=== PATIENT | female | born 1945 | race Caucasian/White ===

== ENCOUNTER 2017-12-25 17:29 | Outpatient (RCR) | payer MEDICARE, OTHER, SELFPAY | END 2018-01-01 23:59 | LOC: DC 17:29 | PROVIDERS: Family Provider Family Medicine; PCP Family Medicine; Visit Provider Family Medicine | DX: E11.9 Type 2 diabetes mellitus without complications (principal); Z71.3 Dietary counseling and surveillance | CPT/HCPCS: G0109 ==

== ENCOUNTER → 2021-07-17 11:52 | Outpatient (CLI) | payer MEDICARE, OTHER, SELFPAY ==
--- NOTE | 2021-07-17 11:57 | US_ITS ---
STUDY: RENAL ULTRASOUND - COMPLETE REASON FOR EXAM: Female, 75 years old. Chronic UTI. TECHNIQUE: Ultrasound evaluation of the kidneys was performed with real-time and static rosen-scale imaging. COMPARISON: None. FINDINGS: RIGHT KIDNEY: Normal location of the right kidney, which is normal in size. The right kidney measures 8.7 cm x 4.8 cm x 3.9 cm. There is a normal cortex of the right kidney. The renal cortex measures 1.0 cm. There is no right renal mass or cyst. There are no right renal calculi. There is no right hydronephrosis. DISTAL RIGHT URETER: There is non-visualization of the distal right ureter. There is no demonstrated right ureterovesical junction calculus. There is a visualized right ureteral jet. LEFT KIDNEY: Normal location of the left kidney, which is normal in size. The left kidney measures 9.7 cm x 4.1 cm x 5.1 cm. There is a normal cortex of the left kidney. The renal cortex measures 1.3 cm. There is a 2 cm x 1.9 cm x 1.2 cm cyst. There are no left renal calculi. There is no left hydronephrosis. DISTAL LEFT URETER: There is non-visualization of the distal left ureter. There is no demonstrated left ureterovesical junction calculus. There is a visualized left ureteral jet. BLADDER: The distended urinary bladder has a volume of 60 ml. There is a normal wall thickness of the distended urinary bladder. There is no demonstrated mass within the urinary bladder. There are no demonstrated bladder calculi. US/Kidney and Bladder IMPRESSION: Small left renal cyst. Electronically Signed: Alphonso Gasca MD at 15:43 EDT , Service support ,
== END ==
PROVIDERS: PCP Family Medicine Geriatric Medicine; Referring Provider Urology; Visit Provider Urology
DX: N39.0 Urinary tract infection, site not specified (principal)
CPT/HCPCS: 76770

== ENCOUNTER → 2021-10-10 16:27 | Outpatient (CLI) | payer MEDICARE, OTHER, SELFPAY ==
[2021-10-10 17:11] LABS: Absolute Lymphocyte Count 3.68 X10^3/uL (0.83-4.51); Absolute Neutrophil Count 4.2 X10^3/uL (2.0-7.7); Basophil# 0.06 X10^3/uL; Basophil% 0.7 % (0-1); Eosinophil# 0.26 X10^3/uL; Eosinophils% 2.8 % (0-5); Hematocrit 37.3 % (37-47); Hemoglobin 12.4 g/dL (12.0-15.0); Lymphocyte # 3.68 X10^3/ul (0.83-4.51); Lymphocyte % 40.1 % (19-41); Mean Corp Hgb Conc 33.2 g/dL (32-36); Mean Corpuscular Hgb 29.3 pg (27.0-32.0); Mean Corpuscular Volume 88.2 fL (81-99); Mean Platelet Vol. 8.8 fl (6.2-12.0); Monocyte# 0.92 X10^3/uL; NRBC Flagged by Analyzer 0 % (0-5); Neutrophil # 4.22 X10^3/uL (2.7-7.7); Neutrophil % 46.1 % (47-70); Platelet Count 373 K/mm3 (150-450); RBC Distribution Width CV 14.6 % (11.6-14.6); RBC Distribution Width SD 47.1 fl (35.1-43.9); Red Blood Count 4.23 M/mm3 (4.2-5.4); White Blood Count 9.2 K/mm3 (4.4-11.0)
[2021-10-10 17:58] LABS: ALB/GLOB Ratio 0.8 RATIO (0.9-2.4); AST(SGOT) 15 U/L (15-37); Alanine Aminotransfer ALT/SGPT 26 U/L (13-56); Albumin, Serum 3.4 g/dL (3.2-5.0); Alkaline Phosphatase 105 U/L (45-117); Anion Gap 8 (5-15); BUN 33 mg/dL (7-18); BUN/Creat Ratio 30.3 RATIO (10-20); Calcium,Total 8.9 mg/dL (8.5-10.1); Chloride 103 mmol/L (98-107); Creatinine, Serum 1.09 mg/dL (0.55-1.02); EST Glomerular Filtration Rate 52 mL/min (>60); Est Glom Filt Rate - Afr Amer 63 mL/min (>60); Globulin 4.1 g/dL (2.2-4.2); Glucose 126 mg/dL (74-106); Potassium 3.4 mmol/L (3.5-5.1); Protein, Total 7.5 g/dL (6.4-8.2); Sodium Level 138 mmol/L (136-145); Thyroid Stim Hormone (TSH) 0.01 uIU/mL (0.358-3.74)
== END ==
PROVIDERS: PCP Family Medicine Geriatric Medicine; Visit Provider Family Medicine Geriatric Medicine
DX: E55.9 Vitamin D deficiency, unspecified (principal); R53.83 Other fatigue
CPT/HCPCS: 36415; 80053; 82306; 84443; 85025

== ENCOUNTER 2022-01-15 13:24 | Outpatient (CLI) | payer MEDICARE, OTHER, SELFPAY ==
[2022-01-15 14:17] LABS: Absolute Lymphocyte Count 3.29 X10^3/uL (0.83-4.51); Absolute Neutrophil Count 4.7 X10^3/uL (2.0-7.7); Basophil# 0.05 X10^3/uL; Basophil% 0.6 % (0-1); Eosinophil# 0.24 X10^3/uL; Eosinophils% 2.7 % (0-5); Hematocrit 43.4 % (37-47); Hemoglobin 14.4 g/dL (12.0-15.0); Lymphocyte # 3.29 X10^3/ul (0.83-4.51); Lymphocyte % 36.8 % (19-41); Mean Corp Hgb Conc 33.2 g/dL (32-36); Mean Corpuscular Hgb 30.6 pg (27.0-32.0); Mean Corpuscular Volume 92.3 fL (81-99); Mean Platelet Vol. 9.6 fl (6.2-12.0); Monocyte# 0.66 X10^3/uL; Monocyte% 7.4 % (0-10); NRBC Flagged by Analyzer 0 % (0-5); Neutrophil # 4.68 X10^3/uL (2.7-7.7); Neutrophil % 52.2 % (47-70); Platelet Count 322 K/mm3 (150-450); RBC Distribution Width CV 14.5 % (11.6-14.6)
[2022-01-15 14:31] LABS: Vitamin D,25 Hydroxy 36.1 ng/mL
[2022-01-15 14:35] LABS: ALB/GLOB Ratio 0.8 RATIO (0.9-2.4); AST(SGOT) 32 U/L (15-37); Alanine Aminotransfer ALT/SGPT 39 U/L (13-56); Albumin, Serum 3.7 g/dL (3.2-5.0); Alkaline Phosphatase 119 U/L (45-117); Anion Gap 11 (5-15); BUN 23 mg/dL (7-18); BUN/Creat Ratio 21.9 RATIO (10-20); Calcium,Total 8.9 mg/dL (8.5-10.1); Chloride 104 mmol/L (98-107); Creatinine, Serum 1.05 mg/dL (0.55-1.02); EST Glomerular Filtration Rate 54 mL/min (>60); Est Glom Filt Rate - Afr Amer 65 mL/min (>60); Globulin 4.6 g/dL (2.2-4.2); Glucose 137 mg/dL (74-106); Potassium 4.5 mmol/L (3.5-5.1); Protein, Total 8.3 g/dL (6.4-8.2); Sodium Level 135 mmol/L (136-145); Thyroid Stim Hormone (TSH) 0.09 uIU/mL (0.358-3.74)
== END 2022-01-15 23:59 | disposition home or self-care (01) ==
LOC: POLAB3 13:26
PROVIDERS: PCP Family Medicine Geriatric Medicine; Visit Provider Family Medicine Geriatric Medicine
DX: E11.65 Type 2 diabetes mellitus with hyperglycemia (principal); E55.9 Vitamin D deficiency, unspecified; R53.83 Other fatigue
CPT/HCPCS: 36415; 80053; 82306; 84443; 85025

== ENCOUNTER 2022-03-02 13:17 | Outpatient (CLI) | payer MEDICARE, OTHER, SELFPAY ==
[2022-03-02 14:56] LABS: Thyroid Stim Hormone (TSH) 0.51 uIU/mL (0.358-3.74)
== END 2022-03-02 23:59 | disposition home or self-care (01) ==
LOC: LAB 13:21
PROVIDERS: PCP Family Medicine Geriatric Medicine; Referring Provider Family Medicine Geriatric Medicine; Visit Provider Family Medicine Geriatric Medicine
DX: E03.9 Hypothyroidism, unspecified (principal)
CPT/HCPCS: 36415; 84443

== ENCOUNTER → 2022-04-16 | Outpatient (CLI) | payer MEDICARE, OTHER, SELFPAY ==
[2022-04-16 17:31] LABS: Absolute Lymphocyte Count 3.54 X10^3/uL (0.83-4.51); Absolute Neutrophil Count 4.7 X10^3/uL (2.0-7.7); Basophil# 0.05 X10^3/uL; Basophil% 0.5 % (0-1); Eosinophil# 0.21 X10^3/uL; Eosinophils% 2.2 % (0-5); Hematocrit 40.7 % (37-47); Hemoglobin 13.4 g/dL (12.0-15.0); Lymphocyte # 3.54 X10^3/ul (0.83-4.51); Lymphocyte % 37.7 % (19-41); Mean Corp Hgb Conc 32.9 g/dL (32-36); Mean Corpuscular Hgb 30.4 pg (27.0-32.0); Mean Corpuscular Volume 92.3 fL (81-99); Mean Platelet Vol. 9.6 fl (6.2-12.0); Monocyte# 0.85 X10^3/uL; Monocyte% 9.1 % (0-10); NRBC Flagged by Analyzer 0 % (0-5); Neutrophil # 4.71 X10^3/uL (2.7-7.7); Neutrophil % 50.2 % (47-70); Platelet Count 366 K/mm3 (150-450); RBC Distribution Width CV 14.8 % (11.6-14.6); RBC Distribution Width SD 50.2 fl (35.1-43.9); Red Blood Count 4.41 M/mm3 (4.2-5.4); White Blood Count 9.4 K/mm3 (4.4-11.0)
[2022-04-16 17:42] LABS: AST(SGOT) 18 U/L (15-37); Alanine Aminotransfer ALT/SGPT 27 U/L (13-56); Albumin, Serum 3.8 g/dL (3.2-5.0); Alkaline Phosphatase 95 U/L (45-117); Anion Gap 7 (5-15); BUN 27 mg/dL (7-18); BUN/Creat Ratio 23.7 RATIO (10-20); Chloride 102 mmol/L (98-107); Creatinine, Serum 1.14 mg/dL (0.55-1.02); EST Glomerular Filtration Rate 49 mL/min (>60); Est Glom Filt Rate - Afr Amer 59 mL/min (>60); Globulin 3.9 g/dL (2.2-4.2); Glucose 113 mg/dL (74-106); Potassium 3.9 mmol/L (3.5-5.1); Protein, Total 7.7 g/dL (6.4-8.2); Sodium Level 137 mmol/L (136-145); Thyroid Stim Hormone (TSH) 0.99 uIU/mL (0.358-3.74)
== END | disposition home or self-care (01) ==
LOC: POLAB3 13:20
PROVIDERS: PCP Family Medicine Geriatric Medicine; Visit Provider Family Medicine Geriatric Medicine
DX: E11.65 Type 2 diabetes mellitus with hyperglycemia (principal); I10 Essential (primary) hypertension; E55.9 Vitamin D deficiency, unspecified
CPT/HCPCS: 36415; 80053; 84443; 85025

== ENCOUNTER → 2022-07-18 | Outpatient (CLI) | payer MEDICARE, OTHER, SELFPAY ==
[2022-07-18 12:39] LABS: Absolute Lymphocyte Count 3.05 X10^3/uL (0.83-4.51); Absolute Neutrophil Count 4.9 X10^3/uL (2.0-7.7); Basophil# 0.05 X10^3/uL; Basophil% 0.6 % (0-1); Eosinophil# 0.21 X10^3/uL; Eosinophils% 2.3 % (0-5); Hematocrit 40.7 % (37-47); Lymphocyte # 3.05 X10^3/ul (0.83-4.51); Lymphocyte % 33.6 % (19-41); Mean Corp Hgb Conc 31.9 g/dL (32-36); Mean Corpuscular Hgb 30.2 pg (27.0-32.0); Mean Corpuscular Volume 94.7 fL (81-99); Mean Platelet Vol. 9.9 fl (6.2-12.0); Monocyte# 0.81 X10^3/uL; Monocyte% 8.9 % (0-10); NRBC Flagged by Analyzer 0 % (0-5); Neutrophil # 4.94 X10^3/uL (2.7-7.7); Neutrophil % 54.3 % (47-70); Platelet Count 364 K/mm3 (150-450); RBC Distribution Width CV 14.5 % (11.6-14.6); RBC Distribution Width SD 50.2 fl (35.1-43.9); White Blood Count 9.1 K/mm3 (4.4-11.0)
[2022-07-18 13:11] LABS: Vitamin D,25 Hydroxy 30.8 ng/mL
[2022-07-18 13:48] LABS: AST(SGOT) 15 U/L (15-37); Alanine Aminotransfer ALT/SGPT 23 U/L (13-56); Albumin, Serum 3.6 g/dL (3.2-5.0); Alkaline Phosphatase 90 U/L (45-117); Anion Gap 7 (5-15); BUN 15 mg/dL (7-18); BUN/Creat Ratio 14.7 RATIO (10-20); Calcium,Total 8.2 mg/dL (8.5-10.1); Chloride 104 mmol/L (98-107); Creatinine, Serum 1.02 mg/dL (0.55-1.02); EST Glomerular Filtration Rate 56 mL/min (>60); Est Glom Filt Rate - Afr Amer 67 mL/min (>60); Globulin 3.7 g/dL (2.2-4.2); Glucose 136 mg/dL (74-106); Potassium 3.5 mmol/L (3.5-5.1); Protein, Total 7.3 g/dL (6.4-8.2); Sodium Level 137 mmol/L (136-145); Thyroid Stim Hormone (TSH) 2.35 uIU/mL (0.358-3.74)
== END | disposition home or self-care (01) ==
LOC: POLAB3 10:31
PROVIDERS: PCP Family Medicine Geriatric Medicine; Visit Provider Family Medicine Geriatric Medicine
DX: E11.65 Type 2 diabetes mellitus with hyperglycemia (principal); E55.9 Vitamin D deficiency, unspecified; R53.83 Other fatigue
CPT/HCPCS: 36415; 80053; 82306; 84443; 85025

== ENCOUNTER → 2022-10-11 | Outpatient (CLI) | payer MEDICARE, OTHER, SELFPAY ==
[2022-10-11 12:31] LABS: Absolute Lymphocyte Count 4.23 X10^3/uL (0.83-4.51); Basophil# 0.06 X10^3/uL; Basophil% 0.6 % (0-1); Eosinophil# 0.21 X10^3/uL; Hematocrit 41.6 % (37-47); Hemoglobin 13.9 g/dL (12.0-15.0); Lymphocyte # 4.23 X10^3/ul (0.83-4.51); Lymphocyte % 41.1 % (19-41); Mean Corp Hgb Conc 33.4 g/dL (32-36); Mean Corpuscular Hgb 31.2 pg (27.0-32.0); Mean Corpuscular Volume 93.3 fL (81-99); Mean Platelet Vol. 8.5 fl (6.2-12.0); Monocyte# 0.77 X10^3/uL; Monocyte% 7.5 % (0-10); NRBC Flagged by Analyzer 0 % (0-5); Neutrophil # 5.01 X10^3/uL (2.7-7.7); Neutrophil % 48.6 % (47-70); Platelet Count 370 K/mm3 (150-450); RBC Distribution Width CV 15.1 % (11.6-14.6); RBC Distribution Width SD 51.9 fl (35.1-43.9); Red Blood Count 4.46 M/mm3 (4.2-5.4); White Blood Count 10.3 K/mm3 (4.4-11.0)
[2022-10-11 13:04] LABS: Vitamin D,25 Hydroxy 33.3 ng/mL
[2022-10-11 13:10] LABS: Protein, Urine (Random) 49.5 mg/dL (<11.9); Protein:Creat Ratio 186 mg/g CRE (0-200)
[2022-10-11 13:12] LABS: AST(SGOT) 18 U/L (15-37); Alanine Aminotransfer ALT/SGPT 24 U/L (13-56); Alkaline Phosphatase 103 U/L (45-117); Anion Gap 9 (5-15); BUN 20 mg/dL (7-18); BUN/Creat Ratio 22.5 RATIO (10-20); Calcium,Total 9.3 mg/dL (8.5-10.1); Chloride 101 mmol/L (98-107); Creatinine, Serum 0.89 mg/dL (0.55-1.02); EST Glomerular Filtration Rate 65 mL/min (>60); Est Glom Filt Rate - Afr Amer 79 mL/min (>60); Globulin 4.1 g/dL (2.2-4.2); Glucose 97 mg/dL (74-106); Protein, Total 8.1 g/dL (6.4-8.2); Sodium Level 134 mmol/L (136-145); Thyroid Stim Hormone (TSH) 4.88 uIU/mL (0.358-3.74)
== END | disposition home or self-care (01) ==
PROVIDERS: Internal Medicine Nephrology; PCP Family Medicine Geriatric Medicine; Visit Provider Family Medicine Geriatric Medicine
DX: E11.65 Type 2 diabetes mellitus with hyperglycemia (principal); N18.31 Chronic kidney disease, stage 3a; I12.9 Hypertensive chronic kidney disease with stage 1 through stage 4 chronic kidney disease, or unspecified chronic kidney disease; E55.9 Vitamin D deficiency, unspecified; N39.0 Urinary tract infection, site not specified
CPT/HCPCS: 36415; 80053; 82306; 82570; 84156; 84443; 85025; 87077; 87086; 87088; 87186

== ENCOUNTER 2022-10-14 08:58 | Emergency (ER) | payer MEDICARE, OTHER, SELFPAY ==
[2022-10-14 09:02] VITALS: BP 162/96; PULSE 64; RESP 16; TEMP 36.4; O2SAT 100; BMI 32.9
--- NOTE | 2022-10-14 09:40 | EX.ED.UPPERE ---
HPI History of Present Illness Chief Complaint: Wound Informant: patient Occured/Mechanism Mechanism/Context: Yes other see comment below Comment: Her dog and a neighbors dog were fighting, she put her hand in between them to try to break it up, and sustained a laceration to her right middle finger when the dog's tooth dragged and tore open my finger Onset/Context/Timing Onset: Today Context: Sudden Onset Timing: Continuous Quality of Pain: - (Sore) Location: Right middle finger Current Severity: Mild Maximum Severity: Moderate Worsened by: Palpation Relieved by: Leaving alone Associated Symptoms Associated Symptoms: Negative for Parasthesia, Weakness or Loss of Funtion Narrative Narrative: Patient was trying to break up a fight between her dog and another. Both dogs are pets, neither one of them is ill, they were agitated because they were fighting with each other. [id number]. Tetanus Immunization: >10 years [facility] Medical History (Updated 10/14/22 @ 09:[address] Timothy Kim MD) Anxiety Hypertension Hypothyroid Home Medications atenolol 100 mg tablet 100 mg PO DAILY 09/30/13 [History Last Taken 05/13/15 07:30] hydrochlorothiazide 25 mg tablet 12.5 mg PO DAILY 09/30/13 [History Last Taken Unknown] levothyroxine 112 mcg tablet 112 mcg PO QHS 09/30/13 [History Last Taken Unknown] multivitamin,px-iayc-wzwwoieh 27 mg-0.4 mg tablet (Therems-M) 1 tab PO DAILY 09/30/13 [History Last Taken Unknown] fluoxetine 20 mg capsule 20 mg PO DAILY 05/10/15 [History Last Taken Unknown] vitamin B complex 1 ea PO DAILY 05/10/15 [History Last Taken Unknown] albuterol sulfate 90 mcg/actuation aerosol inhaler (Ventolin HFA) 1 - 2 puff inhalation Q4H PRN PRN Wheezing ##1 11/25/16 [Rx Last Taken Unknown] amoxicillin 875 mg-potassium clavulanate 125 mg tablet 875 mg PO Q12H #20 TABLETS 10/14/22 [Rx Last Taken Unknown] Allergy/AdvReac Type Severity Reaction Status Date / Time lisinopril Allergy Swelling Verified 10/14/22 09:01 atorvastatin calcium AdvReac Other Verified 10/14/22 09:01 [From Lipitor] cholestyramine AdvReac Upset Verified 10/14/22 09:01 [From Questran] Stomach duloxetine HCl AdvReac Other Verified 10/14/22 09:01 [From Cymbalta] losartan potassium AdvReac Mucosal Verified 10/14/22 09:01 [From Cozaar] lesions propoxyphene HCl AdvReac Other Verified 10/14/22 09:01 [From Darvon] simvastatin [From Zocor] AdvReac Other Verified 10/14/22 09:01 sucrose [From Questran] AdvReac Upset Verified 10/14/22 09:01 Stomach sulfasalazine AdvReac Upset Verified 10/14/22 09:01 [From Azulfidine] Stomach zolmitriptan [From Zomig] AdvReac Other Verified 10/14/22 09:01 Social History Smoking Status: Never smoker ROS ROS ED Constitutional Constitutional ED: Denies chills or fever(s) Musculoskeletal Musculoskeletal: Reports extremity pain; Denies neck pain Integumentary Reports wounds; Denies Abrasions or rash Neurologic Neurologic: Denies paresthesias or weakness EXAM Physical Exam Const Vital Signs: 10/14/22 09:02 Temperature 97.6 F L Temperature Source Temporal Pulse Rate 64 Respiratory Rate 16 Blood Pressure 162/96 H Blood Pressure Mean 118 Pulse Ox 100 Oxygen Delivery Method Room Air Positive well nourished and well developed General Appearance ED: well developed and NAD Neck full ROM and supple Back/Spine normal ROM and normal to inspection Extremity full ROM Extremity Narrative: Right middle finger laceration to the proximal phalanx. See below. Full range of motion including FDP, FDS, extensor. No bone exposed. Superficial soft tissue tenderness. Neuro oriented x3, no focal motor deficits and no sensory deficits noted Sensorium / Orientation: alert Psych mental status grossly normal and thought process normal Mood & Affect: anxious Skin Skin Narrative: 4 cm curved laceration creating a flap into subcutaneous tissue about the dorsum and radial aspect of the right middle finger proximal phalanx. No gross contamination or bleeding. Entire extensor tendon complex including the central slip is visible within the wound, and intact throughout the fingers flexion-extension range without evidence of injury. Rashes: no rashes MDM MDM MDM Narrative Medical decision making narrative: This flap wound with tendon exposed was repaired see the procedure note. It was done still fairly loosely but I wanted to also make sure that the tendon was well covered. She was placed on Augmentin, given a bulky dressing with bacitracin and instructions for follow-up for wound reevaluation and suture removal. Procedures Lacerations Right middle finger: Length: 4 cm Depth: Tendon Shape: Flap Prep: Sterile Conditions and Chlorhexadine Laceration repair: Irrigated (High-pressure, sterile saline), Lidocaine (1%, 1.5cc after topical LET), Local, Skin sutures and Wound explored (No foreign material. Tendon exposed, does not appear injured throughout its length) Irrigated (ml): 80 Number of Sutures/Kaplan: 7 Suture Information: Ethilon, Simple and 5-0 Comment: Loosely approximated, however skin edges opposed due to need for complete tendon coverage Discharge Plan Triage Chief Complaint: Wound ED Provider: Timothy Kim Dx/Rx/DC Orders Clinical Impression: Laceration of right middle finger w/o foreign body w/o damage to nail, Open wound of right middle finger due to dog bite, Immunization, tetanus-diphtheria Instructions: ED Dog Bite, ED Laceration, Hand: All Closures Prescriptions: New amoxicillin-pot clavulanate [amoxicillin-pot clavulanate] 875 MG tablet 875 mg PO Q12H Qty: 20 0RF No Action atenolol 100 MG tablet 100 mg PO DAILY hydrochlorothiazide 25 MG tablet 12.5 mg PO DAILY Label Comments: FOR HIGH BP levothyroxine 112 MCG tablet 112 mcg PO QHS multivitamin,pi-wqzu-dlmqquja [Therems-M] 1 TABLET tablet 1 tab PO DAILY fluoxetine 20 MG capsule 20 mg PO DAILY vitamin B complex 1 EACH capsule 1 ea PO DAILY albuterol sulfate [Ventolin HFA] 1 INHALER inhaler 1 - 2 puff inhalation Q4H PRN PRN (Reason: Wheezing) Qty: 1 0RF Primary Care Provider: Hussein Shaw Chi Referrals: Hussein Shaw Chi, MD [Primary Care Provider] - 10-14 Days suture removal Disposition Disposition: Home, Self Care
[2022-10-14] MEDS: Lidocaine/Epi/Tetracaine 50 ML 1 APPLIC TOPICAL (09:48)
[2022-10-14] MEDS: Diphth,Pertuss(Acell),Tet Vac 0.5 ML Vial IM (09:48)
[2022-10-14] MEDS: Amox/Clavulanate 875 MG Tablet PO (10:42)
== END 2022-10-14 10:46 | disposition home or self-care (01) ==
PROVIDERS: Emergency Provider Emergency Medicine; PCP Family Medicine Geriatric Medicine; Visit Provider Emergency Medicine
DX: S61.212A Laceration without foreign body of right middle finger without damage to nail, initial encounter (principal); W54.0XXA Bitten by dog, initial encounter; Z23 Encounter for immunization; I10 Essential (primary) hypertension; E03.9 Hypothyroidism, unspecified; F41.9 Anxiety disorder, unspecified; Z79.890 Hormone replacement therapy; Z79.899 Other long term (current) drug therapy
CPT/HCPCS: 12002; 90471; 90715; 99283

== ENCOUNTER → 2022-11-21 | Outpatient (CLI) | payer MEDICARE, OTHER, SELFPAY ==
[2022-11-21 13:54] LABS: Thyroid Stim Hormone (TSH) 3.57 uIU/mL (0.358-3.74)
== END | disposition home or self-care (01) ==
LOC: POLAB3 09:58
PROVIDERS: PCP Family Medicine Geriatric Medicine; Visit Provider Family Medicine Geriatric Medicine
DX: E03.9 Hypothyroidism, unspecified (principal)
CPT/HCPCS: 36415; 84443

== ENCOUNTER → 2023-04-05 | Outpatient (CLI) | payer MEDICARE, OTHER, SELFPAY ==
[2023-04-05 13:39] LABS: Absolute Lymphocyte Count 2.71 X10^3/uL (0.83-4.51); Absolute Neutrophil Count 5.1 X10^3/uL (2.0-7.7); Basophil# 0.06 X10^3/uL; Basophil% 0.7 % (0-1); Eosinophils% 2.3 % (0-5); Hemoglobin 12.7 g/dL (12.0-15.0); Lymphocyte # 2.71 X10^3/ul (0.83-4.51); Lymphocyte % 31.3 % (19-41); Mean Corp Hgb Conc 32.6 g/dL (32-36); Mean Corpuscular Hgb 30.9 pg (27.0-32.0); Mean Corpuscular Volume 94.9 fL (81-99); Mean Platelet Vol. 9.4 fl (6.2-12.0); Monocyte# 0.55 X10^3/uL; Monocyte% 6.3 % (0-10); NRBC Flagged by Analyzer 0 % (0-5); Neutrophil # 5.11 X10^3/uL (2.7-7.7); Neutrophil % 58.9 % (47-70); Platelet Count 343 K/mm3 (150-450); RBC Distribution Width CV 14.7 % (11.6-14.6); RBC Distribution Width SD 51.4 fl (35.1-43.9); Red Blood Count 4.11 M/mm3 (4.2-5.4); White Blood Count 8.7 K/mm3 (4.4-11.0)
[2023-04-05 13:46] LABS: Vitamin D,25 Hydroxy 42.5 ng/mL
[2023-04-05 13:55] LABS: ALB/GLOB Ratio 1.1 RATIO (0.9-2.4); AST(SGOT) 14 U/L (15-37); Alanine Aminotransfer ALT/SGPT 26 U/L (13-56); Albumin, Serum 3.7 g/dL (3.2-5.0); Alkaline Phosphatase 89 U/L (45-117); Anion Gap 8 (5-15); BUN 23 mg/dL (7-18); Calcium,Total 8.5 mg/dL (8.5-10.1); Chloride 105 mmol/L (98-107); Creatinine, Serum 1.21 mg/dL (0.55-1.02); EST Glomerular Filtration Rate 46 mL/min (>60); Est Glom Filt Rate - Afr Amer 55 mL/min (>60); Globulin 3.4 g/dL (2.2-4.2); Glucose 175 mg/dL (74-106); Potassium 3.7 mmol/L (3.5-5.1); Protein, Total 7.1 g/dL (6.4-8.2); Sodium Level 136 mmol/L (136-145); Thyroid Stim Hormone (TSH) 9.07 uIU/mL (0.358-3.74)
== END | disposition home or self-care (01) ==
LOC: POLAB3 10:49
PROVIDERS: PCP Family Medicine Geriatric Medicine; Visit Provider Family Medicine Geriatric Medicine
DX: I10 Essential (primary) hypertension (principal); E11.65 Type 2 diabetes mellitus with hyperglycemia; E55.9 Vitamin D deficiency, unspecified
CPT/HCPCS: 36415; 80053; 82306; 84443; 85025; 87086; 87088; 87186

== ENCOUNTER → 2023-05-27 | Outpatient (CLI) | payer MEDICARE, OTHER, SELFPAY ==
[2023-05-27 11:34] LABS: Thyroid Stim Hormone (TSH) 2.67 uIU/mL (0.358-3.74)
== END | disposition home or self-care (01) ==
LOC: LAB 10:24
PROVIDERS: PCP Family Medicine Geriatric Medicine; Referring Provider Family Medicine Geriatric Medicine; Visit Provider Family Medicine Geriatric Medicine
DX: E03.9 Hypothyroidism, unspecified (principal)
CPT/HCPCS: 36415; 84443

== ENCOUNTER → 2023-06-21 | Outpatient (CLI) | payer MEDICARE, OTHER, SELFPAY ==
[2023-06-21 12:38] LABS: Albumin, Serum 3.4 g/dL (3.2-5.0); BUN 21 mg/dL (7-18); BUN/Creat Ratio 19.3 RATIO (10-20); Calcium,Total 8.4 mg/dL (8.5-10.1); Chloride 104 mmol/L (98-107); Creatinine, Serum 1.09 mg/dL (0.55-1.02); EST Glomerular Filtration Rate 52 mL/min (>60); Est Glom Filt Rate - Afr Amer 62 mL/min (>60); Glucose 159 mg/dL (74-106); Phosphorus 2.8 mg/dL (2.5-4.9); Potassium 3.4 mmol/L (3.5-5.1); Sodium Level 137 mmol/L (136-145)
[2023-06-22 10:28] LABS: Protein, Urine (Random) 30.6 mg/dL (<11.9); Protein:Creat Ratio 543 mg/g CRE (0-200)
== END | disposition home or self-care (01) ==
LOC: LAB 11:15
PROVIDERS: PCP Family Medicine Geriatric Medicine; Referring Provider Internal Medicine Nephrology; Visit Provider Internal Medicine Nephrology
DX: N18.31 Chronic kidney disease, stage 3a (principal); R80.9 Proteinuria, unspecified
CPT/HCPCS: 36415; 80069; 82570; 84156

== ENCOUNTER → 2023-06-22 | Outpatient (CLI) | payer MEDICARE, OTHER, SELFPAY | END | disposition home or self-care (01) | LOC: LAB 09:48 | PROVIDERS: PCP Family Medicine Geriatric Medicine; Referring Provider Internal Medicine Nephrology; Visit Provider Internal Medicine Nephrology | DX: N18.31 Chronic kidney disease, stage 3a (principal); R80.9 Proteinuria, unspecified ==

== ENCOUNTER → 2023-10-21 | Outpatient (CLI) | payer MEDICARE, OTHER, SELFPAY ==
[2023-10-21 11:17] LABS: Absolute Lymphocyte Count 2.84 X10^3/uL (0.83-4.51); Absolute Neutrophil Count 6.4 X10^3/uL (2.0-7.7); Basophil# 0.07 X10^3/uL; Basophil% 0.7 % (0-1); Eosinophil# 0.29 X10^3/uL; Eosinophils% 2.8 % (0-5); Hematocrit 41.1 % (37-47); Hemoglobin 13.4 g/dL (12.0-15.0); Lymphocyte # 2.84 X10^3/ul (0.83-4.51); Lymphocyte % 27.3 % (19-41); Mean Corp Hgb Conc 32.6 g/dL (32-36); Mean Corpuscular Hgb 30.9 pg (27.0-32.0); Mean Corpuscular Volume 94.7 fL (81-99); Mean Platelet Vol. 9.1 fl (6.2-12.0); Monocyte# 0.74 X10^3/uL; Monocyte% 7.1 % (0-10); NRBC Flagged by Analyzer 0 % (0-5); Neutrophil # 6.44 X10^3/uL (2.7-7.7); Neutrophil % 61.7 % (47-70); Platelet Count 394 K/mm3 (150-450); RBC Distribution Width CV 14.4 % (11.6-14.6); RBC Distribution Width SD 50.2 fl (35.1-43.9); Red Blood Count 4.34 M/mm3 (4.2-5.4); White Blood Count 10.4 K/mm3 (4.4-11.0)
[2023-10-21 11:31] LABS: Vitamin D,25 Hydroxy 37.2 ng/mL
[2023-10-21 11:42] LABS: ALB/GLOB Ratio 0.9 RATIO (0.9-2.4); AST(SGOT) 17 U/L (15-37); Alanine Aminotransfer ALT/SGPT 25 U/L (13-56); Albumin, Serum 3.5 g/dL (3.2-5.0); Alkaline Phosphatase 102 U/L (45-117); Anion Gap 6 (5-15); BUN 23 mg/dL (7-18); BUN/Creat Ratio 19.3 RATIO (10-20); Calcium,Total 8.5 mg/dL (8.5-10.1); Chloride 104 mmol/L (98-107); Creatinine, Serum 1.19 mg/dL (0.55-1.02); EST Glomerular Filtration Rate 47 mL/min (>60); Est Glom Filt Rate - Afr Amer 56 mL/min (>60); Glucose 176 mg/dL (74-106); Potassium 3.9 mmol/L (3.5-5.1); Protein, Total 7.5 g/dL (6.4-8.2); Sodium Level 136 mmol/L (136-145); Thyroid Stim Hormone (TSH) 1.51 uIU/mL (0.358-3.74)
== END | disposition home or self-care (01) ==
LOC: POLAB3 10:28
PROVIDERS: PCP Family Medicine Geriatric Medicine; Visit Provider Family Medicine Geriatric Medicine
DX: I10 Essential (primary) hypertension (principal); E11.65 Type 2 diabetes mellitus with hyperglycemia; E55.9 Vitamin D deficiency, unspecified
CPT/HCPCS: 36415; 80053; 82306; 84443; 85025

== ENCOUNTER → 2024-04-22 | Outpatient (CLI) | payer MEDICARE, OTHER, SELFPAY ==
[2024-04-22 15:04] LABS: Absolute Lymphocyte Count 2.88 X10^3/uL (0.83-4.51); Absolute Neutrophil Count 5.1 X10^3/uL (2.0-7.7); Basophil# 0.06 X10^3/uL; Basophil% 0.7 % (0-1); Eosinophil# 0.33 X10^3/uL; Eosinophils% 3.6 % (0-5); Hematocrit 40.4 % (37-47); Hemoglobin 12.9 g/dL (12.0-15.0); Lymphocyte # 2.88 X10^3/ul (0.83-4.51); Lymphocyte % 31.7 % (19-41); Mean Corp Hgb Conc 31.9 g/dL (32-36); Mean Corpuscular Hgb 29.5 pg (27.0-32.0); Mean Corpuscular Volume 92.2 fL (81-99); Mean Platelet Vol. 8.9 fl (6.2-12.0); Monocyte# 0.68 X10^3/uL; Monocyte% 7.5 % (0-10); NRBC Flagged by Analyzer 0 % (0-5); Neutrophil # 5.07 X10^3/uL (2.7-7.7); Neutrophil % 55.8 % (47-70); Platelet Count 366 K/mm3 (150-450); RBC Distribution Width CV 14.8 % (11.6-14.6); RBC Distribution Width SD 50.4 fl (35.1-43.9); Red Blood Count 4.38 M/mm3 (4.2-5.4); White Blood Count 9.1 K/mm3 (4.4-11.0)
[2024-04-22 15:38] LABS: Vitamin D,25 Hydroxy 36.1 ng/mL
[2024-04-22 15:44] LABS: ALB/GLOB Ratio 0.9 RATIO (0.9-2.4); AST(SGOT) 17 U/L (15-37); Alanine Aminotransfer ALT/SGPT 22 U/L (13-56); Albumin, Serum 3.5 g/dL (3.2-5.0); Alkaline Phosphatase 97 U/L (45-117); Anion Gap 8 (5-15); BUN 18 mg/dL (7-18); BUN/Creat Ratio 16.2 RATIO (10-20); Calcium,Total 8.9 mg/dL (8.5-10.1); Chloride 105 mmol/L (98-107); Creatinine, Serum 1.11 mg/dL (0.55-1.02); EST Glomerular Filtration Rate 50 mL/min (>60); Est Glom Filt Rate - Afr Amer 61 mL/min (>60); Globulin 3.9 g/dL (2.2-4.2); Glucose 135 mg/dL (74-106); Potassium 4.1 mmol/L (3.5-5.1); Protein, Total 7.4 g/dL (6.4-8.2); Sodium Level 135 mmol/L (136-145)
== END | disposition home or self-care (01) ==
LOC: LAB 14:20
PROVIDERS: PCP Family Medicine Geriatric Medicine; Referring Provider Family Medicine Geriatric Medicine; Visit Provider Family Medicine Geriatric Medicine
DX: E11.65 Type 2 diabetes mellitus with hyperglycemia (principal); I10 Essential (primary) hypertension; E55.9 Vitamin D deficiency, unspecified
CPT/HCPCS: 36415; 80053; 82306; 84443; 85025

== ENCOUNTER → 2024-05-01 | Outpatient (CLI) | payer MEDICARE, OTHER, SELFPAY | END | disposition home or self-care (01) | LOC: PSN 10:34 | PROVIDERS: PCP Family Medicine Geriatric Medicine; Referring Provider Family Medicine Geriatric Medicine; Visit Provider Family Medicine Geriatric Medicine | DX: R06.02 Shortness of breath (principal) | CPT/HCPCS: 94060 ==

== ENCOUNTER → 2024-05-25 | Outpatient (CLI) | payer MEDICARE, OTHER, SELFPAY ==
--- NOTE | 2024-05-25 12:47 | ECHOD_ITS ---
Reason For Study: SOB Procedure This was a 2D Doppler, Color Flow transthoracic echocardiogram. Exam performed in department. Left Ventricle Normal LV size. Mild concentric left ventricular hypertrophy. The left ventricular ejection fraction is 65 %. Normal diastology for age. Right Ventricle Normal right ventricle. Atria The left atrium is moderately enlarged. Normal right atrium. Mitral Valve Moderate (2+) mitral valve insufficiency. Tricuspid Valve Trivial tricuspid valve insufficiency. Unable to estimate RV systolic pressure due to insufficient tricuspid regurgitant envelope. Aortic Valve Mild aortic valve stenosis with mild regurgitation. Pulmonic Valve The pulmonic valve is not well visualized. Trivial pulmonic valve insufficiency. Great Vessels Normal sized aortic root. Pericardium/Pleural No pericardial effusion. MMode/2D Measurements & Calculations LVIDd: 4.7 cm IVSd: 1.3 cm LVOT diam: 1.9 cm LVIDs: 3.2 cm LVPWd: 1.1 cm LVOT area: 2.7 cm2 RVDd: 3.1 cm FS: 32.6 % Ao root diam: 2.9 cm LAV(MOD-bp): 58.7 ml LVAd ap4: 23.2 cm2 LAV(MOD-bp) Indexed: 30.5 ml/m2 LVLd ap4: 7.3 cm LAV(MOD-sp2): 65.0 ml EDV(MOD-sp4): 63.6 ml LAV(MOD-sp4): 51.5 ml EDV(sp4-el): 62.3 ml LVAs ap4: 12.8 cm2 LVLs ap4: 6.0 cm ESV(MOD-sp4): 25.3 ml ESV(sp4-el): 23.2 ml EF(MOD-sp4): 60.3 % EF(sp4-el): 62.8 % SV(MOD-sp4): 38.3 ml SV(sp4-el): 39.1 ml LA A4 area: 18.2 cm2 LA dimension(2D): 4.5 cm RA A4 area: 13.3 cm2 TAPSE: 2.1 cm Time Measurements MV dec time: 0.23 sec Doppler Measurements & Calculations MV E max dustin: 79.3 cm/sec Lat Peak E' Dustin: 7.3 cm/sec Med Peak E' Dustin: 5.7 cm/sec MV A max dustin: 95.3 cm/sec E/E' lat: 10.8 E/E' med: 13.9 MV E/A: 0.83 MV V2 max: 101.0 cm/sec Ao V2 max: 237.2 cm/sec MV max P.1 mmHg MV dec slope: 342.3 cm/sec2 Ao max P.5 mmHg MV V2 mean: 63.6 cm/sec Ao V2 mean: 160.3 cm/sec MV mean P.9 mmHg Ao mean P.2 mmHg MV V2 VTI: 36.8 cm Ao V2 VTI: 71.8 cm AV (velocity ratio): 0.67 MVA(VTI): 3.5 cm2 FLORENCE(I,D): 1.8 cm2 FLORENCE(V,D): 2.0 cm2 AI max dustin: 416.4 cm/sec LV V1 max: 172.4 cm/sec SV(LVOT): 130.6 ml AI max P.3 mmHg LV V1 max P.9 mmHg LV V1 mean P.4 mmHg AI dec slope: 262.9 cm/sec2 LV V1 mean: 129.1 cm/sec AI P1/2t: 463.9 msec LV V1 VTI: 48.1 cm PA V2 max: 95.6 cm/sec PA V2 mean: 66.2 cm/sec ECHO/Echo Complete Interpretation Summary Mild concentric left ventricular hypertrophy. The left ventricular ejection fraction is 65 %. The left atrium is moderately enlarged. Moderate (2+) mitral valve insufficiency. Mild aortic valve stenosis with mild regurgitation. Ordering Physician: Hussein Shaw Chi Referring Physician: Hussein Shaw Chi Performed By: Sharri Whittington RCS
== END | disposition home or self-care (01) ==
PROVIDERS: PCP Family Medicine Geriatric Medicine; Referring Provider Family Medicine Geriatric Medicine; Visit Provider Family Medicine Geriatric Medicine
DX: R06.02 Shortness of breath (principal)
CPT/HCPCS: 93306

== ENCOUNTER → 2024-07-15 | Outpatient (CLI) | payer MEDICARE, OTHER, SELFPAY ==
[2024-07-15 11:12] LABS: Albumin, Serum 3.3 g/dL (3.2-5.0); BUN 16 mg/dL (7-18); BUN/Creat Ratio 16.3 RATIO (10-20); Calcium,Total 8.8 mg/dL (8.5-10.1); Chloride 102 mmol/L (98-107); Creatinine, Serum 0.98 mg/dL (0.55-1.02); EST Glomerular Filtration Rate 58 mL/min (>60); Est Glom Filt Rate - Afr Amer 70 mL/min (>60); Glucose 164 mg/dL (74-106); Potassium 3.8 mmol/L (3.5-5.1); Sodium Level 135 mmol/L (136-145)
[2024-07-15 11:38] LABS: Protein, Urine (Random) 75.6 mg/dL (<11.9); Protein:Creat Ratio 595 mg/g CRE (0-200)
== END | disposition home or self-care (01) ==
PROVIDERS: PCP Family Medicine Geriatric Medicine; Referring Provider Internal Medicine Nephrology; Visit Provider Internal Medicine Nephrology
DX: N18.31 Chronic kidney disease, stage 3a (principal); R80.9 Proteinuria, unspecified
CPT/HCPCS: 36415; 80069; 82570; 84156

== ENCOUNTER → 2024-07-29 | Outpatient (CLI) | payer MEDICARE, OTHER, SELFPAY ==
--- NOTE | 2024-07-29 12:46 | STRESSREP ---
Stress Test Report Date: 07/29/2024 Procedure: Pharmacologic stress nuclear imaging study Indications: Dyspnea Consent: Per the patient Procedure: The patient underwent pharmacologic (Regadenoson 0.4mg ) evaluation with a peak heart rate of 73 beats per minute (53%predicted maximal heart rate) and a peak blood pressure of 142/84 mmHg. The baseline ECG demonstrated sinus rhythm with left bundle branch block. The peak pharmacologic ECG demonstrated no diagnostic changes. There were no cardiac dysrhythmias pretest, during pharmacologic infusion, or recovery. There was no complaint of chest discomfort during pharmacologic infusion or recovery. The patient was injected with 11.7 millicuries of technetium 99m Cardiolite and subsequently rest SPECT Cardiolite nuclear imaging was obtained in the horizontal long, vertical long, and short axis views. The patient underwent pharmacologic (Regadenoson) evaluation. The patient was injected with 33.9 millicuries of technetium 99m Cardiolite and subsequently stress SPECT Cardiolite nuclear imaging was obtained in the horizontal long, vertical long, and short axis views. A gated Cardiolite study at peak stress was obtained. The examination was stopped secondary to completion of protocol. Rest and stress SPECT Cardiolite nuclear imaging status post realignment, normalization, and attenuation correction demonstrate no fixed or reversible perfusion defects. There is end systolic thickening and brightening. The gated Cardiolite study demonstrates myocardial thickening and inward wall motion. The reported LVEF is 65%. Impression: 1. Pharmacologic (Regadenoson) evaluation 2. Peak pharmacologic ECG with no diagnostic changes. 3. There were no cardiac dysrhythmias pretest, during pharmacologic infusion, or recovery. 5. Rest and stress SPECT Cardiolite nuclear imaging demonstrate relative uniform tracer uptake and myocardial perfusion appearing within normal limits. 6. The gated Cardiolite study reports an LVEF of 65%. This note was generated with [employer]-sensing[employer] software. It may contain incorrect words, spelling, and punctuation that were not noted in checking the note before signing.
== END | disposition home or self-care (01) ==
PROVIDERS: PCP Family Medicine Geriatric Medicine; Referring Provider Internal Medicine Cardiovascular Disease; Visit Provider Internal Medicine Cardiovascular Disease
DX: I51.7 Cardiomegaly (principal); I10 Essential (primary) hypertension; E78.5 Hyperlipidemia, unspecified; R06.02 Shortness of breath
CPT/HCPCS: 78452; 93017; A9500; A4216; J2785

== ENCOUNTER → 2024-07-31 | Outpatient (CLI) | payer MEDICARE, OTHER, SELFPAY ==
[2024-07-31 10:05] LABS: Anion Gap 10 (5-15); BUN 25 mg/dL (7-18); BUN/Creat Ratio 20.7 RATIO (10-20); Chloride 98 mmol/L (98-107); Creatinine, Serum 1.21 mg/dL (0.55-1.02); EST Glomerular Filtration Rate 46 mL/min (>60); Est Glom Filt Rate - Afr Amer 55 mL/min (>60); Glucose 157 mg/dL (74-106); Potassium 3.3 mmol/L (3.5-5.1); Sodium Level 132 mmol/L (136-145)
== END | disposition home or self-care (01) ==
LOC: LAB 09:04
PROVIDERS: PCP Family Medicine Geriatric Medicine; Referring Provider Internal Medicine Cardiovascular Disease; Visit Provider Internal Medicine Cardiovascular Disease
DX: R06.02 Shortness of breath (principal); N18.31 Chronic kidney disease, stage 3a; I12.9 Hypertensive chronic kidney disease with stage 1 through stage 4 chronic kidney disease, or unspecified chronic kidney disease
CPT/HCPCS: 36415; 80048

== ENCOUNTER → 2024-08-05 | Outpatient (CLI) | payer MEDICARE, OTHER, SELFPAY ==
[2024-08-05 14:55] LABS: Absolute Lymphocyte Count 3.05 X10^3/uL (0.83-4.51); Basophil# 0.06 X10^3/uL; Basophil% 0.6 % (0-1); Eosinophil# 0.19 X10^3/uL; Eosinophils% 1.9 % (0-5); Hematocrit 38.7 % (37-47); Hemoglobin 12.7 g/dL (12.0-15.0); Lymphocyte # 3.05 X10^3/ul (0.83-4.51); Lymphocyte % 29.9 % (19-41); Mean Corp Hgb Conc 32.8 g/dL (32-36); Mean Corpuscular Hgb 30.2 pg (27.0-32.0); Mean Corpuscular Volume 91.9 fL (81-99); Mean Platelet Vol. 8.2 fl (6.2-12.0); Monocyte# 0.91 X10^3/uL; Monocyte% 8.9 % (0-10); NRBC Flagged by Analyzer 0 % (0-5); Neutrophil # 5.95 X10^3/uL (2.7-7.7); Neutrophil % 58.4 % (47-70); Platelet Count 366 K/mm3 (150-450); RBC Distribution Width CV 15.3 % (11.6-14.6); RBC Distribution Width SD 51.7 fl (35.1-43.9); Red Blood Count 4.21 M/mm3 (4.2-5.4); White Blood Count 10.2 K/mm3 (4.4-11.0)
[2024-08-05 16:02] LABS: ALB/GLOB Ratio 0.9 RATIO (0.9-2.4); AST(SGOT) 24 U/L (15-37); Alanine Aminotransfer ALT/SGPT 38 U/L (13-56); Albumin, Serum 3.4 g/dL (3.2-5.0); Alkaline Phosphatase 86 U/L (45-117); Anion Gap 9 (5-15); BUN 26 mg/dL (7-18); BUN/Creat Ratio 22.8 RATIO (10-20); Calcium,Total 9.1 mg/dL (8.5-10.1); Chloride 100 mmol/L (98-107); Creatinine, Serum 1.14 mg/dL (0.55-1.02); EST Glomerular Filtration Rate 49 mL/min (>60); Est Glom Filt Rate - Afr Amer 59 mL/min (>60); Globulin 3.9 g/dL (2.2-4.2); Glucose 137 mg/dL (74-106); Potassium 3.7 mmol/L (3.5-5.1); Protein, Total 7.3 g/dL (6.4-8.2); Sodium Level 134 mmol/L (136-145)
== END | disposition home or self-care (01) ==
LOC: POLAB3 14:37
PROVIDERS: PCP Family Medicine Geriatric Medicine; Visit Provider Family Medicine Geriatric Medicine
DX: N39.0 Urinary tract infection, site not specified (principal); I10 Essential (primary) hypertension
CPT/HCPCS: 36415; 80053; 85025; 87077; 87086; 87088; 87186; 87631

== ENCOUNTER 2024-08-06 10:12 | Outpatient (CLI) | payer MEDICARE, OTHER, SELFPAY ==
[2024-08-06 10:31] VITALS: BP 146/58; PULSE 72; RESP 18; TEMP 36; O2SAT 97; BMI 31.0
[2024-08-06] MEDS: 0.9% NaCl Peripheral Flush Adult/Peds IV (10:45)
[2024-08-06] MEDS: 0.9% Normal Saline (1000mL) 1,000 ML 999 ML IV ×2 (10:53→11:55)
== END 2024-08-06 23:59 | disposition home or self-care (01) ==
LOC: MEDOUTP 10:14
PROVIDERS: PCP Family Medicine Geriatric Medicine; Referring Provider Family Medicine Geriatric Medicine; Visit Provider Family Medicine Geriatric Medicine
DX: E86.0 Dehydration (principal)
CPT/HCPCS: 96360; 96361; J7030; A4216

== ENCOUNTER → 2024-08-10 | Outpatient (CLI) | payer MEDICARE, OTHER, SELFPAY ==
[2024-08-10 12:27] LABS: Absolute Lymphocyte Count 2.66 X10^3/uL (0.83-4.51); Absolute Neutrophil Count 6.1 X10^3/uL (2.0-7.7); Basophil# 0.06 X10^3/uL; Basophil% 0.6 % (0-1); Eosinophil# 0.15 X10^3/uL; Eosinophils% 1.5 % (0-5); Hematocrit 43.1 % (37-47); Hemoglobin 13.7 g/dL (12.0-15.0); Lymphocyte # 2.66 X10^3/ul (0.83-4.51); Lymphocyte % 27.1 % (19-41); Mean Corp Hgb Conc 31.8 g/dL (32-36); Mean Corpuscular Hgb 30.2 pg (27.0-32.0); Mean Corpuscular Volume 94.9 fL (81-99); Mean Platelet Vol. 8.5 fl (6.2-12.0); Monocyte# 0.77 X10^3/uL; Monocyte% 7.8 % (0-10); NRBC Flagged by Analyzer 0 % (0-5); Neutrophil # 6.13 X10^3/uL (2.7-7.7); Neutrophil % 62.6 % (47-70); Platelet Count 320 K/mm3 (150-450); RBC Distribution Width CV 15.9 % (11.6-14.6); RBC Distribution Width SD 55.4 fl (35.1-43.9); Red Blood Count 4.54 M/mm3 (4.2-5.4); White Blood Count 9.8 K/mm3 (4.4-11.0)
[2024-08-10 12:39] LABS: D-Dimer Quantitative (DVT/PE) 0.38 FEU/ug/m (0.27-0.49)
--- NOTE | 2024-08-10 12:45 | RAD_ITS ---
EXAM: XR CHEST, 2 VIEWS CLINICAL INDICATION: SOB TECHNIQUE: Frontal and lateral views of the chest. COMPARISON: June 12, 2017, November 25, 2016. FINDINGS: LUNGS AND PLEURAL SPACES: Unremarkable. No consolidation or edema. No pneumothorax. No effusion. HEART: Unremarkable. Cardiac silhouette not enlarged. MEDIASTINUM: Central airways and mediastinal contour are unremarkable. BONES/JOINTS: Unremarkable. No acute fracture. SOFT TISSUES: Unremarkable. UPPER ABDOMEN: Again noted are surgical clips over the cervicothoracic midline and cholecystectomy clips. RAD/Chest PA and Lateral IMPRESSION: No acute findings in the chest. Electronically Signed: Kandice Bustamante MD at 18:13 EDT ,
[2024-08-10 13:08] LABS: BNP,B-Type NATRIURETIC PEPTIDE 67.7 pg/mL (0-100)
[2024-08-10 13:09] LABS: ALB/GLOB Ratio 0.9 RATIO (0.9-2.4); AST(SGOT) 22 U/L (15-37); Alanine Aminotransfer ALT/SGPT 38 U/L (13-56); Albumin, Serum 3.5 g/dL (3.2-5.0); Alkaline Phosphatase 84 U/L (45-117); Anion Gap 8 (5-15); BUN 19 mg/dL (7-18); BUN/Creat Ratio 15.4 RATIO (10-20); Calcium,Total 9.5 mg/dL (8.5-10.1); Chloride 102 mmol/L (98-107); Creatinine, Serum 1.23 mg/dL (0.55-1.02); EST Glomerular Filtration Rate 45 mL/min (>60); Est Glom Filt Rate - Afr Amer 54 mL/min (>60); Globulin 4.1 g/dL (2.2-4.2); Glucose 161 mg/dL (74-106); Protein, Total 7.6 g/dL (6.4-8.2); Sodium Level 135 mmol/L (136-145)
== END | disposition home or self-care (01) ==
PROVIDERS: PCP Family Medicine Geriatric Medicine; Referring Provider Family Medicine Geriatric Medicine; Visit Provider Family Medicine Geriatric Medicine
DX: R06.02 Shortness of breath (principal); I10 Essential (primary) hypertension
CPT/HCPCS: 36415; 71046; 80053; 83880; 85025; 85379

== ENCOUNTER → 2024-09-11 | Outpatient (CLI) | payer MEDICARE, OTHER, SELFPAY | END | disposition home or self-care (01) | PROVIDERS: PCP Family Medicine Geriatric Medicine; Referring Provider Physician Assistant Surgical; Visit Provider Physician Assistant Surgical | DX: R30.0 Dysuria (principal) | CPT/HCPCS: 87077; 87086; 87088; 87186 ==

== ENCOUNTER → 2024-09-21 | Outpatient (CLI) | payer MEDICARE, OTHER, SELFPAY ==
[2024-09-21 17:03] LABS: Absolute Lymphocyte Count 2.68 X10^3/uL (0.83-4.51); Absolute Neutrophil Count 5.2 X10^3/uL (2.0-7.7); Basophil# 0.05 X10^3/uL; Basophil% 0.6 % (0-1); Eosinophil# 0.21 X10^3/uL; Eosinophils% 2.3 % (0-5); Hematocrit 35.9 % (37-47); Hemoglobin 11.8 g/dL (12.0-15.0); Lymphocyte # 2.68 X10^3/ul (0.83-4.51); Lymphocyte % 29.8 % (19-41); Mean Corp Hgb Conc 32.9 g/dL (32-36); Mean Corpuscular Hgb 30.6 pg (27.0-32.0); Mean Platelet Vol. 8.3 fl (6.2-12.0); Monocyte# 0.83 X10^3/uL; Monocyte% 9.2 % (0-10); NRBC Flagged by Analyzer 0 % (0-5); Neutrophil # 5.19 X10^3/uL (2.7-7.7); Neutrophil % 57.8 % (47-70); Platelet Count 322 K/mm3 (150-450); RBC Distribution Width CV 15.1 % (11.6-14.6); Red Blood Count 3.86 M/mm3 (4.2-5.4)
[2024-09-21 18:09] LABS: ALB/GLOB Ratio 0.9 RATIO (0.9-2.4); AST(SGOT) 17 U/L (15-37); Alanine Aminotransfer ALT/SGPT 23 U/L (13-56); Albumin, Serum 3.2 g/dL (3.2-5.0); Alkaline Phosphatase 75 U/L (45-117); Anion Gap 5 (5-15); BUN 18 mg/dL (7-18); BUN/Creat Ratio 20.7 RATIO (10-20); Calcium,Total 8.7 mg/dL (8.5-10.1); Chloride 106 mmol/L (98-107); Creatinine, Serum 0.87 mg/dL (0.55-1.02); EST Glomerular Filtration Rate 67 mL/min (>60); Est Glom Filt Rate - Afr Amer 81 mL/min (>60); Globulin 3.4 g/dL (2.2-4.2); Glucose 136 mg/dL (74-106); Magnesium 2.3 mg/dL (1.6-2.6); Potassium 4.1 mmol/L (3.5-5.1); Protein, Total 6.6 g/dL (6.4-8.2); Sodium Level 135 mmol/L (136-145); T4 Free Direct 1.03 ng/dL (0.76-1.46); Thyroid Stim Hormone (TSH) 0.339 uIU/mL (0.358-3.740)
== END | disposition home or self-care (01) ==
LOC: LAB 16:50
PROVIDERS: PCP Family Medicine Geriatric Medicine; Referring Provider Nurse Practitioner Family; Visit Provider Nurse Practitioner Family
DX: R94.31 Abnormal electrocardiogram [ECG] [EKG] (principal); I49.3 Ventricular premature depolarization; E03.9 Hypothyroidism, unspecified; R06.00 Dyspnea, unspecified
CPT/HCPCS: 36415; 80053; 83735; 83880; 84439; 84443; 85025

== ENCOUNTER → 2024-10-13 | Outpatient (CLI) | payer MEDICARE, OTHER, SELFPAY | END | disposition home or self-care (01) | PROVIDERS: PCP Family Medicine Geriatric Medicine; Referring Provider Nurse Practitioner Family; Visit Provider Nurse Practitioner Family | DX: R68.83 Chills (without fever) (principal); R94.31 Abnormal electrocardiogram [ECG] [EKG]; I49.3 Ventricular premature depolarization | CPT/HCPCS: 87631; 93225; 93226 ==

== ENCOUNTER 2024-10-21 04:56 | Emergency (ER) | payer MEDICARE, OTHER, SELFPAY ==
[2024-10-21 04:57] VITALS: BP 192/61; PULSE 66; RESP 18; TEMP 36.7; O2SAT 99; BMI 70.4
[2024-10-21 05:07] VITALS: BP 192/61; PULSE 66; RESP 20; TEMP 36.7; O2SAT 98; O2SAT 99
--- NOTE | 2024-10-21 05:50 | RAD_ITS ---
EXAM: XR CHEST, 2 VIEWS CLINICAL INDICATION: DYSPNEA TECHNIQUE: Frontal and lateral views of the chest. COMPARISON: Previous chest radiographs of 08/10/2024 and 06/12/2017. FINDINGS: LUNGS AND PLEURAL SPACES: Unremarkable. No consolidation or edema. No pneumothorax. No effusion. HEART: Unremarkable. Cardiac silhouette not enlarged. Normal pulmonary vasculature. MEDIASTINUM: Calcific aortic knob. No mediastinal widening. Trachea is midline. Numerous surgical clips are again noted in the region of the thyroid gland. BONES/JOINTS: Mild thoracic degenerative spurring. No acute osseous abnormality. SOFT TISSUES: Unremarkable. UPPER ABDOMEN: Cholecystectomy clips are again noted. A 10 x 5 mm ovoid calcification is projected within the left mid abdomen, lateral to the mid lumbar spine, consistent with a renal stone which has developed since the prior radiographs. Visualized abdominal aorta is calcific and is normal in caliber.. RAD/Chest PA and Lateral IMPRESSION: No acute findings in the chest. 10 x 5 mm left renal calculus. Electronically Signed: Adonis Rincon MD at 7:27 EST ,
[2024-10-21 06:00] VITALS: BP 163/61; PULSE 61; RESP 12; TEMP 36.8; O2SAT 99
[2024-10-21] MEDS: diazePAM 5 MG Tablet 2.5 MG PO (06:06)
[2024-10-21] MEDS: Benzonatate 100 MG Capsule PO (06:06)
--- NOTE | 2024-10-21 06:28 | EDS_ITS ---
HPI History of Present Illness Chief Complaint: Shortness of Breath Informant: patient and EMS Narrative Narrative: Patient is an 79-year-old female from home with past medical history of hypertension hyperlipidemia type 2 diabetes and fibromyalgia. She states for almost a month she has had congestion and cough. She states she has had multiple COVID test which have been negative and she has seen her doctor who recently placed her on doxycycline which she just finished yesterday. She states she continues to have drainage and cough and she feels increased shortness of breath especially while trying to sleep and therefore comes in for evaluation [facility] Medical History Anxiety CKD stage 3a, GFR 45-59 ml/min Depression Dog bite Drug-induced myopathy Fibromyalgia GERD (gastroesophageal reflux disease) Hyperlipidemia Hypertension Hypothyroid Laceration of finger Laceration of right middle finger w/o foreign body w/o damage to nail Low back pain LVH (left ventricular hypertrophy) Morbid obesity Muscle spasm Overactive bladder Right sided sciatica Rosacea SOB (shortness of breath) Tremor Type 2 diabetes mellitus Vitamin D deficiency Home Medications ?Medication ?Instructions ?Recorded ?Last Taken ?Type amlodipine 10 mg tablet 10 mg PO DAILY 06/18/24 Unknown History levothyroxine 125 mcg tablet 125 mcg PO DAILY 06/18/24 Unknown History fluoxetine 20 mg tablet 20 mg PO DAILY 07/21/24 Unknown History potassium chloride 10 mEq 10 meq PO DAILY #90 tabs 07/31/24 Unknown Rx tablet,extended release hydralazine 25 mg tablet 25 mg PO TID 09/21/24 Unknown History primidone 50 mg tablet 100 mg PO QHS 09/21/24 Unknown History albuterol sulfate 90 mcg/actuation 2 puff inhalation Q4H PRN PRN 10/21/24 Unknown History aerosol inhaler shortness of breath or wheezing azelastine 137 mcg (0.1 %) nasal 2 spray intranasal BID #30 mL 10/21/24 Unknown Rx spray benzonatate 100 mg capsule 100 mg PO TID PRN cough #30 caps 10/21/24 Unknown Rx diazepam 2 mg tablet (Valium) 2 mg PO TID PRN muscle spasm and 10/21/24 Unknown Rx anxiety 5 days #15 tabs hydrochlorothiazide 25 mg tablet 25 mg PO DAILY 10/21/24 Unknown History Allergy/AdvReac Type Severity Reaction Status Date / Time lisinopril Allergy Swelling Verified 10/21/24 04:57 atorvastatin calcium (From AdvReac Other Verified 10/21/24 04:57 Lipitor) cholestyramine (From AdvReac Upset Verified 10/21/24 04:57 Questran) Stomach duloxetine HCl (From AdvReac Other Verified 10/21/24 04:57 Cymbalta) losartan potassium (From AdvReac Mucosal Verified 10/21/24 04:57 Cozaar) lesions propoxyphene HCl (From AdvReac Other Verified 10/21/24 04:57 Darvon) simvastatin (From Zocor) AdvReac Other Verified 10/21/24 04:57 sucrose (From Questran) AdvReac Upset Verified 10/21/24 04:57 Stomach sulfasalazine (From AdvReac Upset Verified 10/21/24 04:57 Azulfidine) Stomach zolmitriptan (From Zomig) AdvReac Other Verified 10/21/24 04:57 Family History Mother Dyslipidemia Dementia Heart disease Brother Diabetes COPD (chronic obstructive pulmonary disease) Father Diabetes Hypertension Cancer Brother Cancer prostate Surgical History History of nasal surgery Hx of cataract surgery Hx of cholecystectomy Hx of hysterectomy Hx of thyroidectomy Social History Smoking Status: Never smoker ROS ROS ED Constitutional Constitutional ED: Denies chills or fever(s) Eyes Eyes: Denies change in vision ENT ENT ED: Reports rhinorrhea and sore throat Cardiovascular Cardiovascular: Denies chest pain or racing heartbeat Respiratory/Chest Respiratory/Chest: Reports cough and dyspnea Gastrointestinal Gastrointestinal: Denies abdominal pain, diarrhea, nausea or vomiting Genitourinary Genitourinary ED: Denies dysuria Musculoskeletal Musculoskeletal: Denies myalgias Integumentary Denies rash Neurologic Neurologic: Denies headache(s) Psychiatric Psychiatric: Reports anxiety Hematologic/Lymphatic Hematologic/Lymphatic: Denies easy bleeding or easy bruising Allergic/Immunologic Allergic/Immunologic ED: Denies mouth swelling or tongue swelling EXAM Physical Exam Const Vital Signs: 10/21/24 04:57 10/21/24 05:07 10/21/24 05:07 Temperature 98.1 F 98.1 F Temperature Source Oral Oral Pulse Rate 66 66 Respiratory Rate 18 20 H Respiratory Effort Normal Non-Labored Respiratory Depth Normal Respiratory Pattern Tachypnea Blood Pressure 192/61 H 192/61 H Blood Pressure Mean 104 104 Pulse Ox 99 98 Oxygen Delivery Method Room Air Room Air Room Air 10/21/24 06:00 10/21/24 06:43 Temperature 98.2 F 97.8 F Temperature Source Oral Pulse Rate 61 58 L Respiratory Rate 12 16 Respiratory Effort Respiratory Depth Respiratory Pattern Blood Pressure 163/61 H 181/58 H Blood Pressure Mean 95 99 Pulse Ox 99 99 Oxygen Delivery Method Room Air Positive well nourished and well developed General Appearance ED: well developed; Negative for pallor HEENT HEENT Narrative: No tongue or lip swelling no oral lesions no airway edema or compromise Nasal mucosa is hyperemic and boggy There is cobblestoning noted in the posterior pharynx consistent with sinus drainage without secondary findings to suggest infection Eyes PERRL and EOMs intact bilaterally General Eye ED: Negative for pale conjunctiva or scleral icterus Neck supple and no JVD Neck Narrative: No nuchal rigidity or meningeal signs No crepitance palpated Chest Wall palpation of chest normal Chest Narrative: No bony deformity or crepitance noted Resp normal respiratory effort Resp Narrative: Breath sounds are diminished throughout but overall clear to auscultation. No nasal flaring retractions tachypnea or accessory muscle use Cardio regular rate and regular rhythm Rate: other Other Details: Heart is regular rate and rhythm with an occasional ectopic beat noted Radial and carotid pulses are equal and symmetric Extremity Extremity Narrative: No asymmetric edema no pitting edema negative Homans' sign bilaterally Neuro oriented x3, CN's II-XII intact bilaterally and no sensory deficits noted Sensorium / Orientation: alert Motor Exam: strength 5/5 throughout Psych Mood & Affect: anxious Skin no rashes or lesions noted General Skin Exam: Negative for jaundice or pallor MDM MDM MDM Narrative Medical decision making narrative: Patient presented to the ER hypertensive but has a past medical history of this and otherwise with stable vitals. She had no signs of respiratory distress and lungs were overall clear. She reported prolonged symptoms of congestion drainage and cough and recently finished antibiotics and has already had multiple COVID test which have been negative. She is very anxious on exam and I do feel this is the main cause of her symptoms. In order to ensure she does not have pneumonia versus pneumothorax versus pleural effusion I did elect to repeat a chest x-ray. As she has recently had a COVID test which was negative she does not want another one performed. We discussed potential blood work for potential acute blood loss anemia electrolyte abnormality or cardiac dysfunction but patient states she has low concern for this as she is recently seen her infrastructure manager and there was low concern that her shortness of breath/symptoms were cardiac in nature. The patient's chest x-ray revealed no acute findings and after she was given Valium to help relax smooth muscle and anxiety she did report feeling better. Therefore at this time I feel that symptoms are related to persistent URI worsened by anxiety but as she is not hypoxic or in respiratory distress and does not have secondary infection there is no need for admission and she is otherwise safe for discharge History & Record Review Discussion w/independent historian: Patient Radiography Diagnostic Testing: Clinical Impression(s) from Imaging Studies Chest X-Ray 10/21/24 05:50 IMPRESSION: No acute findings in the chest. 10 x 5 mm left renal calculus. Electronically Signed: Adonis Rincon MD at 7:27 EST , Chest x-ray as interpreted by the emergency medicine physician reveals no acute infiltrate pneumothorax or pleural effusion Discharge Plan Triage Chief Complaint: Shortness of Breath Other Complaint: Cough ED Provider: Jam Overton Dx/Rx/DC Orders Clinical Impression: Viral upper respiratory tract infection with cough, PVC (premature ventricular contraction), Hypertension, Anxiety Instructions: PVCs, ED URI, Viral, No Abx (Adult) Prescriptions: New azelastine 137 mcg (0.1 %) spray,non-aerosol 2 spray intranasal BID Qty: 30 0RF Rx Instructions: administer into each nostril benzonatate 100 mg capsule 100 mg PO TID PRN (Reason: cough) Qty: 30 0RF diazepam [Valium] 2 mg tablet 2 mg PO TID PRN (Reason: muscle spasm and anxiety) 5 Days Qty: 15 0RF No Action amlodipine 10 mg tablet 10 mg PO DAILY Patient Comments: take 1 tablet by mouth once daily levothyroxine 125 mcg tablet 125 mcg PO DAILY fluoxetine 20 mg tablet 20 mg PO DAILY hydralazine 25 mg tablet 25 mg PO TID primidone 50 mg tablet 100 mg PO QHS hydrochlorothiazide 25 mg tablet 25 mg PO DAILY albuterol sulfate 90 mcg/actuation HFA aerosol inhaler 2 puff INHALATION Q4H PRN PRN (Reason: shortness of breath or wheezing) potassium chloride 10 mEq tablet extended release 10 meq PO DAILY Qty: 90 3RF Primary Care Provider: uHssein Shaw Chi Referrals: Hussein Shaw Chi, MD [Primary Care Provider] - Activity Restrictions/Additional Instructions: Your symptoms are consistent with mucus drainage secondary to a upper respiratory tract virus. Use the cough pill and nasal spray to help reduce the symptoms. As you also have a lot of muscular tension and anxiety associated with this use the Valium to help relax the smooth muscle and control your anxiety as well. Continue all of your other medications as directed by your doctor and return to the ER should you have any further concerns Print Language: Italian Disposition Disposition: Home, Self Care Discharge Date/Time: 10/21/24 06:50
[2024-10-21 06:43] VITALS: BP 181/58; PULSE 58; RESP 16; TEMP 36.6; O2SAT 99
== END 2024-10-21 06:50 | disposition home or self-care (01) ==
PROVIDERS: Emergency Provider Emergency Medicine; PCP Family Medicine Geriatric Medicine; Visit Provider Emergency Medicine
DX: J06.9 Acute upper respiratory infection, unspecified (principal); N18.31 Chronic kidney disease, stage 3a; I12.9 Hypertensive chronic kidney disease with stage 1 through stage 4 chronic kidney disease, or unspecified chronic kidney disease; I49.3 Ventricular premature depolarization; E78.5 Hyperlipidemia, unspecified; F41.9 Anxiety disorder, unspecified; Z79.899 Other long term (current) drug therapy
CPT/HCPCS: 71046; 99284

== ENCOUNTER → 2024-10-26 | Outpatient (CLI) | payer MEDICARE, OTHER, SELFPAY ==
[2024-10-26 15:27] LABS: Absolute Lymphocyte Count 2.53 X10^3/uL (0.83-4.51); Absolute Neutrophil Count 6.7 X10^3/uL (2.0-7.7); Basophil# 0.05 X10^3/uL; Basophil% 0.5 % (0-1); Eosinophil# 0.18 X10^3/uL; Eosinophils% 1.7 % (0-5); Hematocrit 33.5 % (37-47); Lymphocyte # 2.53 X10^3/ul (0.83-4.51); Lymphocyte % 24.2 % (19-41); Mean Corp Hgb Conc 32.8 g/dL (32-36); Mean Corpuscular Hgb 30.7 pg (27.0-32.0); Mean Corpuscular Volume 93.6 fL (81-99); Monocyte# 0.96 X10^3/uL; Monocyte% 9.2 % (0-10); NRBC Flagged by Analyzer 0 % (0-5); Neutrophil # 6.68 X10^3/uL (2.7-7.7); Neutrophil % 63.9 % (47-70); Platelet Count 332 K/mm3 (150-450); RBC Distribution Width CV 14.6 % (11.6-14.6); RBC Distribution Width SD 50.4 fl (35.1-43.9); Red Blood Count 3.58 M/mm3 (4.2-5.4); White Blood Count 10.5 K/mm3 (4.4-11.0)
[2024-10-26 16:07] LABS: AST(SGOT) 15 U/L (15-37); Alanine Aminotransfer ALT/SGPT 21 U/L (13-56); Albumin, Serum 3.2 g/dL (3.2-5.0); Alkaline Phosphatase 86 U/L (45-117); Anion Gap 8 (5-15); BUN 21 mg/dL (7-18); BUN/Creat Ratio 24.3 RATIO (10-20); Calcium,Total 8.6 mg/dL (8.5-10.1); Chloride 104 mmol/L (98-107); Creatinine, Serum 0.86 mg/dL (0.55-1.02); EST Glomerular Filtration Rate 67 mL/min (>60); Est Glom Filt Rate - Afr Amer 81 mL/min (>60); Globulin 3.3 g/dL (2.2-4.2); Glucose 185 mg/dL (74-106); Potassium 3.8 mmol/L (3.5-5.1); Protein, Total 6.5 g/dL (6.4-8.2); Sodium Level 133 mmol/L (136-145)
[2024-10-26 21:07] LABS: Vitamin D,25 Hydroxy 24.2 ng/mL
[2024-10-27 09:59] LABS: Hemoglobin A1c 6.2 % (3.8-5.6)
== END | disposition home or self-care (01) ==
LOC: POLAB3 14:53
PROVIDERS: PCP Family Medicine Geriatric Medicine; Visit Provider Family Medicine Geriatric Medicine
DX: I10 Essential (primary) hypertension (principal); E11.65 Type 2 diabetes mellitus with hyperglycemia; E55.9 Vitamin D deficiency, unspecified
CPT/HCPCS: 36415; 80053; 82306; 83036; 84443; 85025

== ENCOUNTER → 2025-02-10 | Outpatient (CLI) | payer MEDICARE, OTHER, SELFPAY ==
[2025-02-10 10:55] LABS: Absolute Lymphocyte Count 2.59 X10^3/uL (0.83-4.51); Absolute Neutrophil Count 4.3 X10^3/uL (2.0-7.7); Basophil# 0.05 X10^3/uL; Basophil% 0.6 % (0-1); Eosinophil# 0.19 X10^3/uL; Eosinophils% 2.4 % (0-5); Hematocrit 36.2 % (37-47); Lymphocyte # 2.59 X10^3/ul (0.83-4.51); Lymphocyte % 33.2 % (19-41); Mean Corp Hgb Conc 33.1 g/dL (32-36); Mean Corpuscular Hgb 31.1 pg (27.0-32.0); Mean Corpuscular Volume 93.8 fL (81-99); Mean Platelet Vol. 8.3 fl (6.2-12.0); Monocyte% 7.7 % (0-10); NRBC Flagged by Analyzer 0 % (0-5); Neutrophil # 4.34 X10^3/uL (2.7-7.7); Neutrophil % 55.7 % (47-70); Platelet Count 367 K/mm3 (150-450); RBC Distribution Width CV 14.5 % (11.6-14.6); RBC Distribution Width SD 50.1 fl (35.1-43.9); Red Blood Count 3.86 M/mm3 (4.2-5.4); White Blood Count 7.8 K/mm3 (4.4-11.0)
[2025-02-10 13:46] LABS: ALB/GLOB Ratio 1.4 RATIO (0.9-2.4); AST(SGOT) 24 U/L (<=31); Alanine Aminotransfer ALT/SGPT 18 U/L (<=34); Albumin, Serum 4.1 g/dL (3.4-4.8); Alkaline Phosphatase 81 U/L (35-104); Anion Gap 14 (5-15); BUN 21 mg/dL (4-19); BUN/Creat Ratio 22.3 RATIO (10-20); Calcium,Total 9.1 mg/dL (7.6-11.0); Carbon Dioxide 21.5 mmol/L (21.0-32.0); Chloride 97 mmol/L (98-108); Creatinine, Serum 0.92 mg/dL (0.70-1.20); EST Glomerular Filtration Rate 63 (>60); Globulin 2.9 g/dL (2.2-4.2); Glucose 136 mg/dL (70-99); Potassium 3.6 mmol/L (3.3-5.1); Sodium Level 133 mmol/L (133-145); Total Bilirubin 0.25 mg/dL (0.00-1.30)
[2025-02-10 13:49] LABS: Vitamin D,25 Hydroxy 28.3 ng/mL (30-100)
== END | disposition home or self-care (01) ==
LOC: POLAB3 10:30
PROVIDERS: PCP Family Medicine Geriatric Medicine; Visit Provider Family Medicine Geriatric Medicine
DX: I10 Essential (primary) hypertension (principal); E11.65 Type 2 diabetes mellitus with hyperglycemia; E55.9 Vitamin D deficiency, unspecified
CPT/HCPCS: 36415; 80053; 82306; 84443; 85025

== ENCOUNTER → 2025-05-14 | Outpatient (CLI) | payer MEDICARE, OTHER, SELFPAY ==
[2025-05-14 11:47] LABS: Absolute Lymphocyte Count 2.74 X10^3/uL (0.83-4.51); Absolute Neutrophil Count 4.6 X10^3/uL (2.0-7.7); Basophil# 0.07 X10^3/uL; Basophil% 0.8 % (0-1); Eosinophil# 0.29 X10^3/uL; Eosinophils% 3.4 % (0-5); Hematocrit 35.4 % (37-47); Hemoglobin 11.6 g/dL (12.0-15.0); Lymphocyte # 2.74 X10^3/ul (0.83-4.51); Lymphocyte % 32.2 % (19-41); Mean Corp Hgb Conc 32.8 g/dL (32-36); Mean Corpuscular Hgb 30.4 pg (27.0-32.0); Mean Corpuscular Volume 92.7 fL (81-99); Mean Platelet Vol. 8.7 fl (6.2-12.0); Monocyte# 0.77 X10^3/uL; Monocyte% 9.1 % (0-10); NRBC Flagged by Analyzer 0 % (0-5); Neutrophil # 4.59 X10^3/uL (2.7-7.7); Platelet Count 401 K/mm3 (150-450); RBC Distribution Width CV 14.2 % (11.6-14.6); RBC Distribution Width SD 48.3 fl (35.1-43.9); Red Blood Count 3.82 M/mm3 (4.2-5.4); White Blood Count 8.5 K/mm3 (4.4-11.0)
[2025-05-14 14:21] LABS: Vitamin D,25 Hydroxy 27.1 ng/mL (30-100)
[2025-05-14 14:35] LABS: ALB/GLOB Ratio 1.6 RATIO (0.9-2.4); AST(SGOT) 19 U/L (<=31); Alanine Aminotransfer ALT/SGPT 15 U/L (<=34); Albumin, Serum 4.1 g/dL (3.4-4.8); Alkaline Phosphatase 50 U/L (35-104); Anion Gap 11 (5-15); BUN 26 mg/dL (4-19); BUN/Creat Ratio 22.8 RATIO (10-20); Chloride 98 mmol/L (98-108); Creatinine, Serum 1.16 mg/dL (0.70-1.20); EST Glomerular Filtration Rate 48 (>60); Globulin 2.6 g/dL (2.2-4.2); Glucose 138 mg/dL (70-99); Potassium 3.7 mmol/L (3.3-5.1); Protein, Total 6.7 g/dL (5.9-8.4); Sodium Level 131 mmol/L (133-145); Total Bilirubin 0.22 mg/dL (0.00-1.30)
== END | disposition home or self-care (01) ==
LOC: LAB 11:08
PROVIDERS: PCP Family Medicine Geriatric Medicine; Referring Provider Family Medicine Geriatric Medicine; Visit Provider Family Medicine Geriatric Medicine
DX: E11.65 Type 2 diabetes mellitus with hyperglycemia (principal); E55.9 Vitamin D deficiency, unspecified; I10 Essential (primary) hypertension
CPT/HCPCS: 36415; 80053; 82306; 84443; 85025

== ENCOUNTER → 2025-05-25 | Outpatient (CLI) | payer MEDICARE, OTHER, SELFPAY ==
--- NOTE | 2025-05-25 12:32 | ART_ITS ---
Reason For Study Reason For Study: Bilateral Foot Pain Procedure A bilateral lower extremity continuous wave Doppler with analog waveform analysis and ankle brachial indexes. Left Segmental Pressures Left brachial= 154mmHg. Left posterior tibial artery = 103mmHg. Left dorsalis pedis artery = 116mmHg. Left digit = 94 mmHg. The left posterior tibial artery waveforms are biphasic. The left dorsalis pedis waveforms are biphasic. Right Segmental Pressures Right brachial= 160mmHg. Right posterior tibial artery = 114mmHg. Right dorsalis pedis artery = 114mmHg. Right digit = 105 mmHg. The right posterior tibial artery waveforms are biphasic. The right dorsalis pedis waveforms are biphasic. Indices The right ankle brachial index by the posterior tibial artery is 0.71. The right ankle brachial index by the dorsalis pedis is 0.71. The right digital-brachial index is 0.66. The left ankle brachial index by the posterior tibial artery is 0.64. The left ankle brachial index by the dorsalis pedis is 0.73. The left digital-brachial index is 0.59. VL/Ankle Brachial Index Interpretation Summary Right DAYA 0.71, moderate arterial insufficiency. Doppler/PVR waveforms of the r ight ankle moderately diminished at rest. Left DAYA 0.73, moderate arterial insufficiency. Doppler/PVR waveforms of the le ft ankle moderately diminished at rest. Ordering Physician: Hussein Shaw Chi Referring Physician: HUSSEIN SHAW CHI, MD Performed By: Thai Martínez RVT
[2025-05-25 15:58] LABS: Anion Gap 11 (5-15); BUN 29 mg/dL (4-19); BUN/Creat Ratio 26.3 RATIO (10-20); Calcium,Total 9.6 mg/dL (7.6-11.0); Carbon Dioxide 25.7 mmol/L (21.0-32.0); Chloride 98 mmol/L (98-108); Creatinine, Serum 1.09 mg/dL (0.70-1.20); EST Glomerular Filtration Rate 51 (>60); Glucose 84 mg/dL (70-99); Sodium Level 135 mmol/L (133-145)
== END | disposition home or self-care (01) ==
PROVIDERS: PCP Family Medicine Geriatric Medicine; Referring Provider Family Medicine Geriatric Medicine; Visit Provider Family Medicine Geriatric Medicine
DX: I73.9 Peripheral vascular disease, unspecified (principal); E87.6 Hypokalemia
CPT/HCPCS: 36415; 80048; 93922

== ENCOUNTER → 2025-06-09 | Outpatient (CLI) | payer MEDICARE, OTHER, SELFPAY ==
--- NOTE | 2025-06-09 14:25 | NEURO ---
NCS and/or EMG Patient Report Ordering Doctor: Hussein Shaw Chi DATE OF SERVICE: 06/09/25 [place] presents for electrodiagnostic testing of the lower limbs. She reports altered sensation in both feet and intermittent lower back pain. Electrodiagnostic findings: Left peroneal motor nerve measured at the tibialis anterior demonstrates normal distal latency, amplitude and conduction velocity. Diminished right tibial motor amplitude is noted. Normal left tibial motor response. Normal right peroneal motor response measured at the EDB. Sensory responses were not obtainable. Prolonged H?reflex bilaterally. Prolonged left peroneal and left right tibial F?wave. Needle EMG testing was performed the lower limbs. All muscles tested showed no evidence of denervation with normal motor unit action potentials. Electrodiagnostic impression: This is an abnormal study in the lower limbs 1. 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 May be secondary to history of diabetes. 2. No electrodiagnostic evidence is noted for lumbosacral radiculopathy. Multi Select Codes Neurology Neurology Interp Codes: 47558-46 Musc test done w/n test comp (interp) (2) and 12558-90 Nrv cndj test 11-12 studies (interp)
== END | disposition home or self-care (01) ==
LOC: PSN 12:13
PROVIDERS: PCP Family Medicine Geriatric Medicine; Referring Provider Family Medicine Geriatric Medicine; Visit Provider Family Medicine Geriatric Medicine
DX: M79.671 Pain in right foot (principal); M79.672 Pain in left foot
CPT/HCPCS: 95886; 95912

== ENCOUNTER → 2025-06-18 | Outpatient (CLI) | payer MEDICARE, OTHER, SELFPAY ==
[2025-06-18 12:28] LABS: Hematocrit 33.9 % (37-47); Hemoglobin 11.3 g/dL (12.0-15.0); Immature Granulocytes Count 0.030 X10^3/uL (0.0-0.0); Mean Corp Hgb Conc 33.3 g/dL (32-36); Mean Corpuscular Volume 91.6 fL (81-99); Mean Platelet Vol. 8.5 fl (6.2-12.0); NRBC Flagged by Analyzer 0 % (0-5); Platelet Count 407 K/mm3 (150-450); RBC Distribution Width CV 14.3 % (11.6-14.6); RBC Distribution Width SD 48.0 fl (35.1-43.9); Red Blood Count 3.70 M/mm3 (4.2-5.4); White Blood Count 6.4 K/mm3 (4.4-11.0)
[2025-06-18 13:17] LABS: AST(SGOT) 23 U/L (<=31); Alanine Aminotransfer ALT/SGPT 19 U/L (<=34); Albumin, Serum 4.1 g/dL (3.4-4.8); Alkaline Phosphatase 54 U/L (35-104); Anion Gap 12 (5-15); BUN 36 mg/dL (4-19); BUN/Creat Ratio 28.9 RATIO (10-20); Calcium,Total 9.0 mg/dL (7.6-11.0); Carbon Dioxide 23.0 mmol/L (21.0-32.0); Chloride 98 mmol/L (98-108); Globulin 2.6 g/dL (2.2-4.2); Glucose 113 mg/dL (70-99); Potassium 3.9 mmol/L (3.3-5.1); Vitamin B12 363 pg/mL (180-914)
[2025-06-18 17:21] LABS: Protein, Urine (Random) 33.0 mg/dL (0.0-12.0)
[2025-06-18 20:13] LABS: Xtra Tube Kwok EXTRA TUBE
== END | disposition home or self-care (01) ==
PROVIDERS: PCP Family Medicine Geriatric Medicine; Visit Provider Family Medicine Geriatric Medicine
DX: I10 Essential (primary) hypertension (principal); E78.5 Hyperlipidemia, unspecified; G62.9 Polyneuropathy, unspecified
CPT/HCPCS: 36415; 80053; 82607; 84156; 84443; 85025

== ENCOUNTER → 2025-08-20 | Outpatient (CLI) | payer MEDICARE, OTHER, SELFPAY ==
--- NOTE | 2025-08-20 12:52 | CDU_ITS ---
Reason For Study Reason For Study: Rt CCA Bruit Rt. Velocities/BP Lt. Velocities/BP Prox CCA 117.7/12.3 cm/sec. Prox CCA 84.6/10.1 cm/sec. Mid CCA 76.0/12.3 cm/sec. Mid CCA 97.7/11.8 cm/sec. Dist CCA 54.0/12.3 cm/sec. Dist CCA 78.1/9.3 cm/sec. Prox ICA 234.1/53.7 cm/sec. Prox ICA 104.5/18.9 cm/sec. Mid ICA 207.1/35.3 cm/sec. Mid ICA 61.1/13.1 cm/sec. Dist ICA 117.3/26.8 cm/sec. Dist ICA 61.1/12.7 cm/sec. Rt. ICA/CCA = 3.1. Lt. ICA/CCA = 1.1. Prox ECA 477.7/23.8 cm/sec. Prox ECA 208.8/18.1 cm/sec. Rt. Vert. 46.8/7.5 cm/sec. Lt. Vert. 51.1/6.9 cm/sec. Right Extracranial There is intimal thickening but no significant atherosclerotic plaque noted in the right common carotid artery. There is heterogeneous, irregular atherosclerotic plaque noted in the right internal carotid artery. The right internal carotid artery is very tortuous. There is heterogeneous, irregular atherosclerotic plaque noted in the right external carotid artery. The right external carotid artery is tortuous. Antegrade flow is noted in the right vertebral artery. There is heterogeneous, irregular atherosclerotic plaque noted in the right bulb. Left Extracranial There is heterogeneous, irregular atherosclerotic plaque noted in the left common carotid artery. There is heterogeneous, irregular atherosclerotic plaque noted in the left internal carotid artery. There is heterogeneous, irregular atherosclerotic plaque noted in the left external carotid artery. Antegrade flow is noted in the left vertebral artery. There is heterogeneous, irregular atherosclerotic plaque noted in the left bulb. Procedure Carotid Duplex 21071. This is a Carotid Duplex examination using B-mode, color flow and specral Doppler. The exam was diagnostic. Exam performed in department. VL/Carotid Duplex Ultrasound Interpretation Summary Severe (>70%) stenosis right extracranial internal carotid. Mild (<50%) stenosis left extracranial internal carotid. Patent and antegrade vertebrals bilaterally. Ordering Physician: Bibi Nicholas Referring Physician: Hussein Shaw Chi Performed By: Thai Martínez RVT
== END | disposition home or self-care (01) ==
LOC: CVS 12:48
PROVIDERS: PCP Family Medicine Geriatric Medicine; Referring Provider Physician Assistant; Visit Provider Physician Assistant
DX: R09.89 Other specified symptoms and signs involving the circulatory and respiratory systems (principal)
CPT/HCPCS: 93880

== ENCOUNTER → 2025-08-26 | Outpatient (CLI) | payer MEDICARE, OTHER, SELFPAY ==
[2025-08-26 10:13] LABS: Hematocrit 34.9 % (37-47); Hemoglobin 11.6 g/dL (12.0-15.0); Immature Granulocytes Count 0.110 X10^3/uL (0.0-0.0); Mean Corp Hgb Conc 33.2 g/dL (32-36); Mean Corpuscular Volume 91.1 fL (81-99); Mean Platelet Vol. 8.6 fl (6.2-12.0); NRBC Flagged by Analyzer 0 % (0-5); Platelet Count 427 K/mm3 (150-450); RBC Distribution Width CV 14.6 % (11.6-14.6); RBC Distribution Width SD 48.6 fl (35.1-43.9); Red Blood Count 3.83 M/mm3 (4.2-5.4); White Blood Count 10.0 K/mm3 (4.4-11.0)
--- OUTSIDE RECORDS SUMMARY | 2025-08-26 10:52 | XMS RPT_ITS | CCD ---
Author Organization [facility] Care Team Providers Care Record Producer Name Role Phone Pcp, No Primary Care Provider Unavailabl e Unavailable Primary Care Provider Unavailabl e TESTRALESLY, ZOE Referring Unavailable TESTRAKE, ZOE Attending Unavailable SELF Referring Unavailable Colin CHAPARRO, Dr. Hussein Tovar Primary Care Provider [phone] Colin CHAPARRO, Dr. Hussein Tovar Attending Provider Colin CHAPARRO, Dr. Hussein Tovar Primary Care Provider [phone] Colin CHAPARRO, Dr. Hussein Tovar Attending Provider [phone] Colin CHAPARRO, Dr. Hussein Tovar Referring Provider Nelson CHAPARRO, Dr. Ray Attending Provider Eduardo CHAPARRO, Dr. Mendoza Attending Provider 1([facility])[phone] Colin CHAPARRO, Dr. Hussein Tovar Primary Care Provider [phone] Colin CHAPARRO, Dr. Hussein Tovar Attending Provider Colin CHAPARRO, Dr. Hussein Tovar Other Provider 1([facility])[phone] Aj CHAPARRO, Dr. Curran Attending Provider 1([facility])[phone] Bibi Siu Attending Provider Sarah CHAPARRO, Dr. Oden Attending Provider Colin CHAPARRO, Dr. Hussein Tovar Primary Care Physician [phone] Colin CHAPARRO, Dr. Hussein Tovar Attending Physician Colin CHAPARRO, Dr. Hussein Tovar Referring Provider Eduardo CHAPARRO, Dr. Mendoza Attending Physician 1([facility])[phone] Sarah CHAPARRO, Dr. Oden Attending Physician Colin CHAPARRO, Dr. Hussein Chi Nurse Practitioner Aj CHAPARRO, Dr. Curran Attending Physician Yu PA, Bibi Attending Physician Yu PA, Bibi Referring Provider Nicholas, Bibi Attending Unavailable Nicholas, Bibi Referring Unavailable Colin, Hussein Chi Primary Care Unavailable Colin, Hussein Chi Primary Care Unavailable Colin, Hussein Chi Attending Unavailable Nicholas, Bibi Referring Unavailable Nicholas, Bibi Attending Unavailable Colin, Hussein Chi Primary Care Unavailable Colin, Hussein Chi Primary Care Unavailable Magdy Rocha Attending Unavailable Colin, Hussein Chi Consulting Unavailable Colin, Hussein Chi Referring Unavailable Colin, Hussein Chi Attending Unavailable Colin, Hussein Chi Primary Care Unavailable Colin, Hussein Chi Primary Care Unavailable Janusz Chauhan Attending Unavailable Janusz Chauhan Referring Unavailable Roof, Farhad H Referring Unavailable Colin, Hussein Chi Primary Care Unavailable Roof, Farhad H Attending Unavailable Colin, Hussein Chi Primary Care Unavailable Colin, Hussein Chi Referring Unavailable Colin, Hussein Chi Attending Unavailable Colin, Hussein Chi Primary Care Unavailable Roof, Farhad H Referring Unavailable Roof, Farhad H Attending Unavailable Nicholas, Bibi Attending Unavailable Colin, Hussein Chi Primary Care Unavailable Colin, Hussein Chi Referring Unavailable Colin, Hussein Chi Referring Unavailable Colin, Hussein Chi Primary Care Unavailable Janusz Chauhan Attending Unavailable Colin, Hussein Chi Primary Care Unavailable Colin, Hussein Chi Attending Unavailable Jam Overton Attending Unavailable Colin, Hussein Chi Primary Care Unavailable Colin, Hussein Chi Referring Unavailable Colin, Hussein Chi Primary Care Unavailable Roof, Farhad H Attending Unavailable Cecille Smith Attending Unavailable Colin, Hussein Chi Primary Care Unavailable Colin, Hussein Chi Referring Unavailable Colin, Hussein Chi Primary Care Unavailable NelsonTiffd Attending Unavailable Colin, Hussein Chi Referring Unavailable Colin, Hussein Chi Primary Care Unavailable Colin, Hussein Chi Referring Unavailable Reji Clark Attending Unavailable Colin, Hussein Chi Primary Care Unavailable SpringReji Attending Unavailable Colin, Hussein Chi Primary Care Unavailable Roof, Farhad H Referring Unavailable Nelson Flor Attending Unavailable Colin, Hussein Chi Primary Care Unavailable Colin, Hussein Chi Attending Unavailable Colin, Hussein Chi Primary Care Unavailable Colin, Hussein Chi Referring Unavailable Colin, Hussein Chi Attending Unavailable Colin, Hussein Chi Primary Care Unavailable Colin, Uhssein Chi Referring Unavailable Colin, Hussein Chi Attending Unavailable Allergies Allergy Classification Reported Allergen(s) Allergy Type Date of Onset Reaction(s) Facility (20 sources) atorvastatin; Translations: [ATORVASTATIN CALCIUM] Drug Allergy 02-22-20 07 Other [facility] Work Phone: Comment on above: LEG PAIN (17 sources) Cholestyramine Resin Drug Allergy 06-12-20 17 Upset Stomach [facility] (18 sources) DULoxetine; Translations: [duloxetine HCl] Drug Allergy 06-12-20 17 Other [facility] Comment on above: MYALGIA, SLEEPINESS (20 sources) Lisinopril; Translations: [LISINOPRIL] Drug Allergy 02-06-20 11 Rash, Swelling [facility] (20 sources) Losartan; Translations: [LOSARTAN POTASSIUM] Drug Allergy 04-11-20 15 Other: See Comments [facility] (20 sources) Propoxyphene; Translations: [PROPOXYPHENE HCL] Drug Allergy 08-23-20 05 [facility] Work Phone: Comment on above: DIZZINESS (20 sources) Simvastatin; Translations: [SIMVASTATIN] Drug Allergy 08-23-20 05 Other [facility] Work Phone: Comment on above: LEG PAIN (17 sources) Sucrose Drug Allergy 06-12-20 17 Upset Stomach [facility] (20 sources) sulfaSALAzine; Translations: [SULFASALAZINE] Drug Allergy 06-12-20 17 GI Upset [facility] (20 sources) ZOLMitriptan; Translations: [ZOLMITRIPTAN] Drug Allergy 08-23-20 05 Other [facility] Work Phone: Comment on above: LEG PAIN (4 sources) Cholestyramine Resin; Translations: [CHOLESTYRAMINE (WITH SUGAR)] Drug Allergy 02-10-20 10 Intolerance [facility] Work Phone: (4 sources) DULoxetine; Translations: [DULOXETINE] Drug Allergy 03-19-20 06 [facility] Work Phone: (4 sources) metFORMIN; Translations: [METFORMIN] Drug Allergy 04-20-20 16 GI Upset [facility] (4 sources) Nisoldipine; Translations: [NISOLDIPINE] Drug Allergy 04-20-20 16 Other: See Comments [facility] (4 sources) Tetracycline (class of antibiotic); Translations: [TETRACYCLINES] Propensity to adverse reactions 08-23-20 [facility] Work Phone: (3 sources) adzulfadine [Other] Propensity to adverse reactions 08-23-20 [facility] Work Phone: (1 source) OTHER; Translations: [OTHER] Propensity to adverse reactions (disorder) 08-23-20 [facility] Repository (1 source) Cholestyramine Resin Drug Allergy 08-18-20 [facility] Repository (1 source) Lisinopril Drug Allergy 08-18-20 [facility] Repository (1 source) Simvastatin Drug Allergy 08-18-20 [facility] Repository (1 source) Sucrose Drug Allergy 08-18-20 [facility] Repository (1 source) sulfaSALAzine Drug Allergy 08-18-20 [facility] Repository (1 source) ZOLMitriptan Drug Allergy 08-18-20 [facility] Repository Medications Current Medications Medication Drug Class(es) Dates Sig (Normalized) Sig (Original) amitriptyline hydrochloride 25 mg oral tablet (3 sources) Tricyclic Antidepressant Start: 02-24-2021 take 1 tablet by mouth once daily at bedtime amitriptyline (ELAVIL) 25 mg tablet Take 1 tablet by mouth daily at bedtime. 30 tablet 11 02/24/2021 Active Comment on above: Take 1 tablet by fransisco th daily at bedtime. amLODIPine 10 mg oral tablet (11 sources) Dihydropyridine Calcium Channel Rachana Start: 10-19-2020 take 1 tablet by mouth once daily Amlodipine 10 mg tablet Active 10 mg PO daily August 18, 2025 12:00am Complies with drug therapy Comment on above: Take 1 tablet by fransisco th once daily. aspirin 81 mg oral tablet (1 source) Platelet Aggregation Inhibitor, Nonsteroidal Anti-inflammatory Drug Start: 08-18-2025 take 1 tablet by mouth once daily Aspirin 81 mg tablet Active 81 mg PO daily August 18, 2025 12:00am Complies with drug therapy cetirizine hydrochloride 10 mg oral capsule (10 sources) Histamine-1 Receptor Antagonist Start: 06-18-2025 take 1 capsule by mouth once daily Cetirizine (Zyrtec) 10 mg capsule Active 10 mg PO daily June 18, 2025 12:00am Complies with drug therapy Start: 09-21-2024 End: 10-21-2024 take 1 tablet by mouth once daily as needed Cetirizine (Allergy Relief (Cetirizine)) 5 mg tablet Discontinued 5 mg PO daily as needed September 21, 2024 12:00am October 21, 2024 6:04am D-Mannose (3 sources) Start: 06-17-2025 take 1 capsule by mo [facility] once D-Mannose 500 mg capsule Active mg PO June 17, 2025 12:00am Complies with drug therapy Start: 06-17-2025 take 1 capsule by mouth once D -Mannose 500 mg capsule Discontinued mg PO June 17, 2025 12:00am fenofibrate 145 mg oral tablet (6 sources) Peroxisome Proliferator Receptor alpha Agonist Start: 03-01-2025 take 1 tablet by mouth once daily Fenofibrate Nanocrystallized (Tricor) 145 mg tablet Active 145 mg PO daily 31 10March 01, 2025 12:00am Complies with drug therapy 24 hr fesoterodine fumarate 8 mg extended release oral tablet (12 sources) Start: 06-17-2025 take 1 tablet by mouth once daily Fesoterodine 8 mg tablet extended release 24 hr Active 8 mg PO daily June 17, 2025 12:00am Complies with drug therapy Start: 12-25-2024 take 8 mg by mouth once daily Fesoterodine 8 mg Tb24 Take 8 mg by mouth once daily. 12/25/2024 Active Start: 06-18-2024 End: 10-21-2024 take 1 tablet by mouth once daily Fesoterodine 8 mg tablet extended release 24 hr Discontinued 8 mg PO DAILY June 18, 2024 12:00am October 21, 2024 6:02am FLUoxetine 20 mg oral capsule (20 sources) Serotonin Reuptake Inhibitor Start: 08-18-2025 take 1 capsule by mouth once daily Fluoxetine 20 mg capsule Active 20 mg PO daily August 18, 2025 12:00am Complies with drug therapy Start: 07-21-2024 [facility] Fluox[facility] 20 mg tablet Active 20 mg PO DAILY July 21, 2024 11:03am Complies with drug therapy Start: 06-18-2024 End: 07-21-2024 Fluoxetine 20 mg tablet Disc ontinued 30 mg PO DAILY June 18, 2024 12:00am July 21, 2024 11:04am Start: 05-10-2015 End: 06-18-2024 take 1 capsule by mouth once daily Fluoxetine 20 MG capsule Discontinued 20 mg PO DAILY May 10, 2015 12:00am June 18, 2024 10:28am Comment on above: Take 1 capsule by mo uth once daily. gabapentin 100 mg oral capsule (3 sources) Anti-epileptic Agent Start: 2024 take 1 capsule by mouth three times daily Gabapentin 100 mg capsule Active 100 mg PO THREE TIMES A DAY June 18, 2025 12:00am Complies with drug therapy hydrALAZINE hydrochloride 25 mg oral tablet (9 sources) Arteriolar Vasodilator Start: 2023 take 1 tablet by mouth three times daily Hydralazine 25 mg tablet Active 25 mg PO THREE TIMES A DAY September 21, 2024 12:00am Complies with drug therapy hydroCHLOROthiazide 25 mg oral tablet (20 sources) Thiazide Diuretic Start: 2023 End: 2024 take 1 tablet by mouth once daily Hydrochlorothiazide 25 mg tablet Active 25 mg PO DAILY 90 3 June 18, 2025 3:08pm Complies with drug therapy Start: 07-21-2024 End: 08-06-2024 take 1 tablet by mouth once daily Hydrochlorothiazide 25 mg tablet Discontinued 25 mg PO DAILY 90 3 July 21, 2024 12:00am August 06, 2024 10:44am Start: 05-01-2021 take 1 capsule by mo ut once daily hydroCHLOROthiazide 12.5 mg capsule Indications: Essential hypertension, benign Take 1 capsule by mouth once daily. 90 capsule 3 05/01/2021 Active Start: 09-30-2013 End: 06-18-2024 Hydrochlorothiazide 25 MG ta blet Discontinued 12.5 mg PO DAILY September 30, 2013 12:00am June 18, 2024 10:20am Start: 09-30-2013 take 12.5 mg by mout h once daily Hydrochlorothiazide Active 12.5 MG PO DAILY September 29, 2013 11:00pm Comment on above: Take 1 capsule by mo ut once daily. levothyroxine sodium 0.125 mg oral tablet (20 sources) l-Thyroxine Start: 06-17-2025 Levothyroxine 125 mcg tablet Active 112 ug PO DAILY June 17, 2025 1:41pm Complies with drug therapy Start: 10-04-2020 End: 06-17-2025 take 1 tablet by mouth once daily Levothyroxine 125 mcg tablet Discontinued 125 ug PO DAILY June 18, 2024 12:00am June 17, 2025 1:45pm Start: 09-30-2013 levothyroxine (SYNTHROID) 112 mcg tablet Take 100 mcg by mouth once daily. 09/30/2013 Active Start: 09-30-2013 End: 06-18-2024 take 1 tablet by mouth at bedtime Levothyroxine 112 MCG tablet Discontinued 112 ug PO AT BEDTIME September 30, 2013 12:00am June 18, 2024 10:20am Comment on above: Take 1 tablet by fransisco th once daily. Take on empty stomach. For Thyroid methenamine hippurate 1000 mg oral tablet (3 sources) Start: 06-17-2025 Methenamine Hippurate 1 gram tablet Active 1 g PO TWICE A DAY June 17, 2025 12:00am Complies with drug therapy 24 hr metoprolol succinate 25 mg extended release oral tablet (17 sources) beta-Adrenergic Rachana Start: 03-01-2025 take 1 tablet by mouth once daily Metoprolol Succinate 25 mg tablet extended release 24 hr Active 25 mg PO daily August 18, 2025 12:00am Complies with drug therapy Start: 10-04-2020 End: 08-06-2024 take 1 tablet by mouth once daily Metoprolol Succinate 100 mg tablet extended release 24 hr Discontinued 100 mg PO DAILY June 18, 2024 12:00am August 06, 2024 10:43am Comment on above: Take 1 tablet by fransisco th once daily. metroNIDAZOLE 0.01 mg/mg topical gel (3 sources) Nitroimidazole Antimicrobial Start: 02-25-20 metroNIDAZOLE 1 % gel Apply 1 application to affected area once daily. Location: cheeks 60 g 2 02/24/2021 Active Comment on above: Apply 1 application to affected area once daily. Location: cheeks Multivitamin,Tx-Iron- Minerals (Therems-M) 1 TABLET tablet (17 sources) Start: 09-30-20 13 take 1 tablet by mouth once daily Multivitamin,Tx-Iron -Minerals (Therems-M) 1 TABLET tablet Active 1 TABLET PO DAILY September 30, 2013 1:42pm Start: 09-30-2013 End: 06-18-2024 take 1 tablet by mouth once daily Multivitamin,Fc-Cdjj-Nnbrbgqd (Therems-M ) 1 TABLET tablet Discontinued 1 {tbl} PO DAILY September 30, 2013 12:00am June 18, 2024 10:20am Start: 09-30-2013 take 1 tablet by fransisco th once daily Multivitamin,Pb-Siha-Dgzdtyzo (Therems-M ) 1 TABLET tablet Active 1 TABLET PO DAILY September 29, 2013 11:00pm Start: 09-30-2013 take 1 tablet by fransisco th once daily Multivitamin,Xb-Ezdn-Kiudzwan (Therems-M ) 1 TABLET tablet Active 1 TABLET PO DAILY September 30, 2013 12:00am omeprazole 20 mg delayed release oral capsule (11 sources) Proton Pump Inhibitor Start: 06-17-2025 take 1 capsule by mouth once daily Omeprazole 20 mg capsule,delayed release(DR/EC) Active 20 mg PO daily June 17, 2025 12:00am Complies with drug therapy Start: 07-21-2024 End: 08-06-2024 take 1 capsule by mouth once daily Omeprazole 20 mg capsule,delayed release(DR/EC) Discontinued 20 mg PO DAILY July 21, 2024 12:00am August 06, 2024 10:44am take 1 tablet by fransisco th once daily omeprazole 20 mg disintegrating tablet (PriLOSEC) Take 20 mg by mouth once daily. Active potassium chloride 10 meq extended release oral capsule (10 sources) Start: 08-18-2025 take 1 capsule by mouth once daily Potassium Chloride 10 mEq capsule, extended release Active 10 meq PO daily August 18, 2025 12:00am Complies with drug therapy Start: 07-31-2024 End: 07-16-2025 take 1 tablet by mouth once daily Potassium Chloride 10 mEq tablet extended release Active 10 meq PO DAILY 90 3 July 16, 2025 7:53am Complies with drug therapy primidone 50 mg oral tablet (17 sources) Anti-epileptic Agent Start: 08-18-2025 take 1 tablet by mouth once Primidone 50 mg tablet Active 50 mg PO ONCE August 18, 2025 12:00am Complies with drug therapy Start: 12-01-2024 take 2 tablets by mo ut once daily at bedtime primidone (MYSOLINE) 50 mg tablet Take 100 mg by mouth daily at bedtime. 12/01/2024 Active Start: 09-21-2024 take 1 tablet by fransisco th at bedtime Primidone 50 mg tablet Active 100 mg PO AT BEDTIME September 21, 2024 12:00am Complies with drug therapy Start: 06-18-2024 End: 07-21-2024 take 1 tablet by mouth at bedtime Primidone 50 mg tablet Discontinued 50 mg PO AT BEDTIME June 18, 2024 12:00am July 21, 2024 11:04am Vibegron (10 sources) Start: 06-17-2025 take 1 tablet by fransisco th once daily Vibegron (Gemtesa) 75 mg tablet Active 75 mg PO daily June 17, 2025 12:00am Complies with drug therapy Start: 06-17-2025 take 1 tablet by fransisco th once daily Vibegron (Gemtesa) 75 mg tablet Discontinued 75 mg PO daily June 17, 2025 12:00am Start: 06-18-2024 End: 10-21-2024 take 1 tablet by mouth once daily Vibegron (Gemtesa) 75 mg tablet Discontinued 75 mg PO DAILY June 18, 2024 12:00am October 21, 2024 6:04am Vitamin B Complex (10 sources) Start: 05-10-2015 Vitamin B Comp sondra Active 1 EACH PO DAILY May 10, 2015 4:03pm Start: 05-10-2015 Vitamin B Comp sondra Active 1 EACH PO DAILY May 09, 2015 11:00pm Start: 05-10-2015 Vitamin B Comp sondra Active 1 EACH PO DAILY May 10, 2015 12:00am Completed/Discontinued Medications Medication Drug Class(es) Dates Sig (Normalized) Sig (Original) [id number] 200 actuat albuterol 0.09 mg/actuat metered dose inhaler (20 sources) beta2-Adrenergic Agonist Start: 10-21-2024 End: 06-18-2025 Albuterol Sulfate 90 mcg/actuation HFA aerosol inhaler Discontinued 2 NMA INHALATION EVERY 4 HOURS NEEDED as needed for shortness of breath or wheezing October 21, 2024 1:00am June 18, 2025 12:58pm Start: 11-25-2016 End: 06-18-2024 Albuterol Sulfate (Ventolin Hfa) 1 INHALER inhaler Discontinued 1 - 2 NMA INHALATION EVERY 4 HOURS NEEDED as needed for Wheezing 1 November 25, 2016 1:00am June 18, 2024 10:21am Start: 11-25-2016 take 1 puff(s) by in halation every four hours as needed Albuterol Sulfate (Ventolin Hfa) 1 INHALER inhaler Active 1 - 2 PUFF INHALATION EVERY 4 HOURS NEEDED November 25, 2016 12:00am amoxicillin 875 mg / clavulanate 125 mg oral tablet (14 sources) Penicillin-class Antibacterial Start: 10-14-2022 End: 06-18-2024 take 1 tablet by mouth every twelve hours Amoxicillin-Pot Clavulanate 875 MG tablet Discontinued 875 mg PO Q12H October 14, 2022 1:00am June 18, 2024 10:18am atenolol 100 mg oral tablet (17 sources) beta-Adrenergic Rachana Start: 09-30-2013 End: 06-18-2024 take 1 tablet by mouth once daily Atenolol 100 MG tablet Discontinued 100 mg PO DAILY September 30, 2013 12:00am June 18, 2024 10:20am azelastine hydrochloride 0.137 mg/actuat metered dose nasal spray (7 sources) Histamine-1 Receptor Antagonist Start: 10-21-2024 End: 03-01-2025 Azelastine 137 mcg (0.1 %) spray,non-aerosol Discontinued 2 NMA INTRANASAL TWICE A DAY October 21, 2024 1:00am March 01, 2025 1:05pm administer into each nostril benzonatate 100 mg oral capsule (7 sources) Non-narcotic Antitussive Start: 10-21-2024 End: 03-01-2025 take 1 capsule by mouth three times daily as needed for cough Benzonatate 100 mg capsule Discontinued 100 mg PO THREE TIMES A DAY as needed for cough October 21, 2024 7:29am March 01, 2025 1:05pm ciprofloxacin 500 mg oral tablet (7 sources) Quinolone Antimicrobial Start: 09-11-2024 End: 09-18-2024 take 1 tablet by mouth every twelve hours Ciprofloxacin Hcl (Cipro) 500 mg tablet Discontinued 500 mg PO Q12H 14 7 0 September 11, 2024 12:00am September 17, 2024 12:00am September 18, 2024 12:07am diazePAM 2 mg oral tablet (7 sources) Benzodiazepine Start: 10-21-2024 End: 06-18-2025 take 1 tablet by mouth three times daily as needed for muscle spasms and anxiety Diazepam (Valium) 2 mg tablet Discontinued 2 mg PO THREE TIMES A DAY as needed for muscle spasm and anxiety 15 5 0 October 21, 2024 1:00am June 18, 2025 12:59pm Anxiety Anxiety disorder, unspecified furosemide 40 mg oral tablet (7 sources) Loop Diuretic Start: 09-23-2024 End: 10-21-2024 take 1 tablet by mouth once daily as needed Furosemide (Lasix) 40 mg tablet Discontinued 40 mg PO DAILY as needed for SOB 7 0 September 23, 2024 12:00am October 21, 2024 6:04am Vitamin B Complex 1 EACH capsule (7 sources) Start: 05-10-2015 End: 06-18-2024 Vitamin B Complex 1 EACH capsule Discontinued 1 NMA PO DAILY May 10, 2015 12:00am June 18, 2024 10:20am Problems Active Problems Problem Classification Problem Date Documented Da te Episodic/Chronic Acquired foot deformities (1 source) Hammer toe; Translations: [Other hammer toe(s) (acquired), left foot] 01-01-2025 Chronic Adjustment disorders (5 sources) Adjustment disorder with depressed mood; Translations: [Adjustment disorder with depressed mood] Onset: 02-27-2006 Resolved: 04-29-2019 02-27-2006 Chronic Anxiety disorders (7 sources) Anxiety; Translations: [Anxiety disorder, unspecified] 10-29-2024 Chronic Cancer of thyroid (3 sources) Malignant tumor of thyroid gland; Translations: [Malignant neoplasm of thyroid gland] Onset: 08-23-2005 11-27-2021 Chronic Cardiac dysrhythmias (20 sources) Multiple premature ventricular complexes; Translations: [Ventricular premature depolarization] Onset: 03-01-2025 09-21-2024 Chronic Chronic kidney disease (7 sources) Chronic kidney disease stage 3A ; Translations: [Stage 3a chronic kidney disease] 06-18-2024 Chronic Complications of surgical procedures or medical care (3 sources) Postoperative hypothyroidism; Translations: [Postprocedural hypothyroidism] Onset: 04-29-2020 04-29-2020 Chronic Conditions associated with dizziness or vertigo (7 sources) Dizziness; Translations: [Dizziness and giddiness] 08-02-2024 Episodic Diabetes mellitus with complications (4 sources) Type 2 diabetes mellitus; Translations: [Type 2 diabetes mellitus with diabetic chronic kidney disease] Onset: 05-14-2017 05-02-2020 Chronic Disorders of lipid metabolism (20 sources) Hyperlipidemia; Translations: [Hyperlipidemia, unspecified] Onset: 08-23-2005 Resolved: 01-05-2014 09-16-2015 Chronic Essential hypertension (16 sources) Benign essential hypertension; Translations: [Essential (primary) hypertension] Onset: 10-21-2006 10-21-2006 Chronic Fluid and electrolyte disorders (9 sources) Hypokalemia; Translations: [Hypokalemia] Onset: 11-30-2016 Resolved: 05-14-2017 05-14-2017 Episodic Genitourinary symptoms and ill-defined conditions (5 sources) Female stress incontinence; Translations: [Stress incontinence (female) (male)] Onset: 11-18-2012 11-18-2012 Chronic Headache; including migraine (3 sources) Migraine with aura; Translations: [Migraine with aura, not intractable, without status migrainosus] Onset: 02-25-2007 11-11-2017 Chronic Heart valve disorders (20 sources) Non-rheumatic aortic valve stenosis with regurgitation; Translations: [Nonrheumatic aortic (valve) stenosis with insufficiency] Onset: 03-01-2025 07-21-2024 Chronic Hypertension with complications and secondary hypertension (13 sources) Hypertensive heart disease; Translations: [Hypertensive heart disease without heart failure] Onset: 03-01-2025 07-21-2024 Chronic Immunizations and screening for infectious disease (14 sources) Requires tetanus and diphtheria vaccination; Translations: [Encounter for immunization] 10-22-2022 Episodic Malaise and fatigue (1 source) Weakness; Translations: [Weakness] Onset: 08-23-2025 Episodic Menopausal disorders (2 sources) Atrophy of vagina; Translations: [Postmenopausal atrophic vaginitis] 08-18-2025 Chronic Open wounds of extremities (20 sources) Open wound of right middle finger due to dog bite; Translations: [Open bite of right middle finger without damage to nail, initial encounter] 10-22-2022 Episodic Other and ill-defined heart disease (7 sources) Left ventricular hypertrophy; Translations: [Cardiomegaly] 06-18-2024 Chronic Other circulatory disease (2 sources) Carotid bruit; Translations: [Other specified symptoms and signs involving the circulatory and respiratory systems] 06-18-2025 Episodic Other circulatory disease (1 source) Other specified symptoms and signs involving the circulatory and respiratory systems; Translations: [Other specified symptoms and signs involving the circulatory and respiratory systems] Onset: 08-20-2025 Episodic Other connective tissue disease (1 source) Bilateral metatarsalgia; Translations: [Metatarsalgia, right foot] 01-01-2025 Episodic Other connective tissue disease (1 source) Pain in both feet; Translations: [Pain in right foot] 01-01-2025 Episodic Other connective tissue disease (3 sources) Pain in right foot; Translations: [Bilateral foot pain] Onset: 01-01-2025 Episodic Other connective tissue disease (2 sources) Pain in left foot; Translations: [Bilateral foot pain] Onset: 01-01-2025 Episodic Other connective tissue disease (4 sources) Pain in lower limb; Translations: [Pain in leg, unspecified] 06-21-2025 Episodic Other diseases of bladder and urethra (2 sources) Overactive bladder; Translations: [Overactive bladder] 08-18-2025 Chronic Other diseases of kidney and ureters (3 sources) Renal mass; Translations: [Other specified disorders of kidney and ureter] Onset: 11-01-2009 11-01-2009 Chronic Other gastrointestinal disorders (2 sources) Constipation; Translations: [Constipation, unspecified] 08-18-2025 Episodic Other hereditary and degenerative nervous system conditions (3 sources) Essential tremor; Translations: [Essential tremor] Onset: 04-11-2007 11-11-2017 Chronic Other lower respiratory disease (7 sources) Dyspnea; Translations: [Shortness of breath] 06-18-2024 Episodic Other nervous system disorders (4 sources) Paresthesia of lower extremity; Translations: [Paresthesia of skin] 06-21-2025 Episodic Other nervous system disorders (1 source) Unsteadiness on feet; Translations: [Unsteadiness on feet] Onset: 08-23-2025 Episodic Other nutritional; endocrine; and metabolic disorders (7 sources) Morbid obesity; Translations: [Morbid (severe) obesity due to excess calories] 06-18-2024 Chronic Other upper respiratory infections (7 sources) Viral upper respiratory tract infection; Translations: [Acute upper respiratory infection, unspecified] 10-29-2024 Episodic Peripheral and visceral atherosclerosis (5 sources) Peripheral vascular disease, unspecified; Translations: [Peripheral arterial disease] Onset: 05-31-2025 06-21-2025 Chronic Thyroid disorders (2 sources) Hypothyroidism, unspecified; Translations: [Hypothyroidism, unspecified] Onset: 09-21-2024 Chronic Urinary tract infections (10 sources) Cystitis; Translations: [Cystitis, unspecified without hematuria] Onset: 08-18-2025 09-11-2024 Episodic Viral infection (7 sources) Viral disease; Translations: [Viral infection, unspecified] 08-02-2024 Episodic Past or Other Problems Problem Classification Problem Date Documented Date Episodic/Chronic Diabetes mellitus without complication (2 sources) Diabetes mellitus; Translations: [Type 2 diabetes mellitus without complications] Onset: 08-23-2005 Resolved: 09-16-2015 06-11-2024 Chronic Diabetes mellitus without complication (3 sources) Impaired fasting glycemia; Translations: [Impaired fasting glucose] Onset: 04-29-2019 04-29-2019 Episodic Genitourinary symptoms and ill-defined conditions (3 sources) Nocturia; Translations: [Nocturia] Onset: 10-06-2024 08-18-2025 Episodic Other circulatory disease (3 sources) Orthostatic hypotension; Translations: [Orthostatic hypotension] Onset: 08-29-2020 08-29-2020 Episodic Other connective tissue disease (3 sources) Fibromyalgia; Translations: [Fibromyalgia] Onset: 11-11-2018 11-11-2018 Episodic Other diseases of veins and lymphatics (2 sources) Vascular insufficiency; Translations: [Venous insufficiency (chronic) (peripheral)] Onset: 11-18-2012 Resolved: 04-29-2019 04-29-2019 Episodic Other lower respiratory disease (1 source) Shortness of breath; Translations: [Shortness of breath] Onset: 11-18-2024 Episodic Other lower respiratory disease (1 source) Dyspnea, unspecified; Translations: [Dyspnea, unspecified] Onset: 09-21-2024 Episodic Other screening for suspected conditions (not mental disorders or infectious disease) (13 sources) Electrocardiogram abnormal; Translations: [Abnormal electrocardiogram [ECG] [EKG]] Onset: 03-01-2025 07-21-2024 Episodic Other skin disorders (2 sources) Excessive sweating; Translations: [Generalized hyperhidrosis] Onset: 05-14-2017 Resolved: 11-11-2018 11-11-2018 Episodic Residual codes; unclassified (3 sources) Other specified health status; Translations: [Other drug allergy] Onset: 07-23-2014 07-23-2014 Episodic Residual codes; unclassified (1 source) Chills (without fever); Translations: [Chills (without fever)] Onset: 11-08-2024 Episodic Spondylosis; intervertebral disc disorders; other back problems (2 sources) Lumbar disc prolapse with radiculopathy; Translations: [Intervertebral disc disorders with radiculopathy, lumbar region] Onset: 11-18-2012 Resolved: 11-11-2018 11-11-2018 Episodic Results Test Name Value Interpretation Reference Range Facility Carotid Duplex Ultrasoundon 08-20-2025 Carotid Duplex Ultrasound [facility] [address] [place] [address] Carotid Duplex Ultrasound 08/20/25 1312 MR#: [id number] Acct: [id number] Name: BRENDEN JUNIOR Rep #: [id number] : 1945 79 From: Reji Clark MD Attending Dr: SONYA Starr Status: REG CLI Ordering Dr: Bibi Nicholas Date: 08/20/25 Location: [facility] Sex: F C Admitted: Reason For Study Reason For Study: Rt CCA Bruit Rt. Velocities/BP Lt. Velocities/BP Prox CCA 117.7/12.3 cm/sec. Prox CCA 84.6/10.1 cm/sec. Mid CCA 76.0/12.3 cm/sec. Mid CCA 97.7/11.8 cm/sec. Dist CCA 54.0/12.3 cm/sec. Dist CCA 78.1/9.3 cm/sec. Prox ICA 234.1/53.7 cm/sec. Prox ICA 104.5/18.9 cm/sec. Mid ICA 207.1/35.3 cm/sec. Mid ICA 61.1/13.1 cm/sec. Dist ICA 117.3/26.8 cm/sec. Dist ICA 61.1/12.7 cm/sec. Rt. ICA/CCA = 3.1. Lt. ICA/CCA = 1.1. Prox ECA 477.7/23.8 cm/sec. Prox ECA 208.8/18.1 cm/sec. Rt. Vert. 46.8/7.5 cm/sec. Lt. Vert. 51.1/6.9 cm/sec. Right Extracranial There is intimal thickening but no significant atherosclerotic plaque noted in the right common carotid artery. There is heterogeneous, irregular atherosclerotic plaque noted in the right internal carotid artery. The right internal carotid artery is very tortuous. There is heterogeneous, irregular atherosclerotic plaque noted in the right external carotid artery. The right external carotid artery is tortuous. Antegrade flow is noted in the right vertebral artery. There is heterogeneous, irregular atherosclerotic plaque noted in the right bulb. Left Extracranial There is heterogeneous, irregular atherosclerotic plaque noted in the left common carotid artery. There is heterogeneous, irregular atherosclerotic plaque noted in the left internal carotid artery. There is heterogeneous, irregular atherosclerotic plaque noted in the left external carotid artery. Antegrade flow is noted in the left vertebral artery. There is heterogeneous, irregular atherosclerotic plaque noted in the left bulb. Procedure Carotid Duplex 33490. This is a Carotid Duplex examination using B-mode, color flow and specral Doppler. The exam was diagnostic. Exam performed in department. VL/Carotid Duplex Ultrasound Interpretation Summary Severe (>70%) stenosis right extracranial internal carotid. Mild (<50%) stenosis left extracranial internal carotid. Patent and antegrade vertebrals bilaterally. Ordering Physician: Bibi Nicholas Referring Physician: Hussein Alaniz Chi Performed By: Thai Martínez, RVT 08/23/25928 Date Reji Clark MD CC: SONYA Starr; Dr. Hussein Alaniz MD Date Dictated: 08/20/25 1312 Date Transcribed: 08/23/25928 Mechanical Engineering Technologist: Signed Sabas [facility] MR/Mariel 08-18-2025 MR/FAISAL [facility] [address] [place] [address], [address] [place] [address] OFFICE VISIT Date of Service: 08/18/25 MR#: [id number] Acct: [id number] Name: BRENDEN JUNIOR Rep #: [id number] : 1945 Provider: Dr. Cecille Shah i, MD Age/Sex: 79/F Location: [facility] Status: Signed Intake Vital Signs 03/01/25 12:57 08/18/25 11:54 Height 5 ft 4 in 5 ft 4 in Weight: 182 lb BMI 31.2 BP 154/63 H Pulse 67 Intake Visit Reasons: 4m chronic uti f/u Chief Complaint: 4 month chronic uti follow up Radon Inspector Required: No Accompanied by: self Is patient in pain?: Yes (fibromyalgia) Pain scale (1-10): 5 Allergies lisinopril Allergy (Verified 08/18/25 11:50) Swelling atorvastatin calcium (From Lipitor) Adverse Reaction (Verified 08/18/25 11:50) Other cholestyramine (From Questran) Adverse Reaction (Verified 08/18/25 11:50) Upset Stomach duloxetine HCl (From Cymbalta) Adverse Reaction (Verified 08/18/25 11:50) Other losartan potassium (From Cozaar) Adverse Reaction (Verified 08/18/25 11:50) Mucosal lesions propoxyphene HCl (From Darvon) Adverse Reaction (Verified 08/18/25 11:50) Other simvastatin (From Zocor) Adverse Reaction (Verified 08/18/25 11:50) Other sucrose (From Questran) Adverse Reaction (Verified 08/18/25 11:50) Upset Stomach sulfasalazine (From Azulfidine) Adverse Reaction (Verified 08/18/25 11:50) Upset Stomach zolmitriptan (From Zomig) Adverse Reaction (Verified 08/18/25 11:50) Other Medications ???Medication ???Instructions ???Recorded ???Confirmed ???Type amlodipine 10 mg tablet 10 mg PO DAILY 06/18/24 08/18/25 H istory fluoxetine 20 mg tablet 20 mg PO DAILY 07/21/24 08/18/25 H istory hydralazine 25 mg tablet 25 mg PO TID 09/21/24 08/18/25 His tory primidone 50 mg tablet 100 mg PO QHS 09/21/24 08/18/25 Hi story fenofibrate nanocrystallized 145 145 mg PO QDAY #30 tabs 03/01/25 0 08/18/25 Rx mg tablet (Tricor) metoprolol succinate 25 mg 25 mg PO QDAY 03/01/25 08/18/25 Hi story tablet,extended release 24 hr d-mannose 500 mg capsule mg PO 06/17/25 08/18/25 History fesoterodine 8 mg tablet,extended 8 mg PO QDAY 06/17/25 08/18/25 Hi story release 24 hr levothyroxine 125 mcg tablet 112 mcg PO DAILY 06/17/25 08/18/25 History methenamine hippurate 1 gram tablet 1 g PO BID 06/17/25 08/18/25 Hi story omeprazole 20 mg capsule,delayed 20 mg PO QDAY 06/17/25 08/18/25 Hi story release vibegron 75 mg tablet (Gemtesa) 75 mg PO QDAY 06/17/25 08/18/25 Hi story cetirizine 10 mg capsule (Zyrtec) 10 mg PO QDAY 06/18/25 08/18/25 H istory gabapentin 100 mg capsule 100 mg PO TID 06/18/25 08/18/25 Hi story hydrochlorothiazide 25 mg tablet 25 mg PO DAILY #90 TABLETS 5 08/18/25 Rx potassium chloride 10 mEq 10 meq PO DAILY #90 tabs 07/16/25 08/18/25 Rx tablet,extended release amlodipine 10 mg tablet 10 mg PO QDAY 08/18/25 08/18/25 Hi story aspirin 81 mg tablet 81 mg PO QDAY 08/18/25 08/18/25 Hi story fluoxetine 20 mg capsule 20 mg PO QDAY 08/18/25 08/18/25 Hi story metoprolol succinate 25 mg 25 mg PO QDAY 08/18/25 08/18/25 Hi story tablet,extended release 24 hr potassium chloride 10 mEq 10 meq PO QDAY 08/18/25 08/18/25 H istory capsule,extended release primidone 50 mg tablet 50 mg PO ONCE 08/18/25 08/18/25 Hi story Have you fallen in the past year?: Yes (fell a few weeks ago getting toilet paper) [facility] Medical History (Updated 08/18/25 @ 11:[address] Cecille Smith MD) Constipation Vaginal atrophy Nocturia Urinary tract infection Urge incontinence Rosacea Dog bite Laceration of finger Muscle spasm Vitamin D deficiency LVH (left ventricular hypertrophy) Overactive bladder Fibromyalgia Type 2 diabetes mellitus Hyperlipidemia Drug-induced myopathy Depression Morbid obesity SOB (shortness of breath) GERD (gastroesophageal reflux disease) Right sided sciatica Low back pain CKD stage 3a, GFR 45-59 ml/min Tremor Laceration of right middle finger w/o foreign body w/o damage to nail Anxiety Hypothyroid Hypertension Surgical History Hx of hysterectomy History of nasal surgery Hx of cataract surgery Hx of cholecystectomy Hx of thyroidectomy Family History Mother Dyslipidemia Dementia Heart disease Brother Diabetes COPD (chronic obstructive pulmonary disease) Father Diabetes Hypertension Cancer Brother Cancer prostate Social History Smoking Status: Never smoker HPI HPI Urology Chief Complaint: 4 month chronic uti follow up Details: BRENDEN JUNIOR, is a 79 F. She is here for follow up urinary tract infections. S (more content not included)... Normal [facility] Re-Evaluation - PT (1)on Re-Evaluation - PT (1) [facility] Physical Therapy [facility] [address] [place] [address]. [address] [place] [address] / REEVALUATION / MEDICARE RECERTIFICATION PHYSICAL THERAPY MR#: [id number] Acct: [id number] Name: BRENDEN JUNIOR Rep #: [id number] : 1945 79 From: Robby Frank DPT Referring Dr.: SONYA Starr Status:REG RCR Insurance: MEDICARE PART A B [employer] Re-Evaluation Intro: SONYA Starr, It has been my pleasure to treat BRENDEN JUNIOR over the last 6 visits for Generalized weakness. Please see the progress note below for an update on the physical therapy plan of care! Subjective Subjective: Pt. reports overall doing well. Pt. has not fallen since starting PT. Pt. reports being better, but still unsteady. Objective Objective/Function: MMT: R knee: ext 37.8#, flexion 30.3# L knee: ext 29.0#, flex 27.9# Pt. is overall doing well. Pt. still has marked weakness in her legs and functional weakness. Pt. is still unsteady without AD, I would recommend that she use an AD for safety Plan Plan Plan: Cont. to progress BLE strengthening dynamic balance progression. progress gait with appropriate AD. Balance/Gait/Functional tests Balance/Special Test Scores Lower Extremity Functional Score: 44 TUG Test Time Seconds: 16.2 Tug Test: <20 sec.=mostly independent 30 Second Chair Rise Test Seconds: 12 Goals Goals Goal 1:: LTG: pt. to be I with HEP. Goal Time Frame: 4-6 Weeks Goal Progress: Progressing Goal 2:: LTG: Pt. to have 5/5 BLE strength. Goal Time Frame: 4-6 Weeks Goal Progress: Progressing Goal 3:: LTG: Pt. to ambulate with SPC 150' ALEXX. Goal Time Frame: 4-6 Weeks Goal Progress: Progressing Goal 4:: LTG: Pt. to complete 30sec sit to stand rep test with 12 reps. Goal Time Frame: 4-6 Weeks Goal Progress: Goal Met Goal 5:: LTG: Pt. to complete TUG with time less than 20seconds. Goal Time Frame: 4-6 Weeks Goal Progress: Goal Met Goal 6:: 6 MWT with distance of 900' with SPC vs walker Anticipated Interventions Anticipated Interventions Patient/Client Instruction: Educate patient on: Condition, Plan of Care, Risk Factors and Benefits of Fitness Program For the Purpose of:: To foster healthy habits, To improve decision making, To facilitate caregiver knowledge, To improve self management, To prevent re-injury and To improve ability to perform tasks related to life management Therapeutic Exercise to Include: Strength training, Power training, Endurance training, Balance training, Postural training, Flexibilty training and Gait and locomotor training For the Purpose of:: To decrease pain, To decrease swelling/inflammation, To increase ROM, To improve nutrient delivery to tissue, To increase oxygenation perfusion, To improve muscle per formance and motor function and To increase tolerance to activity/condition/posi tion Re-Evaluation Ending Re-evaluation ending: Please do not hesitate to contact me at [phone] by phone or if you have questions or concerns regarding this new plan of care! Sincerely, Robby Frank DPT 08/16/25 1142 CC: SONYA Starr; Dr. Hussein Alaniz MD CLS Signed For Medicare only, by signing this I certify the plan of care. Physicians Signature Date Normal [facility] Inital Evaluation (1) - PTon 07-01-2025 Inital Evaluation (1) - PT [facility] [address] [place] [address] [address] [place] [address] / REHABILITATION SERVICES INITIAL EVALUATION MR#: [id number] Acct: [id number] Name: BRENDEN JUNIOR Rep #: [id number] : 1945 79 From: Robby Frank DPT Referring Dr.: SONYA Starr Status: REG RCR Insurance: MEDICARE PART A B [employer] Patient's Visit Information Visit Information Visit Information: BRENDEN JUNIOR is a 79 year old F referred to Physical Therapy by SONYA Starr with a diagnosis of Generalized weakness. Date of Evaluation: 06/25/25 Physical Therapist: Robby Frank DPT Visit Plan Frequency: 2x /Week Duration: 6 Weeks Plan: Start with BLE strengthening quad/HS/hip strengthening progressive gait iwth FWW progressing to SPC. Subjective Subjective: Pt. is here today for initial evaluation with diagnosis of generalized weakness. Pt. has been having more and more difficulty with her mobility. She reports having high levels of fatigue with walking and getting around the house. Pt. reports not much pain, but mostly weakness. Pt. would like to get back to all walking and activities without limitations. Sleeping well. Pt. reports no N/T in either LE. Pt. does have help from her children. Pt. does have a history of back pain which does limit her mobility. Pt. would like to get back to walking with cane with increased I. Objective Objective: POSTURE: Pt. has slight flexed posture. Pt. is able to stand without AD. PALPATION: no issues. NEURO: normal ROM: Pt. mod loss of luimbar spine in all directions. normal BLE ROM. MMT: Pt. has 4/5 general strength throughout BLEs. 30sec sit to stand rep test: 4 with use of UEs. TU.8sec with FWW GAIT: Pt. ambulated with FWW with flexed posture and heavy use of UEs. Pt. does have increased postural sway and increased pain limiting further mobility. Bed mobility: I Balance/Special Test Scores Lower Extremity Functional Score: 20 Goals Goal 1:: LTG: pt. to be I with HEP. Goal Time Frame: 4-6 Weeks Goal 2:: LTG: Pt. to have 5/5 BLE strength. Goal Time Frame: 4-6 Weeks Goal 3:: LTG: Pt. to ambulate with SPC 150' ALEXX. Goal Time Frame: 4-6 Weeks Goal 4:: LTG: Pt. to complete 30sec sit to stand rep test with 12 reps. Goal Time Frame: 4-6 Weeks Goal 5:: LTG: Pt. to complete TUG with time less than 20seconds. Goal Time Frame: 4-6 Weeks Rehabilitation Potential Rehabilitation Potential: Good Anticipated Interventions Patient/Client Instruction: Educate patient on: Condition, Plan of Care, Risk Factors and Benefits of Fitness Program For the Purpose of:: To foster healthy habits, To improve decision making, To facilitate caregiver knowledge, To improve self management, To prevent re-injury and To improve ability to perform tasks related to life management Therapeutic Exercise to Include: Strength training, Power training, Endurance training, Balance training, Postural training, Flexibilty training and Gait and locomotor training For the Purpose of:: To decrease pain, To decrease swelling/inflammation, To increase ROM, To improve nutrient delivery to tissue, To increase oxygenation perfusion, To improve muscle performance and motor function and To increase tolerance to activity/condition/posi tion Text: Thank you for the opportunity to evaluate your patient. For Medicare and Medicare HMO plans, please review the plan of care and approve it. It will need to be FAXED BACK to us at [phone] for Medicare purposes. For Medicare only, by signing this I certify the plan of care. Please let me know if there are questions or concerns regarding this plan of care. Physician Signature: Date: 07/01/25 1234 CC: SONYA Starr; Dr. Hussein Alaniz MD CLS Signed Normal [facility] Absolute lymphocyte countOrd ered By: Hussein Alaniz on 06-18-2025 Lymphocytes Auto (Unsp spec) [#/Vol] 2.31 10*3/uL 0.83-4.51 [facility] Absolute neutrophil countOrd ered By: Hussein Alaniz on 06-18-2025 Neutrophils (Bld) [#/Vol] 3.1 10*3/uL 2.0-7.7 [facility] Anion gap in Serum or Plasma Ordered By: Hussein Alaniz on 06-18-2025 Anion gap [Moles/Vol] 12 mmol/L 5-15 [facility] Automated lymphocyte count a s percentage of total leukocytesOrdered By: Hussein Alaniz on 06-18-2025 Lymphocytes/100 WBC Auto (Unsp spec) 36.3 % 19-41 [facility] BUN/creatinine ratioOrdered By: Hussein Alaniz on 06-18-2025 Urea nitrogen/Creatinine [Mass ratio] 28.9 mg/mg High 10-20 [facility] Basophil percentageOrdered B y: Hussein Alaniz on 06-18-2025 Basophils/100 WBC (Bld) 0.9 % 0-1 [facility] Bilirubin, totalOrdered By: Hussein Alaniz on 06-18-2025 Bilirubin [Mass/Vol] 0.27 mg/dL 0.00-1.30 [facility] CBC W/Diff, Automatedon 06-01 Absolute Lymph 2.31 X10 3/uL Normal 0.83-4.51 [facility] Comment on above: Performed By: #### L 100.0100, L506.1001, L500.4050, L501.9520 #### [facility] [address] [place], [address] Absolute Neut 3.1 X10 3/uL Normal 2.0-7.7 [facility] Comment on above: Performed By: #### L 100.0100, L506.1001, L500.4050, L501.9520 #### [facility] [address] [place], [address] Basophils/100 WBC (Bld) 0.9 % Normal 0-1 [facility] Comment on above: Performed By: #### L 100.0100, L506.1001, L500.4050, L501.9520 #### [facility] [address] [place], [address] Eosinophils/100 WBC (Bld) 2.8 % Normal 0-5 [facility] Comment on above: Performed By: #### L 100.0100, L506.1001, L500.4050, L501.9520 #### [facility] [address] [place], [address] Erythrocyte distribution width (RBC) [Ratio] 14.3 % Normal 11.6-14.6 [facility] Comment on above: Performed By: #### L 100.0100, L506.1001, L500.4050, L501.9520 #### [facility] [address] [place], [address] Hematocrit (Bld) [Volume fraction] 33.9 % Low 37-47 [facility] Comment on above: Performed By: #### L 100.0100, L506.1001, L500.4050, L501.9520 #### [facility] [address] [place], [address] Hemoglobin (Bld) [Mass/Vol] 11.3 g/dL Low 12.0-15.0 [facility] Comment on above: Performed By: #### L 100.0100, L506.1001, L500.4050, L501.9520 #### [facility] [address] [place], [address] IG% 0.500 Normal 0.0-0.9 [facility] Comment on above: Result Comment: IG% - Immature Granulocytes (promyelocytes, myelocytes and metamyelocytes) > 1% indicates that a LEFT SHIFT is Present. Performed By: #### L 100.0100, L506.1001, L500.4050, L501.9520 #### [facility] [address] [place], [address] Lymphocytes/100 WBC (Bld) 36.3 % Normal 19-41 [facility] Comment on above: Performed By: #### L 100.0100, L506.1001, L500.4050, L501.9520 #### [facility] [address] [place], [address] MCH (RBC) [Entitic mass] 30.5 pg Normal 27.0-32.0 [facility] Comment on above: Performed By: #### L 100.0100, L506.1001, L500.4050, L501.9520 #### [facility] [address] [place], [address] MCHC (RBC) [Mass/Vol] 33.3 g/dL Normal 32-36 [facility] Comment on above: Performed By: #### L 100.0100, L506.1001, L500.4050, L501.9520 #### [facility] [address] [place], [address] MCV (RBC) [Entitic vol] 91.6 fL Normal 81-99 [facility] Comment on above: Performed By: #### L 100.0100, L506.1001, L500.4050, L501.9520 #### [facility] [address] [place], [address] Monocytes/100 WBC (Bld) 10.5 % High 0-10 [facility] Comment on above: Performed By: #### L 100.0100, L506.1001, L500.4050, L501.9520 #### [facility] [address] [place], [address] Neutrophils/100 WBC (Bld) 49.0 % Normal 47-70 [facility] Comment on above: Performed By: #### L 100.0100, L506.1001, L500.4050, L501.9520 #### [facility] [address] [place], [address] Nucleated RBC (Bld) [#/Vol] 0 10*3/uL Normal 0-5 [facility] Comment on above: Performed By: #### L 100.0100, L506.1001, L500.4050, L501.9520 #### [facility] [address] [place], [address] Platelet mean volume (Bld) [Entitic vol] 8.5 fL Normal 6.2-12.0 [facility] [facility] Comment on above: Performed By: #### L 100.0100, L506.1001, L500.4050, L501.9520 #### [facility] [address] [place], [address] Platelets (Bld) [#/Vol] 407 10*3/uL Normal 150-450 [facility] Comment on above: Performed By: #### L 100.0100, L506.1001, L500.4050, L501.9520 #### [facility] [address] [place], [address] RBC (Bld) [#/Vol] 3.70 10*6/uL Low 4.2-5.4 [facility] Comment on above: Performed By: #### L 100.0100, L506.1001, L500.4050, L501.9520 #### [facility] [address] [place], [address] RDW SD 48.0 fl High 35.1-43.9 [facility] Comment on above: Performed By: #### L 100.0100, L506.1001, L500.4050, L501.9520 #### [facility] [address] [place], [address] WBC (Bld) [#/Vol] 6.4 10*3/uL Normal 4.4-11.[address] [facility] Comment on above: Performed By: #### L 100.0100, L506.1001, L500.4050, L501.9520 #### [facility] [address] [place], [address] Carbon dioxide, total [Moles /volume] in Central venous bloodOrdered By: Hussein Alaniz on 06-18-2025 CO2 [Moles/Vol] 23.0 mmol/L 21.0-32.0 [facility] Chloride assayOrdered By: Brian Alaniz on 06-18-2025 Chloride [Moles/Vol] 98 mmol/L 98-108 [facility] Comprehensive Metabolic Prof ilon 06-18-2025 Albumin [Mass/Vol] 4.1 g/dL Normal 3.4-4.[address] [facility] Comment on above: Performed By: #### L 100.0100, L506.1001, L500.4050, L501.9520 #### [facility] [address] [place], [address] Albumin/Globulin [Mass ratio] 1.6 {ratio} Normal 0.9-2.4 [facility] Comment on above: Performed By: #### L 100.0100, L506.1001, L500.4050, L501.9520 #### [facility] [address] [place], [address] ALK PHOS 54 U/L Normal 35-104 [facility] Comment on above: Performed By: #### L 100.0100, L506.1001, L500.4050, L501.9520 #### [facility] [address] [place], [address] ALT [Catalytic activity/Vol] 19 U/L Normal <=34 [facility] Comment on above: Performed By: #### L 100.0100, L506.1001, L500.4050, L501.9520 #### [facility] [address] [place], [address] AST [Catalytic activity/Vol] 23 U/L Normal <=31 [facility] Comment on above: Performed By: #### L 100.0100, L506.1001, L500.4050, L501.9520 #### [facility] [address] [place], [address] Bilirubin [Mass/Vol] 0.27 mg/dL Normal 0.00-1.30 [facility] Comment on above: Performed By: #### L 100.0100, L506.1001, L500.4050, L501.9520 #### [facility] [address] [place], [address] BUN/CRE 28.9 RATIO High 10-20 [facility] Comment on above: Performed By: #### L 100.0100, L506.1001, L500.4050, L501.9520 #### [facility] [address] [place], [address] Calcium [Mass/Vol] 9.0 mg/dL Normal 7.6-11.[address] [facility] Comment on above: Performed By: #### L 100.0100, L506.1001, L500.4050, L501.9520 #### [facility] [address] [place], [address] Chloride [Moles/Vol] 98 mmol/L Normal 98-108 [facility] Comment on above: Performed By: #### L 100.0100, L506.1001, L500.4050, L501.9520 #### [facility] [address] [place], [address] CO2 [Moles/Vol] 23.0 mmol/L Normal 21.0-32.0 [facility] Comment on above: Performed By: #### L 100.0100, L506.1001, L500.4050, L501.9520 #### [facility] [address] [place], [address] Creatinine [Mass/Vol] 1.23 mg/dL High 0.70-1.20 [facility] Comment on above: Performed By: #### L 100.0100, L506.1001, L500.4050, L501.9520 #### [facility] [address] [place], [address] GAP 12 Normal 5-15 [facility] Comment on above: Performed By: #### L 100.0100, L506.1001, L500.4050, L501.9520 #### [facility] [address] [place], [address] GFR/1.73 sq M.predicted among non-blacks MDRD (S/P/Bld) [Vol rate/Area] 44 mL/min/{1.73_m2} Low >60 [facility] Comment on above: Result Comment: mL/m in/1.73m2 CKD-EPI Creatinine Equation (2020) Performed By: #### L 100.0100, L506.1001, L500.4050, L501.9520 #### [facility] [address] [place], [address] Globulin (S) [Mass/Vol] 2.6 g/dL Normal 2.2-4.2 [facility] Comment on above: Performed By: #### L 100.0100, L506.1001, L500.4050, L501.9520 #### [facility] [address] [place], [address] Glucose [Mass/Vol] 113 mg/dL High 70-[address] [facility] Comment on above: Performed By: #### L 100.0100, L506.1001, L500.4050, L501.9520 #### [facility] [address] [place], [address] Potassium [Moles/Vol] 3.9 mmol/L Normal 3.3-5.1 [facility] Comment on above: Performed By: #### L 100.0100, L506.1001, L500.4050, L501.9520 #### [facility] [address] [place], [address] Sodium [Moles/Vol] 133 mmol/L Normal 133-[address] [facility] Comment on above: Performed By: #### L 100.0100, L506.1001, L500.4050, L501.9520 #### [facility] [address] [place], [address] T PROT 6.8 g/dL Normal 5.9-8.4 [facility] Comment on above: Performed By: #### L 100.0100, L506.1001, L500.4050, L501.9520 #### [facility] [address] [place], [address] Urea nitrogen [Mass/Vol] 36 mg/dL High 4-19 [facility] Comment on above: Performed By: #### L 100.0100, L506.1001, L500.4050, L501.9520 #### [facility] [address] [place], [address] Eosinophil percentageOrdered By: Hussein Alaniz on 06-18-2025 Eosinophils/100 WBC (Bld) 2.8 % 0-5 [facility] Erythrocyte distribution wid th ratioOrdered By: Hussein Alaniz on 06-18-2025 Erythrocyte distribution width (RBC) [Ratio] 14.3 % 11.6-14.6 [facility] Erythrocyte distribution wid th standard deviationOrdered By: Hussein Alaniz on 06-18-2025 Erythrocyte distribution width (RBC) [Ratio] 48.0 fl High 35.1-43.9 [facility] Glomerular filtration rate ( GFR) estimation/1.73 sq m using serum, plasma, or whole bOrdered By: Hussein Alaniz on 06-18-2025 GFR/1.73 sq M.predicted among non-blacks MDRD (S/P/Bld) [Vol rate/Area] 44 mL/min/{1.73_m2} Low >60 [facility] Comment on above: mL/min/1.73m2 CKD-EP I Creatinine Equation (2020) Hematocrit Auto (Bld) [Volum e fraction]Ordered By: Hussein Alaniz on 06-18-2025 Hematocrit (Bld) [Volume fraction] 33.9 % Low 37-47 [facility] Hemoglobin measurementOrdere d By: Hussein Alaniz 06-18-2025 Hemoglobin (Bld) [Mass/Vol] 11.3 g/dL Low 12.0-15.0 [facility] Immature granulocytes/100 WB C Auto (Bld)Ordered By: Hussein Alaniz on 06-18-2025 Immature granulocytes/100 WBC (Bld) 0.500 % 0.0-0.9 [facility] Comment on above: IG% - Immature Granu locytes (promyelocytes, myelocytes and metamyelocytes) > 1% indicates that a LEFT SHIFT is Present. Laboratory - Chemistry and C hemistry - challengeOrdered By: Hussein Alaniz on 06-18-2025 AST [Catalytic activity/Vol] 23 U/L <32 [facility] MCV (mean corpuscular volume ) determinationOrdered By: Hussein Alaniz on 06-18-2025 MCV (RBC) [Entitic vol] 91.6 fL 81-99 [facility] Mean corpuscular hemoglobin (MCH) determinationOrdered By: Hussein Alaniz 06-18-2025 MCH (RBC) [Entitic mass] 30.5 pg 27.0-32.0 [facility] Mean corpuscular hemoglobin concentration (MCHC) determinationOrdered By: Hussein Alaniz 06-18-2025 MCHC (RBC) [Mass/Vol] 33.3 g/dL 32-36 [facility] Mean platelet volume determi nationOrdered By: Hussein Alaniz on 06-18-2025 Platelet mean volume (Bld) [Entitic vol] 8.5 fL 6.2-12.0 [facility] Monocyte percentageOrdered B y: Hussein Fraustook on 06-18-2025 Monocytes/100 WBC (Bld) 10.5 % High 0-10 [facility] Neutrophil percentageOrdered By: Hussein Alaniz 06-18-2025 Neutrophils/100 WBC (Bld) 49.0 % 47-70 [facility] Nucleated red blood cell per centageOrdered By: Hussein Alaniz 06-18-2025 Nucleated RBC/100 WBC (Bld) [Ratio] 0 % 0-5 [facility] Platelet countOrdered By: Brian Alaniz on 06-18-2025 Platelets (Bld) [#/Vol] 407 10*3/uL 150-450 [facility] Potassium measurement (mass/ volume)Ordered By: Hussein Alaniz on 06-18-2025 Potassium (Unsp spec) [Mass/Vol] 3.9 mmol/L 3.3-5.1 [facility] Protein, Urine (Random)on Protein (U) [Mass/Vol] 33.0 mg/dL High 0.0-12.0 [facility] Comment on above: Performed By: #### L 501.1930 #### [facility] [address] [place], [address] RBC Auto (Bld) [#/Vol]Ordere d By: Hussein Alaniz on 06-18-2025 RBC (Bld) [#/Vol] 3.70 10*6/uL Low 4.2-5.4 [facility] Serum creatinine measurement (mass/volume)Ordered By: Hussein Alaniz on 06-18-2025 Creatinine [Mass/Vol] 1.23 mg/dL High 0.70-1.20 [facility] Serum globulin measurementOr dered By: Hussein Alaniz on 06-18-2025 Globulin (S) [Mass/Vol] 2.6 g/dL 2.2-4.2 [facility] Serum glucose measurement (m ass/volume)Ordered By: Hussein Alaniz on 06-18-2025 Glucose [Mass/Vol] 113 mg/dL High 70-[address] [facility] Serum or plasma alanine bowens otransferase (ALT) measurementOrdered By: Hussein Alaniz on 06-18-2025 ALT [Catalytic activity/Vol] 19 U/L <35 [facility] Serum or plasma albumin imani urement (mass/volume)Ordered By: Hussein Alaniz on 06-18-2025 Albumin [Mass/Vol] 4.1 g/dL 3.4-4.[address] [facility] Serum or plasma albumin/glob ulin mass ratioOrdered By: Hussein Alaniz 06-18-2025 Albumin/Globulin [Mass ratio] 1.6 {ratio} 0.9-2.4 [facility] Serum or plasma alkaline mary ann sphatase measurementOrdered By: Hussein Alaniz on 06-18-2025 ALP [Catalytic activity/Vol] 54 U/L 35-104 [facility] Serum or plasma calcium imani urement (mass/volume)Ordered By: Hussein Alaniz on 06-18-2025 Calcium [Mass/Vol] 9.0 mg/dL 7.6-11.[address] [facility] Serum or plasma urea nitroge n measurement (mass/volume)Ordered By: Hussein Alaniz on 06-18-2025 Urea nitrogen [Mass/Vol] 36 mg/dL High 4-19 [facility] Sodium levelOrdered By: Hussein Alaniz on 06-18-2025 Sodium [Moles/Vol] 133 mmol/L 133-[address] [facility] TSH DL <= 0.005 mIU/L QnOrde red By: Hussein Alaniz on 06-18-2025 TSH Qn 1.900 uIU/mL 0.300-4.200 [facility] Thyroid Stim Hormone (TSH)on 06-18-2025 TSH 1.900 uIU/mL Normal 0.300-4.200 [facility] Comment on above: Performed By: #### L 100.0100, L506.1001, L500.4050, L501.9520 #### [facility] [address] [place], [place], [address] Total proteinOrdered By: Hussein Alaniz on 06-18-2025 Protein [Mass/Vol] 6.8 g/dL 5.9-8.[address] [facility] Urine protein measurement (m ass/volume)Ordered By: Hussein Alaniz on 06-18-2025 Protein (U) [Mass/Vol] 33.0 mg/dL High 0.0-12.0 [facility] Vitamin B12on 06-18-2025 Cobalamin (Vitamin B12) [Mass/Vol] 363 pg/mL Normal 180-914 [facility] Comment on above: Performed By: #### L 100.0100, L506.1001, L500.4050, L501.9520 #### [facility] [address] [place], [address] Vitamin B12 ser/plasOrdered By: Hussein Alaniz on 06-18-2025 Cobalamin (Vitamin B12) [Mass/Vol] 363 pg/mL 180-914 [facility] White blood cell (WBC) count Ordered By: Hussein Alaniz on 06-18-2025 WBC (Bld) [#/Vol] 6.4 10*3/uL 4.4-11.[address] [facility] MR/BMS.Alexandrea 06-17-2025 MR[facility]BMS.[facility] [address] [place] [address] OFFICE VISIT Date of Service: 06/18/25 MR#: [id number] Acct: [id number] Name: BRENDEN JUNIOR Rep #: [id number] : 1945 Provider: SONYA Starr Age/Sex: 79/F Location: [facility] Status: Signed Intake Vital Signs 03/01/25 12:57 06/18/25 13:17 Height 5 ft 4 in Weight: 179 lb BP 176/76 H Blood Pressure Location Lt brachial Position Sitting Respiration 18 Pulse 61 Pulse Source Monitor Temp 98.2 F Temp Source Temporal Pulse Oximetry (%) 99 Oxygen Delivery Method room air Intake Visit Reasons: BLE Pain Chief Complaint: hydration Is patient in pain?: Yes Allergies lisinopril Allergy (Verified 06/18/25 13:16) Swelling atorvastatin calcium (From Lipitor) Adverse Reaction (Verified 06/18/25 13:16) Other cholestyramine (From Questran) Adverse Reaction (Verified 06/18/25 13:16) Upset Stomach duloxetine HCl (From Cymbalta) Adverse Reaction (Verified 06/18/25 13:16) Other losartan potassium (From Cozaar) Adverse Reaction (Verified 06/18/25 13:16) Mucosal lesions propoxyphene HCl (From Darvon) Adverse Reaction (Verified 06/18/25 13:16) Other simvastatin (From Zocor) Adverse Reaction (Verified 06/18/25 13:16) Other sucrose (From Questran) Adverse Reaction (Verified 06/18/25 13:16) Upset Stomach sulfasalazine (From Azulfidine) Adverse Reaction (Verified 06/18/25 13:16) Upset Stomach zolmitriptan (From Zomig) Adverse Reaction (Verified 06/18/25 13:16) Other Medications ???Medication ???Instructions ???Recorded ???Confirmed ???Type amlodipine 10 mg tablet 10 mg PO DAILY 07/18/24 07/18/25 H istory fluoxetine 20 mg tablet 20 mg PO DAILY 07/21/24 06/18/25 H istory potassium chloride 10 mEq 10 meq PO DAILY #90 tabs 07/31/24 06/18/25 Rx tablet,extended release hydralazine 25 mg tablet 25 mg PO TID 09/21/24 06/18/25 His tory primidone 50 mg tablet 100 mg PO QHS 09/21/24 06/18/25 Hi story fenofibrate nanocrystallized 145 145 mg PO QDAY #30 tabs 03/01/25 0 06/18/25 Rx mg tablet (Tricor) metoprolol succinate 25 mg 25 mg PO QDAY 03/01/25 06/18/25 Hi story tablet,extended release 24 hr d-mannose 500 mg capsule mg PO 06/17/25 06/17/25 History fesoterodine 8 mg tablet,extended 8 mg PO QDAY 06/17/25 06/17/25 Hi story release 24 hr levothyroxine 125 mcg tablet 112 mcg PO DAILY 06/17/25 06/17/25 History methenamine hippurate 1 gram tablet 1 g PO BID 06/17/25 06/17/25 Hi story omeprazole 20 mg capsule,delayed 20 mg PO QDAY 06/17/25 06/17/25 Hi story release vibegron 75 mg tablet (Gemtesa) 75 mg PO QDAY 06/17/25 06/17/25 Hi story cetirizine 10 mg capsule (Zyrtec) 10 mg PO QDAY 06/18/25 06/18/25 H istory gabapentin 100 mg capsule 100 mg PO TID 06/18/25 06/18/25 Hi story hydrochlorothiazide 25 mg tablet 25 mg PO DAILY #90 TABLETS 5 Rx Is last menstrual period known: No Post menopausal: Yes Patient : No Have you fallen in the past year?: Yes [facility] Medical History Rosacea Dog bite Laceration of finger Muscle spasm Vitamin D deficiency LVH (left ventricular hypertrophy) Overactive bladder Fibromyalgia Type 2 diabetes mellitus Hyperlipidemia Drug-induced myopathy Depression Morbid obesity SOB (shortness of breath) GERD (gastroesophageal reflux disease) Right sided sciatica Low back pain CKD stage 3a, GFR 45-59 ml/min Tremor Laceration of right middle finger w/o foreign body w/o damage to nail Anxiety Hypothyroid Hypertension Surgical History Hx of hysterectomy History of nasal surgery Hx of cataract surgery Hx of cholecystectomy Hx of thyroidectomy Family History Mother Dyslipidemia Dementia Heart disease Brother Diabetes COPD (chronic obstructive pulmonary disease) Father Diabetes Hypertension Cancer Brother Cancer prostate Social History Smoking Status: Never smoker HPI HPI HPI: BRENDEN JUNIOR, is a 79 F who presents to the office today for evaluation of PAD as referred by Dr. Alaniz. She describes pain at rest that is generally the same with exercise except her feet hurt worse with exercise. She has difficulty describing the character of the pain, definitely not cramping/burning but kind of aching along her lateral calf and in the feet along with altered sensations just within her feet. She describes limited ability to ambulate/stand for long periods of time in part due to discomfort but also due to generalized weakness/fatigue. She does have chronic swelling around her ankles whic (more content not included)... Normal [facility] NCS and/or EMG Patienton NCS and/or EMG Patient [facility] Pulmonary Services/Neurology [address] [place] [address] MR#: [id number] Acct: [id number] Name: BRENDEN JUNIOR Rep #: [id number] : 1945 79 From: Magdy Rocha MD Referring Dr: Hussein Alaniz MD Status: REG CLI Location: [facility] Date: 06/09/25 Sex: F C NCS and/or EMG Patient Report Ordering Doctor: Hussein Alaniz Chi DATE OF SERVICE: 06/09/25 Brenden presents for electrodiagnostic testing of the lower limbs. She reports altered sensation in both feet and intermittent lower back pain. Electrodiagnostic findings: Left peroneal motor nerve measured at the tibialis anterior demonstrates normal distal latency, amplitude and conduction velocity. Diminished right tibial motor amplitude is noted. Normal left tibial motor response. Normal right peroneal motor response measured at the EDB. Sensory responses were not obtainable. Prolonged H???reflex bilaterally. Prolonged left peroneal and left right tibial F???wave. Needle EMG testing was performed the lower limbs. All muscles tested showed no evidence of denervation with normal motor unit action potentials. Electrodiagnostic impression: This is an abnormal study in the lower limbs 1. 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 May be secondary to history of diabetes. 2. No electrodiagnostic evidence is noted for lumbosacral radiculopathy. Multi Select Codes Neurology Neurology Interp Codes: 76056-94 Musc test done w/n test comp (interp) (2) and 21807-97 Nrv cndj test 11-12 studies (interp) 06/09/25 1428 Date Magdy Rocha MD CC: Dr. Magdy Rocha MD; Dr. Hussein Alaniz MD Date Dictated: 06/09/251424 Date Transcribed: 06/09/251424 Mechanical Engineering Technologist: AA Signed Normal [facility] Anion gap in Serum or Plasma Ordered By: Hussein Alaniz on 05-25-2025 Anion gap [Moles/Vol] 11 mmol/L 5-15 [facility] Ankle Brachial Indexon 05-25 Ankle Brachial Index [facility] [address] [place] [address] Ankle Brachial Index 05/25/25 1258 MR#: [id number] Acct: [id number] Name: BRENDEN JUNIOR Rep #: [id number] : 1945 79 From: Reji Clark MD Attending Dr: Dr. Hussein Alaniz MD Status: REG CLI Ordering Dr: Hussein Alaniz MD Date: 05/25/25 Location: [facility] Sex: F C Admitted: Reason For Study Reason For Study: Bilateral Foot Pain Procedure A bilateral lower extremity continuous wave Doppler with analog waveform analysis and ankle brachial indexes. Left Segmental Pressures Left brachial= 154mmHg. Left posterior tibial artery = 103mmHg. Left dorsalis pedis artery = 116mmHg. Left digit = 94 mmHg. The left posterior tibial artery waveforms are biphasic. The left dorsalis pedis waveforms are biphasic. Right Segmental Pressures Right brachial= 160mmHg. Right posterior tibial artery = 114mmHg. Right dorsalis pedis artery = 114mmHg. Right digit = 105 mmHg. The right posterior tibial artery waveforms are biphasic. The right dorsalis pedis waveforms are biphasic. Indices The right ankle brachial index by the posterior tibial artery is 0.71. The right ankle brachial index by the dorsalis pedis is 0.71. The right digital-brachial index is 0.66. The left ankle brachial index by the posterior tibial artery is 0.64. The left ankle brachial index by the dorsalis pedis is 0.73. The left digital-brachial index is 0.59. VL/Ankle Brachial Index Interpretation Summary Right DAYA 0.71, moderate arterial insufficiency. Doppler/PVR waveforms of the right ankle moderately diminished at rest. Left DAYA 0.73, moderate arterial insufficiency. Doppler/PVR waveforms of the left ankle moderately diminished at rest. Ordering Physician: Hussein Alaniz Chi Referring Physician: HUSSEIN ALANIZ CHI, MD Performed By: Thai Martínez, Kamaljit 05/25/251757 Date Reji Clark MD CC: Dr. Hussein Alaniz MD Date Dictated: 05/25/251257 Date Transcribed: 05/25/251757 Mechanical Engineering Technologist: Signed Normal [facility] Arterial study reportOrdered By: Reji Clark on 05-25-2025 Noninvasive arteriosclerosis study report [facility] Cardiovascular Services [address] [place] [address] Ankle Brachial Index 05/25/25 1258 MR#: [id number] Acct: [id number] Name: BRENDEN JUNIOR Rep #:[id number] : 1945 79 From: Reji Hernández Attending Dr: Dr. Hussein Alaniz MD Status: REG CLI Ordering Dr: Hussein Alaniz MD Date: Location: [facility] Sex: F C Admitted: Reason For Study Reason For Study: Bilateral Foot Pain Procedure A bilateral lower extremity continuous wave Doppler with analog waveform analysis and ankle brachial indexes. Left Segmental Pressures Left brachial= 154mmHg. Left posterior tibial artery = 103mmHg. Left dorsalis pedis artery = 116mmHg. Left digit = 94 mmHg. The left posterior tibial artery waveforms are biphasic. The left dorsalispedis waveforms are biphasic. Right Segmental Pressures Right brachial= 160mmHg. Right posterior tibial artery = 114mmHg. Right dorsalispedis artery = 114mmHg. Right digit = 105 mmHg. The right posterior tibial artery waveforms are biphasic. The right dorsalis pedis waveforms are biphasic. Indices The right ankle brachial index by the posterior tibial artery is 0.71. The rightankle brachial index by the dorsalis pedis is 0.71. The right digital-brachial index is 0.66. The left ankle brachialindex by the posterior tibial artery is 0.64. The left ankle brachial index by the dorsalis pedis is 0.73. The left digital-brachial index is 0.59. VL/Ankle Brachial Index Interpretation Summary Right DAYA 0.71, moderate arterial insufficiency. Doppler/PVR waveforms of the right ankle moderately diminished at rest. Left DAYA 0.73, moderate arterial insufficiency. Doppler/PVR waveforms of the left ankle moderately diminished at rest. Ordering Physician: Hussein Alaniz Chi Referring Physician: HUSSEIN ALANIZ CHI, MD Performed By: Thai Martínez, RVT 05/25/251757 Date _ Reji Clark MD CC: Dr. Hussein Alaniz MD ~ Date Dictated: 05/25/251257 Date Transcribed: 05/25/251757 Mechanical Engineering Technologist: Signed [facility] Work Phone: BUN/creatinine ratioOrdered By: Hussein Alaniz on 05-25-2025 Urea nitrogen/Creatinine [Mass ratio] 26.3 mg/mg High 09-20 [facility] Basic Metabolic Profile (BMP )on 05-25-2025 BUN/CRE 26.3 RATIO High 09-20 [facility] Comment on above: Performed By: #### L 100.0100, L506.1001, L500.4050, L501.9520 #### [facility] [address] [place], [address] Calcium [Mass/Vol] 9.6 mg/dL Normal 7.6-11.[address] [facility] Comment on above: Performed By: #### L 100.0100, L506.1001, L500.4050, L501.9520 #### [facility] [address] [place], [address] Chloride [Moles/Vol] 98 mmol/L Normal 98-108 [facility] Comment on above: Performed By: #### L 100.0100, L506.1001, L500.4050, [id number] #### [facility] [address] [place], [address] CO2 [Moles/Vol] 25.7 mmol/L Normal 21.0-32.0 [facility] Comment on above: Performed By: #### L 100.0100, L506.1001, L500.4050, [id number] #### [facility] [address] [place], [address] Creatinine [Mass/Vol] 1.09 mg/dL Normal 0.70-1.20 [facility] Comment on above: Performed By: #### L 100.0100, L506.1001, L500.4050, [id number] #### [facility] [address] [place], [address] GAP 11 Normal 5-15 [facility] Comment on above: Performed By: #### L 100.0100, L506.1001, L500.4050, [id number] #### [facility] [address] [place], [address] GFR/1.73 sq M.predicted among non-blacks MDRD (S/P/Bld) [Vol rate/Area] 51 mL/min/{1.73_m2} Low >60 [facility] Comment on above: Result Comment: mL/m in/1.73m2 CKD-EPI Creatinine Equation (2020) Performed By: #### L 100.0100, L506.1001, L500.4050, L501.9520 #### [facility] [address] [place], [address] Glucose [Mass/Vol] 84 mg/dL Normal 70-[address] [facility] Comment on above: Performed By: #### L 100.0100, L506.1001, L500.4050, L501.9520 #### [facility] [address] [place], [address] Potassium [Moles/Vol] 4.0 mmol/L Normal 3.3-5.1 [facility] Comment on above: Performed By: #### L 100.0100, L506.1001, L500.4050, [id number] #### [facility] [address] [place], [address] Sodium [Moles/Vol] 135 mmol/L Normal 133-[address] [facility] Comment on above: Performed By: #### L 100.0100, L506.1001, L500.4050, L501.9520 #### [facility] [address] [place], [address] Urea nitrogen [Mass/Vol] 29 mg/dL High 4-19 [facility] Comment on above: Performed By: #### L 100.0100, L506.1001, L500.4050, L501.9520 #### [facility] [address] [place], [address] Carbon dioxide, total [Moles /volume] in Central venous bloodOrdered By: Hussein Alaniz on 05-25-2025 CO2 [Moles/Vol] 25.7 mmol/L 21.0-32.0 [facility] Chloride assayOrdered By: Brian Alaniz on 05-25-2025 Chloride [Moles/Vol] 98 mmol/L 98-108 [facility] Glomerular filtration rate ( GFR) estimation/1.73 sq m using serum, plasma, or whole bOrdered By: Hussein Alaniz on 05-25-2025 GFR/1.73 sq M.predicted among non-blacks MDRD (S/P/Bld) [Vol rate/Area] 51 mL/min/{1.73_m2} Low >60 [facility] Comment on above: mL/min/1.73m2 CKD-EP I Creatinine Equation (2020) Potassium measurement (mass/ volume)Ordered By: Hussein Alaniz on 05-25-2025 Potassium (Unsp spec) [Mass/Vol] 4.0 mmol/L 3.3-5.1 [facility] Serum creatinine measurement (mass/volume)Ordered By: Hussein Alaniz on 05-25-2025 Creatinine [Mass/Vol] 1.09 mg/dL 0.70-1.20 [facility] Serum glucose measurement (m ass/volume)Ordered By: Hussein Alaniz on 05-25-2025 Glucose [Mass/Vol] 84 mg/dL 70-[address] [facility] Serum or plasma calcium imani urement (mass/volume)Ordered By: Hussein Alaniz on 05-25-2025 Calcium [Mass/Vol] 9.6 mg/dL 7.6-11.[address] [facility] Serum or plasma urea nitroge n measurement (mass/volume)Ordered By: Hussein Alaniz on 05-25-2025 Urea nitrogen [Mass/Vol] 29 mg/dL High 4-19 [facility] Sodium levelOrdered By: Hussein Alaniz on 05-25-2025 Sodium [Moles/Vol] 135 mmol/L 133-[address] [facility] Absolute lymphocyte countOrd ered By: Hussein Alaniz on 05-14-2025 Lymphocytes Auto (Unsp spec) [#/Vol] 2.74 10*3/uL 0.83-4.51 [facility] Absolute neutrophil countOrd ered By: Hussein Colin on 05-14-2025 Neutrophils (Bld) [#/Vol] 4.6 10*3/uL 2.0-7.7 [facility] Anion gap in Serum or Plasma Ordered By: Hussein Alaniz on 05-14-2025 Anion gap [Moles/Vol] 11 mmol/L 5-15 [facility] Automated lymphocyte count a s percentage of total leukocytesOrdered By: Hussein Alaniz on 05-14-2025 Lymphocytes/100 WBC Auto (Unsp spec) 32.2 % 19-41 [facility] BUN/creatinine ratioOrdered By: [facility] 05-14-2025 Urea nitrogen/Creatinine [Mass ratio] 22.8 mg/mg High 10-20 [facility] Basophil percentageOrdered B y: Hussein Alaniz on 05-14-2025 Basophils/100 WBC (Bld) 0.8 % 0-1 [facility] Bilirubin, totalOrdered By: Hussein Colin on 05-14-2025 Bilirubin [Mass/Vol] 0.22 mg/dL 0.00-1.30 [facility] CBC W/Diff, Automatedon 05-02 Absolute Lymph 2.74 X10 3/uL Normal 0.83-4.51 [facility] Comment on above: Performed By: #### L 100.0100, L506.1001, L500.4050, L501.9520 #### [facility] [address] [place], [address] Absolute Neut 4.6 X10 3/uL Normal 2.0-7.7 [facility] Comment on above: Performed By: #### L 100.0100, L506.1001, L500.4050, L501.9520 #### [facility] [address] [place], [address] Basophils/100 WBC (Bld) 0.8 % Normal 0-1 [facility] Comment on above: Performed By: #### L 100.0100, L506.1001, L500.4050, L501.9520 #### [facility] [address] [place], [address] Eosinophils/100 WBC (Bld) 3.4 % Normal 0-5 [facility] Comment on above: Performed By: #### L 100.0100, L506.1001, L500.4050, L501.9520 #### [facility] [address] [place], [address] Erythrocyte distribution width (RBC) [Ratio] 14.2 % Normal 11.6-14.6 [facility] Comment on above: Performed By: #### L 100.0100, L506.1001, L500.4050, L501.9520 #### [facility] [address] [place], [address] Hematocrit (Bld) [Volume fraction] 35.4 % Low 37-47 [facility] Comment on above: Performed By: #### L 100.0100, L506.1001, L500.4050, L501.9520 #### [facility] [address] [place], [address] Hemoglobin (Bld) [Mass/Vol] 11.6 g/dL Low 12.0-15.0 [facility] Comment on above: Performed By: #### L 100.0100, L506.1001, L500.4050, L501.9520 #### [facility] [address] [place], [address] IG% 0.500 Normal 0.0-0.9 [facility] Comment on above: Result Comment: IG% - Immature Granulocytes (promyelocytes, myelocytes and metamyelocytes) > 1% indicates that a LEFT SHIFT is Present. Performed By: #### L 100.0100, L506.1001, L500.4050, L501.9520 #### [facility] [address] [place], [address] Lymphocytes/100 WBC (Bld) 32.2 % Normal 19-41 [facility] Comment on above: Performed By: #### L 100.0100, L506.1001, L500.4050, L501.9520 #### [facility] [address] [place], [address] MCH (RBC) [Entitic mass] 30.4 pg Normal 27.0-32.0 [facility] Comment on above: Performed By: #### L 100.0100, L506.1001, L500.4050, L501.9520 #### [facility] [address] [place], [address] MCHC (RBC) [Mass/Vol] 32.8 g/dL Normal 32-36 [facility] Comment on above: Performed By: #### L 100.0100, L506.1001, L500.4050, L501.9520 #### [facility] [address] [place], [address] MCV (RBC) [Entitic vol] 92.7 fL Normal 81-99 [facility] Comment on above: Performed By: #### L 100.0100, L506.1001, L500.4050, L501.9520 #### [facility] [address] [place], [address] Monocytes/100 WBC (Bld) 9.1 % Normal 0-10 [facility] Comment on above: Performed By: #### L 100.0100, L506.1001, L500.4050, L501.9520 #### [facility] [address] [place], [address] Neutrophils/100 WBC (Bld) 54.0 % Normal 47-70 [facility] Comment on above: Performed By: #### L 100.0100, L506.1001, L500.4050, L501.9520 #### [facility] [address] [place], [address] Nucleated RBC (Bld) [#/Vol] 0 10*3/uL Normal 0-5 [facility] Comment on above: Performed By: #### L 100.0100, L506.1001, L500.4050, L501.9520 #### [facility] [address] [place], [address] Platelet mean volume (Bld) [Entitic vol] 8.7 fL Normal 6.2-12.0 [facility] Comment on above: Performed By: #### L 100.0100, L506.1001, L500.4050, L501.9520 #### [facility] [address] [place], [address] Platelets (Bld) [#/Vol] 401 10*3/uL Normal 150-450 [facility] Comment on above: Performed By: #### L 100.0100, L506.1001, L500.4050, L501.9520 #### [facility] [address] [place], [address] RBC (Bld) [#/Vol] 3.82 10*6/uL Low 4.2-5.4 [facility] Comment on above: Performed By: #### L 100.0100, L506.1001, L500.4050, L501.9520 #### [facility] [address] [place], [address] RDW SD 48.3 fl High 35.1-43.9 [facility] Comment on above: Performed By: #### L 100.0100, L506.1001, L500.4050, L501.9520 #### [facility] [address] [place], [address] WBC (Bld) [#/Vol] 8.5 10*3/uL Normal 4.4-11.[address] [facility] Comment on above: Performed By: #### L 100.0100, L506.1001, L500.4050, L501.9520 #### [facility] [address] [place], [address] Carbon dioxide, total [Moles /volume] in Central venous bloodOrdered By: Hussein Alaniz on 05-14-2025 CO2 [Moles/Vol] 22.0 mmol/L 21.0-32.0 [facility] Chloride assayOrdered By: Brian Alaniz on 05-14-2025 Chloride [Moles/Vol] 98 mmol/L 98-108 [facility] Comprehensive Metabolic Prof ilon 05-14-2025 Albumin [Mass/Vol] 4.1 g/dL Normal 3.4-4.[address] [facility] Comment on above: Performed By: #### L 100.0100, L506.1001, L500.4050, L501.9520 #### [facility] [address] [place], [address] Albumin/Globulin [Mass ratio] 1.6 {ratio} Normal 0.9-2.4 [facility] Comment on above: Performed By: #### L 100.0100, L506.1001, L500.4050, L501.9520 #### [facility] [address] [place], [address] ALK PHOS 50 U/L Normal 35-104 [facility] Comment on above: Performed By: #### L 100.0100, L506.1001, L500.4050, L501.9520 #### [facility] [address] [place], [address] ALT [Catalytic activity/Vol] 15 U/L Normal <=34 [facility] Comment on above: Performed By: #### L 100.0100, L506.1001, L500.4050, L501.9520 #### [facility] [address] [place], [address] AST [Catalytic activity/Vol] 19 U/L Normal <=31 [facility] Comment on above: Performed By: #### L 100.0100, L506.1001, L500.4050, L501.9520 #### [facility] [address] [place], [address] Bilirubin [Mass/Vol] 0.22 mg/dL Normal 0.00-1.30 [facility] Comment on above: Performed By: #### L 100.0100, L506.1001, L500.4050, L501.9520 #### [facility] [address] [place], [address] BUN/CRE 22.8 RATIO High 10-20 [facility] Comment on above: Performed By: #### L 100.0100, L506.1001, L500.4050, L501.9520 #### [facility] [address] [place], [address] Calcium [Mass/Vol] 9.0 mg/dL Normal 7.6-11.[address] [facility] Comment on above: Performed By: #### L 100.0100, L506.1001, L500.4050, L501.9520 #### [facility] [address] [place], [address] Chloride [Moles/Vol] 98 mmol/L Normal 98-108 [facility] Comment on above: Performed By: #### L 100.0100, L506.1001, L500.4050, L501.9520 #### [facility] [address] [place], [address] CO2 [Moles/Vol] 22.0 mmol/L Normal 21.0-32.0 [facility] Comment on above: Performed By: #### L 100.0100, L506.1001, L500.4050, L501.9520 #### [facility] [address] [place], [address] Creatinine [Mass/Vol] 1.16 mg/dL Normal 0.70-1.20 [facility] Comment on above: Performed By: #### L 100.0100, L506.1001, L500.4050, L501.9520 #### [facility] [address] [place], [address] GAP 11 Normal 5-15 [facility] Comment on above: Performed By: #### L 100.0100, L506.1001, L500.4050, L501.9520 #### [facility] [address] [place], [address] GFR/1.73 sq M.predicted among non-blacks MDRD (S/P/Bld) [Vol rate/Area] 48 mL/min/{1.73_m2} Low >60 [facility] Comment on above: Result Comment: mL/m in/1.73m2 CKD-EPI Creatinine Equation (2020) Performed By: #### L 100.0100, L506.1001, L500.4050, L501.9520 #### [facility] [address] [place], [address] Globulin (S) [Mass/Vol] 2.6 g/dL Normal 2.2-4.2 [facility] Comment on above: Performed By: #### L 100.0100, L506.1001, L500.4050, L501.9520 #### [facility] [address] [place], [address] Glucose [Mass/Vol] 138 mg/dL High 70-[address] [facility] Comment on above: Performed By: #### L 100.0100, L506.1001, L500.4050, L501.9520 #### [facility] [address] [place], [address] Potassium [Moles/Vol] 3.7 mmol/L Normal 3.3-5.1 [facility] Comment on above: Performed By: #### L 100.0100, L506.1001, L500.4050, L501.9520 #### [facility] [address] [place], [address] Sodium [Moles/Vol] 131 mmol/L Low 133-[address] [facility] Comment on above: Performed By: #### L 100.0100, L506.1001, L500.4050, L501.9520 #### [facility] [address] [place], [address] T PROT 6.7 g/dL Normal 5.9-8.4 [facility] Comment on above: Performed By: #### L 100.0100, L506.1001, L500.4050, L501.9520 #### [facility] [address] [place], [address] Urea nitrogen [Mass/Vol] 26 mg/dL High 4-19 [facility] Comment on above: Performed By: #### L 100.0100, L506.1001, L500.4050, L501.9520 #### [facility] [address] [place], [address] Eosinophil percentageOrdered By: Hussein Alaniz 05-14-2025 Eosinophils/100 WBC (Bld) 3.4 % 0-5 [facility] Erythrocyte distribution wid th ratioOrdered By: [facility] 05-14-2025 Erythrocyte distribution width (RBC) [Ratio] 14.2 % 11.6-14.6 [facility] Erythrocyte distribution wid th standard deviationOrdered By: Hussein Alaniz 05-14-2025 Erythrocyte distribution width (RBC) [Ratio] 48.3 fl High 35.1-43.9 [facility] Glomerular filtration rate ( GFR) estimation/1.73 sq m using serum, plasma, or whole bOrdered By: Hussein Colin 05-14-2025 GFR/1.73 sq M.predicted among non-blacks MDRD (S/P/Bld) [Vol rate/Area] 48 mL/min/{1.73_m2} Low >60 [facility] Comment on above: mL/min/1.73m2 CKD-EP I Creatinine Equation (2020) Hematocrit Auto (Bld) [Volum e fraction]Ordered By: Hussein Colin 05-14-2025 Hematocrit (Bld) [Volume fraction] 35.4 % Low 37-47 [facility] Hemoglobin measurementOrdere d By: Hussein Alaniz 05-14-2025 Hemoglobin (Bld) [Mass/Vol] 11.6 g/dL Low 12.0-15.0 [facility] Immature granulocytes/100 WB C Auto (Bld)Ordered By: Hussein Alaniz 05-14-2025 Immature granulocytes/100 WBC (Bld) 0.500 % 0.0-0.9 [facility] Comment on above: IG% - Immature Granu locytes (promyelocytes, myelocytes and metamyelocytes) > 1% indicates that a LEFT SHIFT is Present. Laboratory - Chemistry and C hemistry - challengeOrdered By: Hussein Alaniz 05-14-2025 AST [Catalytic activity/Vol] 19 U/L <32 [facility] MCV (mean corpuscular volume ) determinationOrdered By: Hussein Colin 05-14-2025 MCV (RBC) [Entitic vol] 92.7 fL 81-99 [facility] Mean corpuscular hemoglobin (MCH) determinationOrdered By: Hussein Alaniz on 05-14-2025 MCH (RBC) [Entitic mass] 30.4 pg 27.0-32.0 [facility] Mean corpuscular hemoglobin concentration (MCHC) determinationOrdered By: Hussein Alaniz on 05-14-2025 MCHC (RBC) [Mass/Vol] 32.8 g/dL 32-36 [facility] Mean platelet volume determi nationOrdered By: Hussein Alaniz on 05-14-2025 Platelet mean volume (Bld) [Entitic vol] 8.7 fL 6.2-12.0 [facility] Monocyte percentageOrdered B y: Hussein Alaniz on 05-14-2025 Monocytes/100 WBC (Bld) 9.1 % 0-10 [facility] Neutrophil percentageOrdered By: Hussein Alaniz on 05-14-2025 Neutrophils/100 WBC (Bld) 54.0 % 47-70 [facility] Nucleated red blood cell per centageOrdered By: Hussein Alaniz on 05-14-2025 Nucleated RBC/100 WBC (Bld) [Ratio] 0 % 0-5 [facility] Platelet countOrdered By: Brian Alaniz on 05-14-2025 Platelets (Bld) [#/Vol] 401 10*3/uL 150-450 [facility] Potassium measurement (mass/ volume)Ordered By: Hussein Alaniz 05-14-2025 Potassium (Unsp spec) [Mass/Vol] 3.7 mmol/L 3.3-5.1 [facility] RBC Auto (Bld) [#/Vol]Ordere d By: Hussein Alaniz 05-14-2025 RBC (Bld) [#/Vol] 3.82 10*6/uL Low 4.2-5.4 [facility] Serum creatinine measurement (mass/volume)Ordered By: Hussein Alaniz 05-14-2025 Creatinine [Mass/Vol] 1.16 mg/dL 0.70-1.20 [facility] Serum globulin measurementOr dered By: Hussein Alaniz 05-14-2025 Globulin (S) [Mass/Vol] 2.6 g/dL 2.2-4.2 [facility] Serum glucose measurement (m ass/volume)Ordered By: Hussein Alaniz 05-14-2025 Glucose [Mass/Vol] 138 mg/dL High 70-[address] [facility] Serum or plasma alanine bowens otransferase (ALT) measurementOrdered By: Hussein Alaniz on 05-14-2025 ALT [Catalytic activity/Vol] 15 U/L <35 [facility] Serum or plasma albumin imani urement (mass/volume)Ordered By: Hussein Alaniz on 05-14-2025 Albumin [Mass/Vol] 4.1 g/dL 3.4-4.[address] [facility] Serum or plasma albumin/glob ulin mass ratioOrdered By: Hussein Alaniz on 05-14-2025 Albumin/Globulin [Mass ratio] 1.6 {ratio} 0.9-2.4 [facility] Serum or plasma alkaline mary ann sphatase measurementOrdered By: Hussien Alaniz on 05-14-2025 ALP [Catalytic activity/Vol] 50 U/L 35-104 [facility] Serum or plasma calcium imani urement (mass/volume)Ordered By: Hussein Alaniz 05-14-2025 Calcium [Mass/Vol] 9.0 mg/dL 7.6-11.[address] [facility] Serum or plasma urea nitroge n measurement (mass/volume)Ordered By: Hussein Alaniz 05-14-2025 Urea nitrogen [Mass/Vol] 26 mg/dL High 4-19 [facility] Sodium levelOrdered By: Hussein Alaniz 05-14-2025 Sodium [Moles/Vol] 131 mmol/L Low 133-[address] [facility] TSH DL <= 0.005 mIU/L QnOrde red By: Hussein Alaniz on 05-14-2025 TSH Qn 1.460 uIU/mL 0.300-4.200 [facility] Thyroid Stim Hormone (TSH)on 05-14-2025 TSH 1.460 uIU/mL Normal 0.300-4.200 [facility] Comment on above: Performed By: #### L 100.0100, L506.1001, L500.4050, L501.9520 #### [facility] [address] [place], [place], [id number] Total proteinOrdered By: Hussein Alaniz on 05-14-2025 Protein [Mass/Vol] 6.7 g/dL 5.9-8.[address] [facility] Vitamin D,25 Hydroxyon 05-14 Vitamin D 25-OH 27.1 ng/mL Low 30-100 [facility] Comment on above: Result Comment: Isabell min D Status Deficiency: <20 ng/mL (50nmol/L) Insufficiency: 20-30 ng/mL (50-75 nmol/L) Sufficiency: 30-100 ng/mL (75-250 nmol/L) Toxicity: >100 ng/mL (>250 nmol/L) Performed By: #### L 100.0100, L506.1001, L500.4050, L501.9520 #### [facility] [address] [place], [address] White blood cell (WBC) count Ordered By: Hussein Alaniz on 05-14-2025 WBC (Bld) [#/Vol] 8.5 10*3/uL 4.4-11.[address] [facility] Cardiology Visit Reporton Cardiology Visit Report [facility] [address] [place], [place] [address] OFFICE VISIT Date of Service: 03/01/25 MR#: [id number] Acct: [id number] Name: BRENDEN JUNIOR Rep #: [id number] : 1945 Provider: Dr. Flor Damon MD Age/Sex: 79/F Location: [facility] [place] Status: Signed HPI HPI History of Present Illness Details: This lady with a history of mitral valve regurgitation, hypertension, dyslipidemia and fibromyalgia is here for follow-up visit. Denies any complaints. No chest pains or shortness of breath. No orthopnea or PND. No ankle edema. Occasional lightheadedness. Intake Vital Signs 10/21/24 04:57 03/01/25 12:57 Height 5 ft 4 in 5 ft 4 in Weight: 180 lb BMI 30.9 BP 147/63 H Blood Pressure Location Lt brachial Position Sitting Respiration 18 Pulse 68 Pulse Source Monitor Pulse Oximetry (%) 97 Oxygen Delivery Method room air Comment per patient report Intake Visit Reasons: 6 M FU Radon Inspector Required: No Accompanied by: Self Is patient in pain?: No Allergies lisinopril Allergy (Verified 03/01/25 12:57) Swelling atorvastatin calcium (From Lipitor) Adverse Reaction (Verified 03/01/25 12:57) Other cholestyramine (From Questran) Adverse Reaction (Verified 03/01/25 12:57) Upset Stomach duloxetine HCl (From Cymbalta) Adverse Reaction (Verified 03/01/25 12:57) Other losartan potassium (From Cozaar) Adverse Reaction (Verified 03/01/25 12:57) Mucosal lesions propoxyphene HCl (From Darvon) Adverse Reaction (Verified 03/01/25 12:57) Other simvastatin (From Zocor) Adverse Reaction (Verified 03/01/25 12:57) Other sucrose (From Questran) Adverse Reaction (Verified 03/01/25 12:57) Upset Stomach sulfasalazine (From Azulfidine) Adverse Reaction (Verified 03/01/25 12:57) Upset Stomach zolmitriptan (From Zomig) Adverse Reaction (Verified 03/01/25 12:57) Other Medications ???Medication ???Instructions ???Recorded ???Confirmed ???Type amlodipine 10 mg tablet 10 mg PO DAILY 06/18/24 02/22/25 H istory levothyroxine 125 mcg tablet 125 mcg PO DAILY 06/18/24 02/22/25 History fluoxetine 20 mg tablet 20 mg PO DAILY 07/21/24 02/22/25 H istory potassium chloride 10 mEq 10 meq PO DAILY #90 tabs 07/31/24 02/22/25 Rx tablet,extended release hydralazine 25 mg tablet 25 mg PO TID 09/21/24 02/22/25 His tory primidone 50 mg tablet 100 mg PO QHS 09/21/24 02/22/25 Hi story albuterol sulfate 90 mcg/actuation 2 puff inhalation Q4H PRN PRN 02/22/25 History aerosol inhaler shortness of breath or wheezing diazepam 2 mg tablet (Valium) 2 mg PO TID PRN muscle spasm and 1 12/21/23 02/22/25 Rx anxiety 5 days #15 tabs hydrochlorothiazide 25 mg tablet 25 mg PO DAILY 10/21/24 02/22/25 H istory metoprolol succinate 25 mg 25 mg PO QDAY 03/01/25 03/01/25 Hi story tablet,extended release 24 hr Have you fallen in the past year?: No PFSH Medical History Rosacea Dog bite Laceration of finger Muscle spasm Vitamin D deficiency LVH (left ventricular hypertrophy) Overactive bladder Fibromyalgia Type 2 diabetes mellitus Hyperlipidemia Drug-induced myopathy Depression Morbid obesity SOB (shortness of breath) GERD (gastroesophageal reflux disease) Right sided sciatica Low back pain CKD stage 3a, GFR 45-59 ml/min Tremor Laceration of right middle finger w/o foreign body w/o damage to nail Anxiety Hypothyroid Hypertension Surgical History Hx of hysterectomy History of nasal surgery Hx of cataract surgery Hx of cholecystectomy Hx of thyroidectomy Family History Mother Dyslipidemia Dementia Heart disease Brother Diabetes COPD (chronic obstructive pulmonary disease) Father Diabetes Hypertension Cancer Brother Cancer prostate Social History Smoking Status: Never smoker ROS Const Const: Negative for fatigue or weakness ENT ENT: Positive for dizziness; Negative for balance problems Cardio Chest Pain: No Palpitations: No Edema: Bilateral Muscle aches with walking: None Resp Respiratory: Negative for SOB with activity, SOB at rest or SOB orthopnea SOB lying down GI GI: Negative nausea, vomiting or heartburn Musc Musc: Negative for muscle weakness or balance problems Neuro Neuro: Positive for dizziness; Negative for lightheadedness, near syncope, syncope or weakness Endo Endo: Negative for fatigue Cardiology Exam Const Appearance: comfortable and no acute distress Nutritional Appearance: well nourished Neck Neck: no JVD Carotids: Negative bruit Chest Auscultation: Bilateral: C (more content not included)... Normal [facility] Absolute lymphocyte countOrd ered By: Hussein Alaniz on 02-10-2025 Lymphocytes Auto (Unsp spec) [#/Vol] 2.59 10*3/uL 0.83-4.51 [facility] Absolute neutrophil countOrd ered By: Hussein Alaniz on 02-10-2025 Neutrophils (Bld) [#/Vol] 4.3 10*3/uL 2.0-7.7 [facility] Anion gap in Serum or Plasma Ordered By: Hussein Alaniz on 02-10-2025 Anion gap [Moles/Vol] 14 mmol/L 5-15 [facility] Automated lymphocyte count a s percentage of total leukocytesOrdered By: Hussein Colin on 02-10-2025 Lymphocytes/100 WBC Auto (Unsp spec) 33.2 % 19- [facility] BUN/creatinine ratioOrdered By: Hussein Alaniz on 02-10-2025 Urea nitrogen/Creatinine [Mass ratio] 22.3 mg/mg High 10- [facility] Basophil percentageOrdered B y: Hussein Alaniz on 02-10-2025 Basophils/100 WBC (Bld) 0.6 % 0-1 [facility] Bilirubin, totalOrdered By: Hussein Alaniz on 02-10-2025 Bilirubin [Mass/Vol] 0.25 mg/dL 0.00-1.30 [facility] CBC W/Diff, Automatedon 01-30 Absolute Lymph 2.59 X10 3/uL Normal 0.83-4.51 [facility] Comment on above: Performed By: #### L 100.0100, L506.1001, L500.4050, [id number] #### [facility] [address] [place], [address] Absolute Neut 4.3 X10 3/uL Normal 2.0-7.7 [facility] Comment on above: Performed By: #### L 100.0100, L506.1001, L500.4050, [id number] #### [facility] [address] [place], [address] Basophils/100 WBC (Bld) 0.6 % Normal 0-1 [facility] Comment on above: Performed By: #### L 100.0100, L506.1001, L500.4050, [id number] #### [facility] [address] [place], [address] Eosinophils/100 WBC (Bld) 2.4 % Normal 0-5 [facility] Comment on above: Performed By: #### L 100.0100, L506.1001, L500.4050, [id number] #### [facility] [address] [place], [address] Erythrocyte distribution width (RBC) [Ratio] 14.5 % Normal 11.6-14.6 [facility] Comment on above: Performed By: #### L 100.0100, L506.1001, L500.4050, [id number] #### [facility] [address] [place], [address] Hematocrit (Bld) [Volume fraction] 36.2 % Low 37-47 [facility] Comment on above: Performed By: #### L 100.0100, L506.1001, L500.4050, [id number] #### [facility] [address] [place], [address] Hemoglobin (Bld) [Mass/Vol] 12.0 g/dL Normal 12.0-15.0 [facility] Comment on above: Performed By: #### L 100.0100, L506.1001, L500.4050, [id number] #### [facility] [address] [place], [address] IG% 0.400 Normal 0.0-0.9 [facility] Comment on above: Result Comment: IG% - Immature Granulocytes (promyelocytes, myelocytes and metamyelocytes) > 1% indicates that a LEFT SHIFT is Present. Performed By: #### L 100.0100, L506.1001, L500.4050, [id number] #### [facility] [address] [place], [address] Lymphocytes/100 WBC (Bld) 33.2 % Normal 19-41 [facility] Comment on above: Performed By: #### L 100.0100, L506.1001, L500.4050, [id number] #### [facility] [address] [place], [address] MCH (RBC) [Entitic mass] 31.1 pg Normal 27.0-32.0 [facility] Comment on above: Performed By: #### L 100.0100, L506.1001, L500.4050, [id number] #### [facility] [address] [place], [address] MCHC (RBC) [Mass/Vol] 33.1 g/dL Normal 32-36 [facility] Comment on above: Performed By: #### L 100.0100, L506.1001, L500.4050, [id number] #### [facility] [address] [place], [address] MCV (RBC) [Entitic vol] 93.8 fL Normal 81-99 [facility] Comment on above: Performed By: #### L 100.0100, L506.1001, L500.4050, [id number] #### [facility] [address] [place], [address] Monocytes/100 WBC (Bld) 7.7 % Normal 0-10 [facility] Comment on above: Performed By: #### L 100.0100, L506.1001, L500.4050, [id number] #### [facility] [address] [place], [address] Neutrophils/100 WBC (Bld) 55.7 % Normal 47-70 [facility] Comment on above: Performed By: #### L 100.0100, L506.1001, L500.4050, [id number] #### [facility] [address] [place], [address] Nucleated RBC (Bld) [#/Vol] 0 10*3/uL Normal 0-5 [facility] Comment on above: Performed By: #### L 100.0100, L506.1001, L500.4050, [id number] #### [facility] [address] [place], [address] Platelet mean volume (Bld) [Entitic vol] 8.3 fL Normal 6.2-12.0 [facility] Comment on above: Performed By: #### L 100.0100, L506.1001, L500.4050, [id number] #### [facility] [address] [place], [address] Platelets (Bld) [#/Vol] 367 10*3/uL Normal 150-450 [facility] Comment on above: Performed By: #### L 100.0100, L506.1001, L500.4050, [id number] #### [facility] [address] [place], [address] RBC (Bld) [#/Vol] 3.86 10*6/uL Low 4.2-5.4 [facility] Comment on above: Performed By: #### L 100.0100, L506.1001, L500.4050, [id number] #### [facility] [address] [place], [address] RDW SD 50.1 fl High 35.1-43.9 [facility] Comment on above: Performed By: #### L 100.0100, L506.1001, L500.4050, [id number] #### [facility] [address] [place], [address] WBC (Bld) [#/Vol] 7.8 10*3/uL Normal 4.4-11.[address] [facility] Comment on above: Performed By: #### L 100.0100, L506.1001, L500.4050, [id number] #### [facility] [address] [place], [address] Carbon dioxide, total [Moles /volume] in Central venous bloodOrdered By: Hussein Alaniz on 02-10-2025 CO2 [Moles/Vol] 21.5 mmol/L 21.0-32.0 [facility] Chloride assayOrdered By: Brian Alaniz on 02-10-2025 Chloride [Moles/Vol] 97 mmol/L Low 98-108 [facility] Comprehensive Metabolic Prof ilon 02-10-2025 Albumin [Mass/Vol] 4.1 g/dL Normal 3.4-4.[address] [facility] Comment on above: Performed By: #### L 100.0100, L506.1001, L500.4050, [id number] #### [facility] [address] [place], [address] Albumin/Globulin [Mass ratio] 1.4 {ratio} Normal 0.9-2.4 [facility] Comment on above: Performed By: #### L 100.0100, L506.1001, L500.4050, [id number] #### [facility] [address] [place], [address] ALK PHOS 81 U/L Normal 35-104 [facility] Comment on above: Performed By: #### L 100.0100, L506.1001, L500.4050, [id number] #### [facility] [address] [place], [address] ALT [Catalytic activity/Vol] 18 U/L Normal <=34 [facility] Comment on above: Performed By: #### L 100.0100, L506.1001, L500.4050, [id number] #### [facility] [address] [place], [address] AST [Catalytic activity/Vol] 24 U/L Normal <=31 [facility] Comment on above: Performed By: #### L 100.0100, L506.1001, L500.4050, [id number] #### [facility] [address] [place], [address] Bilirubin [Mass/Vol] 0.25 mg/dL Normal 0.00-1.30 [facility] Comment on above: Performed By: #### L 100.0100, L506.1001, L500.4050, [id number] #### [facility] [address] [place], [address] BUN/CRE 22.3 RATIO High 10-20 [facility] Comment on above: Performed By: #### L 100.0100, L506.1001, L500.4050, [id number] #### [facility] [address] [place], [address] Calcium [Mass/Vol] 9.1 mg/dL Normal 7.6-11.[address] [facility] Comment on above: Performed By: #### L 100.0100, L506.1001, L500.4050, [id number] #### [facility] [address] [place], [address] Chloride [Moles/Vol] 97 mmol/L Low 98-108 [facility] Comment on above: Performed By: #### L 100.0100, L506.1001, L500.4050, [id number] #### [facility] [address] [place], [address] CO2 [Moles/Vol] 21.5 mmol/L Normal 21.0-32.0 [facility] Comment on above: Performed By: #### L 100.0100, L506.1001, L500.4050, [id number] #### [facility] [address] [place], [address] Creatinine [Mass/Vol] 0.92 mg/dL Normal 0.70-1.20 [facility] Comment on above: Performed By: #### L 100.0100, L506.1001, L500.4050, [id number] #### [facility] [address] [place], [address] GAP 14 Normal 5-15 [facility] Comment on above: Performed By: #### L 100.0100, L506.1001, L500.4050, [id number] #### [facility] [address] [place], [address] GFR/1.73 sq M.predicted among non-blacks MDRD (S/P/Bld) [Vol rate/Area] 63 mL/min/{1.73_m2} Normal >60 [facility] Comment on above: Result Comment: mL/m in/1.73m2 CKD-EPI Creatinine Equation (2020) Performed By: #### L 100.0100, L506.1001, L500.4050, [id number] #### [facility] [address] [place], [address] Globulin (S) [Mass/Vol] 2.9 g/dL Normal 2.2-4.2 [facility] Comment on above: Performed By: #### L 100.0100, L506.1001, L500.4050, [id number] #### [facility] [address] [place], [address] Glucose [Mass/Vol] 136 mg/dL High 70-[address] [facility] Comment on above: Performed By: #### L 100.0100, L506.1001, L500.4050, [id number] #### [facility] [address] [place], [address] Potassium [Moles/Vol] 3.6 mmol/L Normal 3.3-5.1 [facility] Comment on above: Performed By: #### L 100.0100, L506.1001, L500.4050, [id number] #### [facility] [address] [place], [address] Sodium [Moles/Vol] 133 mmol/L Normal 133-[address] [facility] Comment on above: Performed By: #### L 100.0100, L506.1001, L500.4050, [id number] #### [facility] [address] [place], [address] T PROT 7.0 g/dL Normal 5.9-8.4 [facility] Comment on above: Performed By: #### L 100.0100, L506.1001, L500.4050, [id number] #### [facility] [address] [place], [address] Urea nitrogen [Mass/Vol] 21 mg/dL High 4-19 [facility] Comment on above: Performed By: #### L 100.0100, L506.1001, L500.4050, [id number] #### [facility] [address] [place], [address] Eosinophil percentageOrdered By: Hussein Alaniz on 02-10-2025 Eosinophils/100 WBC (Bld) 2.4 % 0-5 [facility] Erythrocyte distribution wid th ratioOrdered By: Hussein Alaniz on 02-10-2025 Erythrocyte distribution width (RBC) [Ratio] 14.5 % 11.6-14.6 [facility] Erythrocyte distribution wid th standard deviationOrdered By: Hussein Alaniz on 02-10-2025 Erythrocyte distribution width (RBC) [Entitic vol] 50.1 fL High 35.1-43.9 [facility] Erythrocyte distribution width (RBC) [Ratio] 50.1 fl High 35.1-43.9 [facility] GFR/1.73 sq M.predicted sherman g non-blacks MDRD (S/P/Bld) [Vol rate/Area]Ordered By: Hussein Alaniz on 02-10-2025 Estimated GFR (MDRD) Non-Af Amer 63 >60 [facility] Comment on above: mL/min/1.73m2 CKD-EP I Creatinine Equation (2020) Glomerular filtration rate ( GFR) estimation/1.73 sq m using serum, plasma, or whole bOrdered By: Hussein Alaniz on 02-10-2025 GFR/1.73 sq M.predicted among non-blacks MDRD (S/P/Bld) [Vol rate/Area] 63 mL/min/{1.73_m2} >60 [facility] Comment on above: mL/min/1.73m2 CKD-EP I Creatinine Equation (2020) Hematocrit Auto (Bld) [Volum e fraction]Ordered By: Hussein lAaniz on 02-10-2025 Hematocrit (Bld) [Volume fraction] 36.2 % Low 37-47 [facility] Hemoglobin measurementOrdere d By: Hussein Alaniz on 02-10-2025 Hemoglobin (Bld) [Mass/Vol] 12.0 g/dL 12.0-15.0 [facility] Immature granulocytes/100 WB C Auto (Bld)Ordered By: Hussein Alaniz on 02-10-2025 Immature granulocytes/100 WBC (Bld) 0.400 % 0.0-0.9 [facility] Comment on above: IG% - Immature Granu locytes (promyelocytes, myelocytes and metamyelocytes) > 1% indicates that a LEFT SHIFT is Present. L506.1001on 02-10-2025 Vitamin D 25-OH 28.3 ng/mL Low 30-100 [facility] Comment on above: Result Comment: Isabell min D Status Deficiency: <20 ng/mL (50nmol/L) Insufficiency: 20-30 ng/mL (50-75 nmol/L) Sufficiency: 30-100 ng/mL (75-250 nmol/L) Toxicity: >100 ng/mL (>250 nmol/L) Performed By: #### L 100.0100, L506.1001, L500.4050, L501.9520 #### [facility] [address] [place], [address] Laboratory - Chemistry and C hemistry - challengeOrdered By: Hussein Alaniz on 02-10-2025 AST [Catalytic activity/Vol] 24 U/L <32 [facility] Lymphocytes Auto (Unsp spec) [#/Vol]Ordered By: Hussein Alaniz on 02-10-2025 Lymphocytes (Bld) [#/Vol] 2.59 10*3/uL 0.83-4.51 [facility] Lymphocytes/100 WBC Auto (Un sp spec)Ordered By: Hussein Alaniz on 02-10-2025 Lymphocytes/100 WBC (Bld) 33.2 % 19-41 [facility] MCV (mean corpuscular volume ) determinationOrdered By: Hussein Alaniz on 02-10-2025 MCV (RBC) [Entitic vol] 93.8 fL 81-99 [facility] Mean corpuscular hemoglobin (MCH) determinationOrdered By: Hussein Aalniz on 02-10-2025 MCH (RBC) [Entitic mass] 31.1 pg 27.0-32.0 [facility] Mean corpuscular hemoglobin concentration (MCHC) determinationOrdered By: Hussein Alaniz on 02-10-2025 MCHC (RBC) [Mass/Vol] 33.1 g/dL 32-36 [facility] Mean platelet volume determi nationOrdered By: Hussein Alaniz on 02-10-2025 Platelet mean volume (Bld) [Entitic vol] 8.3 fL 6.2-12.0 [facility] Monocyte percentageOrdered B y: Hussein Alaniz on 02-10-2025 Monocytes/100 WBC (Bld) 7.7 % 0-10 [facility] Neutrophil percentageOrdered By: Hussein Alaniz on 02-10-2025 Neutrophils/100 WBC (Bld) 55.7 % 47-70 [facility] Nucleated red blood cell per centageOrdered By: Hussein Alaniz on 02-10-2025 Nucleated RBC/100 WBC (Bld) [Ratio] 0 % 0-5 [facility] Platelet countOrdered By: Brian Alaniz on 02-10-2025 Platelets (Bld) [#/Vol] 367 10*3/uL 150-450 [facility] Potassium (Unsp spec) [Mass/ Vol]Ordered By: Hussein Alaniz on 02-10-2025 Potassium [Moles/Vol] 3.6 mmol/L 3.3-5.1 [facility] Potassium measurement (mass/ volume)Ordered By: Hussein Alaniz on 02-10-2025 Potassium (Unsp spec) [Mass/Vol] 3.6 mmol/L 3.3-5.1 [facility] RBC Auto (Bld) [#/Vol]Ordere d By: Hussein Alaniz on 02-10-2025 RBC (Bld) [#/Vol] 3.86 10*6/uL Low 4.2-5.4 [facility] Serum creatinine measurement (mass/volume)Ordered By: Hussein Alaniz on 02-10-2025 Creatinine [Mass/Vol] 0.92 mg/dL 0.70-1.20 [facility] Serum globulin measurementOr dered By: Hussein Alaniz 02-10-2025 Globulin (S) [Mass/Vol] 2.9 g/dL 2.2-4.2 [facility] Serum glucose measurement (m ass/volume)Ordered By: Hussein Alaniz 02-10-2025 Glucose [Mass/Vol] 136 mg/dL High 70-[address] [facility] Serum or plasma alanine bowens otransferase (ALT) measurementOrdered By: Hussein Alaniz 02-10-2025 ALT [Catalytic activity/Vol] 18 U/L <35 [facility] Serum or plasma albumin imani urement (mass/volume)Ordered By: Hussein Alaniz 02-10-2025 Albumin [Mass/Vol] 4.1 g/dL 3.4-4.[address] [facility] Serum or plasma albumin/glob ulin mass ratioOrdered By: Hussein Alaniz 02-10-2025 Albumin/Globulin [Mass ratio] 1.4 {ratio} 0.9-2.4 [facility] Serum or plasma alkaline mary ann sphatase measurementOrdered By: Hussein Alaniz 02-10-2025 ALP [Catalytic activity/Vol] 81 U/L 35-104 [facility] Serum or plasma calcium imani urement (mass/volume)Ordered By: Hussein Alaniz 02-10-2025 Calcium [Mass/Vol] 9.1 mg/dL 7.6-11.[address] [facility] Serum or plasma urea nitroge n measurement (mass/volume)Ordered By: Hussein Alaniz on 02-10-2025 Urea nitrogen [Mass/Vol] 21 mg/dL High 4-19 [facility] Sodium levelOrdered By: Hussein Alaniz on 02-10-2025 Sodium [Moles/Vol] 133 mmol/L 133-[address] [facility] TSH DL <= 0.005 mIU/L QnOrde red By: Hussein Alaniz on 02-10-2025 Thyroid Stimulating Hormone (TSH) 10.500 uIU/mL High 0.300-4.200 [facility] TSH Qn 10.500 uIU/mL High 0.300-4.200 [facility] Thyroid Stim Hormone (TSH)on 02-10-2025 TSH 10.500 uIU/mL High 0.300-4.200 [facility] Comment on above: Performed By: #### L 100.0100, L506.1001, L500.4050, L501.9520 #### [facility] [place], [address] Total proteinOrdered By: Hussein Alaniz on 02-10-2025 Protein [Mass/Vol] 7.0 g/dL 5.9-8.[address] [facility] Vitamin D, 25-hydroxyOrdered By: Hussein Alaniz on 02-10-2025 Vitamin D 25-Hydroxy 28.3 ng/mL Low 30-100 [facility] Comment on above: Vitamin D StatusDefi ciency: <20 ng/mL (50nmol/L)Insufficiency: 20-30 ng/mL (50-75 nmol/L)Sufficiency: 30-100 ng/mL (75-250 nmol/L)Toxicity: >100 ng/mL (>250 nmol/L) White blood cell (WBC) count Ordered By: Hussein Alaniz on 02-10-2025 WBC (Bld) [#/Vol] 7.8 10*3/uL 4.4-11.[address] [facility] CNOVon 01-01-2025 CNOV Office Visit (PODIWS ) BRENDEN JUNIOR ([id number]) 1945 F NFR Date Time Provider Department 01/01/25 9:45 AM ZOE GUY MIYA During your visit today, we recorded the following information about you: Zoe Guy 01/01/2025 9:54 AM Signed Initial Office Visit Subjective: This 79 year old female presents to clinic for diabetic foot check. Patient has the following complaints: left foot pain. Patient presents to clinic with complaint of pain to both feet. She feels that when she walks, she feels like she is walking on balled up socks. At times, she feels like she has elmers glue on her feet. Patient does not feel that the pain is horrible. She states the pain is irritating. She does not do anything for the pain. Patient admits to being diabetic for multiple years now. Patient -B/T/N in feet at this time. Patient -pain in legs when walking. No other pedal complaints at this time. No change in medications or medical history since last visit. PAIN EVALUATION 12/26/2024 [id number] 01/01/2025 0925 Pain Level: 1 3 Pain Location: Foot-Left Foot-Left Description: Stabbing;Stiffness -- Duration Units: Minutes -- Frequency: Intermittent Intermittent Intervention/Comfort measure: Other: See comment -- Comments: Little like pin sticks. -- Hemoglobin A1C (%) Date Value 11/04/2020 6.4 04/26/2020 6.4 04/25/2019 6.2 11/04/2018 6.0 05/05/2018 6.3 PCP: No primary care provider on file. PAST MEDICAL HISTORY Diagnosis Date Arrhythmia Coronary artery disease Diabetes mellitus type 2, controlled, without complications ([facility]) 09/16/2015 Generalized osteoarthrosis, unspecified site Hyperlipidemia LDL goal < 100 07/22/2013 Lumbar disc disease with radiculopathy 11/18/2012 Myalgia and myositis, unspecified PMH - PAST MEDICAL HISTORY OF 1994 THYROID CANCER Pure hypercholesterolemia Statin intolerance 07/23/2014 Stress incontinence, female 11/18/2012 Type 2 diabetes mellitus with stage 3 chronic kidney disease, without long-term current use of insulin ([facility]) 05/14/2017 Type II or unspecified type diabetes mellitus without mention of complication, not stated as uncontrolled Venous insufficiency 11/18/2012 Current Outpatient Medications Medication Sig hydrALAZINE (APRESOLINE) 25 mg tablet Take 25 mg by mouth three times a day. FLUoxetine HCl 20 mg tablet Take 1 tablet by mouth every afternoon. primidone (MYSOLINE) 50 mg tablet Take 100 mg by mouth daily at bedtime. hydroCHLOROthiazide 25 mg tablet Take 25 mg by mouth once daily. levothyroxine (SYNTHROID) 112 mcg tablet Take 100 mcg by mouth once daily. Fesoterodine 8 mg Tb24 Take 8 mg by mouth once daily. omeprazole 20 mg disintegrating tablet (PriLOSEC) Take 20 mg by mouth once daily. potassium chloride (K-TAB) 10 mEq tablet Take 10 mEq by mouth once daily. metroNIDAZOLE 1 % gel Apply 1 application to affected area once daily. Location: cheeks amLODIPine (NORVASC) 10 mg tablet Take 1 tablet by mouth once daily. metoprolol succinate ER (TOPROL XL) 100 mg Take 1 tablet by mouth once daily. (Patient taking differently: Take 25 mg by mouth once daily.) hydroCHLOROthiazide 12.5 mg capsule Take 1 capsule by mouth once daily. FLUoxetine (PROZAC) 20 mg capsule Take 1 capsule by mouth once daily. amitriptyline (ELAVIL) 25 mg tablet Take 1 tablet by mouth daily at bedtime. levothyroxine (SYNTHROID) 125 mcg tablet Take 1 tablet by mouth once daily. Take on empty stomach. For Thyroid No current facility-administered medications for this visit. ALLERGIES Allergen Reactions Cozaar [Losartan Po* Other: See Comments mucosal lesions Adzulfadine [Other] Cymbalta [Duloxetin* Darvon [Propoxyphen* Lipitor [Atorvastat* Myalgia,sleepiness Lisinopril Rash, Swelling angioedema Metformin GI Upset Nisoldipine Other: See Comments dizziness, vertigo Questran [Cholestyr* Intolerance severe nausea Sulfasalazine GI Upset Tcn [Tetracyclines] Zocor [Simvastatin] Zomig [Zolmitriptan] PAST SURGICAL HISTORY Procedure Laterality Date COLONOSCOPY FLX DX W/COLLJ SPEC WHEN PFRMD 11-10-04 Repeat in PAST SURGICAL HISTORY OF 1974 TUBLA LIGATION PAST SURGICAL HISTORY OF 1973 APPENDECTOMY PAST SURGICAL HISTORY OF 1975 HYSTERECTOMY PAST SURGICAL HISTORY OF 1997 THROIDECTOMY PAST SURGICAL HISTORY OF 1999 RT EYE DUCT TUBE PAST SURGICAL HISTORY OF 1994,1995 I 131 THYROID TREATMENT PAST SURGICAL HISTORY OF 1995 BILATERAL TURBINATE CAUTERY PAST SURGICAL HISTORY OF 05/16/2015 Removal of Interslim device - [facility] FAMILY HISTORY Problem Relation Age of Onset Heart Mother OPEN BYPASS, CHF Cancer Father LUNG CANCER , HYPER THYROID Cancer Maternal Grandmother BREAST Heart Maternal Grandmother Cancer Maternal Grandfather COLON GI Paternal Grandfather Headache Daughter Hearing Loss Son Heart Mate (more content not included)... Normal [facility] XR FOOT 3V AP/LAT/OBL BILon 01-01-2025 XR FOOT 3V AP/LAT/OBL KULWANT * * *Final Report* * * DATE OF EXAM: Jan 01 2025 9:14AM WRX [id number] - XR FOOT 3V AP/LAT/OBL KULWANT / PROCEDURE REASON: multiple diagnoses * * * * Physician Interpretation * * * * EXAMINATION / TECHNIQUE: XR FOOT 3V AP/LAT/OBL KULWANT HISTORY: PT STATES BILAT TOE PAIN Bilateral foot pain Bilateral foot pain COMPARISON: 06/06/2021. RESULT: No acute fracture or dislocation in either foot. Joint spaces are maintained bilaterally. Calcaneal enthesophytes bilaterally. No osseous erosion in either foot. IMPRESSION: No acute bony abnormality. Mechanical Engineering Technologist: MOOKIE Transcribe Date/Time: Jan 04 2025 9:05P Dictated by : ADÁN PRIEST MD This examination was interpreted and the report reviewed and electronically signed by: ADÁN PRIEST MD on Jan 04 2025 9:06PM EST [id number] Normal [facility] Hemoglobin A1con 10-27-2024 HbA1c (Bld) [Mass fraction] 6.2 % High 3.8-5.6 [facility] Comment on above: Order Comment: DRAWN ON 10/26/24 [id number] Result Comment: Norm al < 5.7 % Prediabetic 5.7 - 6.4 % Diabetic >or= 6.5 % Please note range changes. Performed By: #### L 100.0100, L506.1001, L500.4050, L501.9520 #### [facility] [address] [place], [place], [id number] DOrdered By: Kamaljit Alaniz on 10-26-2024 Vitamin D 25-Hydroxy 24.2 ng/mL [facility] Comment on above: Vitamin D 25(OH) Sta tus Range Deficiency <20 ng/mL (50nmol/L) Insufficiency 20 - 30 ng/mL (50 - 75 nmol/L) Sufficiency 30 - 100 ng/mL (75 - 250 nmol/L) Toxicity >100 ng/mL (>250 nmol/L) Absolute neutrophil countOrd ered By: Hussein Alaniz on 10-26-2024 Neutrophils (Bld) [#/Vol] 6.7 10*3/uL 2.0-7.7 [facility] Albumin to globulin ratioOrd ered By: Hussein Alaniz on 10-26-2024 Albumin/Globulin [Mass ratio] 1.0 {ratio} 0.9-2.4 [facility] Basophil percentageOrdered B y: Hussein Alaniz on 10-26-2024 Basophils/100 WBC (Bld) 0.5 % 0-1 [facility] Bilirubin, totalOrdered By: Hussein Alaniz on 10-26-2024 Bilirubin [Mass/Vol] 0.40 mg/dL 0.20-1.00 [facility] Comment on above: For patients on eltr ombopag therapy, use of Dimension [place] TBIL is not recommended. Blood urea nitrogen (BUN)/cr eatinine ratioOrdered By: Hussein Alaniz on 10-26-2024 Urea nitrogen/Creatinine [Mass ratio] 24.3 mg/mg High 09-20 [facility] CBC W/Diff, Automatedon 10-03 Absolute Lymph 2.53 X10 3/uL Normal 0.83-4.51 [facility] Comment on above: Performed By: #### L 100.0100, L506.1001, L500.4050, L501.9520 #### [facility] [address] [place], [place], [id number] Absolute Neut 6.7 X10 3/uL Normal 2.0-7.7 [facility] Comment on above: Performed By: #### L 100.0100, L506.1001, L500.4050, L501.9520 #### [facility] [address] [place], [address] Basophils/100 WBC (Bld) 0.5 % Normal 0-1 [facility] Comment on above: Performed By: #### L 100.0100, L506.1001, L500.4050, L501.9520 #### [facility] [address] [place], [address] Eosinophils/100 WBC (Bld) 1.7 % Normal 0-5 [facility] Comment on above: Performed By: #### L 100.0100, L506.1001, L500.4050, L501.9520 #### [facility] [address] [place], [address] Erythrocyte distribution width (RBC) [Ratio] 14.6 % Normal 11.6-14.6 [facility] Comment on above: Performed By: #### L 100.0100, L506.1001, L500.4050, L501.9520 #### [facility] [address] [place], [address] Hematocrit (Bld) [Volume fraction] 33.5 % Low 37-47 [facility] Comment on above: Performed By: #### L 100.0100, L506.1001, L500.4050, L501.9520 #### [facility] [address] [place], [address] Hemoglobin (Bld) [Mass/Vol] 11.0 g/dL Low 12.0-15.0 [facility] Comment on above: Performed By: #### L 100.0100, L506.1001, L500.4050, L501.9520 #### [facility] [address] [place], [address] IG% 0.500 Normal 0.0-0.9 [facility] Comment on above: Result Comment: IG% - Immature Granulocytes (promyelocytes, myelocytes and metamyelocytes) > 1% indicates that a LEFT SHIFT is Present. Performed By: #### L 100.0100, L506.1001, L500.4050, L501.9520 #### [facility] [address] [place], [address] Lymphocytes/100 WBC (Bld) 24.2 % Normal 19-41 [facility] Comment on above: Performed By: #### L 100.0100, L506.1001, L500.4050, L501.9520 #### [facility] [address] [place], [address] MCH (RBC) [Entitic mass] 30.7 pg Normal 27.0-32.0 [facility] Comment on above: Performed By: #### L 100.0100, L506.1001, L500.4050, L501.9520 #### [facility] [address] [place], [address] MCHC (RBC) [Mass/Vol] 32.8 g/dL Normal 32-36 [facility] Comment on above: Performed By: #### L 100.0100, L506.1001, L500.4050, L501.9520 #### [facility] [address] [place], [address] MCV (RBC) [Entitic vol] 93.6 fL Normal 81-99 [facility] Comment on above: Performed By: #### L 100.0100, L506.1001, L500.4050, L501.9520 #### [facility] [address] [place], [address] Monocytes/100 WBC (Bld) 9.2 % Normal 0-10 [facility] Comment on above: Performed By: #### L 100.0100, L506.1001, L500.4050, L501.9520 #### [facility] [address] [place], [address] Neutrophils/100 WBC (Bld) 63.9 % Normal 47-70 [facility] Comment on above: Performed By: #### L 100.0100, L506.1001, L500.4050, L501.9520 #### [facility] [address] [place], [address] Nucleated RBC (Bld) [#/Vol] 0 10*3/uL Normal 0-5 [facility] Comment on above: Performed By: #### L 100.0100, L506.1001, L500.4050, L501.9520 #### [facility] [address] [place], [address] Platelet mean volume (Bld) [Entitic vol] 9.0 fL Normal 6.2-12.0 [facility] Comment on above: Performed By: #### L 100.0100, L506.1001, L500.4050, L501.9520 #### [facility] [address] [place], [address] Platelets (Bld) [#/Vol] 332 10*3/uL Normal 150-450 [facility] Comment on above: Performed By: #### L 100.0100, L506.1001, L500.4050, L501.9520 #### [facility] [address] [place], [address] RBC (Bld) [#/Vol] 3.58 10*6/uL Low 4.2-5.4 [facility] Comment on above: Performed By: #### L 100.0100, L506.1001, L500.4050, L501.9520 #### [facility] [address] [place], [address] RDW SD 50.4 fl High 35.1-43.9 [facility] Comment on above: Performed By: #### L 100.0100, L506.1001, L500.4050, L501.9520 #### [facility] [address] [place], [address] WBC (Bld) [#/Vol] 10.5 10*3/uL Normal 4.4-11.0 [facility] Comment on above: Performed By: #### L 100.0100, L506.1001, L500.4050, L501.9520 #### [facility] [address] [place], [address] Carbon dioxide measurementOr dered By: Hussein Alaniz on 10-26-2024 CO2 [Moles/Vol] 22.0 mmol/L 21.0-32.0 [facility] Chloride measurementOrdered By: Hussein Alaniz on 10-26-2024 Chloride [Moles/Vol] 104 mmol/L 98-107 [facility] Comprehensive Metabolic Prof ilon 10-26-2024 Albumin [Mass/Vol] 3.2 g/dL Normal 3.2-5.[address] [facility] Comment on above: Performed By: #### L 100.0100, L506.1001, L500.4050, L501.9520 #### [facility] [address] [place], [address] Albumin/Globulin [Mass ratio] 1.0 {ratio} Normal 0.9-2.4 [facility] Comment on above: Performed By: #### L 100.0100, L506.1001, L500.4050, L501.9520 #### [facility] [address] [place], [address] ALK P 86 U/L Normal 45-117 [facility] Comment on above: Performed By: #### L 100.0100, L506.1001, L500.4050, L501.9520 #### [facility] [address] [place], [address] ALT [Catalytic activity/Vol] 21 U/L Normal 13-56 [facility] Comment on above: Performed By: #### L 100.0100, L506.1001, L500.4050, L501.9520 #### [facility] [address] [place], [address] AST [Catalytic activity/Vol] 15 U/L Normal 15-37 [facility] Comment on above: Performed By: #### L 100.0100, L506.1001, L500.4050, L501.9520 #### [facility] [address] [place], [address] Bilirubin [Mass/Vol] 0.40 mg/dL Normal 0.20-1.00 [facility] Comment on above: Result Comment: For patients on eltrombopag therapy, use of Dimension [place] TBIL is not recommended. Performed By: #### L 100.0100, L506.1001, L500.4050, L501.9520 #### [facility] [address] [place], [address] BUN/CRE 24.3 RATIO High 10-20 [facility] Comment on above: Performed By: #### L 100.0100, L506.1001, L500.4050, L501.9520 #### [facility] [address] [place], [address] CA,Total 8.6 mg/dL Normal 8.5-10.1 [facility] Comment on above: Performed By: #### L 100.0100, L506.1001, L500.4050, L501.9520 #### [facility] [address] [place], [address] Chloride [Moles/Vol] 104 mmol/L Normal 98-107 [facility] Comment on above: Performed By: #### L 100.0100, L506.1001, L500.4050, L501.9520 #### [facility] [address] [place], [address] CO2 [Moles/Vol] 22.0 mmol/L Normal 21.0-32.0 [facility] Comment on above: Performed By: #### L 100.0100, L506.1001, L500.4050, L501.9520 #### [facility] [address] [place], [address] Creatinine [Mass/Vol] 0.86 mg/dL Normal 0.55-1.02 [facility] Comment on above: Result Comment: The validity of the calculated GFR GFRAA in patients over 70 years has not been determined. Clinical correlation is essential. Performed By: #### L 100.0100, L506.1001, L500.4050, L501.9520 #### [facility] [address] [place], [address] EST GFR - AA 81 mL/min Normal >60 [facility] Comment on above: Result Comment: Afri can Algerian GFR Calc Performed By: #### L 100.0100, L506.1001, L500.4050, L501.9520 #### [facility] [address] [place], [address] GAP 8 Normal 5-15 [facility] Comment on above: Performed By: #### L 100.0100, L506.1001, L500.4050, L501.9520 #### [facility] [address] [place], [address] GFR/1.73 sq M.predicted among non-blacks MDRD (S/P/Bld) [Vol rate/Area] 67 mL/min/{1.73_m2} Normal >60 [facility] Comment on above: Result Comment: Non- GFR Calc Performed By: #### L 100.0100, L506.1001, L500.4050, L501.9520 #### [facility] [address] [place], [address] Globulin (S) [Mass/Vol] 3.3 g/dL Normal 2.2-4.2 [facility] Comment on above: Performed By: #### L 100.0100, L506.1001, L500.4050, L501.9520 #### [facility] [address] [place], [address] Glucose [Mass/Vol] 185 mg/dL High 74-[address] [facility] Comment on above: Result Comment: Fast ing Glucose result greater than or equal to 126 mg/dL suggests DIABETES MELLITUS per A.D.A. criteria. Performed By: #### L 100.0100, L506.1001, L500.4050, L501.9520 #### [facility] [address] [place], [address] Potassium [Moles/Vol] 3.8 mmol/L Normal 3.5-5.1 [facility] Comment on above: Performed By: #### L 100.0100, L506.1001, L500.4050, L501.9520 #### [facility] [address] [place], [address] Sodium [Moles/Vol] 133 mmol/L Low 136-[address] [facility] Comment on above: Performed By: #### L 100.0100, L506.1001, L500.4050, L501.9520 #### [facility] [address] [place], [address] T PROT 6.5 g/dL Normal 6.4-8.2 [facility] Comment on above: Performed By: #### L 100.0100, L506.1001, L500.4050, L501.9520 #### [facility] [address] [place], [address] Urea nitrogen [Mass/Vol] 21 mg/dL High 7-18 [facility] Comment on above: Performed By: #### L 100.0100, L506.1001, L500.4050, L501.9520 #### [facility] [address] [place], [address] Eosinophil percentageOrdered By: Hussein Alaniz on 10-26-2024 Eosinophils/100 WBC (Bld) 1.7 % 0-5 [facility] Erythrocyte distribution wid th ratioOrdered By: Hussein Alaniz on 10-26-2024 Erythrocyte distribution width (RBC) [Ratio] 14.6 % 11.6-14.6 [facility] Erythrocyte distribution wid th standard deviationOrdered By: Hussein Alaniz on 10-26-2024 Erythrocyte distribution width (RBC) [Entitic vol] 50.4 fL High 35.1-43.9 [facility] Estimated glomerular filtrat ion rate (GFR) AmericanOrdered By: Hussein Alaniz on 10-26-2024 Estimated GFR (MDRD) Amer 81 mL/min >60 [facility] Comment on above: GFR Calc Glomerular filtration rate ( GFR) estimationOrdered By: Hussein Alaniz on 10-26-2024 Estimated GFR (MDRD) Non-Af Amer 67 mL/min >60 [facility] Comment on above: Non- GFR Calc Glucose measurementOrdered B y: Hussein Alaniz on 10-26-2024 Glucose [Mass/Vol] 185 mg/dL High 74-[address] [facility] Comment on above: Fasting Glucose resu lt greater than or equal to 126 mg/dL suggests DIABETES MELLITUS per A.D.A. criteria. Hematocrit Auto (Bld) [Volum e fraction]Ordered By: Hussein Alaniz on 10-26-2024 Hematocrit (Bld) [Volume fraction] 33.5 % Low 37-47 [facility] Hemoglobin A1c percentageOrd ered By: Hussein Alaniz on 10-26-2024 HbA1c (Bld) [Mass fraction] 6.2 % High 3.8-5.6 [facility] Comment on above: Normal < 5.7 % Predi abetic 5.7 - 6.4 % Diabetic >or= 6.5 % Please note range changes. Hemoglobin measurementOrdere d By: Hussein Alaniz on 10-26-2024 Hemoglobin (Bld) [Mass/Vol] 11.0 g/dL Low 12.0-15.0 [facility] Immature granulocytes/100 WB C Auto (Bld)Ordered By: Hussein Alaniz on 10-26-2024 Immature granulocytes/100 WBC (Bld) 0.500 % 0.0-0.9 [facility] Comment on above: IG% - Immature Granu locytes (promyelocytes, myelocytes and metamyelocytes) > 1% indicates that a LEFT SHIFT is Present. Laboratory - Chemistry and C hemistry - challengeOrdered By: Hussein Alaniz on 10-26-2024 AST [Catalytic activity/Vol] 15 U/L 15-37 [facility] Lymphocytes Auto (Unsp spec) [#/Vol]Ordered By: Hussein Alaniz on 10-26-2024 Lymphocytes (Bld) [#/Vol] 2.53 10*3/uL 0.83-4.51 [facility] Lymphocytes/100 WBC Auto (Un sp spec)Ordered By: Hussein Alaniz on 10-26-2024 Lymphocytes/100 WBC (Bld) 24.2 % 19-41 [facility] MCV (mean corpuscular volume ) determinationOrdered By: Hussein Alaniz on 10-26-2024 MCV (RBC) [Entitic vol] 93.6 fL 81-99 [facility] Mean corpuscular hemoglobin (MCH) determinationOrdered By: Hussein Alaniz 10-26-2024 MCH (RBC) [Entitic mass] 30.7 pg 27.0-32.0 [facility] Mean corpuscular hemoglobin concentration (MCHC) determinationOrdered By: Hussein Alaniz 10-26-2024 MCHC (RBC) [Mass/Vol] 32.8 g/dL 32-36 [facility] Mean platelet volume determi nationOrdered By: Hussein Alaniz on 10-26-2024 Platelet mean volume (Bld) [Entitic vol] 9.0 fL 6.2-12.0 [facility] Monocyte percentageOrdered B y: Hussein Alaniz on 10-26-2024 Monocytes/100 WBC (Bld) 9.2 % 0-10 [facility] Neutrophil percentageOrdered By: Hussein Alaniz on 10-26-2024 Neutrophils/100 WBC (Bld) 63.9 % 47-70 [facility] Nucleated red blood cell per centageOrdered By: Hussein Alaniz on 10-26-2024 Nucleated RBC/100 WBC (Bld) [Ratio] 0 % 0-5 [facility] Platelet countOrdered By: Brian Alaniz on 10-26-2024 Platelets (Bld) [#/Vol] 332 10*3/uL 150-450 [facility] Potassium measurementOrdered By: Hussein Alaniz on 10-26-2024 Potassium [Moles/Vol] 3.8 mmol/L 3.5-5.1 [facility] RBC Auto (Bld) [#/Vol]Ordere d By: Hussein Alaniz on 10-26-2024 RBC (Bld) [#/Vol] 3.58 10*6/uL Low 4.2-5.4 [facility] Serum anion gap measurementO rdered By: Hussein Alaniz on 10-26-2024 Anion gap [Moles/Vol] 8 mmol/L 5-15 [facility] Serum globulin measurementOr dered By: Hussein Alaniz on 10-26-2024 Globulin (S) [Mass/Vol] 3.3 g/dL 2.2-4.2 [facility] Serum or plasma alanine bowens otransferase (ALT) measurementOrdered By: Hussein Alaniz 10-26-2024 ALT [Catalytic activity/Vol] 21 U/L 13-56 [facility] Serum or plasma albumin imani urement (mass/volume)Ordered By: Hussein Alaniz on 10-26-2024 Albumin [Mass/Vol] 3.2 g/dL 3.2-5.[address] [facility] Serum or plasma alkaline mary ann sphatase measurementOrdered By: Hussein Alaniz 10-26-2024 ALP [Catalytic activity/Vol] 86 U/L 45-117 [facility] Serum or plasma calcium imani urement (mass/volume)Ordered By: Hussein Alaniz 10-26-2024 Calcium [Mass/Vol] 8.6 mg/dL 8.5-10.[address] [facility] Serum or plasma creatinine m easurement (mass/volume)Ordered By: Hussein Alaniz on 10-26-2024 Creatinine [Mass/Vol] 0.86 mg/dL 0.55-1.02 [facility] Comment on above: The validity of the calculated GFR & GFRAA in patients over 70 years has not been determined. Clinical correlation is essential. Serum or plasma urea nitroge n measurement (mass/volume)Ordered By: Hussein Alaniz on 10-26-2024 Urea nitrogen [Mass/Vol] 21 mg/dL High 7-18 [facility] Sodium levelOrdered By: Hussein Alaniz on 10-26-2024 Sodium [Moles/Vol] 133 mmol/L Low 136-[address] [facility] TSH QnOrdered By: Hussein Alaniz o n 10-26-2024 Thyroid Stimulating Hormone (TSH) 1.060 uIU/mL 0.358-3.740 [facility] Thyroid Stim Hormone (TSH)on 10-26-2024 TSH 1.060 uIU/mL Normal 0.358-3.740 [facility] Comment on above: Performed By: #### L 100.0100, L506.1001, L500.4050, L501.9520 #### [facility] [address] [place], [place], [id number] Total proteinOrdered By: Hussein Alaniz on 10-26-2024 Protein [Mass/Vol] 6.5 g/dL 6.4-8.[address] [facility] Vitamin D,25 Hydroxyon 10-26 Vitamin D 25-OH 24.2 ng/mL Normal [facility] Comment on above: Result Comment: Isabell min D 25(OH) Status Range Deficiency <20 ng/mL (50nmol/L) Insufficiency 20 - 30 ng/mL (50 - 75 nmol/L) Sufficiency 30 - 100 ng/mL (75 - 250 nmol/L) Toxicity >100 ng/mL (>250 nmol/L) Performed By: #### L 100.0100, L506.1001, L500.4050, L501.9520 #### [facility] [address] [place], [address] White blood cell (WBC) count Ordered By: Hussein Alaniz on 10-26-2024 WBC (Bld) [#/Vol] 10.5 10*3/uL 4.4-11.0 [facility] Chest PA and Lateralon 10-21 Chest PA and Lateral [facility] Imaging Services [address] [place] [place] [address] Chest PA and Lateral MR#: [id number] Acct: [id number] Name: BRENDEN JUNIOR Rep #: [id number] : 1945 F 79 From: Adonis lai MD PCP: Dr. Hussein Alaniz MD Status: DEP ER Study: Chest PA and Lateral Date of Exam: 10/21/24 Exam# [id number] Ordering Dr: [place] [id number] EXAM: XR CHEST, 2 VIEWS CLINICAL INDICATION: DYSPNEA TECHNIQUE: Frontal and lateral views of the chest. COMPARISON: Previous chest radiographs of 08/10/2024 and 06/12/2017. FINDINGS: LUNGS AND PLEURAL SPACES: Unremarkable. No consolidation or edema. No pneumothorax. No effusion. HEART: Unremarkable. Cardiac silhouette not enlarged. Normal pulmonary vasculature. MEDIASTINUM: Calcific aortic knob. No mediastinal widening. Trachea is midline. Numerous surgical clips are again noted in the region of the thyroid gland. BONES/JOINTS: Mild thoracic degenerative spurring. No acute osseous abnormality. SOFT TISSUES: Unremarkable. UPPER ABDOMEN: Cholecystectomy clips are again noted. A 10 x 5 mm ovoid calcification is projected within the left mid abdomen, lateral to the mid lumbar spine, consistent with a renal stone which has developed since the prior radiographs. Visualized abdominal aorta is calcific and is normal in caliber.. RAD/Chest PA and Lateral IMPRESSION: No acute findings in the chest. 10 x 5 mm left renal calculus. Electronically Signed: Adonis Rincon MD at 7:27 EST , CC: Dr. Hussein Alaniz MD; Jam Overton DO Mechanical Engineering Technologist: Signed Normal [facility] Emergency Department Summary on 10-21-2024 Emergency Department Summary [facility] Medical Records Department [address] [place] [address] Emergency Department Summary 10/21/24 MR#: [id number] Acct: [id number] Name: BRENDEN JUNIOR Rep #: [id number] : 1945 79 From: Jam Overton DO PCP: Dr. Hussein Alaniz MD Status:DEP ER Location: ED HPI History of Present Illness Chief Complaint: Shortness of Breath Informant: patient and EMS Narrative Narrative: Patient is an 79-year-old female from home with past medical history of hypertension hyperlipidemia type 2 diabetes and fibromyalgia. She states for almost a month she has had congestion and cough. She states she has had multiple COVID test which have been negative and she has seen her doctor who recently placed her on doxycycline which she just finished yesterday. She states she continues to have drainage and cough and she feels increased shortness of breath especially while trying to sleep and therefore comes in for evaluation [facility] Medical History Anxiety CKD stage 3a, GFR 45-59 ml/min Depression Dog bite Drug-induced myopathy Fibromyalgia GERD (gastroesophageal reflux disease) Hyperlipidemia Hypertension Hypothyroid Laceration of finger Laceration of right middle finger w/o foreign body w/o damage to nail Low back pain LVH (left ventricular hypertrophy) Morbid obesity Muscle spasm Overactive bladder Right sided sciatica Rosacea SOB (shortness of breath) Tremor Type 2 diabetes mellitus Vitamin D deficiency Home Medications ???Medication ???Instructions ???Recorded ???Last Taken ???Type amlodipine 10 mg tablet 10 mg PO DAILY 06/18/24 Unknown History levothyroxine 125 mcg tablet 125 mcg PO DAILY 06/18/24 Unknown History fluoxetine 20 mg tablet 20 mg PO DAILY 07/21/24 Unknown History potassium chloride 10 mEq 10 meq PO DAILY #90 tabs 07/31/24 Unknown Rx tablet,extended release hydralazine 25 mg tablet 25 mg PO TID 09/21/24 Unknown History primidone 50 mg tablet 100 mg PO QHS 09/21/24 Unknown History albuterol sulfate 90 mcg/actuation 2 puff inhalation Q4H PRN PRN 10/21/24 Unknown History aerosol inhaler shortness of breath or wheezing azelastine 137 mcg (0.1 %) nasal 2 spray intranasal BID #30 mL 10/21/24 Unknown Rx spray benzonatate 100 mg capsule 100 mg PO TID PRN cough #30 caps 10/21/24 Unknown Rx diazepam 2 mg tablet (Valium) 2 mg PO TID PRN muscle spasm and 10/21/24 Unknown Rx anxiety 5 days #15 tabs hydrochlorothiazide 25 mg tablet 25 mg PO DAILY 10/21/24 Unknown History Allergy/AdvReac Type Severity Reaction Status Date / Time lisinopril Allergy Swelling Verified 10/21/24 04:57 atorvastatin calcium (From AdvReac Other Verified 10/21/24 04:57 Lipitor) cholestyramine (From AdvReac Upset Verified 10/21/24 04:57 Questran) Stomach duloxetine HCl (From AdvReac Other Verified 10/21/24 04:57 Cymbalta) losartan potassium (From AdvReac Mucosal Verified 10/21/24 04:57 Cozaar) lesions propoxyphene HCl (From AdvReac Other Verified 10/21/24 04:57 Darvon) simvastatin (From Zocor) AdvReac Other Verified 10/21/24 04:57 sucrose (From Questran) AdvReac Upset Verified 10/21/24 04:57 Stomach sulfasalazine (From AdvReac Upset Verified 10/21/24 04:57 Azulfidine) Stomach zolmitriptan (From Zomig) AdvReac Other Verified 10/21/24 04:57 Family History Mother Dyslipidemia Dementia Heart disease Brother Diabetes COPD (chronic obstructive pulmonary disease) Father Diabetes Hypertension Cancer Brother Cancer prostate Surgical History History of nasal surgery Hx of cataract surgery Hx of cholecystectomy Hx of hysterectomy Hx of thyroidectomy Social History Smoking Status: Never smoker ROS ROS ED Constitutional Constitutional ED: Denies chills or fever(s) Eyes Eyes: Denies change in vision ENT ENT ED: Reports rhinorrhea and sore throat Cardiovascular Cardiovascular: Denies chest pain or racing heartbeat Respiratory/Chest Respiratory/Chest: Reports cough and dyspnea Gastrointestinal Gastrointestinal: Denies abdominal pain, diarrhea, nausea or vomiting Genitourinary Genitourinary ED: Denies dysuria Musculoskeletal Musculoskeletal: Denies myalgias Integumentary Denies rash Neurologic Neurologic: Denies headache(s) Psychiatric Psychiatric: Reports anxiety Hematologic/Lymphatic Hematologic/Lymphatic: Denies easy bleeding or easy bruising Allergic/Immunologic Allergic/Immunologic ED: Denies mouth swelling or tongue swelling EXAM Physical Exam Const Vital Signs: 10/21/24 04:57 10/21/24 05:07 10/21/24 05:07 (more content not included)... Normal [facility] M100.678on 10-13-2024 M100.678 Pending SARS-CoV-2 (COVID 19) Negative INFLUENZA A Negative INFLUENZA B Negative RSV PCR Negative Normal [facility] Comment on above: Performed By: #### L 100.0100, L506.1001, L500.4050, L501.9520 #### [facility] Laboratory [address] [place], [address] 12 Lead EKG performed by [facility] on 09-21-2024 12 Lead EKG performed by [facility] [address] [place] [address] 12 Lead EKG performed by [facility] 09/21/24 1507 MR#: [id number] Acct: [id number] Name: BRENDEN JUNIOR Rep #: [id number] : 1945 78 From: Farhad Reynolds [employer]C Attending Dr: JAMES IzaguirreC Status: DEP AMB Ordering Dr: Farhad Reynolds [employer] Date: 09/21/24 Location: [facility] Sex: F C Admitted: BMS/12 Lead EKG performed by [facility] ECG Report Interpretation ---Sinus Rhythm -Left bundle branch block. - Extensive anterior-lateral infarct (age undetermined). ABNORMAL Electronically signed on 09/24/2024 at 08:38 by Raul Epsteinwood Software Version [id number] 09/24/2442 Date Farhad Reynolds NP [employer] CC: Dr. Hussein Alaniz MD Date Dictated: 09/21/241506 Date Transcribed: 09/21/241506 Mechanical Engineering Technologist: ELENO Signed Normal [facility] BNP,B-Type NATRIURETIC PEPTI Deejay 09-21-2024 Natriuretic peptide B (Bld) [Mass/Vol] 121.0 pg/mL High 0-100 [facility] Comment on above: Performed By: #### L 100.0100, L506.1001, L500.4050, L501.9520 #### [facility] [address] [place], [address] CBC W/Diff, Automatedon 09-02 Absolute Lymph 2.68 X10 3/uL Normal 0.83-4.51 [facility] Comment on above: Performed By: #### L 100.0100, L506.1001, L500.4050, L501.9520 #### [facility] [address] [place], [address] Absolute Neut 5.2 X10 3/uL Normal 2.0-7.7 [facility] Comment on above: Performed By: #### L 100.0100, L506.1001, L500.4050, L501.9520 #### [facility] [address] [place], [address] Basophils/100 WBC (Bld) 0.6 % Normal 0-1 [facility] Comment on above: Performed By: #### L 100.0100, L506.1001, L500.4050, L501.9520 #### [facility] [address] [place], [address] Eosinophils/100 WBC (Bld) 2.3 % Normal 0-5 [facility] Comment on above: Performed By: #### L 100.0100, L506.1001, L500.4050, L501.9520 #### [facility] [address] [place], [address] Erythrocyte distribution width (RBC) [Ratio] 15.1 % High 11.6-14.6 [facility] Comment on above: Performed By: #### L 100.0100, L506.1001, L500.4050, L501.9520 #### [facility] [address] [place], [address] Hematocrit (Bld) [Volume fraction] 35.9 % Low 37-47 [facility] Comment on above: Performed By: #### L 100.0100, L506.1001, L500.4050, L501.9520 #### [facility] [address] [place], [address] Hemoglobin (Bld) [Mass/Vol] 11.8 g/dL Low 12.0-15.0 [facility] Comment on above: Performed By: #### L 100.0100, L506.1001, L500.4050, L501.9520 #### [facility] [address] [place], [address] IG% 0.300 Normal 0.0-0.9 [facility] Comment on above: Result Comment: IG% - Immature Granulocytes (promyelocytes, myelocytes and metamyelocytes) > 1% indicates that a LEFT SHIFT is Present. Performed By: #### L 100.0100, L506.1001, L500.4050, L501.9520 #### [facility] [address] [place], [address] Lymphocytes/100 WBC (Bld) 29.8 % Normal 19-41 [facility] Comment on above: Performed By: #### L 100.0100, L506.1001, L500.4050, L501.9520 #### [facility] [address] [place], [address] MCH (RBC) [Entitic mass] 30.6 pg Normal 27.0-32.0 [facility] Comment on above: Performed By: #### L 100.0100, L506.1001, L500.4050, L501.9520 #### [facility] [address] [place], [address] MCHC (RBC) [Mass/Vol] 32.9 g/dL Normal 32-36 [facility] Comment on above: Performed By: #### L 100.0100, L506.1001, L500.4050, L501.9520 #### [facility] [address] [place], [address] MCV (RBC) [Entitic vol] 93.0 fL Normal 81-99 [facility] Comment on above: Performed By: #### L 100.0100, L506.1001, L500.4050, L501.9520 #### [facility] [address] [place], [address] Monocytes/100 WBC (Bld) 9.2 % Normal 0-10 [facility] Comment on above: Performed By: #### L 100.0100, L506.1001, L500.4050, L501.9520 #### [facility] [address] [place], [address] Neutrophils/100 WBC (Bld) 57.8 % Normal 47-70 [facility] Comment on above: Performed By: #### L 100.0100, L506.1001, L500.4050, L501.9520 #### [facility] [address] [place], [address] Nucleated RBC (Bld) [#/Vol] 0 10*3/uL Normal 0-5 [facility] Comment on above: Performed By: #### L 100.0100, L506.1001, L500.4050, L501.9520 #### [facility] [address] [place], [address] Platelet mean volume (Bld) [Entitic vol] 8.3 fL Normal 6.2-12.0 [facility] Comment on above: Performed By: #### L 100.0100, L506.1001, L500.4050, L501.9520 #### [facility] [address] [place], [address] Platelets (Bld) [#/Vol] 322 10*3/uL Normal 150-450 [facility] Comment on above: Performed By: #### L 100.0100, L506.1001, L500.4050, L501.9520 #### [facility] [address] [place], [address] RBC (Bld) [#/Vol] 3.86 10*6/uL Low 4.2-5.4 [facility] Comment on above: Performed By: #### L 100.0100, L506.1001, L500.4050, L501.9520 #### [facility] [address] [place], [address] RDW SD 52.0 fl High 35.1-43.9 [facility] Comment on above: Performed By: #### L 100.0100, L506.1001, L500.4050, L501.9520 #### [facility] [address] [place], [address] WBC (Bld) [#/Vol] 9.0 10*3/uL Normal 4.4-11.[address] [facility] Comment on above: Performed By: #### L 100.0100, L506.1001, L500.4050, L501.9520 #### [facility] [address] [place], [address] Cardiology Visit Reporton Cardiology Visit Report [facility] [address] [place] [address] OFFICE VISIT Date of Service: 09/21/24 MR#: [id number] Acct: [id number] Name: BRENDEN JUNIOR Rep #: [id number] : 1945 Provider: JUSTIN stein Age/Sex: 78/F Location[place] [facility] Status: Signed [facility] History of Present Illness Details: This lady has a past medical history significant for hypertension and dyslipidemia. She was seen with primary care provider on 09/15/2024 for follow-up regarding dysuria and noted to be bradycardic. EKG was completed and showed sinus rhythm with PVC in a bigeminy pattern at a rate of 51 bpm. Her beta-rachana was placed on hold. To assist with blood pressure, heart blood pressure medication was adjusted. She was seen in an emergency department [id number] in [place]. She underwent laboratory testing that showed some electrolyte disarrangement. Her magnesium was replaced. Twelve-lead ECG on 09/21/2024 shows a sinus rhythm with left bundle branch block at a rate of 66 bpm, TX interval 196, QTc 492, and QRS 138. She denies chest, arm, jaw, or neck discomfort. She states palpitations. She denies bilateral lower extremity edema. She denies claudication. She acknowledges orthopnea. She states shortness of breath with activity, shortness of breath at rest, or PND. She denies chronic cough. She denies significant, sudden weight gain. She acknowledges occasional lightheadedness. She states near- syncope. She denies syncope or dizziness. She denies blood in urine, blood in stool, or epistaxis. He denies fever with chills. She denies myalgia. She acknowledges fatigue. Her exercise level has remained stable. Intake Vital Signs 09/11/24 14:00 09/21/24 15:57 Height 5 ft 4 in 5 ft 4 in Weight: 183 lb BMI 31.4 BP 148/64 H Blood Pressure Location Rt brachial Position Sitting Respiration 16 Pulse 65 Pulse Source NIBP Intake Visit Reasons: F/U PER COLIN/EKG NEEDED Radon Inspector Required: No Accompanied by: Daughter Is patient in pain?: No Allergies lisinopril Allergy (Verified 09/21/24 16:01) Swelling atorvastatin calcium (From Lipitor) Adverse Reaction (Verified 09/21/24 16:01) Other cholestyramine (From Questran) Adverse Reaction (Verified 09/21/24 16:01) Upset Stomach duloxetine HCl (From Cymbalta) Adverse Reaction (Verified 09/21/24 16:01) Other losartan potassium (From Cozaar) Adverse Reaction (Verified 09/21/24 16:01) Mucosal lesions propoxyphene HCl (From Darvon) Adverse Reaction (Verified 09/21/24 16:01) Other simvastatin (From Zocor) Adverse Reaction (Verified 09/21/24 16:01) Other sucrose (From Questran) Adverse Reaction (Verified 09/21/24 16:01) Upset Stomach sulfasalazine (From Azulfidine) Adverse Reaction (Verified 09/21/24 16:01) Upset Stomach zolmitriptan (From Zomig) Adverse Reaction (Verified 09/21/24 16:01) Other Medications ???Medication ???Instructions ???Recorded ???Confirmed ???Type amlodipine 10 mg tablet 10 mg PO DAILY 06/18/24 09/21/24 History fesoterodine 8 mg tablet,extended 8 mg PO DAILY 06/18/24 09/21/24 History release 24 hr levothyroxine 125 mcg tablet 125 mcg PO DAILY 06/18/24 09/21/24 History vibegron 75 mg tablet (Gemtesa) 75 mg PO DAILY 06/18/24 09/21/24 History fluoxetine 20 mg tablet 45 mg PO DAILY 07/21/24 09/21/24 History potassium chloride 10 mEq 10 meq PO DAILY #90 tabs 07/31/24 09/21/24 Rx tablet,extended release cetirizine 5 mg tablet (Allergy 5 mg PO QDAY PRN 09/21/24 09/21/24 History Relief (cetirizine)) hydralazine 25 mg tablet 25 mg PO TID 09/21/24 09/21/24 History primidone 50 mg tablet 100 mg PO QHS 09/21/24 09/21/24 History Have you fallen in the past year?: Yes (singular; tripped on household pet) [facility] Medical History Anxiety CKD stage 3a, GFR 45-59 ml/min Depression Dog bite Drug-induced myopathy Fibromyalgia GERD (gastroesophageal reflux disease) Hyperlipidemia Hypertension Hypothyroid Laceration of finger Laceration of right middle finger w/o foreign body w/o damage to nail Low back pain LVH (left ventricular hypertrophy) Morbid obesity Muscle spasm Overactive bladder Right sided sciatica Rosacea SOB (shortness of breath) Tremor Type 2 diabetes mellitus Vitamin D deficiency Surgical History History of nasal surgery Hx of cataract surgery Hx of cholecystectomy Hx of hysterectomy Hx of thyroidectomy Family History Mother Dyslipidemia Dementia Heart disease Brother Diabetes COPD (chronic obstructive pulmonary disease) Father Diabetes Hypertension Cancer Brother Cancer prostate Social History (Reviewed 09/21 (more content not included)... Normal [facility] Comprehensive Metabolic Prof ghanshyamon 09-21-2024 Albumin [Mass/Vol] 3.2 g/dL Normal 3.2-5.[address] [facility] Comment on above: Performed By: #### L 100.0100, L506.1001, L500.4050, L501.9520 #### [facility] [address] [place], [address] Albumin/Globulin [Mass ratio] 0.9 {ratio} Normal 0.9-2.4 [facility] Comment on above: Performed By: #### L 100.0100, L506.1001, L500.4050, L501.9520 #### [facility] [address] [place], [address] ALK P 75 U/L Normal 45-117 [facility] Comment on above: Performed By: #### L 100.0100, L506.1001, L500.4050, L501.9520 #### [facility] [address] [place], [address] ALT [Catalytic activity/Vol] 23 U/L Normal 13-56 [facility] Comment on above: Performed By: #### L 100.0100, L506.1001, L500.4050, L501.9520 #### [facility] [address] [place], [address] AST [Catalytic activity/Vol] 17 U/L Normal 15-37 [facility] Comment on above: Performed By: #### L 100.0100, L506.1001, L500.4050, L501.9520 #### [facility] [address] [place], [address] Bilirubin [Mass/Vol] 0.30 mg/dL Normal 0.20-1.00 [facility] Comment on above: Result Comment: For patients on eltrombopag therapy, use of Dimension [place] TBIL is not recommended. Performed By: #### L 100.0100, L506.1001, L500.4050, L501.9520 #### [facility] [address] [place], [address] BUN/CRE 20.7 RATIO High 10-20 [facility] Comment on above: Performed By: #### L 100.0100, L506.1001, L500.4050, L501.9520 #### [facility] [address] [place], [address] CA,Total 8.7 mg/dL Normal 8.5-10.1 [facility] Comment on above: Performed By: #### L 100.0100, L506.1001, L500.4050, L501.9520 #### [facility] [address] [place], [address] Chloride [Moles/Vol] 106 mmol/L Normal 98-107 [facility] Comment on above: Performed By: #### L 100.0100, L506.1001, L500.4050, L501.9520 #### [facility] [address] [place], [address] CO2 [Moles/Vol] 23.0 mmol/L Normal 21.0-32.0 [facility] Comment on above: Performed By: #### L 100.0100, L506.1001, L500.4050, L501.9520 #### [facility] [address] [place], [address] Creatinine [Mass/Vol] 0.87 mg/dL Normal 0.55-1.02 [facility] Comment on above: Result Comment: The validity of the calculated GFR GFRAA in patients over 70 years has not been determined. Clinical correlation is essential. Performed By: #### L 100.0100, L506.1001, L500.4050, L501.9520 #### [facility] [address] [place], [address] EST GFR - AA 81 mL/min Normal >60 [facility] Comment on above: Result Comment: Afri can Algerian GFR Calc Performed By: #### L 100.0100, L506.1001, L500.4050, L501.9520 #### [facility] [address] [place], [address] GAP 5 Normal 5-15 [facility] Comment on above: Performed By: #### L 100.0100, L506.1001, L500.4050, L501.9520 #### [facility] [address] [place], [address] GFR/1.73 sq M.predicted among non-blacks MDRD (S/P/Bld) [Vol rate/Area] 67 mL/min/{1.73_m2} Normal >60 [facility] Comment on above: Result Comment: Non- GFR Calc Performed By: #### L 100.0100, L506.1001, L500.4050, L501.9520 #### [facility] [address] [place], [address] Globulin (S) [Mass/Vol] 3.4 g/dL Normal 2.2-4.2 [facility] Comment on above: Performed By: #### L 100.0100, L506.1001, L500.4050, L501.9520 #### [facility] [address] [place], [address] Glucose [Mass/Vol] 136 mg/dL High 74-[address] [facility] Comment on above: Result Comment: Fast ing Glucose result greater than or equal to 126 mg/dL suggests DIABETES MELLITUS per A.D.A. criteria. Performed By: #### L 100.0100, L506.1001, L500.4050, L501.9520 #### [facility] [address] [place], [address] Potassium [Moles/Vol] 4.1 mmol/L Normal 3.5-5.1 [facility] Comment on above: Performed By: #### L 100.0100, L506.1001, L500.4050, L501.9520 #### [facility] [address] [place], [address] Sodium [Moles/Vol] 135 mmol/L Low 136-[address] [facility] Comment on above: Performed By: #### L 100.0100, L506.1001, L500.4050, L501.9520 #### [facility] [address] [place], [address] T PROT 6.6 g/dL Normal 6.4-8.2 [facility] Comment on above: Performed By: #### L 100.0100, L506.1001, L500.4050, L501.9520 #### [facility] [address] [place], [address] Urea nitrogen [Mass/Vol] 18 mg/dL Normal 7-18 [facility] Comment on above: Performed By: #### L 100.0100, L506.1001, L500.4050, L501.9520 #### [facility] [address] [place], [address] Magnesiumon 09-21-2024 Magnesium [Mass/Vol] 2.3 mg/dL Normal 1.6-2.6 [facility] Comment on above: Performed By: #### L 100.0100, L506.1001, L500.4050, L501.9520 #### [facility] [address] [place], [address] T4 Free Directon 09-21-2024 T4 FREE DIRECT 1.03 ng/dL Normal 0.76-1.46 [facility] Comment on above: Performed By: #### L 100.0100, L506.1001, L500.4050, L501.9520 #### [facility] [address] [place], [address] Thyroid Stim Hormone (TSH)on 09-21-2024 TSH 0.339 uIU/mL Low 0.358-3.740 [facility] Comment on above: Performed By: #### L 100.0100, L506.1001, L500.4050, L501.9520 #### [facility] [address] [place], [address] Urine Cultureon 09-13-2024 URC Klebsiella pneumonia e sp pneum [place] Count >100,000 Klebsiella pneumoniae sp pneum: REACTION Ampicillin Islt NADYA >=32 Ampicillin+Sulbac Islt NADYA 4 S ceFAZolin Islt NADYA <=4 S Cefepime Islt NADYA <=0.12 S cefTRIAXone Islt NADYA <=0.25 S Ciprofloxacin Islt NADYA <=0.25 S B-Lactamase Extended Susc Islt NEG Gentamicin Islt NADYA <=1 S Imipenem Islt NADYA <=0.25 S levoFLOXacin Islt NADYA <=0.12 S Nitrofurantoin Islt NADYA 64 I Pip+Tazo Islt NADYA <=4 S Tobramycin Islt NADYA <=1 S TMP SMX Islt NADYA <=20 S Normal [facility] Comment on above: Performed By: #### L 100.0100, L506.1001, L500.4050, L501.9520 #### [facility] [address] [place], [address] Urgent Care Visit Reporton 1 Urgent Care Visit Report [facility] [address], [address] [place] [address] OFFICE VISIT Date of Service: 09/11/24 MR#: [id number] Acct: [id number] Name: BRENDEN JUNIOR Iza Rep #: [id number] 1 : 1945 Provider: SOYNA Mccloud Age/Sex: 78/F Location: [facility] Status: Signed Intake Vital Signs 08/06/24 10:31 09/11/24 14:00 09/11/24 14:26 Height 5 ft 4 in 5 ft 4 in BP 124/76 H Blood Pressure Location Lt brachial Position Sitting Respiration 14 Pulse 54 L Pulse Source Monitor Temp 97.8 F Temp Source Temporal Pulse Oximetry (%) 96 Oxygen Delivery Method room air Intake Visit Reasons: dysuria sx over a month Allergies lisinopril Allergy (Verified 09/11/24 14:27) Swelling atorvastatin calcium (From Lipitor) Adverse Reaction (Verified 09/11/24 14:27) Other cholestyramine (From Questran) Adverse Reaction (Verified 09/11/24 14:27) Upset Stomach duloxetine HCl (From Cymbalta) Adverse Reaction (Verified 09/11/24 14:27) Other losartan potassium (From Cozaar) Adverse Reaction (Verified 09/11/24 14:27) Mucosal lesions propoxyphene HCl (From Darvon) Adverse Reaction (Verified 09/11/24 14:27) Other simvastatin (From Zocor) Adverse Reaction (Verified 09/11/24 14:27) Other sucrose (From Questran) Adverse Reaction (Verified 09/11/24 14:27) Upset Stomach sulfasalazine (From Azulfidine) Adverse Reaction (Verified 09/11/24 14:27) Upset Stomach zolmitriptan (From Zomig) Adverse Reaction (Verified 09/11/24 14:27) Other Have you fallen in the past year?: No PFSH Medical History Rosacea Dog bite Laceration of finger Muscle spasm Vitamin D deficiency LVH (left ventricular hypertrophy) Overactive bladder Fibromyalgia Type 2 diabetes mellitus Hyperlipidemia Drug-induced myopathy Depression Morbid obesity SOB (shortness of breath) GERD (gastroesophageal reflux disease) Right sided sciatica Low back pain CKD stage 3a, GFR 45-59 ml/min Tremor Laceration of right middle finger w/o foreign body w/o damage to nail Anxiety Hypothyroid Hypertension Surgical History Hx of hysterectomy History of nasal surgery Hx of cataract surgery Hx of cholecystectomy Hx of thyroidectomy Family History Mother Dyslipidemia Dementia Heart disease Brother Diabetes COPD (chronic obstructive pulmonary disease) Father Diabetes Hypertension Cancer Brother Cancer prostate Social History Smoking Status: Never smoker HPI HPI Details: BRENDEN JUNIOR, is a 78 F who presents to the office today for complaint of dysuria and increased urinary urgency/frequency. Patient states that she does have bladder spasms and has had those for the past month however the other symptoms have worsened recently. She denies fever, chills, sweats. No nausea, vomiting and diarrhea. No hemoptysis, shortness of breath or difficult breathing. No other associated symptoms or alleviating/aggravating factors. ROS Const Constitutional: No other (6 system ROS completed with pertinent findings in the HPI otherwise normal.) Exam Const General: cooperative and healthy appearing Resp Effort Inspection: normal respiratory effort Auscultation: Bilateral: Clear to Auscultation Cardio Rate: regular rate Rhythm: regular rhythm GI Auscultation: normal bowel sounds General: No CVA tenderness Psych Appearance: grossly normal Mental Status: mental status grossly normal Results POC Urinalysis Dip (Clinic) Office Urine Color DAFNE Last Edit by Micaela Clark on 09/11/24 14:30 Office Urine Clarity Cloudy Last Edit by Micaela Clark on 09/11/24 14:30 Office Urine Glucose Negative Last Edit by Micaela Clark on 09/11/24 14:30 Office Urine Ketones Small (15+) Last Edit by Micaela Clark on 09/11/24 14:30 Off Ur Spec Hutchinson 1.030 Last Edit by Micaela Clark on 09/11/24 14:30 Office Urine pH 5.0 Last Edit by Micaela Clark on 09/11/24 14:30 Office Urine Bilirubin Negative Last Edit by Micaela Clark on 09/11/24 14:30 Office Urine Urobilinogen Negative Last Edit by Micaela Clark on 09/11/24 14:30 Office Urine Blood Hemolyzed Last Edit by Micaela Clark on 09/11/24 14:30 Office Urine Blood Hemolyzed Large Last Edit by Micaela Clark on 09/11/24 14:30 Office Urine Protein 3+ Last Edit by Micaela Clark on 09/11/24 14:30 Office Urine Nitrate Negative Last Edit by Micaela Clark on 09/11/24 14:30 Off Ur Leukocytes Positive Last Edit by Micaela Clark on 09/11/24 14:30 Coding Level of Care Code Off vis,est,level 3 Diagnoses Cystitis N30.90 Assess (more content not included)... Normal [facility] Absolute lymphocyte countOrd ered By: Hussein Alaniz on 10-21-2023 Lymphocytes Auto (Unsp spec) [#/Vol] 2.84 10*3/uL 0.83-4.51 [facility] Basophil percentageOrdered B y: Hussein Alaniz on 10-21-2023 Basophils/100 WBC (Bld) 0.7 % 0-1 [facility] Bilirubin [Mass/Vol] 0.60 mg/dL 0.20-1.00 [facility] Comment on above: For patients on eltr ombopag therapy, use of Dimension [place] TBIL is not recommended. Chloride [Moles/Vol] 104 mmol/L 98-107 [facility] Eosinophils/100 WBC (Bld) 2.8 % 0-5 [facility] Glucose [Mass/Vol] 176 mg/dL 74-[address] [facility] Comment on above: Fasting Glucose resu lt greater than or equal to 126 mg/dL suggests DIABETES MELLITUS per A.D.A. criteria. Neutrophils (Bld) [#/Vol] 6.4 10*3/uL 2.0-7.7 [facility] Neutrophils/100 WBC (Bld) 61.7 % 47-70 [facility] Potassium [Moles/Vol] 3.9 mmol/L 3.5-5.1 [facility] Protein [Mass/Vol] 7.5 g/dL 6.4-8.[address] [facility] Sodium [Moles/Vol] 136 mmol/L 136-[address] [facility] WBC (Bld) [#/Vol] 10.4 10*3/uL 4.4-11.0 [facility] Blood erythrocytes count (nu mber/volume)Ordered By: Hussein Alaniz on 10-21-2023 RBC (Bld) [#/Vol] 4.34 10*6/uL 4.2-5.4 [facility] Blood hemoglobin measurement (mass/volume)Ordered By: Hussein Alaniz on 10-21-2023 Hemoglobin (Bld) [Mass/Vol] 13.4 g/dL 12.0-15.0 [facility] Blood lymphocytes/100 leukoc ytesOrdered By: Hussein Alaniz on 10-21-2023 Lymphocytes/100 WBC (Bld) 27.3 % 19-41 [facility] Blood monocytes/100 leukocyt esOrdered By: Hussein Alaniz on 10-21-2023 Monocytes/100 WBC (Bld) 7.1 % 0-10 [facility] Blood platelet mean volumeOr dered By: Hussein Alaniz on 10-21-2023 Platelet mean volume (Bld) [Entitic vol] 9.1 fL 6.2-12.0 [facility] Determination of erythrocyte mean corpuscular volume (MCV)Ordered By: Hussein Alaniz on 10-21-2023 MCV (RBC) [Entitic vol] 94.7 fL 81-99 [facility] Hematocrit Auto (Bld) [Volum e fraction]Ordered By: Hussein Alaniz on 10-21-2023 Hematocrit (Bld) [Volume fraction] 41.1 % 37-47 [facility] - Chemistry and C hemistry - challengeOrdered By: Hussein Alaniz on 10-21-2023 ALP [Catalytic activity/Vol] 102 U/L 45-117 [facility] ALT [Catalytic activity/Vol] 25 U/L 13-56 [facility] CO2 [Moles/Vol] 26.0 mmol/L 21.0-32.0 [facility] Globulin (S) [Mass/Vol] 4.0 g/dL 2.2-4.2 [facility] Urea nitrogen/Creatinine [Mass ratio] 19.3 mg/mg 10-20 [facility] - Hematology and Cell countsOrdered By: Hussein Alaniz on 10-21-2023 Erythrocyte distribution width (RBC) [Entitic vol] 50.2 fL 35.1-43.9 [facility] Erythrocyte distribution width (RBC) [Ratio] 14.4 % 11.6-14.6 [facility] Immature granulocytes/100 WBC (Bld) 0.400 % 0.0-0.9 [facility] Comment on above: IG% - Immature Granu locytes (promyelocytes, myelocytes and metamyelocytes) > 1% indicates that a LEFT SHIFT is Present. MCH (RBC) [Entitic mass] 30.9 pg 27.0-32.0 [facility] Nucleated RBC/100 WBC (Bld) [Ratio] 0 % 0-5 [facility] MCHC Auto (RBC) [Mass/Vol]Or dered By: Hussein Alaniz on 10-21-2023 MCHC (RBC) [Mass/Vol] 32.6 g/dL 32-36 [facility] No Panel InformationOrdered By: Hussein Alaniz on 10-21-2023 Estimated GFR (MDRD) Amer 56 mL/min >60 [facility] Comment on above: GFR Calc Estimated GFR (MDRD) Non-Af Amer 47 mL/min >60 [facility] Comment on above: Non- GFR Calc Thyroid Stimulating Hormone (TSH) 1.51 uIU/mL 0.358-3.74 [facility] Vitamin D 25-Hydroxy 37.2 ng/mL [facility] Comment on above: Vitamin D 25(OH) Sta tus Range Deficiency <20 ng/mL (50nmol/L) Insufficiency 20 - 30 ng/mL (50 - 75 nmol/L) Sufficiency 30 - 100 ng/mL (75 - 250 nmol/L) Toxicity >100 ng/mL (>250 nmol/L) Platelets bldOrdered By: Hussein Alaniz on 10-21-2023 Platelets (Bld) [#/Vol] 394 10*3/uL 150-450 [facility] Serum or plasma albumin imani urement (mass/volume)Ordered By: Hussein Alaniz on 10-21-2023 Albumin [Mass/Vol] 3.5 g/dL 3.2-5.[address] [facility] Serum or plasma albumin/glob ulin mass ratioOrdered By: Hussein Alaniz on 10-21-2023 Albumin/Globulin [Mass ratio] 0.9 {ratio} 0.9-2.4 [facility] Serum or plasma calcium imani urement (mass/volume)Ordered By: Hussein Alaniz on 10-21-2023 Calcium [Mass/Vol] 8.5 mg/dL 8.5-10.[address] [facility] Serum or plasma creatinine m easurement (mass/volume)Ordered By: Hussein Alaniz on 10-21-2023 Creatinine [Mass/Vol] 1.19 mg/dL 0.55-1.02 [facility] Comment on above: The validity of the calculated GFR & GFRAA in patients over 70 years has not been determined. Clinical correlation is essential. Serum or plasma urea nitroge n measurement (mass/volume)Ordered By: Hussein Alaniz on 10-21-2023 Urea nitrogen [Mass/Vol] 23 mg/dL 7-18 [facility] Thin prep Papanicolaou smear with manual screeningOrdered By: Hussein Alaniz 10-21-2023 Thin prep Papanicolaou smear with manual screening 17 U/L 15-37 [facility] Thin prep Papanicolaou smear with manual screening 6 5-15 [facility] Urine creatinine measurement (mass/volume)Ordered By: Neeta Amador on 06-22-2023 Creatinine (U) [Mass/Vol] 56.40 mg/dL NO RANGE EST. [facility] Urine protein measurement (m ass/volume)Ordered By: Neeta Amador on 06-22-2023 Protein (U) [Mass/Vol] 30.6 mg/dL 0.0-11.8 [facility] Urine protein/creatinine mas s ratioOrdered By: Neeta Amador on 06-22-2023 Protein/Creatinine (U) [Mass ratio] 543 mg/g CRE 0-200 [facility] Basophil percentageOrdered B y: Neeta Amador on 06-21-2023 Basophil percentage 2.8 mg/dL 2.5-4.9 [facility] Chloride [Moles/Vol] 104 mmol/L 98-107 [facility] Glucose [Mass/Vol] 159 mg/dL 74-[address] [facility] Comment on above: Fasting Glucose resu lt greater than or equal to 126 mg/dL suggests DIABETES MELLITUS per A.D.A. criteria. Potassium [Moles/Vol] 3.4 mmol/L 3.5-5.1 [facility] Sodium [Moles/Vol] 137 mmol/L 136-[address] [facility] Laboratory - Chemistry and C hemistry - challengeOrdered By: Neeta Amador on 06-21-2023 CO2 [Moles/Vol] 26.0 mmol/L 21.0-32.0 [facility] Urea nitrogen/Creatinine [Mass ratio] 19.3 mg/mg 10-20 [facility] No Panel InformationOrdered By: Neeta Amador on 06-21-2023 Estimated GFR (MDRD) Amer 62 mL/min >60 [facility] Comment on above: GFR Calc Estimated GFR (MDRD) Non-Af Amer 52 mL/min >60 [facility] Comment on above: Non- GFR Calc Serum or plasma albumin imani urement (mass/volume)Ordered By: Neeta Amador on 06-21-2023 Albumin [Mass/Vol] 3.4 g/dL 3.2-5.[address] [facility] Serum or plasma calcium imani urement (mass/volume)Ordered By: Neeta Amador on 06-21-2023 Calcium [Mass/Vol] 8.4 mg/dL 8.5-10.[address] [facility] Serum or plasma creatinine m easurement (mass/volume)Ordered By: Neeta Amador on 06-21-2023 Creatinine [Mass/Vol] 1.09 mg/dL 0.55-1.02 [facility] Comment on above: The validity of the calculated GFR & GFRAA in patients over 70 years has not been determined. Clinical correlation is essential. Serum or plasma urea nitroge n measurement (mass/volume)Ordered By: Neeta Amador on 06-21-2023 Urea nitrogen [Mass/Vol] 21 mg/dL 7-18 [facility] No Panel InformationOrdered By: Hussein Alaniz on 05-27-2023 Thyroid Stimulating Hormone (TSH) 2.67 uIU/mL 0.358-3.74 [facility] Culture, urineOrdered By: Dr Claire Alaniz on 04-07-2023 Bacteria identified Cx Nom (U) Presumptive E. coli [facility] Absolute lymphocyte countOrd ered By: Dr. Alaniz on 04-05-2023 Lymphocytes Auto (Unsp spec) [#/Vol] 2.71 10*3/uL 0.83-4.51 [facility] Basophil percentageOrdered B y: Dr. Alaniz on 04-05-2023 Basophils/100 WBC (Bld) 0.7 % 0-1 [facility] Bilirubin [Mass/Vol] 0.50 mg/dL 0.20-1.00 [facility] Comment on above: For patients on eltr ombopag therapy, use of Dimension [place] TBIL is not recommended. Chloride [Moles/Vol] 105 mmol/L 98-107 [facility] Eosinophils/100 WBC (Bld) 2.3 % 0-5 [facility] Glucose [Mass/Vol] 175 mg/dL 74-[address] [facility] Comment on above: Fasting Glucose resu lt greater than or equal to 126 mg/dL suggests DIABETES MELLITUS per A.D.A. criteria. Neutrophils (Bld) [#/Vol] 5.1 10*3/uL 2.0-7.7 [facility] Neutrophils/100 WBC (Bld) 58.9 % 47-70 [facility] Potassium [Moles/Vol] 3.7 mmol/L 3.5-5.1 [facility] Protein [Mass/Vol] 7.1 g/dL 6.4-8.[address] [facility] Sodium [Moles/Vol] 136 mmol/L 136-[address] [facility] WBC (Bld) [#/Vol] 8.7 10*3/uL 4.4-11.[address] [facility] Blood erythrocytes count (nu mber/volume)Ordered By: Dr. Alaniz on 04-05-2023 RBC (Bld) [#/Vol] 4.11 10*6/uL 4.2-5.4 [facility] Blood hemoglobin measurement (mass/volume)Ordered By: Dr. Alaniz on 04-05-2023 Hemoglobin (Bld) [Mass/Vol] 12.7 g/dL 12.0-15.0 [facility] Blood lymphocytes/100 leukoc ytesOrdered By: Dr. Alaniz on 04-05-2023 Lymphocytes/100 WBC (Bld) 31.3 % 19-41 [facility] Blood monocytes/100 leukocyt esOrdered By: Dr. Alaniz on 04-05-2023 Monocytes/100 WBC (Bld) 6.3 % 0-10 [facility] Blood platelet mean volumeOr dered By: Dr. Alaniz on 04-05-2023 Platelet mean volume (Bld) [Entitic vol] 9.4 fL 6.2-12.0 [facility] Culture, urineOrdered By: Brian Alaniz on 04-05-2023 Bacteria identified Cx Nom (U) Presumptive E. coli [facility] Determination of erythrocyte mean corpuscular volume (MCV)Ordered By: Dr. Alaniz on 04-05-2023 MCV (RBC) [Entitic vol] 94.9 fL 81-99 [facility] Hematocrit Auto (Bld) [Volum e fraction]Ordered By: Dr. Alaniz on 04-05-2023 Hematocrit (Bld) [Volume fraction] 39.0 % 37-47 [facility] Laboratory - Chemistry and C hemistry - challengeOrdered By: Dr. Alaniz on 04-05-2023 ALP [Catalytic activity/Vol] 89 U/L 45-117 [facility] ALT [Catalytic activity/Vol] 26 U/L 13-56 [facility] CO2 [Moles/Vol] 23.0 mmol/L 21.0-32.0 [facility] Globulin (S) [Mass/Vol] 3.4 g/dL 2.2-4.2 [facility] Urea nitrogen/Creatinine [Mass ratio] 19.0 mg/mg 10-20 [facility] Laboratory - Hematology and Cell countsOrdered By: Dr. Alaniz on 04-05-2023 Erythrocyte distribution width (RBC) [Entitic vol] 51.4 fL 35.1-43.9 [facility] Erythrocyte distribution width (RBC) [Ratio] 14.7 % 11.6-14.6 [facility] Immature granulocytes/100 WBC (Bld) 0.500 % 0.0-0.9 [facility] Comment on above: IG% - Immature Granu locytes (promyelocytes, myelocytes and metamyelocytes) > 1% indicates that a LEFT SHIFT is Present. MCH (RBC) [Entitic mass] 30.9 pg 27.0-32.0 [facility] Nucleated RBC/100 WBC (Bld) [Ratio] 0 % 0-5 [facility] MCHC Auto (RBC) [Mass/Vol]Or dered By: Dr. Alaniz on 04-05-2023 MCHC (RBC) [Mass/Vol] 32.6 g/dL 32-36 [facility] No Panel InformationOrdered By: Dr. Alaniz on 04-05-2023 Estimated GFR (MDRD) Amer 55 mL/min >60 [facility] Comment on above: GFR Calc Estimated GFR (MDRD) Non-Af Amer 46 mL/min >60 [facility] Comment on above: Non- GFR Calc Thyroid Stimulating Hormone (TSH) 9.07 uIU/mL 0.358-3.74 [facility] Vitamin D 25-Hydroxy 42.5 ng/mL [facility] Comment on above: Vitamin D 25(OH) Sta tus Range Deficiency <20 ng/mL (50nmol/L) Insufficiency 20 - 30 ng/mL (50 - 75 nmol/L) Sufficiency 30 - 100 ng/mL (75 - 250 nmol/L) Toxicity >100 ng/mL (>250 nmol/L) Platelets bldOrdered By: Dr. Alaniz on 04-05-2023 Platelets (Bld) [#/Vol] 343 10*3/uL 150-450 [facility] Serum or plasma albumin imani urement (mass/volume)Ordered By: Dr. Alaniz on 04-05-2023 Albumin [Mass/Vol] 3.7 g/dL 3.2-5.[address] [facility] Serum or plasma albumin/glob ulin mass ratioOrdered By: Dr. Alaniz on 04-05-2023 Albumin/Globulin [Mass ratio] 1.1 {ratio} 0.9-2.4 [facility] Serum or plasma calcium imani urement (mass/volume)Ordered By: Dr. Alaniz on 04-05-2023 Calcium [Mass/Vol] 8.5 mg/dL 8.5-10.[address] [facility] Serum or plasma creatinine m easurement (mass/volume)Ordered By: Dr. Alaniz on 04-05-2023 Creatinine [Mass/Vol] 1.21 mg/dL 0.55-1.02 [facility] Comment on above: The validity of the calculated GFR & GFRAA in patients over 70 years has not been determined. Clinical correlation is essential. Serum or plasma urea nitroge n measurement (mass/volume)Ordered By: Dr. Alaniz on 04-05-2023 Urea nitrogen [Mass/Vol] 23 mg/dL 7-18 [facility] Thin prep Papanicolaou smear with manual screeningOrdered By: Dr. Alaniz on 04-05-2023 Thin prep Papanicolaou smear with manual screening 14 U/L 15-37 [facility] Thin prep Papanicolaou smear with manual screening 8 5-15 [facility] No Panel Informationon 11-21 Thyroid Stimulating Hormone (TSH) 3.57 uIU/mL 0.358-3.74 [facility] Work Phone: Absolute lymphocyte counton 10-11-2022 Lymphocytes Auto (Unsp spec) [#/Vol] 4.23 10*3/uL 0.83-4.51 [facility] Work Phone: Basophil percentageon 2021 Basophils/100 WBC (Bld) 0.6 % 0-1 [facility] Work Phone: Bilirubin [Mass/Vol] 0.60 mg/dL 0.20-1.00 [facility] Work Phone: Comment on above: For patients on eltr ombopag therapy, use of Dimension [place] TBIL is not recommended. Chloride [Moles/Vol] 101 mmol/L 98-107 [facility] Work Phone: Eosinophils/100 WBC (Bld) 2.0 % 0-5 [facility] Work Phone: Glucose [Mass/Vol] 97 mg/dL 74-[address] [facility] Work Phone: Neutrophils (Bld) [#/Vol] 5.0 10*3/uL 2.0-7.7 [facility] Work Phone: Neutrophils/100 WBC (Bld) 48.6 % 47-70 [facility] Work Phone: Potassium [Moles/Vol] 4.0 mmol/L 3.5-5.1 [facility] Work Phone: Protein [Mass/Vol] 8.1 g/dL 6.4-8.[address] [facility] Work Phone: Sodium [Moles/Vol] 134 mmol/L 136-[address] [facility] Work Phone: WBC (Bld) [#/Vol] 10.3 10*3/uL 4.4-11.0 [facility] Work Phone: Blood erythrocytes count (nu mber/volume)on 10-11-2022 RBC (Bld) [#/Vol] 4.46 10*6/uL 4.2-5.4 [facility] Work Phone: Blood hemoglobin measurement (mass/volume)on 10-11-2022 Hemoglobin (Bld) [Mass/Vol] 13.9 g/dL 12.0-15.0 [facility] Work Phone: Blood lymphocytes/100 leukoc yteson 10-11-2022 Lymphocytes/100 WBC (Bld) 41.1 % 19-41 [facility] Work Phone: Blood monocytes/100 leukocyt eson 10-11-2022 Monocytes/100 WBC (Bld) 7.5 % 0-10 [facility] Work Phone: [phone] Blood platelet mean volumeon 10-11-2022 Platelet mean volume (Bld) [Entitic vol] 8.5 fL 6.2-12.0 [facility] Work Phone: [phone] Determination of erythrocyte mean corpuscular volume (MCV)on 10-11-2022 MCV (RBC) [Entitic vol] 93.3 fL 81-99 [facility] Work Phone: [phone] Hematocrit Auto (Bld) [Volum e fraction]on 10-11-2022 Hematocrit (Bld) [Volume fraction] 41.6 % 37-47 [facility] Work Phone: Laboratory - Chemistry and C hemistry - challengeon 10-11-2022 ALP [Catalytic activity/Vol] 103 U/L 45-117 [facility] Work Phone: [phone] ALT [Catalytic activity/Vol] 24 U/L 13-56 [facility] Work Phone: [phone] CO2 [Moles/Vol] 24.0 mmol/L 21.0-32.0 [facility] Work Phone: [phone] Globulin (S) [Mass/Vol] 4.1 g/dL 2.2-4.2 [facility] Work Phone: [phone] Urea nitrogen/Creatinine [Mass ratio] 22.5 mg/mg 10-20 [facility] Work Phone: [phone] Laboratory - Hematology and Cell countson 10-11-2022 Erythrocyte distribution width (RBC) [Entitic vol] 51.9 fL 35.1-43.9 [facility] Work Phone: [phone] Erythrocyte distribution width (RBC) [Ratio] 15.1 % 11.6-14.6 [facility] Work Phone: Immature granulocytes/100 WBC (Bld) 0.200 % 0.0-0.9 [facility] Work Phone: [phone] Comment on above: IG% - Immature Granu locytes (promyelocytes, myelocytes and metamyelocytes) > 1% indicates that a LEFT SHIFT is Present. MCH (RBC) [Entitic mass] 31.2 pg 27.0-32.0 [facility] Work Phone: [phone] Nucleated RBC/100 WBC (Bld) [Ratio] 0 % 0-5 [facility] Work Phone: [phone] MCHC Auto (RBC) [Mass/Vol]on 10-11-2022 MCHC (RBC) [Mass/Vol] 33.4 g/dL 32-36 [facility] Work Phone: No Panel Informationon 10-11 Estimated GFR (MDRD) Amer 79 mL/min >60 [facility] Work Phone: [phone] Comment on above: GFR Calc Estimated GFR (MDRD) Non-Af Amer 65 mL/min >60 [facility] Work Phone: [phone] Comment on above: Non- GFR Calc Thyroid Stimulating Hormone (TSH) 4.88 uIU/mL 0.358-3.74 [facility] Work Phone: [phone] Vitamin D 25-Hydroxy 33.3 ng/mL [facility] Work Phone: [phone] Comment on above: Vitamin D 25(OH) Sta tus Range Deficiency <20 ng/mL (50nmol/L) Insufficiency 20 - 30 ng/mL (50 - 75 nmol/L) Sufficiency 30 - 100 ng/mL (75 - 250 nmol/L) Toxicity >100 ng/mL (>250 nmol/L) Platelets bldon 10-11-2022 Platelets (Bld) [#/Vol] 370 10*3/uL 150-450 [facility] Work Phone: [phone] Serum or plasma albumin imani urement (mass/volume)on 10-11-2022 Albumin [Mass/Vol] 4.0 g/dL 3.2-5.[address] [facility] Work Phone: [phone] Serum or plasma albumin/glob ulin mass ratioon 10-11-2022 Albumin/Globulin [Mass ratio] 1.0 {ratio} 0.9-2.4 [facility] Work Phone: Serum or plasma calcium imani urement (mass/volume)on 10-11-2022 Calcium [Mass/Vol] 9.3 mg/dL 8.5-10.[address] [facility] Work Phone: Serum or plasma creatinine m easurement (mass/volume)on 10-11-2022 Creatinine [Mass/Vol] 0.89 mg/dL 0.55-1.02 [facility] Work Phone: Comment on above: The validity of the calculated GFR & GFRAA in patients over 70 years has not been determined. Clinical correlation is essential. Serum or plasma urea nitroge n measurement (mass/volume)on 10-11-2022 Urea nitrogen [Mass/Vol] 20 mg/dL 7-18 [facility] Work Phone: Thin prep Papanicolaou smear with manual screeningon 10-11-2022 Thin prep Papanicolaou smear with manual screening 18 U/L 15-37 [facility] Work Phone: Thin prep Papanicolaou smear with manual screening 9 5-15 [facility] Work Phone: Urine creatinine measurement (mass/volume)on 10-11-2022 Creatinine (U) [Mass/Vol] 266.00 mg/dL NO RANGE EST. [facility] Work Phone: Urine protein measurement (m ass/volume)on 10-11-2022 Protein (U) [Mass/Vol] 49.5 mg/dL 0.0-11.8 [facility] Work Phone: [phone] Urine protein/creatinine mas s ratioon 10-11-2022 Protein/Creatinine (U) [Mass ratio] 186 mg/g CRE 0-200 [facility] Work Phone: Absolute lymphocyte counton 07-18-2022 Lymphocytes Auto (Unsp spec) [#/Vol] 3.05 10*3/uL 0.83-4.51 [facility] Work Phone: Basophil percentageon 2021 Basophils/100 WBC (Bld) 0.6 % 0-1 [facility] Work Phone: Bilirubin [Mass/Vol] 0.50 mg/dL 0.20-1.00 [facility] Work Phone: Comment on above: For patients on eltr ombopag therapy, use of Dimension [place] TBIL is not recommended. Chloride [Moles/Vol] 104 mmol/L 98-107 [facility] Work Phone: Eosinophils/100 WBC (Bld) 2.3 % 0-5 [facility] Work Phone: Glucose [Mass/Vol] 136 mg/dL 74-[address] [facility] Work Phone: Comment on above: Fasting Glucose resu lt greater than or equal to 126 mg/dL suggests DIABETES MELLITUS per A.D.A. criteria. Neutrophils (Bld) [#/Vol] 4.9 10*3/uL 2.0-7.7 [facility] Work Phone: Neutrophils/100 WBC (Bld) 54.3 % 47-70 [facility] Work Phone: Potassium [Moles/Vol] 3.5 mmol/L 3.5-5.1 [facility] Work Phone: Protein [Mass/Vol] 7.3 g/dL 6.4-8.[address] [facility] Work Phone: Sodium [Moles/Vol] 137 mmol/L 136-[address] [facility] Work Phone: WBC (Bld) [#/Vol] 9.1 10*3/uL 4.4-11.[address] [facility] Work Phone: Blood erythrocytes count (nu mber/volume)on 07-18-2022 RBC (Bld) [#/Vol] 4.30 10*6/uL 4.2-5.4 [facility] Work Phone: Blood hemoglobin measurement (mass/volume)on 07-18-2022 Hemoglobin (Bld) [Mass/Vol] 13.0 g/dL 12.0-15.0 [facility] Work Phone: Blood lymphocytes/100 leukoc yteson 07-18-2022 Lymphocytes/100 WBC (Bld) 33.6 % 19-41 [facility] Work Phone: Blood monocytes/100 leukocyt eson 07-18-2022 Monocytes/100 WBC (Bld) 8.9 % 0-10 [facility] Work Phone: Blood platelet mean volumeon 07-18-2022 Platelet mean volume (Bld) [Entitic vol] 9.9 fL 6.2-12.0 [facility] Work Phone: Determination of erythrocyte mean corpuscular volume (MCV)on 07-18-2022 MCV (RBC) [Entitic vol] 94.7 fL 81-99 [facility] Work Phone: Hematocrit Auto (Bld) [Volum e fraction]on 07-18-2022 Hematocrit (Bld) [Volume fraction] 40.7 % 37-47 [facility] Work Phone: Laboratory - Chemistry and C hemistry - challengeon 07-18-2022 ALP [Catalytic activity/Vol] 90 U/L 45-117 [facility] Work Phone: ALT [Catalytic activity/Vol] 23 U/L 13-56 [facility] Work Phone: CO2 [Moles/Vol] 26.0 mmol/L 21.0-32.0 [facility] Work Phone: Globulin (S) [Mass/Vol] 3.7 g/dL 2.2-4.2 [facility] Work Phone: Urea nitrogen/Creatinine [Mass ratio] 14.7 mg/mg 10-20 [facility] Work Phone: Laboratory - Hematology and Cell countson 07-18-2022 Erythrocyte distribution width (RBC) [Entitic vol] 50.2 fL 35.1-43.9 [facility] Work Phone: Erythrocyte distribution width (RBC) [Ratio] 14.5 % 11.6-14.6 [facility] Work Phone: Immature granulocytes/100 WBC (Bld) 0.300 % 0.0-0.9 [facility] Work Phone: Comment on above: IG% - Immature Granu locytes (promyelocytes, myelocytes and metamyelocytes) > 1% indicates that a LEFT SHIFT is Present. MCH (RBC) [Entitic mass] 30.2 pg 27.0-32.0 [facility] Work Phone: Nucleated RBC/100 WBC (Bld) [Ratio] 0 % 0-5 [facility] Work Phone: MCHC Auto (RBC) [Mass/Vol]on 07-18-2022 MCHC (RBC) [Mass/Vol] 31.9 g/dL 32-36 [facility] Work Phone: No Panel Informationon 07-18 Estimated GFR (MDRD) Amer 67 mL/min >60 [facility] Work Phone: Comment on above: GFR Calc Estimated GFR (MDRD) Non-Af Amer 56 mL/min >60 [facility] Work Phone: Comment on above: Non- GFR Calc Thyroid Stimulating Hormone (TSH) 2.35 uIU/mL 0.358-3.74 [facility] Work Phone: Vitamin D 25-Hydroxy 30.8 ng/mL [facility] Work Phone: Comment on above: Vitamin D 25(OH) Sta tus Range Deficiency <20 ng/mL (50nmol/L) Insufficiency 20 - 30 ng/mL (50 - 75 nmol/L) Sufficiency 30 - 100 ng/mL (75 - 250 nmol/L) Toxicity >100 ng/mL (>250 nmol/L) Platelets bldon 07-18-2022 Platelets (Bld) [#/Vol] 364 10*3/uL 150-450 [facility] Work Phone: Serum or plasma albumin imani urement (mass/volume)on 07-18-2022 Albumin [Mass/Vol] 3.6 g/dL 3.2-5.[address] [facility] Work Phone: [phone] Serum or plasma albumin/glob ulin mass ratioon 07-18-2022 Albumin/Globulin [Mass ratio] 1.0 {ratio} 0.9-2.4 [facility] Work Phone: [phone] Serum or plasma calcium imani urement (mass/volume)on 07-18-2022 Calcium [Mass/Vol] 8.2 mg/dL 8.5-10.[address] [facility] Work Phone: [phone] Serum or plasma creatinine m easurement (mass/volume)on 07-18-2022 Creatinine [Mass/Vol] 1.02 mg/dL 0.55-1.02 [facility] Work Phone: Comment on above: The validity of the calculated GFR & GFRAA in patients over 70 years has not been determined. Clinical correlation is essential. Serum or plasma urea nitroge n measurement (mass/volume)on 07-18-2022 Urea nitrogen [Mass/Vol] 15 mg/dL 7-18 [facility] Work Phone: Thin prep Papanicolaou smear with manual screeningon 07-18-2022 Thin prep Papanicolaou smear with manual screening 15 U/L 15-37 [facility] Work Phone: [phone] Thin prep Papanicolaou smear with manual screening 7 5-15 [facility] Work Phone: [phone] Absolute lymphocyte counton 04-16-2022 Lymphocytes Auto (Unsp spec) [#/Vol] 3.54 10*3/uL 0.83-4.51 [facility] Work Phone: Basophil percentageon 2021 Basophils/100 WBC (Bld) 0.5 % 0-1 [facility] Work Phone: [phone] Bilirubin [Mass/Vol] 0.60 mg/dL 0.20-1.00 [facility] Work Phone: [phone] Comment on above: For patients on eltr ombopag therapy, use of Dimension [place] TBIL is not recommended. Chloride [Moles/Vol] 102 mmol/L 98-107 [facility] Work Phone: Eosinophils/100 WBC (Bld) 2.2 % 0-5 [facility] Work Phone: Glucose [Mass/Vol] 113 mg/dL 74-[address] [facility] Work Phone: Comment on above: Fasting Glucose resu lt from 100 to 125 mg/dL suggests IMPAIRED HOMEOSTASIS per A.D.A. criteria. Neutrophils (Bld) [#/Vol] 4.7 10*3/uL 2.0-7.7 [facility] Work Phone: Neutrophils/100 WBC (Bld) 50.2 % 47-70 [facility] Work Phone: Potassium [Moles/Vol] 3.9 mmol/L 3.5-5.1 [facility] Work Phone: Protein [Mass/Vol] 7.7 g/dL 6.4-8.[address] [facility] Work Phone: Sodium [Moles/Vol] 137 mmol/L 136-[address] [facility] Work Phone: WBC (Bld) [#/Vol] 9.4 10*3/uL 4.4-11.[address] [facility] Work Phone: Blood erythrocytes count (nu mber/volume)on 04-16-2022 RBC (Bld) [#/Vol] 4.41 10*6/uL 4.2-5.4 [facility] Work Phone: Blood hemoglobin measurement (mass/volume)on 04-16-2022 Hemoglobin (Bld) [Mass/Vol] 13.4 g/dL 12.0-15.0 [facility] Work Phone: Blood lymphocytes/100 leukoc yteson 04-16-2022 Lymphocytes/100 WBC (Bld) 37.7 % 19-41 [facility] Work Phone: [phone] Blood monocytes/100 leukocyt eson 04-16-2022 Monocytes/100 WBC (Bld) 9.1 % 0-10 [facility] Work Phone: [phone] Blood platelet mean volumeon 04-16-2022 Platelet mean volume (Bld) [Entitic vol] 9.6 fL 6.2-12.0 [facility] Work Phone: [phone] Determination of erythrocyte mean corpuscular volume (MCV)on 04-16-2022 MCV (RBC) [Entitic vol] 92.3 fL 81-99 [facility] Work Phone: [phone] Hematocrit Auto (Bld) [Volum e fraction]on 04-16-2022 Hematocrit (Bld) [Volume fraction] 40.7 % 37-47 [facility] Work Phone: [phone] Laboratory - Chemistry and C hemistry - challengeon 04-16-2022 ALP [Catalytic activity/Vol] 95 U/L 45-117 [facility] Work Phone: [phone] ALT [Catalytic activity/Vol] 27 U/L 13-56 [facility] Work Phone: [phone] CO2 [Moles/Vol] 28.0 mmol/L 21.0-32.0 [facility] Work Phone: [phone] Globulin (S) [Mass/Vol] 3.9 g/dL 2.2-4.2 [facility] Work Phone: [phone] Urea nitrogen/Creatinine [Mass ratio] 23.7 mg/mg 10-20 [facility] Work Phone: [phone] Laboratory - Hematology and Cell countson 04-16-2022 Erythrocyte distribution width (RBC) [Entitic vol] 50.2 fL 35.1-43.9 [facility] Work Phone: [phone] Erythrocyte distribution width (RBC) [Ratio] 14.8 % 11.6-14.6 [facility] Work Phone: [phone] Immature granulocytes/100 WBC (Bld) 0.300 % 0.0-0.9 [facility] Work Phone: [phone] Comment on above: IG% - Immature Granu locytes (promyelocytes, myelocytes and metamyelocytes) > 1% indicates that a LEFT SHIFT is Present. MCH (RBC) [Entitic mass] 30.4 pg 27.0-32.0 [facility] Work Phone: [phone] Nucleated RBC/100 WBC (Bld) [Ratio] 0 % 0-5 [facility] Work Phone: [phone] MCHC Auto (RBC) [Mass/Vol]on 04-16-2022 MCHC (RBC) [Mass/Vol] 32.9 g/dL 32-36 [facility] Work Phone: No Panel Informationon 04-16 Estimated GFR (MDRD) Amer 59 mL/min >60 [facility] Work Phone: [phone] Comment on above: GFR Calc Estimated GFR (MDRD) Non-Af Amer 49 mL/min >60 [facility] Work Phone: [phone] Comment on above: Non- GFR Calc Thyroid Stimulating Hormone (TSH) 0.99 uIU/mL 0.358-3.74 [facility] Work Phone: [phone] Platelets bldon 04-16-2022 Platelets (Bld) [#/Vol] 366 10*3/uL 150-450 [facility] Work Phone: [phone] Serum or plasma albumin imani urement (mass/volume)on 04-16-2022 Albumin [Mass/Vol] 3.8 g/dL 3.2-5.[address] [facility] Work Phone: [phone] Serum or plasma albumin/glob ulin mass ratioon 04-16-2022 Albumin/Globulin [Mass ratio] 1.0 {ratio} 0.9-2.4 [facility] Work Phone: [phone] Serum or plasma calcium imani urement (mass/volume)on 04-16-2022 Calcium [Mass/Vol] 9.0 mg/dL 8.5-10.[address] [facility] Work Phone: [phone] Serum or plasma creatinine m easurement (mass/volume)on 04-16-2022 Creatinine [Mass/Vol] 1.14 mg/dL 0.55-1.02 [facility] Work Phone: Comment on above: The validity of the calculated GFR & GFRAA in patients over 70 years has not been determined. Clinical correlation is essential. Serum or plasma urea nitroge n measurement (mass/volume)on 04-16-2022 Urea nitrogen [Mass/Vol] 27 mg/dL 7-18 [facility] Work Phone: Thin prep Papanicolaou smear with manual screeningon 04-16-2022 Thin prep Papanicolaou smear with manual screening 18 U/L 15-37 [facility] Work Phone: [phone] Thin prep Papanicolaou smear with manual screening 7 5-15 [facility] Work Phone: [phone] No Panel Informationon 03-02 Thyroid Stimulating Hormone (TSH) 0.51 uIU/mL 0.358-3.74 [facility] Work Phone: Absolute lymphocyte counton 01-15-2022 Lymphocytes Auto (Unsp spec) [#/Vol] 3.29 10*3/uL 0.83-4.51 [facility] Work Phone: Basophil percentageon 2021 Basophils/100 WBC (Bld) 0.6 % 0-1 [facility] Work Phone: Bilirubin [Mass/Vol] 0.60 mg/dL 0.20-1.00 [facility] Work Phone: Comment on above: For patients on eltr ombopag therapy, use of Dimension [place] TBIL is not recommended. Chloride [Moles/Vol] 104 mmol/L 98-107 [facility] Work Phone: Eosinophils/100 WBC (Bld) 2.7 % 0-5 [facility] Work Phone: Glucose [Mass/Vol] 137 mg/dL 74-[address] [facility] Work Phone: Comment on above: Fasting Glucose resu lt greater than or equal to 126 mg/dL suggests DIABETES MELLITUS per A.D.A. criteria. Neutrophils (Bld) [#/Vol] 4.7 10*3/uL 2.0-7.7 [facility] Work Phone: Neutrophils/100 WBC (Bld) 52.2 % 47-70 [facility] Work Phone: Potassium [Moles/Vol] 4.5 mmol/L 3.5-5.1 [facility] Work Phone: Protein [Mass/Vol] 8.3 g/dL 6.4-8.[address] [facility] Work Phone: Sodium [Moles/Vol] 135 mmol/L 136-[address] [facility] Work Phone: WBC (Bld) [#/Vol] 9.0 10*3/uL 4.4-11.[address] [facility] Work Phone: Blood erythrocytes count (nu mber/volume)on 01-15-2022 RBC (Bld) [#/Vol] 4.70 10*6/uL 4.2-5.4 [facility] Work [facility]: Blood hemoglobin measurement (mass/volume)on 01-15-2022 Hemoglobin (Bld) [Mass/Vol] 14.4 g/dL 12.0-15.0 [facility] Work Phone: Blood lymphocytes/100 leukoc yteson 01-15-2022 Lymphocytes/100 WBC (Bld) 36.8 % 19-41 [facility] Work Phone: Blood monocytes/100 leukocyt eson 01-15-2022 Monocytes/100 WBC (Bld) 7.4 % 0-10 [facility] Work Phone: Blood platelet mean volumeon 01-15-2022 Platelet mean volume (Bld) [Entitic vol] 9.6 fL 6.2-12.0 [facility] Work Phone: Determination of erythrocyte mean corpuscular volume (MCV)on 01-15-2022 MCV (RBC) [Entitic vol] 92.3 fL 81-99 [facility] Work Phone: Hematocrit Auto (Bld) [Volum e fraction]on 01-15-2022 Hematocrit (Bld) [Volume fraction] 43.4 % 37-47 [facility] Work Phone: [phone] Laboratory - Chemistry and C hemistry - challengeon 01-15-2022 ALP [Catalytic activity/Vol] 119 U/L 45-117 [facility] Work Phone: [phone] ALT [Catalytic activity/Vol] 39 U/L 13-56 [facility] Work Phone: [phone] CO2 [Moles/Vol] 20.0 mmol/L 21.0-32.0 [facility] Work Phone: [phone] Globulin (S) [Mass/Vol] 4.6 g/dL 2.2-4.2 [facility] Work Phone: [phone] Urea nitrogen/Creatinine [Mass ratio] 21.9 mg/mg 10-20 [facility] Work Phone: [phone] Laboratory - Hematology and Cell countson 01-15-2022 Erythrocyte distribution width (RBC) [Entitic vol] 49.0 fL 35.1-43.9 [facility] Work Phone: [phone] Erythrocyte distribution width (RBC) [Ratio] 14.5 % 11.6-14.6 [facility] Work Phone: [phone] Immature granulocytes/100 WBC (Bld) 0.300 % 0.0-0.9 [facility] Work Phone: [phone] Comment on above: IG% - Immature Granu locytes (promyelocytes, myelocytes and metamyelocytes) > 1% indicates that a LEFT SHIFT is Present. MCH (RBC) [Entitic mass] 30.6 pg 27.0-32.0 [facility] Work Phone: [phone] Nucleated RBC/100 WBC (Bld) [Ratio] 0 % 0-5 [facility] Work Phone: [phone] MCHC Auto (RBC) [Mass/Vol]on 01-15-2022 MCHC (RBC) [Mass/Vol] 33.2 g/dL 32-36 [facility]: [phone] Panel Informationon 01-15 Estimated GFR (MDRD) Amer 65 mL/min >60 [facility] Work Phone: Comment on above: GFR Calc Estimated GFR (MDRD) Non-Af Amer 54 mL/min >60 [facility] Work Phone: Comment on above: Non- GFR Calc Thyroid Stimulating Hormone (TSH) 0.09 uIU/mL 0.358-3.74 [facility] Work Phone: Vitamin D 25-Hydroxy 36.1 ng/mL [facility] Work Phone: Comment on above: Vitamin D 25(OH) Sta tus Range Deficiency <20 ng/mL (50nmol/L) Insufficiency 20 - 30 ng/mL (50 - 75 nmol/L) Sufficiency 30 - 100 ng/mL (75 - 250 nmol/L) Toxicity >100 ng/mL (>250 nmol/L) Platelets bldon 01-15-2022 Platelets (Bld) [#/Vol] 322 10*3/uL 150-450 [facility] Work Phone: Serum or plasma albumin imani urement (mass/volume)on 01-15-2022 Albumin [Mass/Vol] 3.7 g/dL 3.2-5.[address] [facility] Work Phone: Serum or plasma albumin/glob ulin mass ratioon 01-15-2022 Albumin/Globulin [Mass ratio] 0.8 {ratio} 0.9-2.4 [facility] Work Phone: [phone] Serum or plasma calcium imani urement (mass/volume)on 01-15-2022 Calcium [Mass/Vol] 8.9 mg/dL 8.5-10.[address] [facility] Work Phone: [phone] Serum or plasma creatinine m easurement (mass/volume)on 01-15-2022 Creatinine [Mass/Vol] 1.05 mg/dL 0.55-1.02 [facility] Work Phone: Comment on above: The validity of the calculated GFR & GFRAA in patients over 70 years has not been determined. Clinical correlation is essential. Serum or plasma urea nitroge n measurement (mass/volume)on 01-15-2022 Urea nitrogen [Mass/Vol] 23 mg/dL 7-18 [facility] Work Phone: Thin prep Papanicolaou smear with manual screeningon 01-15-2022 Thin prep Papanicolaou smear with manual screening 32 U/L 15-37 [facility] Work Phone: [phone] Thin prep Papanicolaou smear with manual screening 11 5-15 [facility] Work Phone: [phone] Culture, urine Bacteria identified Cx Nom (U) Proteus mirabilis [facility] Work Phone: Bacteria identified Cx Nom (U) Klebsiella pneumoniae sp pneum [facility] Work Phone: Vital Signs Date Time Vital Sign Value Performing Clinician Faci lity 08-18-2025 11:54-0400 Body height 162.[address] Hussein Alaniz MD Work Phone: [facility] 08-18-2025 11:54-0400 Body mass index (BMI) [Ratio] 31.2 kg/m2 Dr. Hussein Alaniz MD Work Phone: [facility] 08-18-2025 11:54-0400 Body weight 82.[address] Hussein Alaniz MD Work Phone: [facility] 08-18-2025 11:54-0400 Diastolic blood pressure 63 mm[Hg] Dr. Hussein Alaniz MD Work Phone: [facility] 08-18-2025 11:54-0400 Heart rate 67 /min Dr. Hussein Alaniz MD Work Phone: [facility] 08-18-2025 11:54-0400 Systolic blood pressure 154 mm[Hg] Dr. Hussein Alaniz MD Work Phone: [facility] 06-18-2025 13:17-0400 Body temperature 98.2 [degF] Dr. Hussein Alaniz MD Work Phone: [facility] 06-18-2025 13:17-0400 Body weight 81.[address] Hussein Alaniz MD Work Phone: [phone] [place] [address] 06-18-2025 13:17-0400 Diastolic blood pressure 76 mm[Hg] Dr. Hussein Alaniz MD Work Phone: [phone] [place] [address] 06-18-2025 13:17-0400 Heart rate 61 /min Dr. Hussein Alaniz MD Work Phone: [phone] [place] [address] 06-18-2025 13:17-0400 Respiratory rate 18 /min Dr. Hussein Alaniz MD Work Phone: [phone] [place] [address] 06-18-2025 13:17-0400 SaO2% (BldA) [Mass fraction] 99 % Dr. Hussein Alaniz MD Work Phone: [phone] [place] [address] 06-18-2025 13:17-0400 Systolic blood pressure 176 mm[Hg] Dr. Hussein Alaniz MD Work Phone: [phone] [place] [address] 03-01-2025 12:57-0400 Body height 162.[address] Hussein Alaniz MD Work Phone: [phone] [place] [address] 03-01-2025 12:57-0400 Body mass index (BMI) [Ratio] 30.9 kg/m2 Dr. Hussein Alaniz MD Work Phone: [phone] [place] [address] 03-01-2025 12:57-0400 Body weight 81.[address] Hussein Alaniz MD Work Phone: [phone] [place] [address] 03-01-2025 12:57-0400 Diastolic blood pressure 63 mm[Hg] Dr. Hussein Alaniz MD Work Phone: [phone] [place] [address] 03-01-2025 12:57-0400 Heart rate 68 /min Dr. Hussein Alaniz MD Work Phone: [phone] [place] [address] 03-01-2025 12:57-0400 Respiratory rate 18 /min Dr. Hussein Alaniz MD Work Phone: [phone] [place] [address] 03-01-2025 12:57-0400 SaO2% (BldA) [Mass fraction] 97 % Dr. Hussein Alaniz MD Work Phone: [facility] 03-01-2025 12:57-0400 Systolic blood pressure 147 mm[Hg] Dr. Hussein Alaniz MD Work Phone: [facility] 10-14-2022 09:02-0500 Body height 162.56 cm [facility] Work Phone: 10-14-2022 09:02-0500 Body mass index (BMI) [Ratio] 32.9 kg/m2 [facility] Work Phone: 10-14-2022 09:02-0500 Body temperature 97.6 [degF] [facility] Work Phone: 10-14-2022 09:02-0500 Body weight 87.08 kg [facility] Work Phone: 10-14-2022 09:02-0500 Diastolic blood pressure 96 mm[Hg] [facility] Work Phone: 10-14-2022 09:02-0500 Heart rate 64 /min [facility] Work Phone: 10-14-2022 09:02-0500 Respiratory rate 16 /min [facility] Work Phone: 10-14-2022 09:02-0500 SaO2% (BldA) [Mass fraction] 100 % [facility] Work Phone: 10-14-2022 09:02-0500 Systolic blood pressure 162 mm[Hg] [facility] Work Phone: Encounters Encounter Date Encounter Type Care Provider Facility Start: 08-23-2025 ambulatory Bibi Nicholas Facility:[facility] Start: 08-20-2025 ambulatory Hussein Alaniz Facility:[facility] Start: 08-18-2025 End: 08-18-[address] Cecille Smith MD -[facility] Work Phone: Start: 08-18-2025 End: 08-18-[address] Hussein Alaniz MD Work Phone: -[facility] Start: 08-17-2025 ambulatory Hussein Chi Colin Facility:[facility] Start: 08-16-2025 Registered Recurring Bibi HASSAN -Physical Therapy Work Phone: Start: 06-18-2025 End: 06-18-[address] Hussein Alaniz MD Work Phone: -[facility] Start: 06-18-2025 End: 06-18-2025 Patient encounter procedure Bibi HASSAN -[facility] Work Phone: Start: 06-18-2025 End: 06-18-2025 ambulatory Hussein Chi Colin Facility:[facility] Start: 06-09-2025 ambulatory Hussein Chi Colin Facility:[facility] Start: 06-09-2025 Non-patient / Non-visit Dr. Magdy soemrs MD -[facility] Start: 06-09-2025 End: 06-09-[address] Hussein Alaniz MD Work Phone: -Pulmonary Services/Neurology Start: 06-09-2025 End: 06-09-[address] Hussein Alaniz MD -Pulmonary Services/Neurology Work Phone: Start: 06-09-2025 End: 06-09-2025 ambulatory Hussein Chi Colin Facility:[facility] Start: 06-01-2025 Non-patient / Non-visit Dr. Cecille aguiar MD -[facility] Work Phone: Start: 05-25-2025 Non-patient / Non-visit Dr. Reji weaver MD -[facility] Start: 05-25-2025 End: 05-25-[address] Hussein Alaniz MD Work Phone: -Cardiovascular Services Start: 05-25-2025 End: 05-25-[address] Hussein Alaniz MD -Cardiovascular Services Work Phone: Start: 05-25-2025 End: 05-25-2025 ambulatory Hussein Chi Colin Facility:[facility] Start: 05-14-2025 End: 05-14-[address] Hussein Alaniz MD Work Phone: [facility] Work Phone: Start: 05-14-2025 End: 05-14-[address] Hussein Alaniz MD -Laboratory Work Phone: Start: 05-14-2025 End: 05-14-2025 ambulatory Hussein Alaniz Facility:[facility] Start: 03-01-2025 End: 03-01-[address] Flor Damon MD -[facility] Work Phone: Start: 03-01-2025 End: 03-01-2025 ambulatory Hussein Alainz Facility:[facility] Start: 02-10-2025 End: 02-10-[address] Hussein Alaniz MD Work Phone: [facility] Work Phone: Start: 02-10-2025 End: 02-10-[address] Hussein Alaniz MD -Laboratory, Phy Office 3rd Flr Start: 02-10-2025 End: 02-10-2025 ambulatory Hussein Alaniz Facility:[facility] Start: 01-01-2025 End: 01-01-2025 Patient encounter procedure Zoe Guy Work Phone: Podiatry Comment on above: Metatarsalgia of bot h feet (Primary Dx); Hammer toe of left foot Start: 01-01-2025 End: 01-01-2025 ambulatory ZOE GUY Facility:[facility] Start: 01-01-2025 End: 01-01-2025 Subsequent hospital visit by physician [facility] Work Phone: Radiology Comment on above: Bilateral foot pain [M79.671, M79.672] Start: 10-26-2024 End: 10-26-[address] Hussein Alaniz MD -Laboratory, Phy Office 3rd Flr Start: 10-26-2024 End: 10-26-2024 ambulatory Hussein Guy Alaniz Facility:[facility] Start: 10-21-2024 End: 10-21-2024 Emergency department patient visit Jam Overton Facility:[facility] Start: 10-13-2024 ambulatory [facility] Colin Facility:[facility] Start: 10-13-2024 End: 10-13-[address] [facility] Facility:[facility] Start: 09-21-2024 End: 09-21-2024 ambulatory Hussein Guy Colin Facility:[facility] Start: 09-21-2024 End: 09-21-2024 ambulatory Farhad Reynolds Facility:[facility] Start: 09-11-2024 End: 09-11-2024 ambulatory [facility] Colin Facility:[facility] Start: 09-11-2024 End: 09-11-[address] [facility] Facility:[facility] Start: 10-21-2023 End: 10-21-2023 ambulatory [facility] Work Phone: Start: 10-21-2023 End: 10-21-2023 Patient encounter procedure [facility]-Laboratory, Phy Office 3rd Flr Start: 06-22-2023 End: 06-22-2023 ambulatory [facility] Work Phone: Start: 06-22-2023 End: 06-22-2023 Patient encounter procedure [facility]-Laboratory Work Phone: Start: 06-21-2023 Patient encounter procedure [facility]-Laboratory Work Phone: Start: 05-27-2023 End: 05-27-2023 ambulatory [facility] Work Phone: Start: 05-27-2023 End: 05-27-2023 Patient encounter procedure [facility]-Laboratory Work Phone: Start: 04-05-2023 End: 04-05-2023 ambulatory [facility] Work Phone: Start: 04-05-2023 End: 04-05-2023 Patient encounter procedure [facility]-Laboratory, Phy Office 3rd Flr Start: 11-21-2022 End: 11-21-2022 ambulatory [facility] Work Phone: Start: 11-21-2022 End: 11-21-2022 [facility] Start: 10-14-2022 End: 10-14-2022 Emergency department patient visit [facility]-Emergency Department Start: 10-11-2022 End: 10-11-2022 ambulatory [facility] Work Phone: Start: 10-11-2022 End: 10-11-2022 [facility] Start: [facility]-01-20[facility] on above: Population Health Na vigation Outreach (HCC CARE GAP) Start: 07-18-2022 End: 07-18-2022 ambulatory [facility] Work Phone: Start: 07-18-2022 End: 07-18-2022 [facility] Start: 04-16-2022 End: 04-16-2022 [facility] Start: 03-02-2022 End: 03-02-2022 [facility] Start: 01-15-2022 End: 01-15-2022 [facility] Procedures Date Procedure Procedure Detail Performing Clinician Start: 05-14-2025 Vitamin D, 25-hydrox y measurement Dr. Hussein Alaniz MD Work Phone: Comment on above: Vitamin D StatusDefi ciency: <20 ng/mL (50nmol/L)Insufficiency: 20-30 ng/mL (50-75 nmol/L)Sufficiency: 30-100 ng/mL (75-250 nmol/L)Toxicity: >100 ng/mL (>250 nmol/L) Start: 02-10-2025 Vitamin D, 25-hydrox y measurement Dr. Hussein Alaniz MD Work Phone: Comment on above: Vitamin D StatusDefi ciency: <20 ng/mL (50nmol/L)Insufficiency: 20-30 ng/mL (50-75 nmol/L)Sufficiency: 30-100 ng/mL (75-250 nmol/L)Toxicity: >100 ng/mL (>250 nmol/L) Start: 04-05-2023 Urine culture Start: 02-24-2021 Adult depression scr eening assessment Anai Denson Urine culture Urine culture Plan of Treatment Date Care Activity Detail Author Start: 10-14-2032 Urine microalbumin profile DTaP,Tdap,Td Vaccine (3 - Td or Tdap) [facility] Start: 06-18-2025 [facility] Start: 04-19-2025 Urine microalbumin profile DTAP,TDAP,TD (2 - Td or Tdap) [facility] Start: 12-23-2024 Shingrix Vaccine (2 of 2) Shingrix Vaccine (2 of 2) [facility] Start: 12-02-2024 Advance Directive Discussion Advance Directive Discussion [facility] Start: 08-02-2024 Covid-19 Vaccine ( season) Covid-19 Vaccine () [facility] Start: 08-02-2024 [facility] Start: 10-14-2022 Smpl repair scalp/neck/ax/genit/trun k 2.6-7.5cm RPR S/N/AX/GEN/TRNK2.6-7.5C M [facility] Work Phone: Start: 08-02-2022 Influenza vaccination INFLUENZA (#1) [facility] Start: 02-24-2022 Adult depression screening assessment DEPRESSION SCREENING [facility] Start: 02-24-2022 ANNUAL PCP TEAM CHRONIC DISEASE VISIT ANNUAL PCP TEAM CHRONIC DISEASE VISIT [facility] Start: 02-24-2022 BP CONTROLLED (<130/80) BP CONTROLLED (<130/80) [facility] in Start: 02-23-2022 Glaucoma screening Dilated Retinal Exam [facility] Start: 02-23-2022 Hepatitis C antibody, confirmatory test DILATED RETINAL EXAM [facility] Start: 12-02-2021 ADVANCE DIRECTIVE DISCUSSION ADVANCE DIRECTIVE DISCUSSION [facility] Start: 11-04-2021 Complete blood count Hemoglobin/Hematocrit [facility] Start: 11-04-2021 HEMOGLOBIN/HEMATOCRIT HEMOGLOBIN/HEMATOCRIT [facility] Start: 08-29-2021 3 comp foot exam completed DIABETIC FOOT EXAM [facility] Start: 08-29-2021 Creatinine measurement Serum Creatinine [facility] Start: 08-29-2021 Diabetic foot examination Diabetic Foot Exam [facility] Start: 08-29-2021 SERUM CREATININE SERUM CREATININE [facility] Start: 05-05-2021 Hemoglobin A1c measurement HbA1C [facility] Start: 05-05-2021 Hemoglobin A1c/Hemoglobin.total in Blood HBA1C [facility] Start: 04-26-2021 Hepatitis B screening URINE ALBUMIN:CREATININE RATIO [facility] Start: 04-26-2021 Hepatitis B surface antibody level LDL CHOLESTEROL [facility] Start: 1994 SHINGRIX VACCINE (1 of 2) SHINGRIX VACCINE (1 of 2) [facility] Start: 1962 Anxiety Screening Anxiety Screening [facility] Start: 1962 Depression Screening Depression Screening [facility] Start: 1962 HEPATITIS C SCREENING HEPATITIS C SCREENING [facility] Start: 04-07-1945 COVID-19 VACCINE (#1) COVID-19 VACCINE (#1) [facility] Patient Education ED Dog Bite ED Laceration, Hand: All Closures [facility] Work Phone: Patient referral [facility] Work Phone: US Carotid arteries [facility] XR Foot - bilateral AP and Lateral and oblique XR FOOT GENERAL 3V AP/LAT/OBL BILATERAL Radiology Routine Bilateral foot pain 01/01/2025 9:14 AM EST [facility] Work Phone: Immunizations Immunization Date Immunization Notes Care Provider Kaleb sheehan 10-14-2022 tetanus toxoid, redu lexi diphtheria toxoid, and acellular pertussis vaccine, adsorbed [facility] 10-10-2021 influenza virus vacc ine, unspecified formulation Zoe Guy Work Phone: [facility] 09-09-2017 influenza, high dose seasonal, preservative-free [facility] 10-20-2015 pneumococcal polysaccharide vaccine, 23 valent Anai [facility] 04-19-2015 pneumococcal conjuga te vaccine, 13 valent Anai [facility] 04-19-2015 tetanus toxoid, redu lexi diphtheria toxoid, and acellular pertussis vaccine, adsorbed Anai [facility] 09-01-2012 influenza virus vacc ine, unspecified formulation [facility] 10-07-2008 influenza virus vacc ine, unspecified formulation Anai [facility] Work Phone: 10-07-2007 influenza virus vacc ine, unspecified formulation Anai [facility] 10-21-2006 pneumococcal polysaccharide vaccine, 23 valent [facility] Payers Date Payer Category Payer Self-pay [id number] 2010 Private Health Insurance JOANIE FARLEY PPO [id number] 2010-Present [phone] [address] [place] [address] PPO [id number] 2009 Medicare MEDICARE MEDICAR E A AND B [id number] 2009-Present [phone] [address] [address] [place] [address] Medicare [id number] 2009 Medicare [id number] 2005 Private Health Insurance [id number] Unknown [id number] [id number]. 2.462 Unknown [id number] 2.16.840.1.141397.3.579. 2.462 Unknown [id number] 2.16.840.1.935123.3.579. 2.462 Unknown [id number] 2.16.840.1.675851.3.579. 2.462 Unknown [id number] 2.16.840.1.319955.3.579. 2.462 Unknown [id number] 2.16.840.1.482064.3.579. 2.462 Unknown [id number] 2.16.840.1.224806.3.579. 2.462 Unknown [id number] 2.16.840.1.634139.3.579. 2.462 Unknown [id number] 2.840.1.780466.3.579. 2.462 Unknown [id number] 2.840.1.053427.3.579. 2.462 Unknown [id number] 2.840.1.885980.3.579. 2.462 Unknown [id number] 2.840.1.620136.3.579. 2.462 Unknown [id number] 2.840.1.698525.3.579. 2.462 Unknown [id number] 2.840.1.163149.3.579. 2.462 Unknown [id number] 2.840.1.648255.3.579. 2.462 Unknown [id number] 2.840.1.700978.3.579. 2.462 Unknown [id number] 2.840.1.472148.3.579. 2.462 Unknown [id number] 2.840.1.384589.3.579. 2.462 Unknown [id number] 2.840.1.368302.3.579. 2.462 Unknown [id number] 2.840.1.889925.3.579. 2.462 Unknown [id number] 2.840.1.449394.3.579. 2.462 Unknown [id number] 2.840.1.833712.3.579. 2.462 Social History Date Type Detail Facility Start: 06-12-2017 End: 11-13-2022 Tobacco smoking status NHIS Unknown if ever smoked [facility] Start: 1945 Sex Assigned At Female [facility] Start: 06-21-2011 End: 10-21-2024 Tobacco smoking status NHIS Never smoked tobacco [facility] Work Phone: Start: 06-21-2011 Tobacco use and exposure Smoke less tobacco non-user [facility] Work Phone: Start: 06-06-2021 End: 01-01-2025 Alcohol intake Current drinker of alcohol (finding) [facility] Start: 10-30-2019 End: 04-22-2020 History SDOH Alcohol Frequency 2 [facility] Start: 10-30-2019 End: 04-22-2020 History SDOH Alcohol Std Drinks 1 [facility] Start: 10-30-2019 History SDOH Social Connections Phone 5 [facility] Start: 04-22-2020 History SDOH Social Connections Meetings 3 [facility] Start: 10-30-2019 History SDOH Social Connections Living 4 [facility] Start: 10-30-2019 History SDOH Physica l Activity MPS 98 [facility] Start: 10-30-2019 Education 12 [facility] Start: 1945 Sex Assigned At Not on file [facility] Start: 04-22-2020 End: 01-01-2025 History of Social function [facility] Start: 04-22-2020 End: 01-01-2025 Social connection and isolation panel [facility] Do you belong to any clubs or organizations such as jewish groups, unions, fraternal or athletic groups, or school groups? No [facility] Are you now , , , , never or living with a partner? [facility] How often to you hav e a drink containing alcohol? Monthly or less [facility] How many standard dr inks containing alcohol do you have on a typical day? 1 or 2 [facility] How often do you hav e 6 or more drinks on 1 occasion? Never [facility] How hard is it for y ou to pay for the very basics like food, housing, medical care, and heating Not hard at all [facility] Do you feel stress - tense, restless, nervous, or anxious, or unable to sleep at night because your mind is troubled all the time - these days [OSQ] Only a little [facility] (I/We) worried whe er (my/our) food would run out before (I/we) got money to buy more. Never true [facility] Start: 02-19-2025 Sex Female (finding) [facility] Clinical Notes 01-27-2019 to 06-18-2025 Note Date & Type Note Facility 06-18-2025 Evaluation note Diagnosis Onset Date Resolution Lower extremity pain acute June 18, 2025 12:40pm PAD (peripheral artery disease) acute June 18, 2025 12:40pm Paresthesia of lower extremity acute June 18, 2025 12:40pm Carotid bruit noneactive June 18, 2025 12:40pm Constipation acute August 182024 11:21am Nocturia acute August 11:21am Overactive bladder acute Septem brian 2024 11:21am Urge incontinence acute Septemb er 2024 11:21am Urinary tract infection acute S eptember 2024 11:21am Vaginal atrophy acute August 18, 2025 11:21am [facility] Work Phone: 1(154) 450-205007-09-2025 Procedure note [facility] Pulmonary Services/Neurology [address] [place] [address] MR#: [id number] Acct: [id number] Name: BRENDEN JUNIOR Rep #:[id number] 11 : 1945 79 From: Magdy Rocha MD Referring Dr: Hussein Alaniz MD Status : REG CLI Location: PSN Date: 06/09/25 Sex: F C NCS and/or EMG Patient Report Ordering Doctor: Hussein Alaniz Chi DATE OF SERVICE: 06/09/25 Brenden presents for electrodiagnostic testing of the lower limbs. She reports altered sensation in both feet and intermittent lower back pain. Electrodiagnostic findings: Left peroneal motor nerve measured at the tibialis anterior demonstrates normal distal latency, amplitude and conduction velocity. Diminished right tibial motor amplitude is noted. Normal left tibial motor response. Normal right peroneal motor response measured at the EDB. Sensory responses were not obtainable. Prolonged H?reflex bilaterally. Prolonged left peroneal and left right tibial F?wave. Needle EMG testing was performed the lower limbs. All muscles tested showed no evidence of denervation with normal motor unit action potentials. Electrodiagnostic impression: This is an abnormal study in the lower limbs 1. 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 May be secondary to history of diabetes. 2. No electrodiagnostic evidence is noted for lumbosacral radiculopathy. Multi Select Codes Neurology Neurology Interp Codes: 39030-34 Musc test done w/n test comp (interp) (2) and 84278-80 Nrv cndj test 11-12 studies (interp) 06/09/25 1428 D> Date _ Magdy Rocha MD CC: Dr. Magdy Rocha MD; Dr. 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 Fritz h 2024 12:50pm PVC (premature ventricular contraction) chronic March 01, 2025 12:50pm [facility] Work Phone: [phone]) 752-552603-31-2025 Evaluation note* Diagnosis Onset Date Resolution Status Admit Date Abnormal ECG chronic March 01, 2025 12:50pm Hyperlipidemia chronic January 12:50pm Hypertension chronic March 01, 2025 12:50pm Hypertensive heart disease chronic March 01, 2025 12:50pm Mitral valve regurgitation chronic March 01, 2025 12:50pm Nonrheumatic aortic valve stenosis with regurgitation chronic Fritz h 2024 12:50pm PVC (premature ventricular contraction) chronic March 01, 2025 12:50pm Lower extremity pain acute June 18, 2025 12:40pm PAD (peripheral artery disease) acut e June 18, 2025 12:40pm Paresthesia of lower extremity acute June 18, 2025 12:40pm Carotid bruit noneactive June 18, 2025 12:40pm [facility] Work Phone: 1(829) 667-400901-31-2025 NoteHNO ID: [id number] Author: SHELLEY GRUBBS LPN Service: ? Author Type: LICENSED NURSE Type: Progress Notes Filed: 01/01/2025 09:56 Note Text: Per Dr. Guy. Patient was offered powerstep gel inserts. Patient only wear crocs and due to safety concerns regarding falls. Provider opted to not provided inserts.[facility]01-31-2025 History of Present illness Narrative* Shelley Grubbs LPN - 01/01/2025 9:[address] Guy. Patient was offered powerstep gel inserts. Patient only wear crocs and due to safety concerns regarding falls. Provider opted to not provided inserts. * Zoe Guy - 01/01/2025 9:44 AM EST Images from the original note were not included. Initial Office Visit Subjective: This 79 year old female presents to clinic for diabetic foot check. Patient has the following complaints: left foot pain. Patient presents to clinic with complaint of pain to both feet. She feels that when she walks, she feels like she is walking on balled up socks. At times, she feels like she has elmers glue on her feet. Patient does not feel that the pain is horrible. She states the pain is irritating. She does notdo anything for the pain. Patient admits to being diabetic for multiple years now. Patient -B/T/N in feet at this time. Patient -pain in legs when walking. No other pedal complaints at this time. No change in medications or medical history since last visit. PAIN EVALUATION 12/26/2024 1735 01/01/2025 0925 Pain Level: 1 3 Pain Location: Foot-Left Foot-Left Description: Stabbing;Stiffness -- Duration Units: Minutes -- Frequency: Intermittent Intermittent Intervention/Comfort measure: Other: See comment -- Comments: Little like pin sticks. -- Hemoglobin A1C (%) Date Value 11/04/2020 6.4 04/26/2020 6.4 04/25/2019 6.2 11/04/2018 6.0 05/05/2018 6.3 PCP: No primary care provider on file. PAST MEDICAL HISTORY Diagnosis Date Arrhythmia Coronary artery disease Diabetes mellitus type 2, controlled, without complications ([facility]) 09/16/2015 Generalized osteoarthrosis, unspecified site Hyperlipidemia LDL goal < 100 07/22/2013 Lumbar disc disease with radiculopathy 11/18/2012 Myalgia and myositis, unspecified PMH - PAST MEDICAL HISTORY OF 1994 THYROID CANCER Pure hypercholesterolemia Statin intolerance 07/23/2014 Stress incontinence, female 11/18/2012 Type 2 diabetes mellitus with stage 3 chronic kidney disease, without long-term current use of insulin ([facility]) 05/14/2017 Type II or unspecified type diabetes mellitus without mention of complication, not stated as uncontrolled Venous insufficiency 11/18/2012 Current Outpatient Medications Medication Sig hydrALAZINE (APRESOLINE) 25 mg tablet Take 25 mg by mouth three times a day. FLUoxetine HCl 20 mg tablet Take 1 tablet by mouth every afternoon. primidone (MYSOLINE) 50 mg tablet Take 100 mg by mouth daily at bedtime. hydroCHLOROthiazide 25 mg tablet Take 25 mg by mouth once daily. levothyroxine (SYNTHROID) 112 mcg tablet Take 100 mcg by mouth once daily. Fesoterodine 8 mg Tb24 Take 8 mg by mouth once daily. omeprazole 20 mg disintegrating tablet (PriLOSEC) Take 20 mg by mouth once daily. potassium chloride (K-TAB) 10 mEq tablet Take 10 mEq by mouth once daily. metroNIDAZOLE 1 % gel Apply 1 application to affected area once daily. Location: cheeks amLODIPine (NORVASC) 10 mg tablet Take 1 tablet by mouth once daily. metoprolol succinate ER (TOPROL XL) 100 mg Take 1 tablet by mouth once daily. (Patient taking differently: Take 25 mg by mouth once daily.) hydroCHLOROthiazide 12.5 mg capsule Take 1 capsule by mouth once daily. FLUoxetine (PROZAC) 20 mg capsule Take 1 capsule by mouth once daily. amitriptyline (ELAVIL) 25 mg tablet Take 1 tablet by mouth daily at bedtime. levothyroxine (SYNTHROID) 125 mcg tablet Take 1 tablet by mouth once daily. Take on empty stomach. For Thyroid No current facility-administered medications for this visit. ALLERGIES Allergen Reactions Cozaar [Losartan Po* Other: See Comments mucosal lesions Adzulfadine [Other] Cymbalta [Duloxetin* Darvon [Propoxyphen* Lipitor [Atorvastat* Myalgia,sleepiness Lisinopril Rash, Swelling angioedema Metformin GI Upset Nisoldipine Other: See Comments dizziness, vertigo Questran [Cholestyr* Intolerance severe nausea Sulfasalazine GI Upset Tcn [Tetracyclines] Zocor [Simvastatin] Zomig [Zolmitriptan] PAST SURGICAL HISTORY Procedure Laterality Date COLONOSCOPY FLX DX W/COLLJ SPEC WHEN PFRMD 11-10-04 Repeat in PAST SURGICAL HISTORY OF 1973 TUBLA LIGATION PAST SURGICAL HISTORY OF 1973 APPENDECTOMY PAST SURGICAL HISTORY OF 1975 HYSTERECTOMY PAST SURGICAL HISTORY OF 1997 THROIDECTOMY PAST SURGICAL HISTORY OF 1999 RT EYE DUCT TUBE PAST SURGICAL HISTORY OF 1994,1995 I 131 THYROID TREATMENT PAST SURGICAL HISTORY OF 1995 BILATERAL TURBINATE CAUTERY PAST SURGICAL HISTORY OF 05/16/2015 Removal of Interslim device - [facility] FAMILY HISTORY Problem Relation Age of Onset Heart Mother OPEN BYPASS, CHF Cancer Father LUNG CANCER , HYPER THYROID Cancer Maternal Grandmother BREAST Heart Maternal Grandmother Cancer Maternal Grandfather COLON GI Paternal Grandfather Headache Daughter Hearing Loss Son Heart Maternal Aunt Heart Maternal Aunt Heart Maternal Aunt Social History Tobacco Use Smoking status: Never Smokeless tobacco: Never Vaping Use Vaping status: Never Used Substance Use Topics Alcohol use: Yes Comment: rare Drug use: No REVIEW OF SYSTEMS GENERAL: Negative for Malaise, significant weight loss, fever RESPIRATORY: Negative for cough, wheezing and shortness of breath CARDIOVASCULAR: Negative for chest pain, leg swelling and palpitations GI: Negative for abdominal discomfort, blood in stools or black stools and change in bowel habits : Negative for dysuria, frequency and incontinence MUSCULOSKELETAL: Negative for joint pain or swelling, back pain, and muscle pain. SKIN: Negative for lesions, rash, and itching. HEMATOLOGY/LYMPHOLOGY Negative for prolonged bleeding, bruising easily, and swollen nodes. ENDOCRINE: Negative for cold or heat intolerance, polyuria, polydipsia and goiter. NEURO: negative The remainder of the review of systems is noncontributory. Objective: Patient presents to clinic ambulating in [facility] Constitutional: Pt is a well developed 79 year old female who is alert, oriented, cooperative and in no apparent distress. Eyes: Following during examination. No redness or drainage. Respiratory: RR normal and nonlabored. Even breathing. No evidence of distress. Psychology: Patient is engaged during conversation. Normal affect and mood. Does not appear depressed or anxious. Vasc: DP and PT pulses are palpable bilateral. CFT is less than 5 seconds bilateral. Skin temperature is warm to warm proximal to distal bilateral. There is mild edema or varicosities noted. Hair growth present. Neuro: Protective sensation is intact to the foot and toes when tested with the 5.07 SWM bilateral. No Significant neurological defecits. Derm: Inspection and palpation performed. Nails 1-5 b/l are normal in length and thickness. Skin isof normal turgor and texture. Hyperkeratosis noted to not present. NO ulcerations, scars, verruca or other lesions noted. Ortho: Ankle joint DF is full with the knee extended and full with knee flexed. No pain or crepitusnoted. STJ, MTJ ROM are full and free of pain or crepitus. Muscle strength is 5/5 for dorsiflexors,plantarflexors, inverters, everters. Digital deformities include hammetoe. Assessment: (M77.41, M77.42) Metatarsalgia of both feet (primary encounter diagnosis) (M20.42) Hammer toe of left foot Plan: 1. Patient was seen and evaluated. 2. Discussed complaint of numbness and/or pain in foot. Could be related to metatarsalgia/capsulitis due to hammertoe. Recommend and encouraged deep toe box shoe. Discussed and offered powerstep but she does not wear sneakers and likely would not work in [facility]. 3. She is going to monitor and continue with [facility] Zoe Guy DPM documented in this encounterOhio[facility]-31-[facility] Instructions* Patient Instructions* Zoe Guy - 01/01/2025 9:51 AM EST Powerstep Original Full length. Can purchase at [facility] [employer] and boots,shoes and more here in [place], [employer] in [place] or [place]. Also can find in [place] in [facility]. Powersteps can also be purchased online, starting around $45.00 If you have a metatarsal or dancer pad for your feet apply the pad directly to the insole so you can interchange between your shoes. Find a shoe with a removable insole and take this out and replace with your powerstep insole. Always bring powersteps with you when shopping for shoes so that you can make sure that everything fits well together documented in this encounterOhiohealth [facility]01-31-2025 NoteHNO ID: [id number] Author: ZOE GUY, ? Service: ? Author Type: Physician Type: Progress Notes Filed: 01/01/2025 09:54 Note Text: Initial Office Visit Subjective: This 79 year old female presents to clinic for diabetic foot check. Patient has the following complaints: left foot pain. Patient presents to clinic with complaint of pain to both feet. She feels that when she walks, she feels like she is walking on balled up socks. At times, she feels like she has elmers glue on her feet. Patient does not feel that the pain is horrible. She states the pain is irritating. She does not do anything for the pain. Patient admits to being diabetic for multiple years now. Patient -B/T/N in feet at this time. Patient -pain in legs when walking. No other pedal complaints at this time. No change in medications or medical history since last visit. PAIN EVALUATION 12/26/2024 [id number] 01/01/2025 0925 Pain Level: 1 3 Pain Location: Foot-Left Foot-Left Description: Stabbing;Stiffness -- Duration Units: Minutes -- Frequency: Intermittent Intermittent Intervention/Comfort measure: Other: See comment -- Comments: Little like pin sticks. -- Hemoglobin A1C (%) Date Value 11/04/2020 6.4 04/26/2020 6.4 04/25/2019 6.2 11/04/2018 6.0 05/05/2018 6.3 PCP: No primary care provider on file. PAST MEDICAL HISTORY Diagnosis Date Arrhythmia Coronary artery disease Diabetes mellitus type 2, controlled, without complications ([facility]) 09/16/2015 Generalized osteoarthrosis, unspecified site Hyperlipidemia LDL goal < 100 07/22/2013 Lumbar disc disease with radiculopathy 11/18/2012 Myalgia and myositis, unspecified PMH - PAST MEDICAL HISTORY OF 1995 THYROID CANCER Pure hypercholesterolemia Statin intolerance 07/23/2014 Stress incontinence, female 11/18/2012 Type 2 diabetes mellitus with stage 3 chronic kidney disease, without long-term current use of insulin ([facility]) 05/14/2017 Type II or unspecified type diabetes mellitus without mention of complication, not stated as uncontrolled Venous insufficiency 11/18/2012 Current Outpatient Medications Medication Sig hydrALAZINE (APRESOLINE) 25 mg tablet Take 25 mg by mouth three times a day. FLUoxetine HCl 20 mg tablet Take 1 tablet by mouth every afternoon. primidone (MYSOLINE) 50 mg tablet Take 100 mg by mouth daily at bedtime. hydroCHLOROthiazide 25 mg tablet Take 25 mg by mouth once daily. levothyroxine (SYNTHROID) 112 mcg tablet Take 100 mcg by mouth once daily. Fesoterodine 8 mg Tb24 Take 8 mg by mouth once daily. omeprazole 20 mg disintegrating tablet (PriLOSEC) Take 20 mg by mouth once daily. potassium chloride (K-TAB) 10 mEq tablet Take 10 mEq by mouth once daily. metroNIDAZOLE 1 % gel Apply 1 application to affected area once daily. Location: cheeks amLODIPine (NORVASC) 10 mg tablet Take 1 tablet by mouth once daily. metoprolol succinate ER (TOPROL XL) 100 mg Take 1 tablet by mouth once daily. (Patient taking differently: Take 25 mg by mouth once daily.) hydroCHLOROthiazide 12.5 mg capsule Take 1 capsule by mouth once daily. FLUoxetine (PROZAC) 20 mg capsule Take 1 capsule by mouth once daily. amitriptyline (ELAVIL) 25 mg tablet Take 1 tablet by mouth daily at bedtime. levothyroxine (SYNTHROID) 125 mcg tablet Take 1 tablet by mouth once daily. Take on empty stomach. For Thyroid No current facility-administered medications for this visit. ALLERGIES Allergen Reactions Cozaar [Losartan Po* Other: See Comments mucosal lesions Adzulfadine [Other] Cymbalta [Duloxetin* Darvon [Propoxyphen* Lipitor [Atorvastat* Myalgia,sleepiness Lisinopril Rash, Swelling angioedema Metformin GI Upset Nisoldipine Other: See Comments dizziness, vertigo Questran [Cholestyr* Intolerance severe nausea Sulfasalazine GI Upset Tcn [Tetracyclines] Zocor [Simvastatin] Zomig [Zolmitriptan] PAST SURGICAL HISTORY Procedure Laterality Date COLONOSCOPY FLX DX W/COLLJ SPEC WHEN PFRMD 11-10-04 Repeat in PAST SURGICAL HISTORY OF 1973 TUBLA LIGATION PAST SURGICAL HISTORY OF 1973 APPENDECTOMY PAST SURGICAL HISTORY OF 1975 HYSTERECTOMY PAST SURGICAL HISTORY OF 1997 THROIDECTOMY PAST SURGICAL HISTORY OF 1999 RT EYE DUCT TUBE PAST SURGICAL HISTORY OF 1994,1995 I 131 THYROID TREATMENT PAST SURGICAL HISTORY OF 1995 BILATERAL TURBINATE CAUTERY PAST SURGICAL HISTORY OF 05/16/2015 Removal of Interslim device - [facility] FAMILY HISTORY Problem Relation Age of Onset Heart Mother OPEN BYPASS, CHF Cancer Father LUNG CANCER , HYPER THYROID Cancer Maternal Grandmother BREAST Heart Maternal Grandmother Cancer Maternal Grandfather COLON GI Paternal Grandfather Headache Daughter Hearing Loss Son Heart Maternal Aunt Heart Maternal Aunt Heart Maternal Aunt Social History Tobacco Use Smoking status: Never Smokeless tobacco: Never Vaping Use Vaping status: Never Used Substance Use Topics (more content not included)...[facility] 01-01-2025 History of Present illness Narrative* Kristine Remy, RT(R) - 01/01/2025 9:20 AM EST Radiology Service Progress Note PATIENT NAME: Brenden Junior DATE OF SERVICE: January 01, 2025 TIME: 12:23 PM PATIENT IDENTITY VERIFICATION COMPLETED USING TWO (2) IDENTIFIERS: Name and Date of confirmedby patient verbally. FALL SCREENING: Has the patient had 2 falls in the last year or 1 fall with injury or currently using an Ambulatory Assistive Device (Walker, Cane, Wheelchair, Crutches, etc.)? Yes, Patient High Riskfor Falls What interventions were put in place to prevent falls during this visit? Increased Observations by Caregivers PATIENT GENDER DATA: Assigned female at . status: : No status:NO. PATIENT RELEVANT IMPLANT DATA REVIEWED: Not Applicable PATIENT PRESENTS WITH AN IMPLANTABLE OR ATTACHED HOSPICE CASE MANAGER: No RADIOLOGY DEPARTMENT: General X-ray: Exam(s) Completed: Lower Extremity X- Ray(s): Feet, Bilateral and Wt. Bearing PERIPHERAL IV DATA: Not applicable SIGNED BY: RT Mikal(Martir) January 01, 2025 12:23 PM documented in this encounterOhiohealth [facility]01-31-2025 NoteHNO ID: [id number] Author: KRISTINE REMY RT(Martir) Service: ? Author Type: Technologist Type: Progress Notes Filed: 01/01/2025 12:24 Note Text: Radiology Service Progress Note PATIENT NAME: Brenden Junior DATE OF SERVICE: January 01, 2025 TIME: 12:23 PM PATIENT IDENTITY VERIFICATION COMPLETED USING TWO (2) IDENTIFIERS: Name and Date of confirmed by patient verbally. FALL SCREENING: Has the patient had 2 falls in the last year or 1 fall with injury or currently using an Ambulatory Assistive Device (Walker, Cane, Wheelchair, Crutches, etc.)? Yes, Patient High Risk for Falls What interventions were put in place to prevent falls during this visit? Increased Observations by Caregivers PATIENT GENDER DATA: Assigned female at . status: : No status: NO. PATIENT RELEVANT IMPLANT DATA REVIEWED: Not Applicable PATIENT PRESENTS WITH AN IMPLANTABLE OR ATTACHED HOSPICE CASE MANAGER: No RADIOLOGY DEPARTMENT: General X-ray: Exam(s) Completed: Lower Extremity X-Ray(s): Feet, Bilateral and Wt. Bearing PERIPHERAL IV DATA: Not applicable SIGNED BY: RT Mikal(R) January 01, 2025 12:23 [facility]08-31-2022 History of Present illness Narrative* Anai Denson Population Health Navigator - 08/01/2022 10:49 AM EDT POPULATION HEALTH NAVIGATION OUTREACH Action/FYI I spoke with patient and she is no longer [facility], she sees a Dr Pagan Pt identified by name and : YES, via phone Outreach Outcome/Action Spoke to patient or caregiver: PCP confirmed / updated Did you use a PCP flex slot to schedule this appointment? N/A Reason for Outreach HCC or suspected condition Payer: Payor: MEDICARE / Plan: MEDICARE A AND B / Product Type: Medicare / Care Gap Reviewed:: N/A Reminder: Reminder note to check Health Maintenance for items below Health Maintenance items due: COVID-19 VACCINE(1) Never done HEPATITIS C SCREENING Never done SHINGRIX VACCINE(1 of 2) Never done URINE ALBUMIN:CREATININE RATIO due on 04/26/2021 LDL CHOLESTEROL due on 04/26/2021 HBA1C due on 05/05/2021 DIABETIC FOOT EXAM due on 08/29/2021 SERUM CREATININE due on 08/29/2021 HEMOGLOBIN/HEMATOCRIT due on 11/04/2021 ADVANCE DIRECTIVE DISCUSSION Never done DILATED RETINAL EXAM due on 02/23/2022 ANNUAL PCP TEAM CHRONIC DISEASE VISIT due on 02/24/2022 BP CONTROLLED (<130/80) due on 02/24/2022 DEPRESSION SCREENING due on 02/24/2022 Message Sent to Practice: No Navigation Signature: Anai Denson [facility] Health Navigator August 01, 2022 10:50 AM Electronically signed by Anai Denson [facility] Health Navigator at 08/01/2022 10:51 AM EDT documented in this encounterOhiohealth [facility]02-26-2019 History of Past illness Narrative* Problem Noted Date Resolved Date Grieving 01/27/2019 04/29/2019 Diaphoresis 05/14/2017 11/11/2018 Hypokalemia 11/30/2016 05/14/2017 Lumbar disc disease with radiculopathy 2 11/11/2018 Venous insufficiency 11/18/2012 04/29/2019 Mixed hyperlipidemia 08/23/2005 01/05/2014 Type 2 Diabetes mellitus 08/23/2005 015 Overview: * Type (01/08/2003): dx type 2 diabetes, per GTT (103 fasting, 216 @2hr). * Renal hx (): urine albumin=7 mcg/mg creat (): urine albumin=3 mcg/mg creat (12/20/10): urine albumin=5 mcg/mg creat * Eye hx ( approx): exam Uli Grubbs OD, no DM changes per pt. (08/2008): exam Uli Grubbs OD, no DM changes per pt, date approx (): exam Dr. Farhad Green, no DM changes (05/2010): exam Dr. Farhad Green, no DM changes per pt * Neuro hx (06/20/10): no resting acral dysesthesias. Gets shaky with hypoglycemia. * Vascular hx (06/20/10): no hx IN or stroke, or claudication. Statin intolerant (12/20/10): zqoj=998, GJ=934, HDL=64, bRNV=260, non-HDL fepz=250 * Control hx (): PgQ8d=9.2% (): EmH2w=4.1% (): RdQ8s=3.5% (): PsM7w=5.3% (): IjP3v=8.5% (12/19/09): IiV9t=4.3% (06/19/10): FgV3w=5.7% (12/20/10): DnN2l=3.7% (06/13/11): HoD5r=7.5% documented as of this encounter (statuses as of 08/01/2022) [facility] noteNo assessment information availableWPaulding County Hospital Work Phone: Evaluation note* Diagnosis Metatarsalgia of both feet- Primary Enthesopathy of ankle and tarsus, unspecified Hammer toe of left foot documented in this encounter [facility] note* Diagnosis Bilateral foot pain Pain in limb documented in this encounter [facility] for referral (narrative)No reason for referral information availableWPaulding County Hospital Work Phone: Reason for visit Narrative* Diagnostic Procedure Only (Routine) - Closed Specialty Diagnoses / Procedures Referred By Contac t Referred To Contact XR IMAGING Diagnoses Bilateral foot pain Procedures XR FOOT GENERAL 3V AP/LAT/OBL BILATERAL RADEX FOOT COMPLETE MINIMUM 3 VIEWS Zoe Guy [address] [id number] [place] [id number] Referral ID Status Reason Start Date Expiration Date V isits Requested Visits Authorized [id number] Closed Auto-Generate d Referral 12/29/2024 01/28/2026 1 1 [facility] Advance Directives No Advanced Directives Records Found Advance Directive Response Recorded Date/ Time Advance Directives Yes November 1:32pm Living Will Yes June 12, 2017 3:24pm Power of Protector Plate Attacher Yes June 12 3:24pm Documents on File Type Date Recorded Patient [employer] Dean Expl anation Advance Directive(s) 04/11/2015 10:17 AM Advance Directive(s) 08/06/2013 12:30 PM Advance Directive Response Recorded Date/ Time Advance Directives Yes November 12:32pm Living Will No October 14, 2 022 9:30am Power of Protector Plate Attacher No October 14, 2022 9:30am Advance Directive Response Recorded Date/ Time Advance Directives Yes November 1:32pm Living Will No October 14, 2 022 10:30am Power of Protector Plate Attacher No October 14, 2022 10:30am Documents on File Type Date Recorded Patient Liberal [employer] Dean Expl anation Advance Directive(s) 04/11/2015 10:17 AM Advance Directive(s) 08/06/2013 12:30 PM Advance Directive Response Recorded Date/ Time Advance Directives Yes September 11, 2024 2:00pm Chief Complaint and Reason for Visit Chief Complaint Admit Date 6 M FU March 01, 2025 12: 50pm BILAT FEET PAIN May 25, 2025 12:2 2pm Reason for Visit Admit Date Abnormal ECG March 01, 2025 12: 50pm Hyperlipidemia March 01, 2025 12: 50pm Hypertension March 01, 2025 12: 50pm Hypertensive heart disease March 01 025 12:50pm Mitral valve regurgitation March 01 025 12:50pm Nonrheumatic aortic valve stenosis with regurgitation March 01, 2025 12:50pm PVC (premature ventricular contraction) March 01, 2025 12:50pm Chief Complaint dog scratch on finge r Chief Complaint dog scratch on finge r DUE AROUND DATE LISTED Chief Complaint EORDER Chief Complaint Admit Date 6 M FU March 01, 2025 12: 50pm Chief Complaint Admit Date 6 M FU March 01, 2025 12: 50pm BILAT FEET PAIN May 25, 2025 12:2 2pm BLE; FEET PAIN June 09, 2025 12:13 pm BLE; FEET PAIN June 09, 2025 2:25p m Chief Complaint Admit Date 6 M FU March 01, 2025 12: 50pm BILAT FEET PAIN May 25, 2025 12:2 2pm BLE; FEET PAIN June 09, 2025 12:13 pm BLE; FEET PAIN June 09, 2025 2:25p m BLE Pain June 18, 2025 12:4 0pm Reason for Visit Admit Date Abnormal ECG March 01, 2025 12: 50pm Hyperlipidemia March 01, 2025 12: 50pm Hypertension March 01, 2025 12: 50pm Hypertensive heart disease March 01 12:50pm Mitral valve regurgitation March 01 12:50pm Nonrheumatic aortic valve stenosis with regurgitation March 01, 2025 12:50pm PVC (premature ventricular contraction) March 01, 2025 12:50pm Lower extremity pain June 18, 2025 12: 40pm PAD (peripheral artery disease) June 12:40pm Paresthesia of lower extremity June 12:40pm Carotid bruit June 18, 2025 12:4 0pm Chief Complaint Admit Date BILAT FEET PAIN May 25, 2025 12:2 2pm BLE; FEET PAIN June 09, 2025 12:13 pm BLE; FEET PAIN June 09, 2025 2:25p m BLE Pain June 18, 2025 12:4 0pm WEAKNESS; RX HERE August 16, 2025 12:00pm 4m chronic uti f/u August 18, 2025 11:21am Reason for Visit Admit Date Lower extremity pain June 18, 2025 12: 40pm PAD (peripheral artery disease) June 12:40pm Paresthesia of lower extremity June 12:40pm Carotid bruit June 18, 2025 12:4 0pm Constipation August 18, 2025 11:21am Nocturia August 18, 2025 11:21am Overactive bladder August 18, 2025 11:21am Urge incontinence August 18, 2025 11:21am Urinary tract infection August 18, 2025 11:21am Vaginal atrophy August 18, 2025 11:21am Summary Purpose Family History No Family History Records Found Relationship Condition Age at Onset Recorded Date/T quyen mother Dyslipidemia Unknown Dementia Unknown Cardiac disease Unknown brother Diabetes mellitus Unknown Chronic obstructive pulmonary disease Unk nown father Diabetes mellitus Unknown Hypertension Unknown Malignant neoplasm Unknown brother Malignant neoplasm Unknown Additional Source Comments Goals (unrecognized section and content) Goals may be documented in a n alternate sectionGoals may be documented in an alternate sectionGoals may be documented in an alternate sectionGoals may be documented in an alternate sectionGoals may be documented in an alternate sectionGoals may be documented in an alternate sectionGoals may be documented in an alternate sectionGoals may be documented in an alternate sectionGoals may be documented in an alternate sectionGoals may be documented in an alternate sectionGoals may be documented in an alternate sectionGoals may be documented in an alternate sectionGoals may be documented in an alternate sectionGoals may be documented in an alternate sectionGoals may be documented in an alternate section Source Comments (unrecognize d section and content) In the event this informatio n is protected by the Federal Confidentiality of Alcohol and Drug Abuse Patient Records regulations: The Federal rules restrict any use of the information to criminally investigate or prosecute any alcohol or drug abuse patient.[facility] HospitalIn the event this information is protected by the Federal Confidentiality of Alcohol and Drug Abuse Patient Records regulations: The Federal rules restrict any use of the information to criminally investigate or prosecute any alcohol or drug abuse patient.[facility] HospitalIn the event this information is protected by the Federal Confidentiality of Alcohol and Drug Abuse Patient Records regulations: The Federal rules restrict any use of the information to criminally investigate or prosecute any alcohol or drug abuse patient.[facility] Reason for Visit (unrecogniz ed section and content) Reason Onset Date Comments Population Health Navigation Outreach 08/01/2022 HCC CARE GAP Reason Comments Established Patient Pain Care Teams (unrecognized sec tion and content) Record Producer Relationship Specialty Start Date End Date Pcp, No PCP - General 08/01/22 Team Status: Active Member Role Status Dates Dr. Diego Barrera III, MD Family Provider Active Dr. Hussein Alaniz MD Primary Care Provider Active Team Status: Inactive Member Role Status Dates Dr. Hussein Alaniz MD Primary Care Provider, Attending Provider Active Team Status: Inactive Member Role Status Dates Dr. Hussein Alaniz MD Primary Care Provi ronn, Attending Provider, Referring Provider Active Team Status: Active Member Role Status Dates Dr. Hussein Alaniz MD Primary Care Provider Active Dr. Neeta Amador DO Attending Provider, Referring P rovider Active Team Status: Inactive Member Role Status Dates Dr. Hussein Alaniz MD Primary Care Provider Active Dr. Neeta Amador DO Attending Provider, Referring P rovider Active Team Status: Inactive Member Role Status Dates Dr. Hussein Alaniz MD Primary Care Provider Active Start: October 26, 2024 End: October 26, 2024 Dr. Hussein Alaniz MD Attending Provider Active Start: October 26, 2024 End: October 26, 2024 Team Status: Inactive Member Role Status Dates Dr. Hussein Alaniz MD Primary Care Provider Active Start: February 10, 2025 End: February 10, 2025 Dr. Hussein Alaniz MD Attending Provider Active Start: February 10, 2025 End: February 10, 2025 Team Status: Active Member Role Status Dates Dr. Hussein Alaniz MD Primary Care Provider Active Team Status: Inactive Member Role Status Dates Dr. Hussein Alaniz MD Primary Care Provider Active Start: March 01, 2025 End: March 01, 2025 Dr. Hussein Alaniz MD Referring Provider Active Start: March 01, 2025 End: March 01, 2025 Dr. Flor Damon MD Attending Provider Active Start: March 01, 2025 End: March 01, 2025 Team Status: Inactive Member Role Status Dates Dr. Hussein Alaniz MD Primary Care Provider Active Start: May 14, 2025 End: May 14, 2025 Dr. Hussein Alaniz MD Attending Provider Active Start: May 14, 2025 End: May 14, 2025 Dr. Hussein Alaniz MD Referring Provider Active Start: May 14, 2025 End: May 14, 2025 Team Status: Active Member Role/Relationship Status Dates Dr. Hussein Alaniz MD Primary Care Provider Active Team Status: Inactive Member Role/Relationship Status Dates Dr. Hussein Alaniz MD Primary Care Provider Active Start: February 10, 2025 End: February 10, 2025 Dr. Hussein Alainz MD Attending Provider Active Start: February 10, 2025 End: February 10, 2025 Team Status: Inactive Member Role/Relationship Status Dates Dr. Hussein Alaniz MD Primary Care Provider Active Start: March 01, 2025 End: March 01, 2025 Dr. Hussein Alaniz MD Referring Provider Active Start: March 01, 2025 End: March 01, 2025 Dr. Flor Damon MD Attending Provider Active Start: March 01, 2025 End: March 01, 2025 Team Status: Inactive Member Role/Relationship Status Dates Dr. Hussein Alaniz MD Primary Care Provider Active Start: May 14, 2025 End: May 14, 2025 Dr. Hussein Alaniz MD Attending Provider Active Start: May 14, 2025 End: May 14, 2025 Dr. Hussein Alaniz MD Referring Provider Active Start: May 14, 2025 End: May 14, 2025 Team Status: Inactive Member Role/Relationship Status Dates Dr. Hussein Alaniz MD Primary Care Provider Active Start: May 25, 2025 End: May 25, 2025 Dr. Hussein Alaniz MD Attending Provider Active Start: May 25, 2025 End: May 25, 2025 Dr. Hussein Alaniz MD Referring Provider Active Start: May 25, 2025 End: May 25, 2025 Team Status: Active Member Role/Relationship Status Dates Dr. Hussein Alaniz MD Primary Care Provider Active Start: May 25, 2025 Dr. Reji Clark MD Attending Provider Active S tart: May 25, 2025 Team Status: Inactive Member Role/Relationship Status Dates Dr. Hussein Alaniz MD Primary Care Provider Active Start: March 01, 2025 End: March 01, 2025 Dr. Hussein Alaniz MD Referring Provider Active Start: March 01, 2025 End: March 01, 2025 Dr. Flor Damon MD Attending Provider Active Start: March 01, 2025 End: March 01, 2025 Team Status: Inactive Member Role/Relationship Status Dates Dr. Hussein Alaniz MD Primary Care Provider Active Start: May 14, 2025 End: May 14, 2025 Dr. Hussein Alaniz MD Attending Provider Active Start: May 14, 2025 End: May 14, 2025 Dr. Hussein Alaniz MD Referring Provider Active Start: May 14, 2025 End: May 14, 2025 Team Status: Inactive Member Role/Relationship Status Dates Dr. Hussein Alaniz MD Primary Care Provider Active Start: May 25, 2025 End: May 25, 2025 Dr. Hussein Alaniz MD Attending Provider Active Start: May 25, 2025 End: May 25, 2025 Dr. Hussein Alaniz MD Referring Provider Active Start: May 25, 2025 End: May 25, 2025 Team Status: Active Member Role/Relationship Status Dates Dr. Hussein Alaniz MD Primary Care Provider Active Start: May 25, 2025 Dr. Hussein Alaniz MD Referring Provider Active Start: May 25, 2025 Dr. Reji Clark MD Attending Provider Active S tart: May 25, 2025 Team Status: Inactive Member Role/Relationship Status Dates Dr. Hussein Alaniz MD Primary Care Provider Active Start: June 09, 2025 End: June 09, 2025 Dr. Hussein Alaniz MD Attending Provider Active Start: June 09, 2025 End: June 09, 2025 Dr. Hussein Alaniz MD Referring Provider Active Start: June 09, 2025 End: June 09, 2025 Team Status: Active Member Role/Relationship Status Dates Dr. Hussein Alaniz MD Primary Care Provider Active Start: June 09, 2025 Dr. Hussein Alaniz MD Referring Provider Active Start: June 09, 2025 Dr. Hussein Alaniz MD Other Provider Active Star t: June 09, 2025 Dr. Magdy Rocha MD Attending Provider Active S tart: June 09, 2025 Team Status: Active Member Role/Relationship Status Dates Dr. Hussein Alaniz MD Primary Care Provider Active Start: June 18, 2025 Dr. Hussein Alaniz MD Attending Provider Active Start: June 18, 2025 Team Status: Inactive Member Role/Relationship Status Dates Dr. Hussein Alaniz MD Primary Care Provider Active Start: June 18, 2025 End: June 18, 2025 Dr. Hussein Alaniz MD Referring Provider Active Start: June 18, 2025 End: June 18, 2025 SONYA Starr Attending Provider Active Star t: June 18, 2025 End: June 18, 2025 Team Status: Inactive Member Role/Relationship Status Dates Dr. Hussein Alaniz MD Primary Care Provider Active Start: June 01, 2025 Dr. Cecille Smith MD Attending Provider Active Start: June 01, 2025 Team Status: Inactive Member Role/Relationship Status Dates Dr. Hussein Alaniz MD Primary Care Provider Active Start: June 09, 2025 End: June 09, 2025 Dr. Hussein Alaniz MD Attending Provider Active Start: June 09, 2025 End: June 09, 2025 Dr. Hussein Alaniz MD Referring Provider Active Start: June 09, 2025 End: June 09, 2025 Team Status: Active Member Role/Relationship Status Dates Dr. Hussein Alaniz MD Primary Care Provider Active Start: June 09, 2025 Dr. Hussein Alaniz MD Referring Provider Active Start: June 09, 2025 Dr. Hussein Alaniz MD Other Provider Active Star t: June 09, 2025 Dr. Magdy Rocha MD Attending Provider Active S tart: June 09, 2025 Team Status: Inactive Member Role/Relationship Status Dates Dr. Hussein Alaniz MD Primary Care Provider Active Start: June 18, 2025 End: June 18, 2025 Dr. Hussein Alaniz MD Attending Provider Active Start: June 18, 2025 End: June 18, 2025 Team Status: Inactive Member Role/Relationship Status Dates Dr. Hussein Alaniz MD Primary Care Provider Active Start: June 18, 2025 End: June 18, 2025 Dr. Hussein Alaniz MD Referring Provider Active Start: June 18, 2025 End: June 18, 2025 SONYA Starr Attending Provider Active Star t: June 18, 2025 End: June 18, 2025 Team Status: Active Member Role/Relationship Status Dates Dr. Hussein Alaniz MD Primary care physician Active Team Status: Inactive Member Role/Relationship Status Dates Dr. Hussein Alaniz MD Primary care physician Active Start: May 14, 2025 End: May 14, 2025 Dr. Hussein Alaniz MD Attending physician Active Start: May 14, 2025 End: May 14, 2025 Dr. Hussein Alaniz MD Referring Provider Active Start: May 14, 2025 End: May 14, 2025 Team Status: Inactive Member Role/Relationship Status Dates Dr. Hussein Alaniz MD Primary care physician Active Start: May 25, 2025 End: May 25, 2025 Dr. Hussein Alaniz MD Attending physician Active Start: May 25, 2025 End: May 25, 2025 Dr. Hussein Alaniz MD Referring Provider Active Start: May 25, 2025 End: May 25, 2025 Team Status: Active Member Role/Relationship Status Dates Dr. Hussein Alaniz MD Primary care physician Active Start: May 25, 2025 Dr. Hussein Alaniz MD Referring Provider Active Start: May 25, 2025 Dr. Reji Clark MD Attending physician Active Start: May 25, 2025 Team Status: Inactive Member Role/Relationship Status Dates Dr. Hussein Alaniz MD Primary care physician Active Start: June 01, 2025 Dr. Cecille Smith MD Attending physician Active Start: June 01, 2025 Team Status: Inactive Member Role/Relationship Status Dates Dr. Hussein Alaniz MD Primary care physician Active Start: June 09, 2025 End: June 09, 2025 Dr. Hussein Alaniz MD Attending physician Active Start: June 09, 2025 End: June 09, 2025 Dr. Hussein Alaniz MD Referring Provider Active Start: June 09, 2025 End: June 09, 2025 Team Status: Active Member Role/Relationship Status Dates Dr. Hussein Alaniz MD Primary care physician Active Start: June 09, 2025 Dr. Hussein Alaniz MD Referring Provider Active Start: June 09, 2025 Dr. Hussein Alaniz MD Nurse Practitioner Active Start: June 09, 2025 Dr. Magdy Rocha MD Attending physician Active Start: June 09, 2025 Team Status: Inactive Member Role/Relationship Status Dates Dr. Hussein Alaniz MD Primary care physician Active Start: June 18, 2025 End: June 18, 2025 Dr. Hussein Alaniz MD Attending physician Active Start: June 18, 2025 End: June 18, 2025 Team Status: Inactive Member Role/Relationship Status Dates Dr. Hussein Alaniz MD Primary care physician Active Start: June 18, 2025 End: June 18, 2025 Dr. Hussein Alaniz MD Referring Provider Active Start: June 18, 2025 End: June 18, 2025 SONYA Starr Attending physician Active Sta rt: June 18, 2025 End: June 18, 2025 Team Status: Active Member Role/Relationship Status Dates Dr. Hussein Alaniz MD Primary care physician Active Start: August 16, 2025 SONYA Starr Attending physician Active Sta rt: August 16, 2025 SONYA Starr Referring Provider Active Star t: August 16, 2025 Team Status: Inactive Member Role/Relationship Status Dates Dr. Hussein Alaniz MD Primary care physician Active Start: August 18, 2025 End: August 18, 2025 Dr. Hussein Alaniz MD Referring Provider Active Start: August 18, 2025 End: August 18, 2025 Dr. Cecille Smith MD Attending physician Active Start: August 18, 2025 End: August 18, 2025 INFORMATION SOURCE (unrecogn ized section and content) DATE CREATED AUTHOR 01/06/2025 [facility] DATE CREATED AUTHOR 'S ROSSI AMANDA 08/23/2025 [facility] FOR RECORDS PERTAINING TO PATIENTS WHO ARE OR HAVE BEEN ENROLLED IN A CHEMICAL DEPENDENCY/SUBSTANCEABUSE PROGRAM, SOME INFORMATION MAY BE OMITTED. This clinical summary was aggregated from multiple sources. Caution should be exercised in using it in the provision of clinical care. This summary normalizes information from multiple sources, and as a consequence, information in this document may materially change the coding, format and clinical context of patient data. In addition, data may be omitted in some cases. CLINICAL DECISIONS SHOULD BE BASED ON THE PRIMARY CLINICAL RECORDS. [facility] provides no warranty or guarantee of the accuracy or completeness of information in this document.
[2025-08-26 11:05] LABS: AST(SGOT) 16 U/L (<=31); Alanine Aminotransfer ALT/SGPT 15 U/L (<=34); Albumin, Serum 4.3 g/dL (3.4-4.8); Alkaline Phosphatase 43 U/L (35-104); Anion Gap 11 (5-15); BUN 33 mg/dL (4-19); BUN/Creat Ratio 32.4 RATIO (10-20); Calcium,Total 9.0 mg/dL (7.6-11.0); Carbon Dioxide 24.5 mmol/L (21.0-32.0); Chloride 98 mmol/L (98-108); Globulin 2.6 g/dL (2.2-4.2); Glucose 159 mg/dL (70-99); Potassium 3.7 mmol/L (3.3-5.1); Vitamin D,25 Hydroxy 21.3 ng/mL (30-100)
== END | disposition home or self-care (01) ==
LOC: POLAB3 09:59
PROVIDERS: PCP Family Medicine Geriatric Medicine; Visit Provider Family Medicine Geriatric Medicine
DX: I10 Essential (primary) hypertension (principal); E03.9 Hypothyroidism, unspecified; E55.9 Vitamin D deficiency, unspecified
CPT/HCPCS: 36415; 80053; 82306; 84443; 85025

== ENCOUNTER → 2025-09-04 | Outpatient (CLI) | payer MEDICARE, OTHER, SELFPAY ==
--- OUTSIDE RECORDS SUMMARY | 2025-09-04 06:59 | XMS RPT_ITS | CCD ---
Author Organization [facility] [place] Care Team Providers Care Fire Technician Name Role Phone Pcp, No Primary Care Provider Unavailabl e Unavailable Primary Care Provider Unavailabl e TESTRALESLY, ZOE Referring Unavailable TESTRAKE, ZOE Attending Unavailable SELF Referring Unavailable Colin CHAPARRO, Dr. Hussein Tovar Primary Care Provider Colin CHAPARRO, Dr. Hussein Tovar Attending Provider [phone] Colin CHAPARRO, Dr. Hussein Tovar Primary Care Provider [phone] Colin CHAPARRO, Dr. Hussein Tovar Attending Provider [phone] Colin CHAPARRO, Dr. Hussein Tovar Referring Provider [phone] Nelson CHAPARRO, Dr. Ray Attending Provider Eduardo CHAPARRO, Dr. Mendoza Attending Provider Colin CHAPARRO, Dr. Hussein Tovar Primary Care Provider [phone] Colin CHAPARRO, Dr. Hussein Tovar Attending Provider Colin CHAPARRO, Dr. Hussein Tovar Other Provider Aj CHAPARRO, Dr. Curran Attending Provider Bibi Siu Attending Provider Sarah CHAPARRO, Dr. Oden Attending Provider Colin CHAPARRO, Dr. Hussein Tovar Primary Care Physician [phone] Colin CHAPARRO, Dr. Hussein Tovar Attending Physician Colin CHAPARRO, Dr. Hussein Tovar Referring Provider Eduardo CHAPARRO, Dr. Mendoza Attending Physician Sarah CHAPARRO, Dr. Oden Attending Physician Colin CHAPARRO, Dr. Hussein Tovar Nurse Practitioner Aj CHAPARRO, Dr. Curran Attending Physician Yu HASSAN, Bibi Attending Physician Yu PA, Bibi Referring Provider Colin, Hussein Chi Attending Unavailable Colin, Hussein Chi Primary Care Unavailable Roof WRAPPER LAYER, Farhad H Referring Unavailable Colin, Hussein Chi Primary Care Unavailable Roof WRAPPER LAYER, Farhad H Attending Unavailable Colin, Hussein Chi Attending Unavailable Colin, Hussein Chi Referring Unavailable Colin, Hussein Chi Primary Care Unavailable Colin, Hussein Chi Primary Care Unavailable Roof WRAPPER LAYER, Farhad H Referring Unavailable Roof WRAPPER LAYER, Farhad H Attending Unavailable Kostas PA, Janusz Referring Unavailable Kostas PAJanusz Attending Unavailable Colin, Hussein Chi Primary Care Unavailable Colin, Hussein Chi Primary Care Unavailable Colin, Hussein Chi Attending Unavailable Colin, Hussein Chi Attending Unavailable Colin, Hussein Chi Referring Unavailable Colin, Hussein Chi Primary Care Unavailable Colin, Hussein Chi Attending Unavailable Colin, Hussein Chi Referring Unavailable Colin, Hussein Chi Primary Care Unavailable Flor Damon Attending Unavailable Roof WRAPPER LAYER, Farhad H Referring Unavailable Colin, Hussein Chi Primary Care Unavailable EduardoReji Attending Unavailable Colin, Hussein Chi Referring Unavailable Colin, Hussein Chi Primary Care Unavailable Reji Clark Attending Unavailable Colin, Hussein Chi Primary Care Unavailable Colin, Hussein Chi Referring Unavailable Tiff Damond Attending Unavailable Colin, Hussein Chi Primary Care Unavailable Colin, Hussein Chi Referring Unavailable Colin, Hussein Chi Primary Care Unavailable Cecille Smith Attending Unavailable Colin, Hussein Chi Primary Care Unavailable Colin, Hussein Chi Referring Unavailable Roof WRAPPER LAYER, Farhad H Attending Unavailable Colin, Hussein Chi Primary Care Unavailable Jam Overton Attending Unavailable Colin, Hussein Chi Attending Unavailable Colin, Hussein Chi Primary Care Unavailable Janusz Chauhan Attending Unavailable Colin, Hussein Chi Primary Care Unavailable Colin, Hussein Chi Referring Unavailable Colin, Hussein Chi Referring Unavailable Colin, Hussein Chi Primary Care Unavailable Nicholas, Bibi Attending Unavailable Colin, Hussein Chi Referring Unavailable Colin, Hussein Chi Consulting Unavailable Magdy Rocha Attending Unavailable Colin, Hussein Chi Primary Care Unavailable Colin, Hussein Chi Attending Unavailable Colin, Hussein Chi Primary Care Unavailable Colin, Hussein Chi Primary Care Unavailable Nicholas, Bibi Attending Unavailable Nicholas, Bibi Referring Unavailable Colin, Hussein Chi Primary Care Unavailable Nicholas, Bibi Referring Unavailable Bibi Nicholas Attending Unavailable Bibi Siu Referring Provider [phone] Allergies Allergy Classification Reported Allergen(s) Allergy Type Date of Onset Reaction(s) Facility (20 sources) atorvastatin; Translations: [ATORVASTATIN CALCIUM] Drug Allergy 02-22-20 07 Other [facility] Work Phone: Comment on above: LEG PAIN (20 sources) Cholestyramine Resin Drug Allergy 06-12-20 17 Upset Stomach [facility] (20 sources) DULoxetine; Translations: [duloxetine HCl] Drug Allergy 06-12-20 17 Other [facility] Comment on above: MYALGIA, SLEEPINESS (20 sources) Lisinopril; Translations: [LISINOPRIL] Drug Allergy 02-06-20 11 Rash, Swelling [facility] (20 sources) Losartan; Translations: [LOSARTAN POTASSIUM] Drug Allergy 04-11-20 15 Other: See Comments [facility] (20 sources) Propoxyphene; Translations: [PROPOXYPHENE HCL] Drug Allergy 08-23-20 05 Other [facility] Work Phone: Comment on above: DIZZINESS (20 sources) Simvastatin; Translations: [SIMVASTATIN] Drug Allergy 08-23-20 05 [facility] Work Phone: Comment on above: LEG PAIN (20 sources) Sucrose Drug Allergy 06-12-20 17 Upset Stomach [facility] (20 sources) sulfaSALAzine; Translations: [SULFASALAZINE] Drug Allergy 06-12-20 17 GI Upset [facility] (20 sources) ZOLMitriptan; Translations: [ZOLMITRIPTAN] Drug Allergy 08-23-20 05 Other [facility] Work Phone: Comment on above: LEG PAIN (4 sources) Cholestyramine Resin; Translations: [CHOLESTYRAMINE (WITH SUGAR)] Drug Allergy 02-10-20 10 Intolerance [facility] Work Phone: (4 sources) DULoxetine; Translations: [DULOXETINE] Drug Allergy 03-19-20 06 [facility] Work Phone: (4 sources) metFORMIN; Translations: [METFORMIN] Drug Allergy 04-20-20 16 GI Upset [facility] (4 sources) Nisoldipine; Translations: [NISOLDIPINE] Drug Allergy 04-20-20 16 Other: See Comments [facility] (4 sources) Tetracycline (class of antibiotic); Translations: [TETRACYCLINES] Propensity to adverse reactions 08-23-20 [facility] Work Phone: (3 sources) adzulfadine [Other] Propensity to adverse reactions 08-23-20 [facility] Work Phone: (1 source) OTHER; Translations: [OTHER] Propensity to adverse reactions (disorder) 08-23-20 [facility] Repository (1 source) Cholestyramine Resin Drug Allergy 08-18-20 [facility] Repository (1 source) Lisinopril Drug Allergy 08-18-20 [facility] Repository (1 source) Simvastatin Drug Allergy 08-18-20 [facility] (1 source) Sucrose Drug Allergy 08-18-20 [facility] (1 source) sulfaSALAzine Drug Allergy 08-18-20 [facility] Rep[facility] (1 source) ZOLMitriptan Drug Allergy 08-18-20 [facility] Repository Medications Current Medications Medication Drug Class(es) Dates Sig (Normalized) Sig (Original) amitriptyline hydrochloride 25 mg oral tablet (3 sources) Tricyclic Antidepressant Start: 02-24-2021 take 1 tablet by mouth once daily at bedtime amitriptyline (ELAVIL) 25 mg tablet Take 1 tablet by mouth daily at bedtime. 30 tablet 02/24/2021 Active Comment on above: Take 1 tablet by fransisco th daily at bedtime. aspirin 81 mg oral tablet (5 sources) Platelet Aggregation Inhibitor, Nonsteroidal Anti-inflammatory Drug Start: 08-18-2025 take 1 tablet by mouth once daily Aspirin 81 mg tablet Active 81 mg PO daily August 18, 2025 12:00am Complies with drug therapy cetirizine hydrochloride 10 mg oral capsule (18 sources) Histamine-1 Receptor Antagonist Start: 06-18-2025 take [...] 2024 12:00am October 21, 2024 6:04am D-Mannose (7 sources) Start: 06-17-2025 take 1 capsule by mouth once Start: 06-17-2025 take 1 capsule by mouth once D -Mannose 500 mg capsule Active mg PO June 17, 2025 12:00am Complies with drug therapy Start: 06-17-2025 take 1 capsule by mouth once D -Mannose 500 mg capsule Discontinued mg PO June 17, 2025 12:00am fenofibrate 145 mg oral tablet (10 sources) Peroxisome Proliferator Receptor alpha Agonist Start: 03-01-2025 take 1 tablet by mouth once daily Fenofibrate Nanocrystallized (Tricor) 145 mg tablet Active 145 mg PO daily 31 10March 01, 2025 12:00am Complies with drug therapy 24 hr fesoterodine fumarate 8 mg extended release oral tablet (20 sources) Start: 06-17-2025 take 1 tablet by [...] Complies with drug therapy Start: 07-21-2024 End: 08-30-2025 take 1 tablet by mouth once daily Fluoxetine 20 mg tablet Discontinued 20 mg PO DAILY July 21, 2024 11:03am August 30, 2025 2:42pm Start: 06-18-2024 End: 07-21-2024 Fluoxetine 20 mg [...] once daily. gabapentin 100 mg oral capsule (7 sources) Anti-epileptic Agent Start: 2024 take 1 capsule by mouth three times daily Gabapentin 100 mg capsule Active 100 mg PO THREE TIMES A DAY June 18, 2025 12:00am Complies with drug therapy hydrALAZINE hydrochloride 25 mg oral tablet (13 sources) Arteriolar Vasodilator Start: 2023 take 1 [...] Start: 05-01-2021 take 1 capsule by mo uth once daily hydroCHLOROthiazide 12.5 mg capsule Indications: [...] 1 capsule by mo uth once daily. levothyroxine sodium 0.125 mg oral [...] Thyroid methenamine hippurate 1000 mg oral tablet (7 sources) Start: 06-17-2025 Methenamine Hippurate 1 gram tablet Active 1 g PO TWICE A DAY June 17, 2025 12:00am Complies with drug therapy 24 hr metoprolol succinate 25 mg extended release oral tablet (20 sources) beta-Adrenergic Rachana Start: 03-01-2025 End: 08-30-2025 take 1 tablet by mouth once daily [...] cheeks Multivitamin,Tx-Iron- Minerals (Therems-M) 1 TABLET tablet (20 sources) Start: 09-30-20 take 1 tablet by mouth once daily Multivitamin,Tx-Iron -Minerals (Therems-M) 1 TABLET tablet Active 1 TABLET PO DAILY September 30, 2013 1:42pm Start: 09-30-2013 End: 06-18-2024 take 1 tablet by mouth once daily Multivitamin,Fp-Cftk-Qobyvtin (Therems-M ) 1 TABLET tablet Discontinued 1 {tbl} PO DAILY September 30, 2013 12:00am June 18, 2024 10:20am Start: 09-30-2013 take 1 tablet by fransisco th once daily Multivitamin,Zq-Ezal-Hbqhtvvf (Therems-M ) 1 TABLET tablet Active 1 TABLET PO DAILY September 29, 2013 11:00pm Start: 09-30-2013 take 1 tablet by fransisco th once daily Multivitamin,Qy-Zqed-Ikyskalh (Therems-M ) 1 TABLET tablet Active 1 TABLET PO DAILY September 30, 2013 12:00am omeprazole 20 mg delayed release oral capsule (19 sources) Proton Pump Inhibitor Start: 06-17-2025 take [...] chloride 10 meq extended release oral capsule (20 sources) Start: 08-18-2025 take 1 capsule by mouth once daily Potassium Chloride 10 mEq capsule, extended release Active 10 meq PO daily August 18, 2025 12:00am Complies with drug therapy Start: 07-31-2024 End: 08-30-2025 take 1 tablet by mouth once daily Potassium Chloride 10 mEq tablet extended release Discontinued 10 meq PO DAILY 90 3 July 16, 2025 7:53am August 30, 2025 2:42pm primidone 50 mg oral tablet (20 sources) Anti-epileptic Agent Start: 08-18-2025 take 1 tablet by mouth once Primidone 50 mg tablet Active 50 mg PO ONCE August 18, 2025 12:00am Complies with drug therapy Start: 12-01-2024 take 2 tablets by mo uth once daily at bedtime primidone (MYSOLINE) 50 mg tablet Take 100 mg by mouth daily at bedtime. 12/01/2024 Active Start: 09-21-2024 End: 08-30-2025 take 1 tablet by mouth at bedtime Primidone 50 mg tablet Discontinued 100 mg PO AT BEDTIME September 21, 2024 12:00am August 30, 2025 2:43pm Start: 06-18-2024 End: 07-21-2024 take 1 tablet by mouth at bedtime Primidone 50 mg tablet Discontinued 50 mg PO AT BEDTIME June 18, 2024 12:00am July 21, 2024 11:04am Vibegron (18 sources) Start: 06-17-2025 take 1 tablet by mouth once da kassi Start: 06-17-2025 take 1 tablet by fransisco [...] Drug Class(es) Dates Sig (Normalized) Sig (Original) [id number] 200 actuat albuterol 0.09 mg/actuat metered dose [...] 4 HOURS NEEDED November 25, 2016 12:00am amLODIPine 10 mg oral tablet (19 sources) Dihydropyridine Calcium Channel Rachana Start: 10-19-2020 End: 08-30-2025 take 1 tablet by mouth once daily Amlodipine 10 mg tablet Discontinued 10 mg PO DAILY June 18, 2024 12:00am August 30, 2025 2:42pm Comment on above: Take 1 tablet by fransisco th once daily. amoxicillin 875 mg / clavulanate 125 mg oral tablet (18 sources) Penicillin-class Antibacterial Start: 10-14-2022 End: 06-18-2024 take 1 tablet by mouth every twelve hours Amoxicillin-Pot Clavulanate 875 MG tablet Discontinued 875 mg PO Q12H October 14, 2022 1:00am June 18, 2024 10:18am atenolol 100 mg oral tablet (20 sources) beta-Adrenergic Rachana Start: 09-30-2013 End: 06-18-2024 take 1 tablet by mouth once daily Atenolol 100 MG tablet Discontinued 100 mg PO DAILY September 30, 2013 12:00am June 18, 2024 10:20am azelastine hydrochloride 0.137 mg/actuat metered dose nasal spray (11 sources) Histamine-1 Receptor Antagonist Start: 10-21-2024 End: 03-01-2025 Azelastine 137 mcg (0.1 %) spray,non-aerosol Discontinued 2 NMA INTRANASAL TWICE A DAY October 21, 2024 1:00am March 01, 2025 1:05pm administer into each nostril benzonatate 100 mg oral capsule (11 sources) Non-narcotic Antitussive Start: 10-21-2024 End: 03-01-2025 take 1 capsule by mouth three times daily as needed for cough Benzonatate 100 mg capsule Discontinued 100 mg PO THREE TIMES A DAY as needed for cough 30 0 October 21, 2024 7:29am March 01, 2025 1:05pm ciprofloxacin 500 mg oral tablet (11 sources) Quinolone Antimicrobial Start: 09-11-2024 End: 09-18-2024 take 1 tablet by mouth every twelve hours Ciprofloxacin Hcl (Cipro) 500 mg tablet Discontinued 500 mg PO Q12H 14 7 0 September 11, 2024 12:00am September 17, 2024 12:00am September 18, 2024 12:07am diazePAM 2 mg oral tablet (11 sources) Benzodiazepine Start: 10-21-2024 End: 06-18-2025 take 1 tablet by mouth three times daily as needed for muscle spasms and anxiety Diazepam (Valium) 2 mg tablet Discontinued 2 mg PO THREE TIMES A DAY as needed for muscle spasm and anxiety 15 5 0 October 21, 2024 1:00am June 18, 2025 12:59pm Anxiety Anxiety disorder, unspecified furosemide 40 mg oral tablet (11 sources) Loop Diuretic Start: 09-23-2024 End: 10-21-2024 take 1 tablet by mouth once daily as needed Furosemide (Lasix) 40 mg tablet Discontinued 40 mg PO DAILY as needed for SOB 7 0 September 23, 2024 12:00am October 21, 2024 6:04am Vitamin B Complex 1 EACH capsule (11 sources) Start: 05-10-2015 End: 06-18-2024 Vitamin B [...] Translations: [Adjustment disorder with depressed mood] Onset: 6 Resolved: 9 02-27-2006 Chronic Anxiety disorders (11 sources) Anxiety; Translations: [Anxiety disorder, unspecified] 10-29-2024 Chronic Cancer of thyroid (3 sources) Malignant tumor of thyroid gland; Translations: [Malignant neoplasm of thyroid gland] Onset: 5 11-27-2021 Chronic Cardiac dysrhythmias (20 sources) Multiple premature ventricular complexes; Translations: [Ventricular premature depolarization] Onset: 5 09-21-2024 Chronic Chronic kidney disease (11 sources) Chronic kidney disease stage 3A ; Translations: [Stage 3a chronic kidney disease] 06-18-2024 Chronic Complications of surgical procedures or medical care (3 sources) Postoperative hypothyroidism; Translations: [Postprocedural hypothyroidism] Onset: 0 04-29-2020 Chronic Conditions associated with dizziness or vertigo (11 sources) Dizziness; Translations: [Dizziness and giddiness] 08-02-2024 Episodic Diabetes mellitus with complications (4 sources) Type 2 diabetes mellitus; Translations: [Type 2 diabetes mellitus with diabetic chronic kidney disease] Onset: 7 05-02-2020 Chronic Disorders of lipid metabolism (20 sources) Hyperlipidemia; Translations: [Hyperlipidemia, unspecified] Onset: 5 Resolved: 4 09-16-2015 Chronic Essential hypertension (20 sources) Benign essential hypertension; Translations: [Essential (primary) hypertension] Onset: 6 10-21-2006 Chronic Fluid and electrolyte disorders (13 sources) Hypokalemia; Translations: [Hypokalemia] Onset: 6 Resolved: 7 05-14-2017 Episodic Genitourinary symptoms and ill-defined conditions (19 sources) Female stress incontinence; Translations: [Stress incontinence (female) (male)] Onset: 2 11-18-2012 Chronic Genitourinary symptoms and ill-defined conditions (17 sources) Nocturia; Translations: [Nocturia] Onset: 4 08-18-2025 Episodic Headache; including migraine (3 sources) Migraine with aura; Translations: [Migraine with aura, not intractable, without status migrainosus] Onset: 7 11-11-2017 Chronic Heart valve disorders (20 sources) Non-rheumatic aortic valve stenosis with regurgitation; Translations: [Nonrheumatic aortic (valve) stenosis with insufficiency] Onset: 5 07-21-2024 Chronic Hypertension with complications and secondary hypertension (17 sources) Hypertensive heart disease; Translations: [Hypertensive heart disease without heart failure] Onset: 5 07-21-2024 Chronic Immunizations and screening for infectious disease (18 sources) Requires tetanus and diphtheria vaccination; Translations: [Encounter for immunization] 10-22-2022 Episodic Malaise and fatigue (1 source) Weakness; Translations: [Weakness] Onset: 5 Episodic Menopausal disorders (16 sources) Atrophy of vagina; Translations: [Postmenopausal atrophic vaginitis] 08-18-2025 Chronic Nutritional deficiencies (1 source) Vitamin D deficiency, unspecified; Translations: [Vitamin D deficiency, unspecified] Onset: Chronic Open wounds of extremities (20 sources) Open wound of right middle finger due to dog bite; Translations: [Open bite of right middle finger without damage to nail, initial encounter] 10-22-2022 Episodic Other and ill-defined heart disease (11 sources) Left ventricular hypertrophy; Translations: [Cardiomegaly] 06-18-2024 Chronic Other circulatory disease (6 sources) Carotid bruit; Translations: [Other specified symptoms and signs involving the circulatory and respiratory systems] 06-18-2025 Episodic Other circulatory disease (1 source) Other specified symptoms and signs involving the circulatory and respiratory systems; Translations: [Other specified symptoms and signs involving the circulatory and respiratory systems] Onset: 5 Episodic Other connective tissue disease (1 source) Bilateral metatarsalgia; Translations: [Metatarsalgia, right foot] 01-01-2025 Episodic Other connective tissue disease (1 source) Pain in both feet; Translations: [Pain in right foot] 01-01-2025 Episodic Other connective tissue disease (3 sources) Pain in right foot; Translations: [Bilateral foot pain] Onset: 5 Episodic Other connective tissue disease (2 sources) Pain in left foot; Translations: [Bilateral foot pain] Onset: 5 Episodic Other connective tissue disease (12 sources) Pain in lower limb; Translations: [Pain in leg, unspecified] 06-21-2025 Episodic Other diseases of bladder and urethra (16 sources) Overactive bladder; Translations: [Overactive bladder] 08-18-2025 Chronic Other diseases of kidney and ureters (3 sources) Renal mass; Translations: [Other specified disorders of kidney and ureter] Onset: 9 11-01-2009 Chronic Other gastrointestinal disorders (16 sources) Constipation; Translations: [Constipation, unspecified] 08-18-2025 Episodic Other hereditary and degenerative nervous system conditions (3 sources) Essential tremor; Translations: [Essential tremor] Onset: 7 11-11-2017 Chronic Other lower respiratory disease (11 sources) Dyspnea; Translations: [Shortness of breath] 06-18-2024 Episodic Other nervous system disorders (12 sources) Paresthesia of lower extremity; Translations: [Paresthesia of skin] 06-21-2025 Episodic Other nervous system disorders (1 source) Unsteadiness on feet; Translations: [Unsteadiness on feet] Onset: 5 Episodic Other nutritional; endocrine; and metabolic disorders (11 sources) Morbid obesity; Translations: [Morbid (severe) obesity due to excess calories] 06-18-2024 Chronic Other screening for suspected conditions (not mental disorders or infectious disease) (17 sources) Electrocardiogram abnormal; Translations: [Abnormal electrocardiogram [ECG] [EKG]] Onset: 5 07-21-2024 Episodic Other upper respiratory infections (11 sources) Viral upper respiratory tract infection; Translations: [Acute upper respiratory infection, unspecified] 10-29-2024 Episodic Peripheral and visceral atherosclerosis (13 sources) Peripheral vascular disease, unspecified; Translations: [Peripheral arterial disease] Onset: 5 06-21-2025 Chronic Thyroid disorders (2 sources) Hypothyroidism, unspecified; Translations: [Hypothyroidism, unspecified] Onset: 4 Chronic Urinary tract infections (20 sources) Cystitis; Translations: [Cystitis, unspecified without hematuria] Onset: 5 09-11-2024 Episodic Viral infection (11 sources) Viral disease; Translations: [Viral infection, unspecified] 08-02-2024 Episodic Past or Other Problems Problem Classification Problem Date Documented Date Episodic/Chronic Diabetes mellitus without complication (2 sources) Diabetes mellitus; Translations: [Type 2 diabetes mellitus without complications] Onset: 08-23-2005 Resolved: 09-16-2015 06-11-2024 Chronic Diabetes mellitus without complication (3 sources) Impaired fasting glycemia; Translations: [Impaired fasting glucose] Onset: 04-29-2019 04-29-2019 Episodic Other circulatory disease (3 sources) Orthostatic [...] Translations: [Dyspnea, unspecified] Onset: 09-21-2024 Episodic Other skin disorders (2 sources) Excessive [...] Test Name Value Interpretation Reference Range Facility Absolute lymphocyte countOrd ered By: Hussein Alaniz on 08-26-2025 Lymphocytes Auto (Unsp spec) [#/Vol] 2.26 10*3/uL 0.83-4.51 [facility] Absolute neutrophil countOrd ered By: Hussein Alaniz on 08-26-2025 Neutrophils (Bld) [#/Vol] 6.8 10*3/uL 2.0-7.7 [facility] Anion gap in Serum or Plasma Ordered By: Hussein Alaniz on 08-26-2025 Anion gap [Moles/Vol] 11 mmol/L 5-15 [facility] Automated lymphocyte count a s percentage of total leukocytesOrdered By: Hussein Alaniz on 08-26-2025 Lymphocytes/100 WBC Auto (Unsp spec) 22.7 % - [facility] BUN/creatinine ratioOrdered By: Hussein Alaniz on 08-26-2025 Urea nitrogen/Creatinine [Mass ratio] 32.4 mg/mg High 10- [facility] Basophil percentageOrdered B y: Hussein Alaniz on 08-26-2025 Basophils/100 WBC (Bld) 0.3 % 0-1 [facility] Bilirubin, totalOrdered By: Hussein Alaniz on 08-26-2025 Bilirubin [Mass/Vol] 0.36 mg/dL 0.00-1.30 [facility] CBC W/Diff, Automatedon 08-03 Absolute Lymph 2.26 X10 3/uL Normal 0.83-4.51 [facility] Comment on above: Performed By: #### L 100.0100, L500.4050, L501.9520, L506.1001 #### [facility] [address] [place], [address] Absolute Neut 6.8 X10 3/uL Normal 2.0-7.7 [facility] Comment on above: Performed By: #### L 100.0100, [id number], [id number], L506.1001 #### [facility] [address] [place], [address] Basophils/100 WBC (Bld) 0.3 % Normal 0-1 [facility] Comment on above: Performed By: #### L 100.0100, [id number], [id number], [id number] #### [facility] [address] [place], [address] Eosinophils/100 WBC (Bld) 0.7 % Normal 0-5 [facility] Comment on above: Performed By: #### L 100.0100, [id number], [id number], L506.1001 #### [facility] [address] [place], [address] Erythrocyte distribution width (RBC) [Ratio] 14.6 % Normal 11.6-14.6 [facility] Comment on above: Performed By: #### L 100.0100, [id number], [id number], L506.1001 #### [facility] [address] [place], [address] Hematocrit (Bld) [Volume fraction] 34.9 % Low 37-47 [facility] Comment on above: Performed By: #### L 100.0100, [id number], [id number], [id number] #### [facility] [address] [place], [address] Hemoglobin (Bld) [Mass/Vol] 11.6 g/dL Low 12.0-15.0 [facility] Comment on above: Performed By: #### L 100.0100, [id number], [id number], [id number] #### [facility] [address] [place], [address] IG% 1.100 High 0.0-0.9 [facility] Comment on above: Result Comment: IG% - Immature Granulocytes (promyelocytes, myelocytes and metamyelocytes) > 1% indicates that a LEFT SHIFT is Present. Performed By: #### L 100.0100, L500.4050, L501.9520, L506.1001 #### [facility] [address] [place], [address] Lymphocytes/100 WBC (Bld) 22.7 % Normal 19-41 [facility] Comment on above: Performed By: #### L 100.0100, L500.4050, L501.9520, L506.1001 #### [facility] [address] [place], [address] MCH (RBC) [Entitic mass] 30.3 pg Normal 27.0-32.0 [facility] Comment on above: Performed By: #### L 100.0100, L500.4050, L501.9520, L506.1001 #### [facility] [address] [place], [address] MCHC (RBC) [Mass/Vol] 33.2 g/dL Normal 32-36 [facility] Comment on above: Performed By: #### L 100.0100, L500.4050, L501.9520, L506.1001 #### [facility] [address] [place], [address] MCV (RBC) [Entitic vol] 91.1 fL Normal 81-99 [facility] Comment on above: Performed By: #### L 100.0100, L500.4050, L501.9520, L506.1001 #### [facility] [address] [place], [address] Monocytes/100 WBC (Bld) 7.1 % Normal 0-10 [facility] Comment on above: Performed By: #### L 100.0100, L500.4050, L501.9520, L506.1001 #### [facility] [address] [place], [address] Neutrophils/100 WBC (Bld) 68.1 % Normal 47-70 [facility] Comment on above: Performed By: #### L 100.0100, L500.4050, L501.9520, L506.1001 #### [facility] [address] [place], [address] Nucleated RBC (Bld) [#/Vol] 0 10*3/uL Normal 0-5 [facility] Comment on above: Performed By: #### L 100.0100, L500.4050, L501.9520, L506.1001 #### [facility] [address] [place], [address] Platelet mean volume (Bld) [Entitic vol] 8.6 fL Normal 6.2-12.0 [facility] Comment on above: Performed By: #### L 100.0100, L500.4050, L501.9520, L506.1001 #### [facility] [address] [place], [address] Platelets (Bld) [#/Vol] 427 10*3/uL Normal 150-450 [facility] Comment on above: Performed By: #### L 100.0100, L500.4050, L501.9520, L506.1001 #### [facility] [address] [place], [address] RBC (Bld) [#/Vol] 3.83 10*6/uL Low 4.2-5.4 [facility] Comment on above: Performed By: #### L 100.0100, L500.4050, L501.9520, L506.1001 #### [facility] [address] [place], [address] RDW SD 48.6 fl High 35.1-43.9 [facility] Comment on above: Performed By: #### L 100.0100, L500.4050, L501.9520, L506.1001 #### [facility] [address] [place], [address] WBC (Bld) [#/Vol] 10.0 10*3/uL Normal 4.4-11.0 [facility] Comment on above: Performed By: #### L 100.0100, L500.4050, L501.9520, L506.1001 #### [facility] [address] [place], [address] Carbon dioxide, total [Moles /volume] in Central venous bloodOrdered By: Hussein Alaniz on 08-26-2025 CO2 [Moles/Vol] 24.5 mmol/L 21.0-32.0 [facility] Chloride assayOrdered By: Brian bree Colin on 08-26-2025 Chloride [Moles/Vol] 98 mmol/L 98-108 [facility] Comprehensive Metabolic Prof ilon 08-26-2025 Albumin [Mass/Vol] 4.3 g/dL Normal 3.4-4.8 [facility] Comment on above: Performed By: #### L 100.0100, L500.4050, L501.9520, L506.1001 #### [facility] [address] [place], [address] Albumin/Globulin [Mass ratio] 1.7 {ratio} Normal 0.9-2.4 [facility] Comment on above: Performed By: #### L 100.0100, L500.4050, L501.9520, L506.1001 #### [facility] [address] [place], [address] ALK PHOS 43 U/L Normal 35-104 [facility] Comment on above: Performed By: #### L 100.0100, L500.4050, L501.9520, L506.1001 #### [facility] [address] [place], [address] ALT [Catalytic activity/Vol] 15 U/L Normal <=34 [facility] Comment on above: Performed By: #### L 100.0100, L500.4050, L501.9520, L506.1001 #### [facility] [address] [place], [address] AST [Catalytic activity/Vol] 16 U/L Normal <=31 [facility] Comment on above: Performed By: #### L 100.0100, L500.4050, L501.9520, L506.1001 #### [facility] [address] [place], [address] Bilirubin [Mass/Vol] 0.36 mg/dL Normal 0.00-1.30 [facility] Comment on above: Performed By: #### L 100.0100, L500.4050, L501.9520, L506.1001 #### [facility] [address] [place], [address] BUN/CRE 32.4 RATIO High 10-20 [facility] Comment on above: Performed By: #### L 100.0100, L500.4050, L501.9520, L506.1001 #### [facility] [address] [place], [address] Calcium [Mass/Vol] 9.0 mg/dL Normal 7.6-11.0 [facility] Comment on above: Performed By: #### L 100.0100, L500.4050, L501.9520, L506.1001 #### [facility] [address] [place], [address] Chloride [Moles/Vol] 98 mmol/L Normal 98-108 [facility] Comment on above: Performed By: #### L 100.0100, L500.4050, L501.9520, L506.1001 #### [facility] [address] [place], [address] CO2 [Moles/Vol] 24.5 mmol/L Normal 21.0-32.0 [facility] Comment on above: Performed By: #### L 100.0100, L500.4050, L501.9520, L506.1001 #### [facility] [address] [place], [address] Creatinine [Mass/Vol] 1.02 mg/dL Normal 0.70-1.20 [facility] Comment on above: Performed By: #### L 100.0100, L500.4050, L501.9520, L506.1001 #### [facility] [address] [place], [address] GAP 11 Normal 5-15 [facility] Comment on above: Performed By: #### L 100.0100, L500.4050, L501.9520, L506.1001 #### [facility] [address] [place], [address] GFR/1.73 sq M.predicted among non-blacks MDRD (S/P/Bld) [Vol rate/Area] 56 mL/min/{1.73_m2} Low >60 [facility] Comment on above: Result Comment: mL/m in/1.73m2 CKD-EPI Creatinine Equation (2020) Performed By: #### L 100.0100, L500.4050, L501.9520, L506.1001 #### [facility] [address] [place], [address] Globulin (S) [Mass/Vol] 2.6 g/dL Normal 2.2-4.2 [facility] Comment on above: Performed By: #### L 100.0100, L500.4050, L501.9520, L506.1001 #### [facility] [address] [place], [address] Glucose [Mass/Vol] 159 mg/dL High 70-99 [facility] Comment on above: Performed By: #### L 100.0100, L500.4050, L501.9520, L506.1001 #### [facility] [address] [place], [address] Potassium [Moles/Vol] 3.7 mmol/L Normal 3.3-5.1 [facility] Comment on above: Performed By: #### L 100.0100, L500.4050, L501.9520, L506.1001 #### [facility] [address] [place], [address] Sodium [Moles/Vol] 134 mmol/L Normal 133-145 [facility] Comment on above: Performed By: #### L 100.0100, L500.4050, L501.9520, L506.1001 #### [facility] [address] [place], [address] T PROT 6.9 g/dL Normal 5.9-8.4 [facility] Comment on above: Performed By: #### L 100.0100, L500.4050, L501.9520, L506.1001 #### [facility] [address] [place], [address] Urea nitrogen [Mass/Vol] 33 mg/dL High 4-19 [facility] Comment on above: Performed By: #### L 100.0100, L500.4050, L501.9520, L506.1001 #### [facility] [address] [place], [address] Eosinophil percentageOrdered By: Hussein Alaniz on 08-26-2025 Eosinophils/100 WBC (Bld) 0.7 % 0-5 [facility] Erythrocyte distribution wid th ratioOrdered By: Hussein Alaniz on 08-26-2025 Erythrocyte distribution width (RBC) [Ratio] 14.6 % 11.6-14.6 [facility] Erythrocyte distribution wid th standard deviationOrdered By: Hussein Alaniz on 08-26-2025 Erythrocyte distribution width (RBC) [Ratio] 48.6 fl High 35.1-43.9 [facility] Glomerular filtration rate ( GFR) estimation/1.73 sq m using serum, plasma, or whole bOrdered By: Hussein Alaniz on 08-26-2025 GFR/1.73 sq M.predicted among non-blacks MDRD (S/P/Bld) [Vol rate/Area] 56 mL/min/{1.73_m2} Low >60 [facility] Comment on above: mL/min/1.73m2 CKD-EP I Creatinine Equation (2020) Hematocrit Auto (Bld) [Volum e fraction]Ordered By: Hussein Alaniz on 08-26-2025 Hematocrit (Bld) [Volume fraction] 34.9 % Low 37-47 [facility] Hemoglobin measurementOrdere d By: Hussein Alaniz on 08-26-2025 Hemoglobin (Bld) [Mass/Vol] 11.6 g/dL Low 12.0-15.0 [facility] Immature granulocytes/100 WB C Auto (Bld)Ordered By: Hussein Alaniz on 08-26-2025 Immature granulocytes/100 WBC (Bld) 1.100 % High 0.0-0.9 [facility] Comment on above: IG% - Immature Granu locytes (promyelocytes, myelocytes and metamyelocytes) > 1% indicates that a LEFT SHIFT is Present. Laboratory - Chemistry and C hemistry - challengeOrdered By: Hussein Alaniz on 08-26-2025 AST [Catalytic activity/Vol] 16 U/L <32 [facility] MCV (mean corpuscular volume ) determinationOrdered By: Hussein Alaniz on 08-26-2025 MCV (RBC) [Entitic vol] 91.1 fL 81-99 [facility] Mean corpuscular hemoglobin (MCH) determinationOrdered By: Hussein Alaniz 08-26-2025 MCH (RBC) [Entitic mass] 30.3 pg 27.0-32.0 [facility] Mean corpuscular hemoglobin concentration (MCHC) determinationOrdered By: Hussein Alaniz 08-26-2025 MCHC (RBC) [Mass/Vol] 33.2 g/dL 32-36 [facility] Mean platelet volume determi nationOrdered By: Hussein Alaniz on 08-26-2025 Platelet mean volume (Bld) [Entitic vol] 8.6 fL 6.2-12.0 [facility] Monocyte percentageOrdered B y: Hussein Alaniz on 08-26-2025 Monocytes/100 WBC (Bld) 7.1 % 0-10 [facility] Neutrophil percentageOrdered By: Hussein Alaniz on 08-26-2025 Neutrophils/100 WBC (Bld) 68.1 % 47-70 [facility] Nucleated red blood cell per centageOrdered By: Hussein Alaniz on 08-26-2025 Nucleated RBC/100 WBC (Bld) [Ratio] 0 % 0-5 [facility] Platelet countOrdered By: Brian Alaniz on 08-26-2025 Platelets (Bld) [#/Vol] 427 10*3/uL 150-450 [facility] Potassium measurement (mass/ volume)Ordered By: Hussein Alaniz on 08-26-2025 Potassium (Unsp spec) [Mass/Vol] 3.7 mmol/L 3.3-5.1 [facility] RBC Auto (Bld) [#/Vol]Ordere d By: Hussein Alaniz on 08-26-2025 RBC (Bld) [#/Vol] 3.83 10*6/uL Low 4.2-5.4 [facility] Serum creatinine measurement (mass/volume)Ordered By: Hussein Alaniz on 08-26-2025 Creatinine [Mass/Vol] 1.02 mg/dL 0.70-1.20 [facility] Serum globulin measurementOr dered By: Hussein Alaniz 08-26-2025 Globulin (S) [Mass/Vol] 2.6 g/dL 2.2-4.2 [facility] Serum glucose measurement (m ass/volume)Ordered By: Hussein Alaniz on 08-26-2025 Glucose [Mass/Vol] 159 mg/dL High 70-99 [facility] Serum or plasma alanine bowens otransferase (ALT) measurementOrdered By: Hussein Alanzi on 08-26-2025 ALT [Catalytic activity/Vol] 15 U/L <35 [facility] Serum or plasma albumin imani urement (mass/volume)Ordered By: Hussein Alaniz on 08-26-2025 Albumin [Mass/Vol] 4.3 g/dL 3.4-4.8 [facility] Serum or plasma albumin/glob ulin mass ratioOrdered By: Hussein Alaniz 08-26-2025 Albumin/Globulin [Mass ratio] 1.7 {ratio} 0.9-2.4 [facility] Serum or plasma alkaline mary ann sphatase measurementOrdered By: Hussein Alaniz on 08-26-2025 ALP [Catalytic activity/Vol] 43 U/L 35-104 [facility] Serum or plasma calcium imani urement (mass/volume)Ordered By: Hussein Alaniz on 08-26-2025 Calcium [Mass/Vol] 9.0 mg/dL 7.6-11.0 [facility] Serum or plasma urea nitroge n measurement (mass/volume)Ordered By: Hussein Alaniz on 08-26-2025 Urea nitrogen [Mass/Vol] 33 mg/dL High 4-19 [facility] Sodium levelOrdered By: Hussein Alaniz on 08-26-2025 Sodium [Moles/Vol] 134 mmol/L 133-145 [facility] TSH DL <= 0.005 mIU/L QnOrde red By: Hussein Alaniz on 08-26-2025 TSH Qn 1.070 uIU/mL 0.300-4.200 [facility] Thyroid Stim Hormone (TSH)on 08-26-2025 TSH 1.070 uIU/mL Normal 0.300-4.200 [facility] Comment on above: Performed By: #### L 100.0100, L500.4050, L501.9520, L506.1001 ####[facility] [address] [place], [place], [id number] Total proteinOrdered By: Hussein Alaniz on 08-26-2025 Protein [Mass/Vol] 6.9 g/dL 5.9-8.4 [facility] Vitamin D,25 Hydroxyon 08-26 Vitamin D 25-OH 21.3 ng/mL Low 30-100 [facility] Comment on above: Result Comment: Isabell min D Status Deficiency: <20 ng/mL (50nmol/L) Insufficiency: 20-30 ng/mL (50-75 nmol/L) Sufficiency: 30-100 ng/mL (75-250 nmol/L) Toxicity: >100 ng/mL (>250 nmol/L) Performed By: #### L 100.0100, L500.4050, L501.9520, L506.1001 ####[facility] [address] [place], [address] White blood cell (WBC) count Ordered By: Hussein Alaniz on 08-26-2025 WBC (Bld) [#/Vol] 10.0 10*3/uL 4.4-11.0 [facility] Duplex ultrasound of carotid artery reportOrdered By: Reji Clark on 08-23-2025 Study report [facility] [address] [place] [address] Carotid Duplex Ultrasound 08/20/25 1312 MR#: [id number] Acct: [id number] Name: BRENDEN JUNIOR Rep #:[id number] : 1945 79 From: Reji Hernández Attending Dr: SONYA Starr Stat us: REG CLI Ordering Dr: Bibi Nicholas Date: Location: CVS Sex: F C Admitted: Reason For Study [...] artery. There is heterogeneous, irregular atherosclerotic plaque notedin the left bulb. Procedure Carotid Duplex 65030. This is a Carotid Duplex examination using B-mode, color flow and specral Doppler. The exam was diagnostic. Exam performed in department. VL/Carotid Duplex Ultrasound Interpretation Summary Severe (>70%) stenosis right extracranial internal carotid. Mild (<50%) stenosis left extracranial internal carotid. Patent and antegrade vertebrals bilaterally. Ordering Physician: Bibi Nicholas Referring Physician: Hussein Alaniz Chi Performed By: Thai Martínez, T 08/23/25928 Date _ Reji Clark MD CC: SONYA Starr; Dr. Hussein Alaniz MD ~ Date Dictated: 08/20/251311 Date Transcribed: 08/23/25928 [employer] Recovery: Signed [facility] Work Phone: Carotid Duplex Ultrasoundon 08-20-2025 Carotid Duplex Ultrasound [facility] [address] [place] [address] Carotid Duplex Ultrasound 08/20/251311 MR#: [id number] Acct: [id number] Name: BRENDEN JUNIOR Rep #: [id number] : 1945 79 From: Reji Clark MD Attending Dr: SONYA Starr Status: REG CLI Ordering Dr: Bibi Nicholas Date: 08/20/25 Location: CVS Sex: F C Admitted: Reason For Study [...] in the left bulb. Procedure Carotid Duplex 79048. This is a Carotid Duplex examination using B-mode, color flow and specral Doppler. The exam was diagnostic. Exam performed in department. VL/Carotid Duplex Ultrasound Interpretation Summary Severe (>70%) stenosis right extracranial internal carotid. Mild (<50%) stenosis left extracranial internal carotid. Patent and antegrade vertebrals bilaterally. Ordering Physician: Bibi Nicholas Referring Physician: Hussein Alaniz Chi Performed By: Thai Martínez, T 08/23/25928 Date Reji Clark MD CC: SONYA Starr; Dr. 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[employer] Recovery: Signed Normal [facility] Laboratory - Chemistry and C hemistry - challengeOrdered By: Cecille Smith on 08-18-2025 Bilirubin Ql (U) Negative [facility] Glucose Ql (U) Negative [facility] Ketones Ql (U) Negative [facility] pH (U) 8.5 [pH] [facility] Specific gravity (U) [Rel density] 1.010 [facility] Urobilinogen (U) [Mass/Vol] Negative [facility] Laboratory - Hematology and Cell countsOrdered By: Cecille Smith on 08-18-2025 Hemoglobin Ql (U) Trace [facility] - UrinalysisOrder ed By: Cecille Smith on 08-18-2025 Nitrite Ql (U) Positive [facility] Protein Ql (U) Trace [facility] MR/BMS.Karrie 08-18-2025 MR/BMS.CAROLINE [facility] [address] [place] [address], [address] [place] [address] OFFICE VISIT Date of Service: 08/18/25 MR#: [id number] Acct: [id number] Name: BRENDEN JUNIOR Rep #: [id number] : 1945 Provider: Dr. Cecille Shah i, MD Age/Sex: 79/F Location: 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 S (more content not included)... Normal [facility] No Panel InformationOrdered By: Cecille Smith on 08-18-2025 Urine Bacteria Small [facility] Urine Leukocytes Positive [facility] Urine Microscopic RBC None Seen [facility] Urine Microscopic WBC Moderate [facility] Urine Non-Hemolyzed Blood Negative [facility] Re-Evaluation - PT (1)on Re-Evaluation - PT (1) [facility] Physical [facility] [address] [place] [address]. [address] [place] [address] / REEVALUATION / MEDICARE RECERTIFICATION PHYSICAL THERAPY MR#: [id number] Acct: [id number] Name: BRENDEN JUNIOR Rep #: [id number] : 1945 79 From: Robby Frank DPT Referring Dr.: SONYA Starr Status:REG RCR Insurance: MEDICARE PART A B [employer] Re-Evaluation Intro: Bibi Nicholas, PA, It has been my pleasure to treat [...] do not hesitate to contact me at [phone] by phone or if you have questions or concerns regarding this new plan of care! Sincerely, Robby Frank DPT 08/16/25 1142 CC: SONYA Starr; Dr. Hussein Alaniz MD CLS Signed For Medicare only, by signing this I certify the plan of care. Physicians Signature Date Normal [facility] Inital Evaluation (1) - PTon 07-01-2025 Inital Evaluation (1) - PT [facility] [address] [place] [address]. [address] [place] [id number] / REHABILITATION SERVICES INITIAL EVALUATION MR#: [id number] Acct: [id number] Name: BRENDEN JUNIOR Rep #: [id number] : 1945 79 From: Robby Frank DPT [...] to be FAXED BACK to us at [phone] for Medicare purposes. For Medicare only, by signing this I certify the plan of care. Please let me know if there are questions or concerns regarding this plan of care. Physician Signature: Date: 07/01/25 1234 CC: SONYA Starr; Dr. Hussein Alaniz MD CLS Signed Normal [facility] Absolute lymphocyte countOrd ered By: Hussein Alaniz on 06-18-2025 Lymphocytes Auto (Unsp spec) [#/Vol] 2.31 10*3/uL 0.83-4.51 [facility] Absolute neutrophil countOrd ered By: Hussein Alaniz on 06-18-2025 Neutrophils (Bld) [#/Vol] 3.1 10*3/uL 2.0-7.7 [facility] Anion gap in Serum or Plasma Ordered By: Hussein Alaniz on 06-18-2025 Anion gap [Moles/Vol] 12 mmol/L 5-15 [facility] Automated lymphocyte count a s percentage of total leukocytesOrdered By: Hussein Alaniz on 06-18-2025 Lymphocytes/100 WBC Auto (Unsp spec) 36.3 % 19-41 [facility] BUN/creatinine ratioOrdered By: Hussein Alaniz on 06-18-2025 Urea nitrogen/Creatinine [Mass ratio] 28.9 mg/mg High 10-20 [facility] Basophil percentageOrdered B y: Hussein Alaniz on 06-18-2025 Basophils/100 WBC (Bld) 0.9 % 0-1 [facility] Bilirubin, totalOrdered By: Hussein Alaniz on 06-18-2025 Bilirubin [Mass/Vol] 0.27 mg/dL 0.00-1.30 [facility] CBC W/Diff, Automatedon 06-01 Absolute Lymph 2.31 X10 3/uL Normal 0.83-4.51 [facility] Comment on above: Performed By: #### L 100.0100, L501.9520, L500.4050, L503.0106 ####[facility] [address] [place], [address] Absolute Neut 3.1 X10 3/uL Normal 2.0-7.7 [facility] Comment on above: Performed By: #### L 100.0100, L501.9520, L500.4050, L503.0106 ####[facility] [address] [place], [address] Basophils/100 WBC (Bld) 0.9 % Normal 0-1 [facility] Comment on above: Performed By: #### L 100.0100, L501.9520, L500.4050, L503.0106 ####[facility] [address] [place], [address] Eosinophils/100 WBC (Bld) 2.8 % Normal 0-5 [facility] Comment on above: Performed By: #### L 100.0100, L501.9520, L500.4050, L503.0106 ####[facility] [address] [place], [address] Erythrocyte distribution width (RBC) [Ratio] 14.3 % Normal 11.6-14.6 [facility] Comment on above: Performed By: #### L 100.0100, L501.9520, L500.4050, L503.0106 ####[facility] [address] [place], [address] Hematocrit (Bld) [Volume fraction] 33.9 % Low 37-47 [facility] Comment on above: Performed By: #### L 100.0100, L501.9520, L500.4050, L503.0106 ####[facility] [address] [place], [address] Hemoglobin (Bld) [Mass/Vol] 11.3 g/dL Low 12.0-15.0 [facility] Comment on above: Performed By: #### L 100.0100, L501.9520, L500.4050, L503.0106 ####[facility] [address] [place], [address] IG% 0.500 Normal 0.0-0.9 [facility] Comment on above: Result Comment: IG% - Immature Granulocytes (promyelocytes, myelocytes and metamyelocytes) > 1% indicates that a LEFT SHIFT is Present. Performed By: #### L 100.0100, L501.9520, L500.4050, L503.0106 ####[facility] [address] [place], [address] Lymphocytes/100 WBC (Bld) 36.3 % Normal 19-41 [facility] Comment on above: Performed By: #### L 100.0100, L501.9520, L500.4050, L503.0106 ####[facility] [address] [place], [address] MCH (RBC) [Entitic mass] 30.5 pg Normal 27.0-32.0 [facility] Comment on above: Performed By: #### L 100.0100, L501.9520, L500.4050, L503.0106 ####[facility] [address] [place], [address] MCHC (RBC) [Mass/Vol] 33.3 g/dL Normal 32-36 [facility] Comment on above: Performed By: #### L 100.0100, L501.9520, L500.4050, L503.0106 ####[facility] [address] [place], [address] MCV (RBC) [Entitic vol] 91.6 fL Normal 81-99 [facility] Comment on above: Performed By: #### L 100.0100, L501.9520, L500.4050, L503.0106 ####[facility] [address] [place], [address] Monocytes/100 WBC (Bld) 10.5 % High 0-10 [facility] Comment on above: Performed By: #### L 100.0100, L501.9520, L500.4050, L503.0106 ####[facility] [address] [place], [address] Neutrophils/100 WBC (Bld) 49.0 % Normal 47-70 [facility] Comment on above: Performed By: #### L 100.0100, L501.9520, L500.4050, L503.0106 ####[facility] [address] [place], [address] Nucleated RBC (Bld) [#/Vol] 0 10*3/uL Normal 0-5 [facility] Comment on above: Performed By: #### L 100.0100, L501.9520, L500.4050, L503.0106 ####[facility] [address] [place], [address] Platelet mean volume (Bld) [Entitic vol] 8.5 fL Normal 6.2-12.0 [facility] Comment on above: Performed By: #### L 100.0100, L501.9520, L500.4050, L503.0106 ####[facility] [address] [place], [address] Platelets (Bld) [#/Vol] 407 10*3/uL Normal 150-450 [facility] Comment on above: Performed By: #### L 100.0100, L501.9520, L500.4050, L503.0106 ####[facility] [address] [place], [address] RBC (Bld) [#/Vol] 3.70 10*6/uL Low 4.2-5.4 [facility] Comment on above: Performed By: #### L 100.0100, L501.9520, L500.4050, L503.0106 ####[facility] [address] [place], [address] RDW SD 48.0 fl High 35.1-43.9 [facility] Comment on above: Performed By: #### L 100.0100, L501.9520, L500.4050, L503.0106 ####[facility] [address] [place], [address] WBC (Bld) [#/Vol] 6.4 10*3/uL Normal 4.4-11.0 [facility] Comment on above: Performed By: #### L 100.0100, L501.9520, L500.4050, L503.0106 ####[facility] [address] [place], [address] Carbon dioxide, total [Moles /volume] in Central venous bloodOrdered By: Hussein Alaniz on 06-18-2025 CO2 [Moles/Vol] 23.0 mmol/L 21.0-32.0 [facility] Chloride assayOrdered By: Brian Alaniz on 06-18-2025 Chloride [Moles/Vol] 98 mmol/L 98-108 [facility] Comprehensive Metabolic Prof ilon 06-18-2025 Albumin [Mass/Vol] 4.1 g/dL Normal 3.4-4.8 [facility] Comment on above: Performed By: #### L 100.0100, L501.9520, L500.4050, L503.0106 ####[facility] [address] [place], [address] Albumin/Globulin [Mass ratio] 1.6 {ratio} Normal 0.9-2.4 [facility] Comment on above: Performed By: #### L 100.0100, L501.9520, L500.4050, L503.0106 ####[facility] [address] [place], [address] ALK PHOS 54 U/L Normal 35-104 [facility] Comment on above: Performed By: #### L 100.0100, L501.9520, L500.4050, L503.0106 ####[facility] [address] [place], [address] ALT [Catalytic activity/Vol] 19 U/L Normal <=34 [facility] Comment on above: Performed By: #### L 100.0100, L501.9520, L500.4050, L503.0106 ####[facility] [address] [place], [address] AST [Catalytic activity/Vol] 23 U/L Normal <=31 [facility] Comment on above: Performed By: #### L 100.0100, L501.9520, L500.4050, L503.0106 ####[facility] [address] [place], [address] Bilirubin [Mass/Vol] 0.27 mg/dL Normal 0.00-1.30 [facility] Comment on above: Performed By: #### L 100.0100, L501.9520, L500.4050, L503.0106 ####[facility] [address] [place], [address] BUN/CRE 28.9 RATIO High 10-20 [facility] Comment on above: Performed By: #### L 100.0100, L501.9520, L500.4050, L503.0106 ####[facility] [address] [place], [address] Calcium [Mass/Vol] 9.0 mg/dL Normal 7.6-11.0 [facility] Comment on above: Performed By: #### L 100.0100, L501.9520, L500.4050, L503.0106 ####[facility] [address] [place], [address] Chloride [Moles/Vol] 98 mmol/L Normal 98-108 [facility] Comment on above: Performed By: #### L 100.0100, L501.9520, L500.4050, L503.0106 ####[facility] [address] [place], [address] CO2 [Moles/Vol] 23.0 mmol/L Normal 21.0-32.0 [facility] Comment on above: Performed By: #### L 100.0100, L501.9520, L500.4050, L503.0106 ####[facility] [address] [place], [address] Creatinine [Mass/Vol] 1.23 mg/dL High 0.70-1.20 [facility] Comment on above: Performed By: #### L 100.0100, L501.9520, L500.4050, L503.0106 ####[facility] [address] [place], [address] GAP 12 Normal 5-15 [facility] Comment on above: Performed By: #### L 100.0100, L501.9520, L500.4050, L503.0106 ####[facility] [address] [place], [address] GFR/1.73 sq M.predicted among non-blacks MDRD (S/P/Bld) [Vol rate/Area] 44 mL/min/{1.73_m2} Low >60 [facility] Comment on above: Result Comment: mL/m in/1.73m2 CKD-EPI Creatinine Equation (2021) Performed By: #### L 100.0100, L501.9520, L500.4050, L503.0106 ####[facility] [address] [place], [address] Globulin (S) [Mass/Vol] 2.6 g/dL Normal 2.2-4.2 [facility] Comment on above: Performed By: #### L 100.0100, L501.9520, L500.4050, L503.0106 ####[facility] [address] [place], [address] Glucose [Mass/Vol] 113 mg/dL High 70-99 [facility] Comment on above: Performed By: #### L 100.0100, L501.9520, L500.4050, L503.0106 ####[facility] [address] [place], [address] Potassium [Moles/Vol] 3.9 mmol/L Normal 3.3-5.1 [facility] Comment on above: Performed By: #### L 100.0100, L501.9520, L500.4050, L503.0106 ####[facility] [address] [place], [address] Sodium [Moles/Vol] 133 mmol/L Normal 133-145 [facility] Comment on above: Performed By: #### L 100.0100, L501.9520, L500.4050, L503.0106 ####[facility] [address] [place], [address] T PROT 6.8 g/dL Normal 5.9-8.4 [facility] Comment on above: Performed By: #### L 100.0100, L501.9520, L500.4050, L503.0106 ####[facility] [address] [place], [address] Urea nitrogen [Mass/Vol] 36 mg/dL High 4-19 [facility] Comment on above: Performed By: #### L 100.0100, L501.9520, L500.4050, L503.0106 ####[facility] [address] [place], [address] Eosinophil percentageOrdered By: Hussein Alaniz 06-18-2025 Eosinophils/100 WBC (Bld) 2.8 % 0-5 [facility] Erythrocyte distribution wid th ratioOrdered By: [facility] 06-[facility]25 Erythrocyte distribution width (RBC) [Ratio] 14.3 % 11.6-14.6 [facility] Erythrocyte distribution wid th standard deviationOrdered By: Hussein Colin 06-18-2025 Erythrocyte distribution width (RBC) [Ratio] 48.0 fl High 35.1-43.9 [facility] Glomerular filtration rate ( GFR) estimation/1.73 sq m using serum, plasma, or whole bOrdered By: Hussein Alaniz 06-18-2025 GFR/1.73 sq M.predicted among non-blacks MDRD (S/P/Bld) [Vol rate/Area] 44 mL/min/{1.73_m2} Low >60 [facility] Comment on above: mL/min/1.73m2 CKD-EP I Creatinine Equation (2020) Hematocrit Auto (Bld) [Volum e fraction]Ordered By: Hussein Alaniz 06-18-2025 Hematocrit (Bld) [Volume fraction] 33.9 % Low 37-47 [facility] Hemoglobin measurementOrdere d By: Hussein Alaniz 06-18-2025 Hemoglobin (Bld) [Mass/Vol] 11.3 g/dL Low 12.0-15.0 [facility] Immature granulocytes/100 WB C Auto (Bld)Ordered By: Hussein Alaniz 06-18-2025 Immature granulocytes/100 WBC (Bld) 0.500 % 0.0-0.9 [facility] Comment on above: IG% - Immature Granu locytes (promyelocytes, myelocytes and metamyelocytes) > 1% indicates that a LEFT SHIFT is Present. Laboratory - Chemistry and C hemistry - challengeOrdered By: Hussein Alaniz 06-18-2025 AST [Catalytic activity/Vol] 23 U/L <32 [facility] MCV (mean corpuscular volume ) determinationOrdered By: Hussein Fraustook on 06-18-2025 MCV (RBC) [Entitic vol] 91.6 fL 81-99 [facility] Mean corpuscular hemoglobin (MCH) determinationOrdered By: Hussein Alaniz on 06-18-2025 MCH (RBC) [Entitic mass] 30.5 pg 27.0-32.0 [facility] Mean corpuscular hemoglobin concentration (MCHC) determinationOrdered By: Hussein Alaniz on 06-18-2025 MCHC (RBC) [Mass/Vol] 33.3 g/dL 32-36 [facility] Mean platelet volume determi nationOrdered By: Hussein Alaniz on 06-18-2025 Platelet mean volume (Bld) [Entitic vol] 8.5 fL 6.2-12.0 [facility] Monocyte percentageOrdered B y: Hussein Alaniz on 06-18-2025 Monocytes/100 WBC (Bld) 10.5 % High 0-10 [facility] Neutrophil percentageOrdered By: Hussein Colin on 06-18-2025 Neutrophils/100 WBC (Bld) 49.0 % 47-70 [facility] Nucleated red blood cell per centageOrdered By: Hussein Alaniz on 06-18-2025 Nucleated RBC/100 WBC (Bld) [Ratio] 0 % 0-5 [facility] Platelet countOrdered By: Brian Alaniz on 06-18-2025 Platelets (Bld) [#/Vol] 407 10*3/uL 150-450 [facility] Potassium measurement (mass/ volume)Ordered By: Hussein [place] on 06-18-2025 Potassium (Unsp spec) [Mass/Vol] 3.9 mmol/L 3.3-5.1 [facility] Protein, Urine (Random)on Protein (U) [Mass/Vol] 33.0 mg/dL High 0.0-12.0 [facility] Comment on above: Performed By: #### M 100.230 #### [facility] [address] [place], [place] [address] [place], [address] RBC Auto (Bld) [#/Vol]Ordere d By: uHssein Alaniz on 06-18-2025 RBC (Bld) [#/Vol] 3.70 10*6/uL Low 4.2-5.4 [facility] Serum creatinine measurement (mass/volume)Ordered By: Hussein Alaniz 06-18-2025 Creatinine [Mass/Vol] 1.23 mg/dL High 0.70-1.20 [facility] Serum globulin measurementOr dered By: Hussein Alaniz 06-18-2025 Globulin (S) [Mass/Vol] 2.6 g/dL 2.2-4.2 [facility] Serum glucose measurement (m ass/volume)Ordered By: Hussein Alaniz 06-18-2025 Glucose [Mass/Vol] 113 mg/dL High 70-99 [facility] Serum or plasma alanine bowens otransferase (ALT) measurementOrdered By: Hussein Alaniz 06-18-2025 ALT [Catalytic activity/Vol] 19 U/L <35 [facility] Serum or plasma albumin imani urement (mass/volume)Ordered By: Hussein Alaniz 06-18-2025 Albumin [Mass/Vol] 4.1 g/dL 3.4-4.8 [facility] Serum or plasma albumin/glob ulin mass ratioOrdered By: Hussein Alaniz 06-18-2025 Albumin/Globulin [Mass ratio] 1.6 {ratio} 0.9-2.4 [facility] Serum or plasma alkaline mary ann sphatase measurementOrdered By: Hussein Alaniz 06-18-2025 ALP [Catalytic activity/Vol] 54 U/L 35-104 [facility] Serum or plasma calcium imani urement (mass/volume)Ordered By: Hussein Alaniz 06-18-2025 Calcium [Mass/Vol] 9.0 mg/dL 7.6-11.0 [facility] Serum or plasma urea nitroge n measurement (mass/volume)Ordered By: Hussein Alaniz 06-18-2025 Urea nitrogen [Mass/Vol] 36 mg/dL High 4-19 [facility] Sodium levelOrdered By: Hussein Alaniz 06-18-2025 Sodium [Moles/Vol] 133 mmol/L 133-145 [facility] TSH DL <= 0.005 mIU/L QnOrde red By: Hussein Alaniz on 06-18-2025 TSH Qn 1.900 uIU/mL 0.300-4.200 [facility] Thyroid Stim Hormone (TSH)on 06-18-2025 TSH 1.900 uIU/mL Normal 0.300-4.200 [facility] Comment on above: Performed By: #### L 100.0100, L501.9520, L500.4050, L503.0106 ####[facility] [address] [place], [address] Total proteinOrdered By: Hussein Alaniz on 06-18-2025 Protein [Mass/Vol] 6.8 g/dL 5.9-8.4 [facility] Urine protein measurement (m ass/volume)Ordered By: Hussein Alaniz on 06-18-2025 Protein (U) [Mass/Vol] 33.0 mg/dL High 0.0-12.0 [facility] Vitamin B12on 06-18-2025 Cobalamin (Vitamin B12) [Mass/Vol] 363 pg/mL Normal 180-914 [facility] Comment on above: Performed By: #### L 100.0100, L501.9520, L500.4050, L503.0106 ####[facility] [address] [place], [place], [address] Vitamin B12 ser/plasOrdered By: Hussein Alaniz on 06-18-2025 Cobalamin (Vitamin B12) [Mass/Vol] 363 pg/mL 180-914 [facility] White blood cell (WBC) count Ordered By: Hussein Alaniz on 06-18-2025 WBC (Bld) [#/Vol] 6.4 10*3/uL 4.4-11.0 [facility] MR/BMS.Alexandrea 06-17-2025 MR/BMS.MARYAM [facility] Vascular Surgery [address] [place], [place] [address] OFFICE VISIT Date of Service: 06/18/25 MR#: [id number] Acct: [id number] Name: BRENDEN JUNIOR Rep #: [id number] : 1945 Provider: SONYA Starr Age/Sex: 79/F Location: [facility] Status: Signed Intake Vital Signs 03/01/25 12:57 [...] mg tablet 10 mg PO DAILY 06/18/24 06/18/25 H istory fluoxetine 20 mg tablet 20 [...] you fallen in the past year?: Yes PFSH Medical History Rosacea Dog bite Laceration [...] ankles whic (more content not included)... Normal [facility] NCS and/or EMG Patienton NCS and/or EMG Patient [facility] Pulmonary Services/Neurology [address] [place] [address] MR#: [id number] Acct: [id number] Name: BRENDEN JUNIOR Rep #: [id number] : 1945 79 From: Magdy Rocha MD Referring Dr: Hussein Alaniz MD Status: REG I Location: [facility] Date: 06/09/25 Sex: F C NCS [...] Multi Select Codes Neurology Neurology Interp Codes: 54664-93 Musc test done w/n test comp (interp) (2) and 26109-94 Nrv cndj test 11-12 studies (interp) 06/09/25 1428 Date Magdy Rocha MD CC: Dr. Magdy Rocha MD; Dr. Hussein Alaniz MD Date Dictated: 06/09/251424 Date Transcribed: 06/09/251424 [employer] Recovery: CALVIN Signed Normal [facility] Anion gap in Serum or Plasma Ordered By: Hussein Alaniz on 05-25-2025 Anion gap [Moles/Vol] 11 mmol/L 5-15 [facility] Ankle Brachial Indexon 05-25 Ankle Brachial Index [facility] Cardiovascular Services [address] [place] [address] Ankle Brachial Index 05/25/25 1258 MR#: [id number] Acct: [id number] Name: BRENDEN JUNIOR Rep #: [id number] : 1945 79 From: Reji Clark MD Attending Dr: Dr. Hussein Alaniz MD Status: REG CLI Ordering Dr: Hussein Alaniz MD Date: 05/25/25 Location: [facility] Sex: F C Admitted: Reason For Study [...] moderately diminished at rest. Ordering Physician: Hussein Alnaiz Chi Referring Physician: HUSSEIN ALANIZ CHI, MD Performed By: Thai Martínez, T 05/25/251757 Date Reji Clark MD CC: Dr. Hussein Alaniz MD Date Dictated: 05/25/258 Date Transcribed: 05/25/251757 [employer] Recovery: Signed Normal [facility] Arterial study reportOrdered By: Reji Clark on 05-25-2025 Noninvasive arteriosclerosis study report [facility] Cardiovascular Services [address] [place] [address] Ankle Brachial Index 05/25/25 1258 MR#: [id number] Acct: [id number] Name: BRENDEN JUNIOR Rep #:[id number] : 1945 79 From: Reji Hernández Attending Dr: Dr. Hussein Alaniz MD Status: REG CLI Ordering Dr: Hussein Alaniz MD Date: Location: [facility] Sex: F C Admitted: Reason For Study [...] CHI, MD Performed By: Thai Martínez, RVT 05/25/25 1758 Date _ Reji Clark MD CC: Dr. Hussein Alaniz MD ~ Date Dictated: 05/25/25 1258 Date Transcribed: 05/25/251757 [employer] Recovery: Signed [facility] Work Phone: BUN/creatinine ratioOrdered By: Hussein Alaniz on 05-25-2025 Urea nitrogen/Creatinine [Mass ratio] 26.3 mg/mg High 10-20 [facility] Basic Metabolic Profile (BMP )on 05-25-2025 BUN/CRE 26.3 RATIO High - [facility] Comment on above: Performed By: #### L 500.2500 ####[facility] [address] [place], [address] Calcium [Mass/Vol] 9.6 mg/dL Normal 7.6-11.0 [facility] Comment on above: Performed By: #### L 500.2500 ####[facility] [address] [place], [address] Chloride [Moles/Vol] 98 mmol/L Normal 98-108 [facility] Comment on above: Performed By: #### L 500.2500 ####[facility] [address] [place], [address] CO2 [Moles/Vol] 25.7 mmol/L Normal 21.0-32.0 [facility] Comment on above: Performed By: #### L 500.2500 ####[facility] [address] [place], [address] Creatinine [Mass/Vol] 1.09 mg/dL Normal 0.70-1.20 [facility] Comment on above: Performed By: #### L 500.2500 ####[facility] [address] [place], [address] GAP 11 Normal 5-15 [facility] Comment on above: Performed By: #### L 500.2500 ####[facility] [address] [place], [address] GFR/1.73 sq M.predicted among non-blacks MDRD (S/P/Bld) [Vol rate/Area] 51 mL/min/{1.73_m2} Low >60 [facility] Comment on above: Result Comment: mL/m in/1.73m2 CKD-EPI Creatinine Equation (2020) Performed By: #### L 500.2500 ####[facility] [address] [place], [address] Glucose [Mass/Vol] 84 mg/dL Normal 70-99 [facility] Comment on above: Performed By: #### L 500.2500 ####[facility] [address] [place], [address] Potassium [Moles/Vol] 4.0 mmol/L Normal 3.3-5.1 [facility] Comment on above: Performed By: #### L 500.2500 ####[facility] [address] [place], [address] Sodium [Moles/Vol] 135 mmol/L Normal 133-145 [facility] Comment on above: Performed By: #### L 500.2500 ####[facility] [address] [place], [address] Urea nitrogen [Mass/Vol] 29 mg/dL High 4-19 [facility] Comment on above: Performed By: #### L 500.2500 ####[facility] [address] [place], [address] Carbon dioxide, total [Moles /volume] in Central venous bloodOrdered By: Hussein Alaniz on 05-25-2025 CO2 [Moles/Vol] 25.7 mmol/L 21.0-32.0 [facility] Chloride assayOrdered By: Brian Alaniz on 05-25-2025 Chloride [Moles/Vol] 98 mmol/L 98-108 [facility] Glomerular filtration rate ( GFR) estimation/1.73 sq m using serum, plasma, or whole bOrdered By: Hussein Alaniz on 05-25-2025 GFR/1.73 sq M.predicted among non-blacks MDRD (S/P/Bld) [Vol rate/Area] 51 mL/min/{1.73_m2} Low >60 [facility] Comment on above: mL/min/1.73m2 CKD-EP I Creatinine Equation (2020) Potassium measurement (mass/ volume)Ordered By: Hussein Alaniz on 05-25-2025 Potassium (Unsp spec) [Mass/Vol] 4.0 mmol/L 3.3-5.1 [facility] Serum creatinine measurement (mass/volume)Ordered By: Hussein Alaniz on 05-25-2025 Creatinine [Mass/Vol] 1.09 mg/dL 0.70-1.20 [facility] Serum glucose measurement (m ass/volume)Ordered By: Hussein Alaniz on 05-25-2025 Glucose [Mass/Vol] 84 mg/dL 70-99 [facility] Serum or plasma calcium iamni urement (mass/volume)Ordered By: Hussein Alaniz on 05-25-2025 Calcium [Mass/Vol] 9.6 mg/dL 7.6-11.0 [facility] Serum or plasma urea nitroge n measurement (mass/volume)Ordered By: Hussein Alaniz on 05-25-2025 Urea nitrogen [Mass/Vol] 29 mg/dL High 4-19 [facility] Sodium levelOrdered By: Hussein Alaniz on 05-25-2025 Sodium [Moles/Vol] 135 mmol/L 133-145 [facility] Absolute lymphocyte countOrd ered By: Hussein Alaniz on 05-14-2025 Lymphocytes Auto (Unsp spec) [#/Vol] 2.74 10*3/uL 0.83-4.51 [facility] Absolute neutrophil countOrd ered By: Hussein Alaniz on 05-14-2025 Neutrophils (Bld) [#/Vol] 4.6 10*3/uL 2.0-7.7 [facility] Anion gap in Serum or Plasma Ordered By: Hussein Alaniz on 05-14-2025 Anion gap [Moles/Vol] 11 mmol/L 5-15 [facility] Automated lymphocyte count a s percentage of total leukocytesOrdered By: Hussein Alaniz on 05-14-2025 Lymphocytes/100 WBC Auto (Unsp spec) 32.2 % 19-41 [facility] BUN/creatinine ratioOrdered By: Hussein Alaniz on 05-14-2025 Urea nitrogen/Creatinine [Mass ratio] 22.8 mg/mg High 10-20 [facility] Basophil percentageOrdered B y: Hussein Alaniz on 05-14-2025 Basophils/100 WBC (Bld) 0.8 % 0-1 [facility] Bilirubin, totalOrdered By: Hussein Alaniz on 05-14-2025 Bilirubin [Mass/Vol] 0.22 mg/dL 0.00-1.30 [facility] CBC W/Diff, Automatedon 05-02-2024 Absolute Lymph 2.74 X10 3/uL Normal 0.83-4.51 [facility] Comment on above: Performed By: #### M 100.678 #### [facility] [address] [place], [address] Absolute Neut 4.6 X10 3/uL Normal 2.0-7.7 [facility] Comment on above: Performed By: #### M 100.678 #### [facility] [address] [place], [address] Basophils/100 WBC (Bld) 0.8 % Normal 0-1 [facility] Comment on above: Performed By: #### M 100.678 #### [facility] [address] [place], [address] Eosinophils/100 WBC (Bld) 3.4 % Normal 0-5 [facility] Comment on above: Performed By: #### M 100.678 #### [facility] [address] [place], [address] Erythrocyte distribution width (RBC) [Ratio] 14.2 % Normal 11.6-14.6 [facility] Comment on above: Performed By: #### M 100.678 #### [facility] [address] [place], [address] Hematocrit (Bld) [Volume fraction] 35.4 % Low 37-47 [facility] Comment on above: Performed By: #### M 100.678 #### [facility] [address] [place], [address] Hemoglobin (Bld) [Mass/Vol] 11.6 g/dL Low 12.0-15.0 [facility] Comment on above: Performed By: #### M 100.678 #### [facility] [address] [place], [address] IG% 0.500 Normal 0.0-0.9 [facility] Comment on above: Result Comment: IG% - Immature Granulocytes (promyelocytes, myelocytes and metamyelocytes) > 1% indicates that a LEFT SHIFT is Present. Performed By: #### M 100.678 #### [facility] [address] [place], [address] Lymphocytes/100 WBC (Bld) 32.2 % Normal 19-41 [facility] Comment on above: Performed By: #### M 100.678 #### [facility] [address] [place], [address] MCH (RBC) [Entitic mass] 30.4 pg Normal 27.0-32.0 [facility] Comment on above: Performed By: #### M 100.678 #### [facility] [address] [place], [address] MCHC (RBC) [Mass/Vol] 32.8 g/dL Normal 32-36 [facility] Comment on above: Performed By: #### M 100.678 #### [facility] [address] [place], [address] MCV (RBC) [Entitic vol] 92.7 fL Normal 81-99 [facility] Comment on above: Performed By: #### M 100.678 #### [facility] [address] [place], [address] Monocytes/100 WBC (Bld) 9.1 % Normal 0-10 [facility] Comment on above: Performed By: #### M 100.678 #### [facility] [address] [place], [address] Neutrophils/100 WBC (Bld) 54.0 % Normal 47-70 [facility] Comment on above: Performed By: #### M 100.678 #### [facility] [address] [place], [address] Nucleated RBC (Bld) [#/Vol] 0 10*3/uL Normal 0-5 [facility] Comment on above: Performed By: #### M 100.678 #### [facility] [address] [place], [address] Platelet mean volume (Bld) [Entitic vol] 8.7 fL Normal 6.2-12.0 [facility] Comment on above: Performed By: #### M 100.678 #### [facility] [address] [place], [address] Platelets (Bld) [#/Vol] 401 10*3/uL Normal 150-450 [facility] Comment on above: Performed By: #### M 100.678 #### [facility] [address] [place], [address] RBC (Bld) [#/Vol] 3.82 10*6/uL Low 4.2-5.4 [facility] Comment on above: Performed By: #### M 100.678 #### [facility] [address] [place], [address] RDW SD 48.3 fl High 35.1-43.9 [facility] Comment on above: Performed By: #### M 100.678 #### [facility] [address] [place], [address] WBC (Bld) [#/Vol] 8.5 10*3/uL Normal 4.4-11.0 [facility] Comment on above: Performed By: #### M 100.678 #### [facility] [address] [place], [address] Carbon dioxide, total [Moles /volume] in Central venous bloodOrdered By: Hussein Alaniz on 05-14-2025 CO2 [Moles/Vol] 22.0 mmol/L 21.0-32.0 [facility] Chloride assayOrdered By: Brian Alaniz on 05-14-2025 Chloride [Moles/Vol] 98 mmol/L 98-108 [facility] Comprehensive Metabolic Prof ilon 05-14-2025 Albumin [Mass/Vol] 4.1 g/dL Normal 3.4-4.8 [facility] Comment on above: Performed By: #### M 100.678 #### [facility] [address] [place], [address] Albumin/Globulin [Mass ratio] 1.6 {ratio} Normal 0.9-2.4 [facility] Comment on above: Performed By: #### M 100.678 #### [facility] [address] [place], [address] ALK PHOS 50 U/L Normal 35-104 [facility] Comment on above: Performed By: #### M 100.678 #### [facility] [address] [place], [address] ALT [Catalytic activity/Vol] 15 U/L Normal <=34 [facility] Comment on above: Performed By: #### M 100.678 #### [facility] [address] [place], [address] AST [Catalytic activity/Vol] 19 U/L Normal <=31 [facility] Comment on above: Performed By: #### M 100.678 #### [facility] [address] [place], [address] Bilirubin [Mass/Vol] 0.22 mg/dL Normal 0.00-1.30 [facility] Comment on above: Performed By: #### M 100.678 #### [facility] [address] [place], [address] BUN/CRE 22.8 RATIO High 10-20 [facility] Comment on above: Performed By: #### M 100.678 #### [facility] [address] [place], [address] Calcium [Mass/Vol] 9.0 mg/dL Normal 7.6-11.0 [facility] Comment on above: Performed By: #### M 100.678 #### [facility] [address] [place], [address] Chloride [Moles/Vol] 98 mmol/L Normal 98-108 [facility] Comment on above: Performed By: #### M 100.678 #### [facility] [address] [place], [address] CO2 [Moles/Vol] 22.0 mmol/L Normal 21.0-32.0 [facility] Comment on above: Performed By: #### M 100.678 #### [facility] [address] [place], [address] Creatinine [Mass/Vol] 1.16 mg/dL Normal 0.70-1.20 [facility] Comment on above: Performed By: #### M 100.678 #### [facility] [address] [place], [address] GAP 11 Normal 5-15 [facility] Comment on above: Performed By: #### M 100.678 #### [facility] [address] [place], [address] GFR/1.73 sq M.predicted among non-blacks MDRD (S/P/Bld) [Vol rate/Area] 48 mL/min/{1.73_m2} Low >60 [facility] Comment on above: Result Comment: mL/m in/1.73m2 CKD-EPI Creatinine Equation (2020) Performed By: #### M 100.678 #### [facility] [address] [place], [address] Globulin (S) [Mass/Vol] 2.6 g/dL Normal 2.2-4.2 [facility] Comment on above: Performed By: #### M 100.678 #### [facility] [address] [place], [address] Glucose [Mass/Vol] 138 mg/dL High 70-99 [facility] Comment on above: Performed By: #### M 100.678 #### [facility] [address] [place], [address] Potassium [Moles/Vol] 3.7 mmol/L Normal 3.3-5.1 [facility] Comment on above: Performed By: #### M 100.678 #### [facility] [address] [place], [address] Sodium [Moles/Vol] 131 mmol/L Low 133-145 [facility] Comment on above: Performed By: #### M 100.678 #### [facility] [address] [place], [address] T PROT 6.7 g/dL Normal 5.9-8.4 [facility] Comment on above: Performed By: #### M 100.678 #### [facility] [address] [place], [address] Urea nitrogen [Mass/Vol] 26 mg/dL High 4-19 [facility] Comment on above: Performed By: #### M 100.678 #### [facility] [address] [place], [address] Eosinophil percentageOrdered By: Hussein Alaniz on 05-14-2025 Eosinophils/100 WBC (Bld) 3.4 % 0-5 [facility] Erythrocyte distribution wid th ratioOrdered By: Hussein Colin 05-14-2025 Erythrocyte distribution width (RBC) [Ratio] 14.2 % 11.6-14.6 [facility] Erythrocyte distribution wid th standard deviationOrdered By: Hussein Alaniz 05-14-2025 Erythrocyte distribution width (RBC) [Ratio] 48.3 fl High 35.1-43.9 [facility] Glomerular filtration rate ( GFR) estimation/1.73 sq m using serum, plasma, or whole bOrdered By: Hussein Alaniz on 05-14-2025 GFR/1.73 sq M.predicted among non-blacks MDRD (S/P/Bld) [Vol rate/Area] 48 mL/min/{1.73_m2} Low >60 [facility] Comment on above: mL/min/1.73m2 CKD-EP I Creatinine Equation (2020) Hematocrit Auto (Bld) [Volum e fraction]Ordered By: Hussein Alaniz 05-14-2025 Hematocrit (Bld) [Volume fraction] 35.4 % Low 37-47 [facility] Hemoglobin measurementOrdere d By: Hussein Alaniz 05-14-2025 Hemoglobin (Bld) [Mass/Vol] 11.6 g/dL Low 12.0-15.0 [facility] Immature granulocytes/100 WB C Auto (Bld)Ordered By: Hussein Alaniz 05-14-2025 Immature granulocytes/100 WBC (Bld) 0.500 % 0.0-0.9 [facility] Comment on above: IG% - Immature Granu locytes (promyelocytes, myelocytes and metamyelocytes) > 1% indicates that a LEFT SHIFT is Present. Laboratory - Chemistry and C hemistry - challengeOrdered By: Hussein Alaniz 05-14-2025 AST [Catalytic activity/Vol] 19 U/L <32 [facility] MCV (mean corpuscular volume ) determinationOrdered By: Hussein Alaniz 05-14-2025 MCV (RBC) [Entitic vol] 92.7 fL 81-99 [facility] Mean corpuscular hemoglobin (MCH) determinationOrdered By: Hussein Alaniz on 05-14-2025 MCH (RBC) [Entitic mass] 30.4 pg 27.0-32.0 [facility] Mean corpuscular hemoglobin concentration (MCHC) determinationOrdered By: Hussein Alaniz on 05-14-2025 MCHC (RBC) [Mass/Vol] 32.8 g/dL 32-36 [facility] Mean platelet volume determi nationOrdered By: Hussein Alaniz on 05-14-2025 Platelet mean volume (Bld) [Entitic vol] 8.7 fL 6.2-12.0 [facility] Monocyte percentageOrdered B y: Hussein Alaniz on 05-14-2025 Monocytes/100 WBC (Bld) 9.1 % 0-10 [facility] Neutrophil percentageOrdered By: Hussein Aalniz on 05-14-2025 Neutrophils/100 WBC (Bld) 54.0 % 47-70 [facility] Nucleated red blood cell per centageOrdered By: Hussein Alaniz on 05-14-2025 Nucleated RBC/100 WBC (Bld) [Ratio] 0 % 0-5 [facility] Platelet countOrdered By: Brian Alaniz on 05-14-2025 Platelets (Bld) [#/Vol] 401 10*3/uL 150-450 [facility] Potassium measurement (mass/ volume)Ordered By: Hussein Alaniz 05-14-2025 Potassium (Unsp spec) [Mass/Vol] 3.7 mmol/L 3.3-5.1 [facility] RBC Auto (Bld) [#/Vol]Ordere d By: Hussein Alaniz 05-14-2025 RBC (Bld) [#/Vol] 3.82 10*6/uL Low 4.2-5.4 [facility] Serum creatinine measurement (mass/volume)Ordered By: Hussein Alaniz 05-14-2025 Creatinine [Mass/Vol] 1.16 mg/dL 0.70-1.20 [facility] Serum globulin measurementOr dered By: Hussein Alaniz 05-14-2025 Globulin (S) [Mass/Vol] 2.6 g/dL 2.2-4.2 [facility] Serum glucose measurement (m ass/volume)Ordered By: Hussein Alaniz 05-14-2025 Glucose [Mass/Vol] 138 mg/dL High 70-99 [facility] Serum or plasma alanine bowens otransferase (ALT) measurementOrdered By: Hussein Alaniz on 05-14-2025 ALT [Catalytic activity/Vol] 15 U/L <35 [facility] Serum or plasma albumin imani urement (mass/volume)Ordered By: Hussein Alaniz on 05-14-2025 Albumin [Mass/Vol] 4.1 g/dL 3.4-4.8 [facility] Serum or plasma albumin/glob ulin mass ratioOrdered By: Hussein Alaniz on 05-14-2025 Albumin/Globulin [Mass ratio] 1.6 {ratio} 0.9-2.4 [facility] Serum or plasma alkaline mary ann sphatase measurementOrdered By: Hsusein Alaniz on 05-14-2025 ALP [Catalytic activity/Vol] 50 U/L 35-104 [facility] Serum or plasma calcium imani urement (mass/volume)Ordered By: Hussein Alaniz 05-14-2025 Calcium [Mass/Vol] 9.0 mg/dL 7.6-11.0 [facility] Serum or plasma urea nitroge n measurement (mass/volume)Ordered By: Hussein Alaniz 05-14-2025 Urea nitrogen [Mass/Vol] 26 mg/dL High 4-19 [facility] Sodium levelOrdered By: Hussein Alaniz 05-14-2025 Sodium [Moles/Vol] 131 mmol/L Low 133-145 [facility] TSH DL <= 0.005 mIU/L QnOrde red By: Hussein Alaniz on 05-14-2025 TSH Qn 1.460 uIU/mL 0.300-4.200 [facility] Thyroid Stim Hormone (TSH)on 05-14-2025 TSH 1.460 uIU/mL Normal 0.300-4.200 [facility] Comment on above: Performed By: #### M [id number] #### [facility] [place], [address] Total proteinOrdered By: Hussein Alaniz on 05-14-2025 Protein [Mass/Vol] 6.7 g/dL 5.9-8.4 [facility] Vitamin D,25 Hydroxyon 05-14 Vitamin D 25-OH 27.1 ng/mL Low 30-100 [facility] Comment on above: Result Comment: Isabell min D Status Deficiency: <20 ng/mL (50nmol/L) Insufficiency: 20-30 ng/mL (50-75 nmol/L) Sufficiency: 30-100 ng/mL (75-250 nmol/L) Toxicity: >100 ng/mL (>250 nmol/L) Performed By: #### M 100.678 #### [facility] [address] [place], [address] White blood cell (WBC) count Ordered By: Hussein Alaniz on 05-14-2025 WBC (Bld) [#/Vol] 8.5 10*3/uL 4.4-11.0 [facility] Cardiology Visit Reporton Cardiology Visit Report [facility] [address] [place] [address] OFFICE VISIT Date of Service: 03/01/25 MR#: [id number] Acct: [id number] Name: BRENDEN JUNIOR Rep #: [id number] 0 : 1945 Provider: Dr. 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 Normal [facility] Absolute lymphocyte countOrd ered By: Hussein Alaniz on 02-10-2025 Lymphocytes Auto (Unsp spec) [#/Vol] 2.59 10*3/uL 0.83-4.51 [facility] Absolute neutrophil countOrd ered By: Hussein Alaniz on 02-10-2025 Neutrophils (Bld) [#/Vol] 4.3 10*3/uL 2.0-7.7 [facility] Anion gap in Serum or Plasma Ordered By: Hussein Alaniz on 02-10-2025 Anion gap [Moles/Vol] 14 mmol/L 5-15 [facility] Automated lymphocyte count a s percentage of total leukocytesOrdered By: Hussein Alaniz on 02-10-2025 Lymphocytes/100 WBC Auto (Unsp spec) 33.2 % 19-41 [facility] BUN/creatinine ratioOrdered By: Hussein Alaniz on 02-10-2025 Urea nitrogen/Creatinine [Mass ratio] 22.3 mg/mg High 10-20 [facility] Basophil percentageOrdered B y: Husesin Colin on 02-10-2025 Basophils/100 WBC (Bld) 0.6 % 0-1 [facility] Bilirubin, totalOrdered By: Hussein Alaniz on 02-10-2025 Bilirubin [Mass/Vol] 0.25 mg/dL 0.00-1.30 [facility] CBC W/Diff, Automatedon 01-30 Absolute Lymph 2.59 X10 3/uL Normal 0.83-4.51 [facility] Comment on above: Performed By: #### L 501.9985, L500.4050, L506.1000, L100.0100, L501.9520 #### [facility] [address] [place], [address] Absolute Neut 4.3 X10 3/uL Normal 2.0-7.7 [facility] Comment on above: Performed By: #### L [id number], L500.4050, L506.1000, L100.0100, L501.9520 #### [facility] [address] [place], [address] Basophils/100 WBC (Bld) 0.6 % Normal 0-1 [facility] Comment on above: Performed By: #### L 501.9985, L500.4050, L506.1000, L100.0100, L501.9520 #### [facility] [address] [place], [address] Eosinophils/100 WBC (Bld) 2.4 % Normal 0-5 [facility] Comment on above: Performed By: #### L 501.9985, L500.4050, L506.1000, L100.0100, L501.9520 #### [facility] [address] [place], [address] Erythrocyte distribution width (RBC) [Ratio] 14.5 % Normal 11.6-14.6 [facility] Comment on above: Performed By: #### L 501.9985, L500.4050, L506.1000, L100.0100, L501.9520 #### [facility] [address] [place], [address] Hematocrit (Bld) [Volume fraction] 36.2 % Low 37-47 [facility] Comment on above: Performed By: #### L 501.9985, L500.4050, L506.1000, L100.0100, L501.9520 #### [facility] [address] [place], [address] Hemoglobin (Bld) [Mass/Vol] 12.0 g/dL Normal 12.0-15.0 [facility] Comment on above: Performed By: #### L 501.9985, L500.4050, L506.1000, L100.0100, L501.9520 #### [facility] [address] [place], [address] IG% 0.400 Normal 0.0-0.9 [facility] Comment on above: Result Comment: IG% - Immature Granulocytes (promyelocytes, myelocytes and metamyelocytes) > 1% indicates that a LEFT SHIFT is Present. Performed By: #### L 501.9985, L500.4050, L506.1000, L100.0100, L501.9520 #### [facility] [address] [place], [address] Lymphocytes/100 WBC (Bld) 33.2 % Normal 19-41 [facility] Comment on above: Performed By: #### L 501.9985, L500.4050, L506.1000, L100.0100, L501.9520 #### [facility] [address] [place], [address] MCH (RBC) [Entitic mass] 31.1 pg Normal 27.0-32.0 [facility] Comment on above: Performed By: #### L 501.9985, L500.4050, L506.1000, L100.0100, L501.9520 #### [facility] [address] [place], [address] MCHC (RBC) [Mass/Vol] 33.1 g/dL Normal 32-36 [facility] Comment on above: Performed By: #### L 501.9985, L500.4050, L506.1000, L100.0100, L501.9520 #### [facility] [address] [place], [address] MCV (RBC) [Entitic vol] 93.8 fL Normal 81-99 [facility] Comment on above: Performed By: #### L 501.9985, L500.4050, L506.1000, L100.0100, L501.9520 #### [facility] [address] [place], [address] Monocytes/100 WBC (Bld) 7.7 % Normal 0-10 [facility] Comment on above: Performed By: #### L 501.9985, L500.4050, L506.1000, L100.0100, L501.9520 #### [facility] [address] [place], [address] Neutrophils/100 WBC (Bld) 55.7 % Normal 47-70 [facility] Comment on above: Performed By: #### L 501.9985, L500.4050, L506.1000, L100.0100, L501.9520 #### [facility] [address] [place], [address] Nucleated RBC (Bld) [#/Vol] 0 10*3/uL Normal 0-5 [facility] Comment on above: Performed By: #### L 501.9985, L500.4050, L506.1000, L100.0100, L501.9520 #### [facility] [address] [place], [address] Platelet mean volume (Bld) [Entitic vol] 8.3 fL Normal 6.2-12.0 [facility] Comment on above: Performed By: #### L 501.9985, L500.4050, L506.1000, L100.0100, L501.9520 #### [facility] [address] [place], [address] Platelets (Bld) [#/Vol] 367 10*3/uL Normal 150-450 [facility] Comment on above: Performed By: #### L 501.9985, L500.4050, L506.1000, L100.0100, L501.9520 #### [facility] [address] [place], [address] RBC (Bld) [#/Vol] 3.86 10*6/uL Low 4.2-5.4 [facility] Comment on above: Performed By: #### L 501.9985, L500.4050, L506.1000, L100.0100, L501.9520 #### [facility] [address] [place], [address] RDW SD 50.1 fl High 35.1-43.9 [facility] Comment on above: Performed By: #### L 501.9985, L500.4050, L506.1000, L100.0100, L501.9520 #### [facility] [address] [place], [address] WBC (Bld) [#/Vol] 7.8 10*3/uL Normal 4.4-11.0 [facility] Comment on above: Performed By: #### L 501.9985, L500.4050, L506.1000, L100.0100, L501.9520 #### [facility] [address] [place], [address] Carbon dioxide, total [Moles /volume] in Central venous bloodOrdered By: Hussein Alaniz on 02-10-2025 CO2 [Moles/Vol] 21.5 mmol/L 21.0-32.0 [facility] Chloride assayOrdered By: Brian Alaniz on 02-10-2025 Chloride [Moles/Vol] 97 mmol/L Low 98-108 [facility] Comprehensive Metabolic Prof ilon 02-10-2025 Albumin [Mass/Vol] 4.1 g/dL Normal 3.4-4.8 [facility] Comment on above: Performed By: #### L 501.9985, L500.4050, L506.1000, L100.0100, L501.9520 #### [facility] [address] [place], [address] Albumin/Globulin [Mass ratio] 1.4 {ratio} Normal 0.9-2.4 [facility] Comment on above: Performed By: #### L 501.9985, L500.4050, L506.1000, L100.0100, L501.9520 #### [facility] [address] [place], [address] ALK PHOS 81 U/L Normal 35-104 [facility] Comment on above: Performed By: #### L 501.9985, L500.4050, L506.1000, L100.0100, L501.9520 #### [facility] [address] [place], [address] ALT [Catalytic activity/Vol] 18 U/L Normal <=34 [facility] Comment on above: Performed By: #### L 501.9985, L500.4050, L506.1000, L100.0100, L501.9520 #### [facility] [address] [place], [address] AST [Catalytic activity/Vol] 24 U/L Normal <=31 [facility] Comment on above: Performed By: #### L 501.9985, L500.4050, L506.1000, L100.0100, L501.9520 #### [facility] [address] [place], [address] Bilirubin [Mass/Vol] 0.25 mg/dL Normal 0.00-1.30 [facility] Comment on above: Performed By: #### L 501.9985, L500.4050, L506.1000, L100.0100, L501.9520 #### [facility] [address] [place], [address] BUN/CRE 22.3 RATIO High 10-20 [facility] Comment on above: Performed By: #### L 501.9985, L500.4050, L506.1000, L100.0100, L501.9520 #### [facility] [address] [place], [address] Calcium [Mass/Vol] 9.1 mg/dL Normal 7.6-11.0 [facility] Comment on above: Performed By: #### L 501.9985, L500.4050, L506.1000, L100.0100, L501.9520 #### [facility] [address] [place], [address] Chloride [Moles/Vol] 97 mmol/L Low 98-108 [facility] Comment on above: Performed By: #### L 501.9985, L500.4050, L506.1000, L100.0100, L501.9520 #### [facility] [address] [place], [address] CO2 [Moles/Vol] 21.5 mmol/L Normal 21.0-32.0 [facility] Comment on above: Performed By: #### L 501.9985, L500.4050, L506.1000, L100.0100, L501.9520 #### [facility] [address] [place], [address] Creatinine [Mass/Vol] 0.92 mg/dL Normal 0.70-1.20 [facility] Comment on above: Performed By: #### L 501.9985, L500.4050, L506.1000, L100.0100, L501.9520 #### [facility] [address] [place], [address] GAP 14 Normal 5-15 [facility] Comment on above: Performed By: #### L 501.9985, L500.4050, L506.1000, L100.0100, L501.9520 #### [facility] [address] [place], [address] GFR/1.73 sq M.predicted among non-blacks MDRD (S/P/Bld) [Vol rate/Area] 63 mL/min/{1.73_m2} Normal >60 [facility] Comment on above: Result Comment: mL/m in/1.73m2 CKD-EPI Creatinine Equation (2020) Performed By: #### L 501.9985, L500.4050, L506.1000, L100.0100, L501.9520 #### [facility] [address] [place], [address] Globulin (S) [Mass/Vol] 2.9 g/dL Normal 2.2-4.2 [facility] Comment on above: Performed By: #### L 501.9985, L500.4050, L506.1000, L100.0100, L501.9520 #### [facility] [address] [place], [address] Glucose [Mass/Vol] 136 mg/dL High 70-99 [facility] Comment on above: Performed By: #### L 501.9985, L500.4050, L506.1000, L100.0100, L501.9520 #### [facility] [address] [place], [address] Potassium [Moles/Vol] 3.6 mmol/L Normal 3.3-5.1 [facility] Comment on above: Performed By: #### L 501.9985, L500.4050, L506.1000, L100.0100, L501.9520 #### [facility] [address] [place], [address] Sodium [Moles/Vol] 133 mmol/L Normal 133-145 [facility] Comment on above: Performed By: #### L 501.9985, L500.4050, L506.1000, L100.0100, L501.9520 #### [facility] [address] [place], [address] T PROT 7.0 g/dL Normal 5.9-8.4 [facility] Comment on above: Performed By: #### L 501.9985, L500.4050, L506.1000, L100.0100, L501.9520 #### [facility] [address] [place], [address] Urea nitrogen [Mass/Vol] 21 mg/dL High 4-19 [facility] Comment on above: Performed By: #### L 501.9985, L500.4050, L506.1000, L100.0100, L501.9520 #### [facility] [address] [place], [address] Eosinophil percentageOrdered By: Hussein Alaniz on 02-10-2025 Eosinophils/100 WBC (Bld) 2.4 % 0-5 [facility] Erythrocyte distribution wid th ratioOrdered By: Hussein Alaniz on 02-10-2025 Erythrocyte distribution width (RBC) [Ratio] 14.5 % 11.6-14.6 [facility] Erythrocyte distribution wid th standard deviationOrdered By: Hussein Alaniz on 02-10-2025 Erythrocyte distribution width (RBC) [Entitic vol] 50.1 fL High 35.1-43.9 [facility] Erythrocyte distribution width (RBC) [Ratio] 50.1 fl High 35.1-43.9 [facility] GFR/1.73 sq M.predicted sherman g non-blacks MDRD (S/P/Bld) [Vol rate/Area]Ordered By: Hussein Alaniz 02-10-2025 Estimated GFR (MDRD) Non-Af Amer 63 >60 [facility] Comment on above: mL/min/1.73m2 CKD-EP I Creatinine Equation (2020) Glomerular filtration rate ( GFR) estimation/1.73 sq m using serum, plasma, or whole bOrdered By: Hussein Alaniz 02-10-2025 GFR/1.73 sq M.predicted among non-blacks MDRD (S/P/Bld) [Vol rate/Area] 63 mL/min/{1.73_m2} >60 [facility] Comment on above: mL/min/1.73m2 CKD-EP I Creatinine Equation (2020) Hematocrit Auto (Bld) [Volum e fraction]Ordered By: Hussein Alaniz 02-10-2025 Hematocrit (Bld) [Volume fraction] 36.2 % Low 37-47 [facility] Hemoglobin measurementOrdere d By: Hussein Alaniz 02-10-2025 Hemoglobin (Bld) [Mass/Vol] 12.0 g/dL 12.0-15.0 [facility] Immature granulocytes/100 WB C Auto (Bld)Ordered By: Hussein Alaniz 02-10-2025 Immature granulocytes/100 WBC (Bld) 0.400 % 0.0-0.9 [facility] Comment on above: IG% - Immature Granu locytes (promyelocytes, myelocytes and metamyelocytes) > 1% indicates that a LEFT SHIFT is Present. L506.1001on 02-10-2025 Vitamin D 25-OH 28.3 ng/mL Low 30-100 [facility] Comment on above: Result Comment: Isabell min D Status Deficiency: <20 ng/mL (50nmol/L) Insufficiency: 20-30 ng/mL (50-75 nmol/L) Sufficiency: 30-100 ng/mL (75-250 nmol/L) Toxicity: >100 ng/mL (>250 nmol/L) Performed By: #### L 501.9985, L500.4050, L506.1000, L100.0100, L501.9520 #### [facility] [address] [place], [address] Laboratory - Chemistry and C hemistry - challengeOrdered By: Hussein Alaniz on 02-10-2025 AST [Catalytic activity/Vol] 24 U/L <32 [facility] Lymphocytes Auto (Unsp spec) [#/Vol]Ordered By: Hussein Alaniz on 02-10-2025 Lymphocytes (Bld) [#/Vol] 2.59 10*3/uL 0.83-4.51 [facility] Lymphocytes/100 WBC Auto (Un sp spec)Ordered By: Hussein Alaniz on 02-10-2025 Lymphocytes/100 WBC (Bld) 33.2 % 19-41 [facility] MCV (mean corpuscular volume ) determinationOrdered By: Hussein Alaniz on 02-10-2025 MCV (RBC) [Entitic vol] 93.8 fL 81-99 [facility] Mean corpuscular hemoglobin (MCH) determinationOrdered By: Hussein Alaniz 02-10-2025 MCH (RBC) [Entitic mass] 31.1 pg 27.0-32.0 [facility] Mean corpuscular hemoglobin concentration (MCHC) determinationOrdered By: Hussein Alaniz 02-10-2025 MCHC (RBC) [Mass/Vol] 33.1 g/dL 32-36 [facility] Mean platelet volume determi nationOrdered By: Hussein Alaniz on 02-10-2025 Platelet mean volume (Bld) [Entitic vol] 8.3 fL 6.2-12.0 [facility] Monocyte percentageOrdered B y: Hussein Alaniz on 02-10-2025 Monocytes/100 WBC (Bld) 7.7 % 0-10 [facility] Neutrophil percentageOrdered By: Hussein Alaniz on 02-10-2025 Neutrophils/100 WBC (Bld) 55.7 % 47-70 [facility] Nucleated red blood cell per centageOrdered By: Hussein Alaniz on 02-10-2025 Nucleated RBC/100 WBC (Bld) [Ratio] 0 % 0-5 [facility] Platelet countOrdered By: Brian Alaniz on 02-10-2025 Platelets (Bld) [#/Vol] 367 10*3/uL 150-450 [facility] Potassium (Unsp spec) [Mass/ Vol]Ordered By: Hussein Alaniz on 02-10-2025 Potassium [Moles/Vol] 3.6 mmol/L 3.3-5.1 [facility] Potassium measurement (mass/ volume)Ordered By: Hussein Alaniz on 02-10-2025 Potassium (Unsp spec) [Mass/Vol] 3.6 mmol/L 3.3-5.1 [facility] RBC Auto (Bld) [#/Vol]Ordere d By: Hussein Alaniz on 02-10-2025 RBC (Bld) [#/Vol] 3.86 10*6/uL Low 4.2-5.4 [facility] Serum creatinine measurement (mass/volume)Ordered By: Hussein Alaniz on 02-10-2025 Creatinine [Mass/Vol] 0.92 mg/dL 0.70-1.20 [facility] Serum globulin measurementOr dered By: Hussein Alaniz 02-10-2025 Globulin (S) [Mass/Vol] 2.9 g/dL 2.2-4.2 [facility] Serum glucose measurement (m ass/volume)Ordered By: Hussein Alaniz on 02-10-2025 Glucose [Mass/Vol] 136 mg/dL High 70-99 [facility] Serum or plasma alanine bowens otransferase (ALT) measurementOrdered By: Hussein Alaniz 02-10-2025 ALT [Catalytic activity/Vol] 18 U/L <35 [facility] Serum or plasma albumin imani urement (mass/volume)Ordered By: Hussein Alaniz 02-10-2025 Albumin [Mass/Vol] 4.1 g/dL 3.4-4.8 [facility] Serum or plasma albumin/glob ulin mass ratioOrdered By: Hussein Alaniz on 02-10-2025 Albumin/Globulin [Mass ratio] 1.4 {ratio} 0.9-2.4 [facility] Serum or plasma alkaline mary ann sphatase measurementOrdered By: Hussein Alaniz on 02-10-2025 ALP [Catalytic activity/Vol] 81 U/L 35-104 [facility] Serum or plasma calcium imani urement (mass/volume)Ordered By: Hussein Alaniz on 02-10-2025 Calcium [Mass/Vol] 9.1 mg/dL 7.6-11.0 [facility] Serum or plasma urea nitroge n measurement (mass/volume)Ordered By: Hussein Alaniz on 02-10-2025 Urea nitrogen [Mass/Vol] 21 mg/dL High 4-19 [facility] Sodium levelOrdered By: Hussein Alaniz 02-10-2025 Sodium [Moles/Vol] 133 mmol/L 133-145 [facility] TSH DL <= 0.005 mIU/L QnOrde red By: Hussein Alaniz on 02-10-2025 Thyroid Stimulating Hormone (TSH) 10.500 uIU/mL High 0.300-4.200 [facility] TSH Qn 10.500 uIU/mL High 0.300-4.200 [facility] Thyroid Stim Hormone (TSH)on 02-10-2025 TSH 10.500 uIU/mL High 0.300-4.200 [facility] Comment on above: Performed By: #### L [id number], L500.4050, L506.1000, L100.0100, L501.9520 #### [facility] [address] [place], [address] Total proteinOrdered By: Hussein Alaniz on 02-10-2025 Protein [Mass/Vol] 7.0 g/dL 5.9-8.4 [facility] Vitamin D, 25-hydroxyOrdered By: Hussein Alaniz on 02-10-2025 Vitamin D 25-Hydroxy 28.3 ng/mL Low 30-100 [facility] Comment on above: Vitamin D StatusDefi ciency: <20 ng/mL (50nmol/L)Insufficiency: 20-30 ng/mL (50-75 nmol/L)Sufficiency: 30-100 ng/mL (75-250 nmol/L)Toxicity: >100 ng/mL (>250 nmol/L) White blood cell (WBC) count Ordered By: Hussein Alaniz on 02-10-2025 WBC (Bld) [#/Vol] 7.8 10*3/uL 4.4-11.0 [facility] CNOVon 01-01-2025 CNOV Office Visit (PODIWS ) BRENDEN JUNIOR ([id number]) 1945 F NFR Date Time Provider Department 01/01/25 9:45 AM ZOE GUY PODIWS During your visit today, we recorded the [...] history since last visit. PAIN EVALUATION 12/26/2024 9128 01/01/2025 0990 Pain Level: 1 3 Pain Location: Foot-Left [...] type 2, controlled, without complications ([facility]) 09/16/2015 Generalized osteoarthrosis, unspecified site Hyperlipidemia LDL goal < 100 07/22/2013 Lumbar disc disease with radiculopathy 11/18/2012 Myalgia and myositis, unspecified PMH - PAST MEDICAL HISTORY OF 1994 THYROID CANCER Pure hypercholesterolemia Statin intolerance 07/23/2014 Stress incontinence, female 11/18/2012 Type 2 diabetes mellitus with stage 3 chronic kidney disease, without long-term current use of insulin ([facility]) 05/14/2017 Type II or unspecified type [...] OF 05/16/2015 Removal of Interslim device - [facility] FAMILY HISTORY Problem Relation Age of Onset Heart Mother OPEN BYPASS, CHF Cancer Father LUNG CANCER , HYPER THYROID Cancer Maternal Grandmother BREAST Heart Maternal Grandmother Cancer Maternal Grandfather COLON GI Paternal Grandfather Headache Daughter Hearing Loss Son Heart Mate (more content not included)... Normal [facility] XR FOOT 3V AP/LAT/OBL BILon 01-01-2025 XR [...] either foot. IMPRESSION: No acute bony abnormality. [employer]inery [employer] Light Ends Recovery: MOOKIE Transcribe Date/Time: Jan 04 2025 9:05P Dictated by : ADÁN PRIEST MD This examination was interpreted and the report reviewed and electronically signed by: ADÁN PRIEST MD on Jan 04 2025 9:06PM EST [id number] Normal [facility] Hemoglobin A1con 10-27-2024 HbA1c (Bld) [Mass fraction] 6.2 % High 3.8-5.6 [facility] Comment on above: Order Comment: DRAWN ON 10/26/24 [id number] Result Comment: Norm al < 5.7 % Prediabetic 5.7 - 6.4 % Diabetic >or= 6.5 % Please note range changes. Performed By: #### L [id number], L500.4050, L506.1000, L100.0100, L501.9520 #### [facility] [address] [place], [address] [id number] DOrdered By: Cydney Alaniz on 10-26-2024 Vitamin D 25-Hydroxy 24.2 ng/mL [facility] Comment on above: Vitamin D 25(OH) Sta tus Range Deficiency <20 ng/mL (50nmol/L) Insufficiency 20 - 30 ng/mL (50 - 75 nmol/L) Sufficiency 30 - 100 ng/mL (75 - 250 nmol/L) Toxicity >100 ng/mL (>250 nmol/L) Absolute neutrophil countOrd ered By: Hussein Alaniz on 10-26-2024 Neutrophils (Bld) [#/Vol] 6.7 10*3/uL 2.0-7.7 [facility] Albumin to globulin ratioOrd ered By: Hussein Alaniz on 10-26-2024 Albumin/Globulin [Mass ratio] 1.0 {ratio} 0.9-2.4 [facility] Basophil percentageOrdered B y: Hussein Alaniz on 10-26-2024 Basophils/100 WBC (Bld) 0.5 % 0-1 [facility] Bilirubin, totalOrdered By: Hussein Alaniz on 10-26-2024 Bilirubin [Mass/Vol] 0.40 mg/dL 0.20-1.00 [facility] Comment on above: For patients on eltr ombopag therapy, use of Dimension [place] TBIL is not recommended. Blood urea nitrogen (BUN)/cr eatinine ratioOrdered By: Hussein Alaniz on 10-26-2024 Urea nitrogen/Creatinine [Mass ratio] 24.3 mg/mg High 09-20 [facility] CBC W/Diff, Automatedon 10-03 Absolute Lymph 2.53 X10 3/uL Normal 0.83-4.51 [facility] Comment on above: Performed By: #### L [id number], L500.4050, L506.1000, L100.0100, L501.9520 #### [facility] [address] [place], [address] Absolute Neut 6.7 X10 3/uL Normal 2.0-7.7 [facility] Comment on above: Performed By: #### L [id number], L500.4050, L506.1000, L100.0100, L501.9520 #### [facility] [address] [place], [address] Basophils/100 WBC (Bld) 0.5 % Normal 0-1 [facility] Comment on above: Performed By: #### L [id number], L500.4050, L506.1000, L100.0100, L501.9520 #### [facility] [address] [place], [address] Eosinophils/100 WBC (Bld) 1.7 % Normal 0-5 [facility] Comment on above: Performed By: #### L [id number], L500.4050, L506.1000, L100.0100, L501.9520 #### [facility] [address] [place], [address] Erythrocyte distribution width (RBC) [Ratio] 14.6 % Normal 11.6-14.6 [facility] Comment on above: Performed By: #### L [id number], L500.4050, L506.1000, L100.0100, L501.9520 #### [facility] [address] [place], [address] Hematocrit (Bld) [Volume fraction] 33.5 % Low 37-47 [facility] Comment on above: Performed By: #### L [id number], L500.4050, L506.1000, L100.0100, L501.9520 #### [facility] [address] [place], [address] Hemoglobin (Bld) [Mass/Vol] 11.0 g/dL Low 12.0-15.0 [facility] Comment on above: Performed By: #### L [id number], L500.4050, L506.1000, L100.0100, L501.9520 #### [facility] [address] [place], [address] IG% 0.500 Normal 0.0-0.9 [facility] Comment on above: Result Comment: IG% - Immature Granulocytes (promyelocytes, myelocytes and metamyelocytes) > 1% indicates that a LEFT SHIFT is Present. Performed By: #### L 501.9985, L500.4050, L506.1000, L100.0100, L501.9520 #### [facility] [address] [place], [address] Lymphocytes/100 WBC (Bld) 24.2 % Normal 19-41 [facility] Comment on above: Performed By: #### L 501.9985, L500.4050, L506.1000, L100.0100, L501.9520 #### [facility] [address] [place], [address] MCH (RBC) [Entitic mass] 30.7 pg Normal 27.0-32.0 [facility] Comment on above: Performed By: #### L [id number], L500.4050, L506.1000, L100.0100, L501.9520 #### [facility] [address] [place], [address] MCHC (RBC) [Mass/Vol] 32.8 g/dL Normal 32-36 [facility] Comment on above: Performed By: #### L [id number], L500.4050, L506.1000, L100.0100, L501.9520 #### [facility] [address] [place], [address] MCV (RBC) [Entitic vol] 93.6 fL Normal 81-99 [facility] Comment on above: Performed By: #### L 501.9985, L500.4050, L506.1000, L100.0100, L501.9520 #### [facility] [address] [place], [address] Monocytes/100 WBC (Bld) 9.2 % Normal 0-10 [facility] Comment on above: Performed By: #### L 501.9985, L500.4050, L506.1000, L100.0100, L501.9520 #### [facility] [address] [place], [address] Neutrophils/100 WBC (Bld) 63.9 % Normal 47-70 [facility] Comment on above: Performed By: #### L 501.9985, L500.4050, L506.1000, L100.0100, L501.9520 #### [facility] [address] [place], [address] Nucleated RBC (Bld) [#/Vol] 0 10*3/uL Normal 0-5 [facility] Comment on above: Performed By: #### L 501.9985, L500.4050, L506.1000, L100.0100, L501.9520 #### [facility] [address] [place], [address] Platelet mean volume (Bld) [Entitic vol] 9.0 fL Normal 6.2-12.0 [facility] Comment on above: Performed By: #### L 501.9985, L500.4050, L506.1000, L100.0100, L501.9520 #### [facility] [address] [place], [address] Platelets (Bld) [#/Vol] 332 10*3/uL Normal 150-450 [facility] Comment on above: Performed By: #### L 501.9985, L500.4050, L506.1000, L100.0100, L501.9520 #### [facility] [address] [place], [address] RBC (Bld) [#/Vol] 3.58 10*6/uL Low 4.2-5.4 [facility] Comment on above: Performed By: #### L 501.9985, L500.4050, L506.1000, L100.0100, L501.9520 #### [facility] [address] [place], [address] RDW SD 50.4 fl High 35.1-43.9 [facility] Comment on above: Performed By: #### L 501.9985, L500.4050, L506.1000, L100.0100, L501.9520 #### [facility] [address] [place], [address] WBC (Bld) [#/Vol] 10.5 10*3/uL Normal 4.4-11.0 [facility] Comment on above: Performed By: #### L 501.9985, L500.4050, L506.1000, L100.0100, L501.9520 #### [facility] [address] [place], [address] Carbon dioxide measurementOr dered By: Hussein Alaniz on 10-26-2024 CO2 [Moles/Vol] 22.0 mmol/L 21.0-32.0 [facility] Chloride measurementOrdered By: Hussein Alaniz on 10-26-2024 Chloride [Moles/Vol] 104 mmol/L 98-107 [facility] Comprehensive Metabolic Prof ilon 10-26-2024 Albumin [Mass/Vol] 3.2 g/dL Normal 3.2-5.0 [facility] Comment on above: Performed By: #### L 501.9985, L500.4050, L506.1000, L100.0100, L501.9520 #### [facility] [address] [place], [address] Albumin/Globulin [Mass ratio] 1.0 {ratio} Normal 0.9-2.4 [facility] Comment on above: Performed By: #### L 501.9985, L500.4050, L506.1000, L100.0100, L501.9520 #### [facility] [address] [place], [address] ALK P 86 U/L Normal 45-117 [facility] Comment on above: Performed By: #### L 501.9985, L500.4050, L506.1000, L100.0100, L501.9520 #### [facility] [address] [place], [address] ALT [Catalytic activity/Vol] 21 U/L Normal 13-56 [facility] Comment on above: Performed By: #### L 501.9985, L500.4050, L506.1000, L100.0100, L501.9520 #### [facility] [address] [place], [address] AST [Catalytic activity/Vol] 15 U/L Normal 15-37 [facility] Comment on above: Performed By: #### L 501.9985, L500.4050, L506.1000, L100.0100, L501.9520 #### [facility] [address] [place], [address] Bilirubin [Mass/Vol] 0.40 mg/dL Normal 0.20-1.00 [facility] Comment on above: Result Comment: For patients on eltrombopag therapy, use of Dimension [place] TBIL is not recommended. Performed By: #### L 501.9985, L500.4050, L506.1000, L100.0100, L501.9520 #### [facility] [address] [place], [address] BUN/CRE 24.3 RATIO High 10-20 [facility] Comment on above: Performed By: #### L 501.9985, L500.4050, L506.1000, L100.0100, L501.9520 #### [facility] [address] [place], [address] CA,Total 8.6 mg/dL Normal 8.5-10.1 [facility] Comment on above: Performed By: #### L 501.9985, L500.4050, L506.1000, L100.0100, L501.9520 #### [facility] [address] [place], [address] Chloride [Moles/Vol] 104 mmol/L Normal 98-107 [facility] Comment on above: Performed By: #### L 501.9985, L500.4050, L506.1000, L100.0100, L501.9520 #### [facility] [address] [place], [address] CO2 [Moles/Vol] 22.0 mmol/L Normal 21.0-32.0 [facility] Comment on above: Performed By: #### L 501.9985, L500.4050, L506.1000, L100.0100, L501.9520 #### [facility] [address] [place], [address] Creatinine [Mass/Vol] 0.86 mg/dL Normal 0.55-1.02 [facility] Comment on above: Result Comment: The validity of the calculated GFR GFRAA in patients over 70 years has not been determined. Clinical correlation is essential. Performed By: #### L 501.9985, L500.4050, L506.1000, L100.0100, L501.9520 #### [facility] [address] [place], [address] EST GFR - AA 81 mL/min Normal >60 [facility] Comment on above: Result Comment: Afri can [place] GFR Calc Performed By: #### L 501.9985, L500.4050, L506.1000, L100.0100, L501.9520 #### [facility] [address] [place], [address] GAP 8 Normal 5-15 [facility] Comment on above: Performed By: #### L 501.9985, L500.4050, L506.1000, L100.0100, L501.9520 #### [facility] [address] [place], [address] GFR/1.73 sq M.predicted among non-blacks MDRD (S/P/Bld) [Vol rate/Area] 67 mL/min/{1.73_m2} Normal >60 [facility] Comment on above: Result Comment: Non- GFR Calc Performed By: #### L 501.9985, L500.4050, L506.1000, L100.0100, L501.9520 #### [facility] [address] [place], [address] Globulin (S) [Mass/Vol] 3.3 g/dL Normal 2.2-4.2 [facility] Comment on above: Performed By: #### L 501.9985, L500.4050, L506.1000, L100.0100, L501.9520 #### [facility] [address] [place], [address] Glucose [Mass/Vol] 185 mg/dL High 74-106 [facility] Comment on above: Result Comment: Fast ing Glucose result greater than or equal to 126 mg/dL suggests DIABETES MELLITUS per A.D.A. criteria. Performed By: #### L 501.9985, L500.4050, L506.1000, L100.0100, L501.9520 #### [facility] [address] [place], [address] Potassium [Moles/Vol] 3.8 mmol/L Normal 3.5-5.1 [facility] Comment on above: Performed By: #### L 501.9985, L500.4050, L506.1000, L100.0100, L501.9520 #### [facility] [address] [place], [address] Sodium [Moles/Vol] 133 mmol/L Low 136-145 [facility] Comment on above: Performed By: #### L 501.9985, L500.4050, L506.1000, L100.0100, L501.9520 #### [facility] [address] [place], [address] T PROT 6.5 g/dL Normal 6.4-8.2 [facility] Comment on above: Performed By: #### L 501.9985, L500.4050, L506.1000, L100.0100, L501.9520 #### [facility] [address] [place], [address] Urea nitrogen [Mass/Vol] 21 mg/dL High 7-18 [facility] Comment on above: Performed By: #### L 501.9985, L500.4050, L506.1000, L100.0100, L501.9520 #### [facility] [address] [place], [address] Eosinophil percentageOrdered By: Hussein Alaniz on 10-26-2024 Eosinophils/100 WBC (Bld) 1.7 % 0-5 [facility] Erythrocyte distribution wid th ratioOrdered By: Hussein Alaniz on 10-26-2024 Erythrocyte distribution width (RBC) [Ratio] 14.6 % 11.6-14.6 [facility] Erythrocyte distribution wid th standard deviationOrdered By: Hussein Alaniz on 10-26-2024 Erythrocyte distribution width (RBC) [Entitic vol] 50.4 fL High 35.1-43.9 [facility] Estimated glomerular filtrat ion rate (GFR) AmericanOrdered By: Hussein Alaniz on 10-26-2024 Estimated GFR (MDRD) Amer 81 mL/min >60 [facility] Comment on above: GFR Calc Glomerular filtration rate ( GFR) estimationOrdered By: Hussein Alaniz on 10-26-2024 Estimated GFR (MDRD) Non-Af Amer 67 mL/min >60 [facility] Comment on above: Non- GFR Calc Glucose measurementOrdered B y: Hussein Alaniz on 10-26-2024 Glucose [Mass/Vol] 185 mg/dL High 74-106 [facility] Comment on above: Fasting Glucose resu lt greater than or equal to 126 mg/dL suggests DIABETES MELLITUS per A.D.A. criteria. Hematocrit Auto (Bld) [Volum e fraction]Ordered By: Hussein Alaniz on 10-26-2024 Hematocrit (Bld) [Volume fraction] 33.5 % Low 37-47 [facility] Hemoglobin A1c percentageOrd ered By: Hussein Alaniz 10-26-2024 HbA1c (Bld) [Mass fraction] 6.2 % High 3.8-5.6 [facility] Comment on above: Normal < 5.7 % Predi abetic 5.7 - 6.4 % Diabetic >or= 6.5 % Please note range changes. Hemoglobin measurementOrdere d By: Hussein Alaniz on 10-26-2024 Hemoglobin (Bld) [Mass/Vol] 11.0 g/dL Low 12.0-15.0 [facility] Immature granulocytes/100 WB C Auto (Bld)Ordered By: Hussein Alaniz 10-26-2024 Immature granulocytes/100 WBC (Bld) 0.500 % 0.0-0.9 [facility] Comment on above: IG% - Immature Granu locytes (promyelocytes, myelocytes and metamyelocytes) > 1% indicates that a LEFT SHIFT is Present. Laboratory - Chemistry and C hemistry - challengeOrdered By: Hussein Alaniz on 10-26-2024 AST [Catalytic activity/Vol] 15 U/L 15-37 [facility] Lymphocytes Auto (Unsp spec) [#/Vol]Ordered By: Hussein Alaniz on 10-26-2024 Lymphocytes (Bld) [#/Vol] 2.53 10*3/uL 0.83-4.51 [facility] Lymphocytes/100 WBC Auto (Un sp spec)Ordered By: Hussein Alaniz on 10-26-2024 Lymphocytes/100 WBC (Bld) 24.2 % 19-41 [facility] MCV (mean corpuscular volume ) determinationOrdered By: Hussein Alaniz on 10-26-2024 MCV (RBC) [Entitic vol] 93.6 fL 81-99 [facility] Mean corpuscular hemoglobin (MCH) determinationOrdered By: Hussein Alaniz on 10-26-2024 MCH (RBC) [Entitic mass] 30.7 pg 27.0-32.0 [facility] Mean corpuscular hemoglobin concentration (MCHC) determinationOrdered By: Hussein Alaniz on 10-26-2024 MCHC (RBC) [Mass/Vol] 32.8 g/dL 32-36 [facility] Mean platelet volume determi nationOrdered By: Hussein Alaniz on 10-26-2024 Platelet mean volume (Bld) [Entitic vol] 9.0 fL 6.2-12.0 [facility] Monocyte percentageOrdered B y: Hussein Alaniz on 10-26-2024 Monocytes/100 WBC (Bld) 9.2 % 0-10 [facility] Neutrophil percentageOrdered By: Hussein Alaniz on 10-26-2024 Neutrophils/100 WBC (Bld) 63.9 % 47-70 [facility] Nucleated red blood cell per centageOrdered By: Hussein Alaniz on 10-26-2024 Nucleated RBC/100 WBC (Bld) [Ratio] 0 % 0-5 [facility] Platelet countOrdered By: Brian Alaniz on 10-26-2024 Platelets (Bld) [#/Vol] 332 10*3/uL 150-450 [facility] Potassium measurementOrdered By: Hussein Alaniz on 10-26-2024 Potassium [Moles/Vol] 3.8 mmol/L 3.5-5.1 [facility] RBC Auto (Bld) [#/Vol]Ordere d By: Hussein Alaniz on 10-26-2024 RBC (Bld) [#/Vol] 3.58 10*6/uL Low 4.2-5.4 [facility] Serum anion gap measurementO rdered By: Hussein Alaniz on 10-26-2024 Anion gap [Moles/Vol] 8 mmol/L 5-15 [facility] Serum globulin measurementOr dered By: Hussein Alaniz 10-26-2024 Globulin (S) [Mass/Vol] 3.3 g/dL 2.2-4.2 [facility] Serum or plasma alanine bowens otransferase (ALT) measurementOrdered By: Hussein Alaniz 10-26-2024 ALT [Catalytic activity/Vol] 21 U/L 13-56 [facility] Serum or plasma albumin imani urement (mass/volume)Ordered By: Hussein Alaniz 10-26-2024 Albumin [Mass/Vol] 3.2 g/dL 3.2-5.0 [facility] Serum or plasma alkaline mary ann sphatase measurementOrdered By: Hussein Alaniz 10-26-2024 ALP [Catalytic activity/Vol] 86 U/L 45-117 [facility] Serum or plasma calcium imani urement (mass/volume)Ordered By: Hussein Alaniz 10-26-2024 Calcium [Mass/Vol] 8.6 mg/dL 8.5-10.1 [facility] Serum or plasma creatinine m easurement (mass/volume)Ordered By: Hussein Alaniz 10-26-2024 Creatinine [Mass/Vol] 0.86 mg/dL 0.55-1.02 [facility] Comment on above: The validity of the calculated GFR & GFRAA in patients over 70 years has not been determined. Clinical correlation is essential. Serum or plasma urea nitroge n measurement (mass/volume)Ordered By: Hussein Alaniz 10-26-2024 Urea nitrogen [Mass/Vol] 21 mg/dL High 7-18 [facility] Sodium levelOrdered By: Hussein Alaniz on 10-26-2024 Sodium [Moles/Vol] 133 mmol/L Low 136-145 [facility] TSH QnOrdered By: Hussein Alaniz o n 10-26-2024 Thyroid Stimulating Hormone (TSH) 1.060 uIU/mL 0.358-3.740 [facility] Thyroid Stim Hormone (TSH)on 10-26-2024 TSH 1.060 uIU/mL Normal 0.358-3.740 [facility] Comment on above: Performed By: #### L [id number], L500.4050, L506.1000, L100.0100, L501.9520 #### [facility] [address] [place], [place], [id number] Total proteinOrdered By: Hussein Alaniz on 10-26-2024 Protein [Mass/Vol] 6.5 g/dL 6.4-8.2 [facility] Vitamin D,25 Hydroxyon 10-26 Vitamin D 25-OH 24.2 ng/mL Normal [facility] Comment on above: Result Comment: Isabell min D 25(OH) Status Range Deficiency <20 ng/mL (50nmol/L) Insufficiency 20 - 30 ng/mL (50 - 75 nmol/L) Sufficiency 30 - 100 ng/mL (75 - 250 nmol/L) Toxicity >100 ng/mL (>250 nmol/L) Performed By: #### L [id number], L500.4050, L506.1000, L100.0100, L501.9520 #### [facility] [address] [place], [place], [id number] White blood cell (WBC) count Ordered By: Hussein Alaniz on 10-26-2024 WBC (Bld) [#/Vol] 10.5 10*3/uL 4.4-11.0 [facility] Chest PA and Lateralon 10-21 Chest PA and Lateral [facility] Imaging Services [address] [place], [place] [id number] ([phone] Chest PA and Lateral MR#: [id number] Acct: [id number] Name: BRENDEN JUNIOR Rep #: [id number] : 1945 F 79 From: Adonis lai MD PCP: Dr. Hussein Alaniz MD Status: DEP ER Study: Chest PA and Lateral Date of Exam: 10/21/24 Exam# [id number] Ordering Dr: [place] [id number] EXAM: XR CHEST, 2 VIEWS CLINICAL INDICATION: [...] Dr. Hussein Alaniz MD; Jam Overton DO Refinery Operator Light Ends Recovery: Signed Normal [facility] Emergency Department Summary on 10-21-2024 Emergency Department Summary [facility] Medical Records Department [address] [place] [address] Emergency Department Summary 10/21/24 MR#: [id number] Acct: [id number] Name: BRENDEN JUNIOR Rep #: [id number] : 1945 79 From: Jam Ovetron DO PCP: Dr. Hussein Alaniz MD Status:DEP [...] sleep and therefore comes in for evaluation [facility] Medical History Anxiety CKD stage 3a, [...] 10/21/24 05:07 (more content not included)... Normal [facility] M100.678on 10-13-2024 M100.678 Pending SARS-CoV-2 (COVID 19) Negative INFLUENZA A Negative INFLUENZA B Negative RSV PCR Negative Normal [facility] Comment on above: Performed By: #### M 100.678 #### [facility] [address] [place], [address] 12 Lead EKG performed by [facility] on 09-21-2024 12 Lead EKG performed by [facility] [address] [place] [address] 12 Lead EKG performed by [facility] 09/21/24 1507 MR#: [id number] Acct: [id number] Name: BRENDEN JUNIOR Rep #: [id number] : 1945 78 From: Farhad Reynolds WRAPPER LAYER WRAPPER LAYER-C Attending Dr: Farhad Reynolds, WRAPPER LAYER-C Status: DEP AMB Ordering Dr: Farhad Reynolds WRAPPER LAYER WRAPPER LAYER-C Date: 09/21/24 Location: [facility] Sex: F C Admitted: BMS/12 Lead EKG performed by [facility] ECG Report Interpretation ---Sinus Rhythm -Left bundle branch block. - Extensive anterior-lateral infarct (age undetermined). ABNORMAL Electronically signed on 09/24/2024 at 08:38 by Raul Epstein Software Version [id number] 09/24/24 0842 Date Farhad Reynolds WRAPPER LAYER WRAPPER LAYER-C CC: Dr. Hussein Alaniz MD Date Dictated: 09/21/241506 Date Transcribed: 09/21/241506 Refinery Operator Light Ends Recovery: ELENO Signed Normal [facility] BNP,B-Type NATRIURETIC PEPTI Deejay 09-21-2024 Natriuretic peptide B (Bld) [Mass/Vol] 121.0 pg/mL High 0-100 [facility] Comment on above: Performed By: #### L 100.0100, L501.5200, L503.6620, L500.4050, L506.0400, L501.9520 ####[facility] [address] [place], [address] CBC W/Diff, Automatedon 09-02 Absolute Lymph 2.68 X10 3/uL Normal 0.83-4.51 [facility] Comment on above: Performed By: #### L 100.0100, L501.5200, L503.6620, L500.4050, L506.0400, L501.9520 ####[facility] [address] [place], [address] Absolute Neut 5.2 X10 3/uL Normal 2.0-7.7 [facility] Comment on above: Performed By: #### L 100.0100, L501.5200, L503.6620, L500.4050, L506.0400, L501.9520 ####[facility] [address] [place], [address] Basophils/100 WBC (Bld) 0.6 % Normal 0-1 [facility] Comment on above: Performed By: #### L 100.0100, L501.5200, L503.6620, L500.4050, L506.0400, L501.9520 ####[facility] [address] [place], [address] Eosinophils/100 WBC (Bld) 2.3 % Normal 0-5 [facility] Comment on above: Performed By: #### L 100.0100, L501.5200, L503.6620, L500.4050, L506.0400, L501.9520 ####[facility] [address] [place], [address] Erythrocyte distribution width (RBC) [Ratio] 15.1 % High 11.6-14.6 [facility] Comment on above: Performed By: #### L 100.0100, L501.5200, L503.6620, L500.4050, L506.0400, L501.9520 ####[facility] [address] [place], [address] Hematocrit (Bld) [Volume fraction] 35.9 % Low 37-47 [facility] Comment on above: Performed By: #### L 100.0100, L501.5200, L503.6620, L500.4050, L506.0400, L501.9520 ####[facility] [address] [place], [address] Hemoglobin (Bld) [Mass/Vol] 11.8 g/dL Low 12.0-15.0 [facility] Comment on above: Performed By: #### L 100.0100, L501.5200, L503.6620, L500.4050, L506.0400, L501.9520 ####[facility] [address] [place], [address] IG% 0.300 Normal 0.0-0.9 [facility] Comment on above: Result Comment: IG% - Immature Granulocytes (promyelocytes, myelocytes and metamyelocytes) > 1% indicates that a LEFT SHIFT is Present. Performed By: #### L 100.0100, L501.5200, L503.6620, L500.4050, L506.0400, L501.9520 ####[facility] [address] [place], [address] Lymphocytes/100 WBC (Bld) 29.8 % Normal 19-41 [facility] Comment on above: Performed By: #### L 100.0100, L501.5200, L503.6620, L500.4050, L506.0400, L501.9520 ####[facility] [address] [place], [address] MCH (RBC) [Entitic mass] 30.6 pg Normal 27.0-32.0 [facility] Comment on above: Performed By: #### L 100.0100, L501.5200, L503.6620, L500.4050, L506.0400, L501.9520 ####[facility] [address] [place], [address] MCHC (RBC) [Mass/Vol] 32.9 g/dL Normal 32-36 [facility] Comment on above: Performed By: #### L 100.0100, L501.5200, L503.6620, L500.4050, L506.0400, L501.9520 ####[facility] [address] [place], [address] MCV (RBC) [Entitic vol] 93.0 fL Normal 81-99 [facility] Comment on above: Performed By: #### L 100.0100, L501.5200, L503.6620, L500.4050, L506.0400, L501.9520 ####[facility] [address] [place], [address] Monocytes/100 WBC (Bld) 9.2 % Normal 0-10 [facility] Comment on above: Performed By: #### L 100.0100, L501.5200, L503.6620, L500.4050, L506.0400, L501.9520 ####[facility] [address] [place], [address] Neutrophils/100 WBC (Bld) 57.8 % Normal 47-70 [facility] Comment on above: Performed By: #### L 100.0100, L501.5200, L503.6620, L500.4050, L506.0400, L501.9520 ####[facility] [address] [place], [address] Nucleated RBC (Bld) [#/Vol] 0 10*3/uL Normal 0-5 [facility] Comment on above: Performed By: #### L 100.0100, L501.5200, L503.6620, L500.4050, L506.0400, L501.9520 ####[facility] [address] [place], [address] Platelet mean volume (Bld) [Entitic vol] 8.3 fL Normal 6.2-12.0 [facility] Comment on above: Performed By: #### L 100.0100, L501.5200, L503.6620, L500.4050, L506.0400, L501.9520 ####[facility] [address] [place], [address] Platelets (Bld) [#/Vol] 322 10*3/uL Normal 150-450 [facility] Comment on above: Performed By: #### L 100.0100, L501.5200, L503.6620, L500.4050, L506.0400, L501.9520 ####[facility] [address] [place], [address] RBC (Bld) [#/Vol] 3.86 10*6/uL Low 4.2-5.4 [facility] Comment on above: Performed By: #### L 100.0100, L501.5200, L503.6620, L500.4050, L506.0400, L501.9520 ####[facility] [address] [place], [address] RDW SD 52.0 fl High 35.1-43.9 [facility] Comment on above: Performed By: #### L 100.0100, L501.5200, L503.6620, L500.4050, L506.0400, L501.9520 ####[facility] [address] [place], [address] WBC (Bld) [#/Vol] 9.0 10*3/uL Normal 4.4-11.0 [facility] Comment on above: Performed By: #### L 100.0100, L501.5200, L503.6620, L500.4050, L506.0400, L501.9520 ####[facility] [address] [place], [address] Cardiology Visit Reporton Cardiology Visit Report [facility] [address] [place], [place] [address] OFFICE VISIT Date of Service: 09/21/24 MR#: [id number] Acct: [id number] Name: BRENDEN JUNIOR Rep #: [id number] : 1945 Provider: JUSTIN stein Age/Sex: 78/F Location: [facility] Status: Signed [facility] History of Present Illness Details: This lady [...] She was seen in an emergency department pwb-ej-bxfrh in [place]. She underwent laboratory testing that showed some electrolyte disarrangement. Her magnesium was replaced. Twelve-lead ECG on 09/21/2024 shows a sinus rhythm with left bundle branch block at a rate of 66 bpm, AK interval 196, QTc 492, and QRS 138. [...] Intake Visit Reasons: F/U PER COLIN/EKG NEEDED Bottling Attendant Required: No Accompanied by: Daughter Is patient [...] year?: Yes (singular; tripped on household pet) [facility] Medical History Anxiety CKD stage 3a, GFR [...] (Reviewed 09/21 (more content not included)... Normal [facility] Comprehensive Metabolic Prof ilon 09-21-2024 Albumin [Mass/Vol] 3.2 g/dL Normal 3.2-5.0 [facility] Comment on above: Performed By: #### L 100.0100, L501.5200, L503.6620, L500.4050, L506.0400, L501.9520 ####[facility] [address] [place], [address] Albumin/Globulin [Mass ratio] 0.9 {ratio} Normal 0.9-2.4 [facility] Comment on above: Performed By: #### L 100.0100, L501.5200, L503.6620, L500.4050, L506.0400, L501.9520 ####[facility] [address] [place], [address] ALK P 75 U/L Normal 45-117 [facility] Comment on above: Performed By: #### L 100.0100, L501.5200, L503.6620, L500.4050, L506.0400, L501.9520 ####[facility] [address] [place], [address] ALT [Catalytic activity/Vol] 23 U/L Normal 13-56 [facility] Comment on above: Performed By: #### L 100.0100, L501.5200, L503.6620, L500.4050, L506.0400, L501.9520 ####[facility] [address] [place], [address] AST [Catalytic activity/Vol] 17 U/L Normal 15-37 [facility] Comment on above: Performed By: #### L 100.0100, L501.5200, L503.6620, L500.4050, L506.0400, L501.9520 ####[facility] [address] [place], [address] Bilirubin [Mass/Vol] 0.30 mg/dL Normal 0.20-1.00 [facility] Comment on above: Result Comment: For patients on eltrombopag therapy, use of Dimension [place] TBIL is not recommended. Performed By: #### L 100.0100, L501.5200, L503.6620, L500.4050, L506.0400, L501.9520 ####[facility] [address] [place], [address] BUN/CRE 20.7 RATIO High 10-20 [facility] Comment on above: Performed By: #### L 100.0100, L501.5200, L503.6620, L500.4050, L506.0400, L501.9520 ####[facility] [address] [place], [address] CA,Total 8.7 mg/dL Normal 8.5-10.1 [facility] Comment on above: Performed By: #### L 100.0100, L501.5200, L503.6620, L500.4050, L506.0400, L501.9520 ####[facility] [address] [place], [address] Chloride [Moles/Vol] 106 mmol/L Normal 98-107 [facility] Comment on above: Performed By: #### L 100.0100, L501.5200, L503.6620, L500.4050, L506.0400, L501.9520 ####[facility] [address] [place], [address] CO2 [Moles/Vol] 23.0 mmol/L Normal 21.0-32.0 [facility] Comment on above: Performed By: #### L 100.0100, L501.5200, L503.6620, L500.4050, L506.0400, L501.9520 ####[facility] [address] [place], [address] Creatinine [Mass/Vol] 0.87 mg/dL Normal 0.55-1.02 [facility] Comment on above: Result Comment: The validity of the calculated GFR GFRAA in patients over 70 years has not been determined. Clinical correlation is essential. Performed By: #### L 100.0100, L501.5200, L503.6620, L500.4050, L506.0400, L501.9520 ####[facility] [address] [place], [address] EST GFR - AA 81 mL/min Normal >60 [facility] Comment on above: Result Comment: Afri can [place] GFR Calc Performed By: #### L 100.0100, L501.5200, L503.6620, L500.4050, L506.0400, L501.9520 ####[facility] [address] [place], [address] GAP 5 Normal 5-15 [facility] Comment on above: Performed By: #### L 100.0100, L501.5200, L503.6620, L500.4050, L506.0400, L501.9520 ####[facility] [address] [place], [address] GFR/1.73 sq M.predicted among non-blacks MDRD (S/P/Bld) [Vol rate/Area] 67 mL/min/{1.73_m2} Normal >60 [facility] Comment on above: Result Comment: Non- GFR Calc Performed By: #### L 100.0100, L501.5200, L503.6620, L500.4050, L506.0400, L501.9520 ####[facility] [address] [place], [address] Globulin (S) [Mass/Vol] 3.4 g/dL Normal 2.2-4.2 [facility] Comment on above: Performed By: #### L 100.0100, L501.5200, L503.6620, L500.4050, L506.0400, L501.9520 ####[facility] [address] [place], [address] Glucose [Mass/Vol] 136 mg/dL High 74-106 [facility] Comment on above: Result Comment: Fast ing Glucose result greater than or equal to 126 mg/dL suggests DIABETES MELLITUS per A.D.A. criteria. Performed By: #### L 100.0100, L501.5200, L503.6620, L500.4050, L506.0400, L501.9520 ####[facility] [address] [place], [address] Potassium [Moles/Vol] 4.1 mmol/L Normal 3.5-5.1 [facility] Comment on above: Performed By: #### L 100.0100, L501.5200, L503.6620, L500.4050, L506.0400, L501.9520 ####[facility] [address] [place], [address] Sodium [Moles/Vol] 135 mmol/L Low 136-145 [facility] Comment on above: Performed By: #### L 100.0100, L501.5200, L503.6620, L500.4050, L506.0400, L501.9520 ####[facility] [address] [place], [address] T PROT 6.6 g/dL Normal 6.4-8.2 [facility] Comment on above: Performed By: #### L 100.0100, L501.5200, L503.6620, L500.4050, L506.0400, L501.9520 ####[facility] [address] [place], [address] Urea nitrogen [Mass/Vol] 18 mg/dL Normal 7-18 [facility] Comment on above: Performed By: #### L 100.0100, L501.5200, L503.6620, L500.4050, L506.0400, L501.9520 ####[facility] [address] [place], [address] Magnesiumon 09-21-2024 Magnesium [Mass/Vol] 2.3 mg/dL Normal 1.6-2.6 [facility] Comment on above: Performed By: #### M 100.678 #### [facility] [address] [place], [place], [address] T4 Free Directon 09-21-2024 T4 FREE DIRECT 1.03 ng/dL Normal 0.76-1.46 [facility] Comment on above: Performed By: #### M 100.678 #### [facility] [address] [place], [place], [address] Thyroid Stim Hormone (TSH)on 09-21-2024 TSH 0.339 uIU/mL Low 0.358-3.740 [facility] Comment on above: Performed By: #### M 100678 #### [facility] [address] [place], [place], [address] Urine Cultureon 09-13-2024 URC Klebsiella pneumonia e sp pneum Drift Count >100,000 Klebsiella pneumoniae sp pneum: REACTION [...] TMP SMX Islt NADYA <=20 S Normal [facility] Comment on above: Performed By: #### L 501.9985, L500.4050, L506.1000, L100.0100, L501.9520 #### [facility] [address] [place], [place], [address] Urgent Care Visit Reporton 1 Urgent Care Visit Report [facility] [address] [place], [place] [address] OFFICE VISIT Date of Service: 09/11/24 MR#: [id number] Acct: [id number] Name: BRENDEN JUNIOR Rep #: [id number] : 1945 Provider: SONYA Mccloud Age/Sex: 78/F Location: [facility] Status: Signed Intake Vital Signs 08/06/24 10:31 [...] you fallen in the past year?: No [facility] Medical History Rosacea Dog bite Laceration of [...] Clark on 09/11/24 14:30 Off Ur Spec [place] 1.030 Last Edit by Micaela Clark on [...] N30.90 Assess (more content not included)... Normal [facility] Absolute lymphocyte countOrd ered By: Hussein Alaniz on 10-21-2023 Lymphocytes Auto (Unsp spec) [#/Vol] 2.84 10*3/uL 0.83-4.51 [facility] Basophil percentageOrdered B y: Hussein Alaniz on 10-21-2023 Basophils/100 WBC (Bld) 0.7 % 0-1 [facility] Bilirubin [Mass/Vol] 0.60 mg/dL 0.20-1.00 [facility] Comment on above: For patients on eltr ombopag therapy, use of Dimension [place] TBIL is not recommended. Chloride [Moles/Vol] 104 mmol/L 98-107 [facility] Eosinophils/100 WBC (Bld) 2.8 % 0-5 [facility] Glucose [Mass/Vol] 176 mg/dL 74-106 [facility] Comment on above: Fasting Glucose resu lt greater than or equal to 126 mg/dL suggests DIABETES MELLITUS per A.D.A. criteria. Neutrophils (Bld) [#/Vol] 6.4 10*3/uL 2.0-7.7 [facility] Neutrophils/100 WBC (Bld) 61.7 % 47-70 [facility] Potassium [Moles/Vol] 3.9 mmol/L 3.5-5.1 [facility] Protein [Mass/Vol] 7.5 g/dL 6.4-8.2 [facility] Sodium [Moles/Vol] 136 mmol/L 136-145 [facility] WBC (Bld) [#/Vol] 10.4 10*3/uL 4.4-11.0 [facility] Blood erythrocytes count (nu mber/volume)Ordered By: Hussein Alaniz on 10-21-2023 RBC (Bld) [#/Vol] 4.34 10*6/uL 4.2-5.4 [facility] Blood hemoglobin measurement (mass/volume)Ordered By: Hussein Alaniz on 10-21-2023 Hemoglobin (Bld) [Mass/Vol] 13.4 g/dL 12.0-15.0 [facility] Blood lymphocytes/100 leukoc ytesOrdered By: Hussein Alaniz on 10-21-2023 Lymphocytes/100 WBC (Bld) 27.3 % 19-41 [facility] Blood monocytes/100 leukocyt esOrdered By: [facility] Colin on 10-21-2023 Monocytes/100 WBC (Bld) 7.1 % 0-10 [facility] Blood platelet mean volumeOr dered By: Hussein Alaniz on 10-21-2023 Platelet mean volume (Bld) [Entitic vol] 9.1 fL 6.2-12.0 [facility] Determination of erythrocyte mean corpuscular volume (MCV)Ordered By: Hussein Alaniz on 10-21-2023 MCV (RBC) [Entitic vol] 94.7 fL 81-99 [facility] Hematocrit Auto (Bld) [Volum e fraction]Ordered By: Hussein Alaniz on 10-21-2023 Hematocrit (Bld) [Volume fraction] 41.1 % 37-47 [facility] - Chemistry and C hemistry - challengeOrdered By: Hussein Alaniz on 10-21-2023 ALP [Catalytic activity/Vol] 102 U/L 45-117 [facility] ALT [Catalytic activity/Vol] 25 U/L 13-56 [facility] CO2 [Moles/Vol] 26.0 mmol/L 21.0-32.0 [facility] Globulin (S) [Mass/Vol] 4.0 g/dL 2.2-4.2 [facility] Urea nitrogen/Creatinine [Mass ratio] 19.3 mg/mg 10-20 [facility] - Hematology and Cell countsOrdered By: Hussein Alaniz on 10-21-2023 Erythrocyte distribution width (RBC) [Entitic vol] 50.2 fL 35.1-43.9 [facility] Erythrocyte distribution width (RBC) [Ratio] 14.4 % 11.6-14.6 [facility] Immature granulocytes/100 WBC (Bld) 0.400 % 0.0-0.9 [facility] Comment on above: IG% - Immature Granu locytes (promyelocytes, myelocytes and metamyelocytes) > 1% indicates that a LEFT SHIFT is Present. MCH (RBC) [Entitic mass] 30.9 pg 27.0-32.0 [facility] Nucleated RBC/100 WBC (Bld) [Ratio] 0 % 0-5 [facility] MCHC Auto (RBC) [Mass/Vol]Or dered By: Hussein Alaniz on 10-21-2023 MCHC (RBC) [Mass/Vol] 32.6 g/dL 32-36 [facility] No Panel InformationOrdered By: Hussein Alaniz on 10-21-2023 Estimated GFR (MDRD) Amer 56 mL/min >60 [facility] Comment on above: GFR Calc Estimated GFR (MDRD) Non-Af Amer 47 mL/min >60 [facility] Comment on above: Non- GFR Calc Thyroid Stimulating Hormone (TSH) 1.51 uIU/mL 0.358-3.74 [facility] Vitamin D 25-Hydroxy 37.2 ng/mL [facility] Comment on above: Vitamin D 25(OH) Sta tus Range Deficiency <20 ng/mL (50nmol/L) Insufficiency 20 - 30 ng/mL (50 - 75 nmol/L) Sufficiency 30 - 100 ng/mL (75 - 250 nmol/L) Toxicity >100 ng/mL (>250 nmol/L) Platelets bldOrdered By: Hussein Alaniz on 10-21-2023 Platelets (Bld) [#/Vol] 394 10*3/uL 150-450 [facility] Serum or plasma albumin imani urement (mass/volume)Ordered By: Hussein Alaniz on 10-21-2023 Albumin [Mass/Vol] 3.5 g/dL 3.2-5.0 [facility] Serum or plasma albumin/glob ulin mass ratioOrdered By: Hussein Alaniz on 10-21-2023 Albumin/Globulin [Mass ratio] 0.9 {ratio} 0.9-2.4 [facility] Serum or plasma calcium imani urement (mass/volume)Ordered By: Hussein Alaniz on 10-21-2023 Calcium [Mass/Vol] 8.5 mg/dL 8.5-10.1 [facility] Serum or plasma creatinine m easurement (mass/volume)Ordered By: Hussein Alaniz on 10-21-2023 Creatinine [Mass/Vol] 1.19 mg/dL 0.55-1.02 [facility] Comment on above: The validity of the calculated GFR & GFRAA in patients over 70 years has not been determined. Clinical correlation is essential. Serum or plasma urea nitroge n measurement (mass/volume)Ordered By: Hussein Alaniz on 10-21-2023 Urea nitrogen [Mass/Vol] 23 mg/dL 7-18 [facility] Thin prep Papanicolaou smear with manual screeningOrdered By: Hussein Alaniz on 10-21-2023 Thin prep Papanicolaou smear with manual screening 17 U/L 15-37 [facility] Thin prep Papanicolaou smear with manual screening 6 5-15 [facility] Urine creatinine measurement (mass/volume)Ordered By: Neeta Amador on 06-22-2023 Creatinine (U) [Mass/Vol] 56.40 mg/dL NO RANGE EST. [facility] Urine protein measurement (m ass/volume)Ordered By: Neeta Amador on 06-22-2023 Protein (U) [Mass/Vol] 30.6 mg/dL 0.0-11.8 [facility] Urine protein/creatinine mas s ratioOrdered By: Neeta Amador on 06-22-2023 Protein/Creatinine (U) [Mass ratio] 543 mg/g CRE 0-200 [facility] Basophil percentageOrdered B y: Neeta Amador on 06-21-2023 Basophil percentage 2.8 mg/dL 2.5-4.9 [facility] Chloride [Moles/Vol] 104 mmol/L 98-107 [facility] Glucose [Mass/Vol] 159 mg/dL 74-106 [facility] Comment on above: Fasting Glucose resu lt greater than or equal to 126 mg/dL suggests DIABETES MELLITUS per A.D.A. criteria. Potassium [Moles/Vol] 3.4 mmol/L 3.5-5.1 [facility] Sodium [Moles/Vol] 137 mmol/L 136-145 [facility] Laboratory - Chemistry and C hemistry - challengeOrdered By: Neeta Amador on 06-21-2023 CO2 [Moles/Vol] 26.0 mmol/L 21.0-32.0 [facility] Urea nitrogen/Creatinine [Mass ratio] 19.3 mg/mg 10-20 [facility] No Panel InformationOrdered By: Neeta Amador on 06-21-2023 Estimated GFR (MDRD) Amer 62 mL/min >60 [facility] Comment on above: GFR Calc Estimated GFR (MDRD) Non-Af Amer 52 mL/min >60 [facility] Comment on above: Non- GFR Calc Serum or plasma albumin imani urement (mass/volume)Ordered By: Neeta Amador on 06-21-2023 Albumin [Mass/Vol] 3.4 g/dL 3.2-5.0 [facility] Serum or plasma calcium imani urement (mass/volume)Ordered By: Neeta Amador on 06-21-2023 Calcium [Mass/Vol] 8.4 mg/dL 8.5-10.1 [facility] Serum or plasma creatinine m easurement (mass/volume)Ordered By: Neeta Amador on 06-21-2023 Creatinine [Mass/Vol] 1.09 mg/dL 0.55-1.02 [facility] Comment on above: The validity of the calculated GFR & GFRAA in patients over 70 years has not been determined. Clinical correlation is essential. Serum or plasma urea nitroge n measurement (mass/volume)Ordered By: Neeta Amador on 06-21-2023 Urea nitrogen [Mass/Vol] 21 mg/dL 7-18 [facility] No Panel InformationOrdered By: Hussein Alaniz on 05-27-2023 Thyroid Stimulating Hormone (TSH) 2.67 uIU/mL 0.358-3.74 [facility] Culture, urineOrdered By: Dr Claire Alaniz on 04-07-2023 Bacteria identified Cx Nom (U) Presumptive E. coli [facility] [facility] Absolute lymphocyte countOrd ered By: Dr. Alaniz on 04-05-2023 Lymphocytes Auto (Unsp spec) [#/Vol] 2.71 10*3/uL 0.83-4.51 [facility] Basophil percentageOrdered B y: Dr. Alaniz on 04-05-2023 Basophils/100 WBC (Bld) 0.7 % 0-1 [facility] Bilirubin [Mass/Vol] 0.50 mg/dL 0.20-1.00 [facility] Comment on above: For patients on eltr ombopag therapy, use of Dimension [place] TBIL is not recommended. Chloride [Moles/Vol] 105 mmol/L 98-107 [facility] Eosinophils/100 WBC (Bld) 2.3 % 0-5 [facility] Glucose [Mass/Vol] 175 mg/dL 74-106 [facility] Comment on above: Fasting Glucose resu lt greater than or equal to 126 mg/dL suggests DIABETES MELLITUS per A.D.A. criteria. Neutrophils (Bld) [#/Vol] 5.1 10*3/uL 2.0-7.7 [facility] Neutrophils/100 WBC (Bld) 58.9 % 47-70 [facility] Potassium [Moles/Vol] 3.7 mmol/L 3.5-5.1 [facility] Protein [Mass/Vol] 7.1 g/dL 6.4-8.2 [facility] Sodium [Moles/Vol] 136 mmol/L 136-145 [facility] WBC (Bld) [#/Vol] 8.7 10*3/uL 4.4-11.0 [facility] Blood erythrocytes count (nu mber/volume)Ordered By: Dr. Alaniz on 04-05-2023 RBC (Bld) [#/Vol] 4.11 10*6/uL 4.2-5.4 [facility] Blood hemoglobin measurement (mass/volume)Ordered By: Dr. Alaniz on 04-05-2023 Hemoglobin (Bld) [Mass/Vol] 12.7 g/dL 12.0-15.0 [facility] Blood lymphocytes/100 leukoc ytesOrdered By: Dr. Alaniz on 04-05-2023 Lymphocytes/100 WBC (Bld) 31.3 % 19-41 [facility] Blood monocytes/100 leukocyt esOrdered By: Dr. Alaniz on 04-05-2023 Monocytes/100 WBC (Bld) 6.3 % 0-10 [facility] Blood platelet mean volumeOr dered By: Dr. Alaniz on 04-05-2023 Platelet mean volume (Bld) [Entitic vol] 9.4 fL 6.2-12.0 [facility] Culture, urineOrdered By: Brian Alaniz on 04-05-2023 Bacteria identified Cx Nom (U) Presumptive E. coli [facility] Determination of erythrocyte mean corpuscular volume (MCV)Ordered By: Dr. Alaniz on 04-05-2023 MCV (RBC) [Entitic vol] 94.9 fL 81-99 [facility] Hematocrit Auto (Bld) [Volum e fraction]Ordered By: Dr. Alaniz on 04-05-2023 Hematocrit (Bld) [Volume fraction] 39.0 % 37-47 [facility] Laboratory - Chemistry and C hemistry - challengeOrdered By: Dr. Alaniz on 04-05-2023 ALP [Catalytic activity/Vol] 89 U/L 45-117 [facility] ALT [Catalytic activity/Vol] 26 U/L 13-56 [facility] CO2 [Moles/Vol] 23.0 mmol/L 21.0-32.0 [facility] Globulin (S) [Mass/Vol] 3.4 g/dL 2.2-4.2 [facility] Urea nitrogen/Creatinine [Mass ratio] 19.0 mg/mg 10-20 [facility] Laboratory - Hematology and Cell countsOrdered By: Dr. Alaniz on 04-05-2023 Erythrocyte distribution width (RBC) [Entitic vol] 51.4 fL 35.1-43.9 [facility] Erythrocyte distribution width (RBC) [Ratio] 14.7 % 11.6-14.6 [facility] Immature granulocytes/100 WBC (Bld) 0.500 % 0.0-0.9 [facility] Comment on above: IG% - Immature Granu locytes (promyelocytes, myelocytes and metamyelocytes) > 1% indicates that a LEFT SHIFT is Present. MCH (RBC) [Entitic mass] 30.9 pg 27.0-32.0 [facility] Nucleated RBC/100 WBC (Bld) [Ratio] 0 % 0-[address] [facility] Auto (RBC) [Mass/Vol]Or dered By: Dr. Alaniz on 04-05-2023 MCHC (RBC) [Mass/Vol] 32.6 g/dL 32-36 [facility] No Panel InformationOrdered By: Dr. Alaniz on 04-05-2023 Estimated GFR (MDRD) Amer 55 mL/min >60 [facility] Comment on above: GFR Calc Estimated GFR (MDRD) Non-Af Amer 46 mL/min >60 [facility] Comment on above: Non- GFR Calc Thyroid Stimulating Hormone (TSH) 9.07 uIU/mL 0.358-3.74 [facility] Vitamin D 25-Hydroxy 42.5 ng/mL [facility] Comment on above: Vitamin D 25(OH) Sta tus Range Deficiency <20 ng/mL (50nmol/L) Insufficiency 20 - 30 ng/mL (50 - 75 nmol/L) Sufficiency 30 - 100 ng/mL (75 - 250 nmol/L) Toxicity >100 ng/mL (>250 nmol/L) Platelets bldOrdered By: Dr. Alaniz on 04-05-2023 Platelets (Bld) [#/Vol] 343 10*3/uL 150-450 [facility] Serum or plasma albumin imani urement (mass/volume)Ordered By: Dr. Alaniz on 04-05-2023 Albumin [Mass/Vol] 3.7 g/dL 3.2-5.0 [facility] Serum or plasma albumin/glob ulin mass ratioOrdered By: Dr. Alaniz on 04-05-2023 Albumin/Globulin [Mass ratio] 1.1 {ratio} 0.9-2.4 [facility] Serum or plasma calcium imani urement (mass/volume)Ordered By: Dr. Alaniz on 04-05-2023 Calcium [Mass/Vol] 8.5 mg/dL 8.5-10.1 [facility] Serum or plasma creatinine m easurement (mass/volume)Ordered By: Dr. Alaniz on 04-05-2023 Creatinine [Mass/Vol] 1.21 mg/dL 0.55-1.02 [facility] Comment on above: The validity of the calculated GFR & GFRAA in patients over 70 years has not been determined. Clinical correlation is essential. Serum or plasma urea nitroge n measurement (mass/volume)Ordered By: Dr. Alaniz on 04-05-2023 Urea nitrogen [Mass/Vol] 23 mg/dL 7-18 [facility] Thin prep Papanicolaou smear with manual screeningOrdered By: Dr. Alaniz on 04-05-2023 Thin prep Papanicolaou smear with manual screening 14 U/L 15-37 [facility] Thin prep Papanicolaou smear with manual screening 8 5-15 [facility] No Panel Informationon 11-21 Thyroid Stimulating Hormone (TSH) 3.57 uIU/mL 0.358-3.74 [facility] Work Phone: Absolute lymphocyte counton 10-11-2022 Lymphocytes Auto (Unsp spec) [#/Vol] 4.23 10*3/uL 0.83-4.51 [facility] Work Phone: Basophil percentageon 2021 Basophils/100 WBC (Bld) 0.6 % 0-1 [facility] Work Phone: Bilirubin [Mass/Vol] 0.60 mg/dL 0.20-1.00 [facility] Work Phone: Comment on above: For patients on eltr ombopag therapy, use of Dimension [place] TBIL is not recommended. Chloride [Moles/Vol] 101 mmol/L 98-107 [facility] Work Phone: Eosinophils/100 WBC (Bld) 2.0 % 0-5 [facility] Work Phone: Glucose [Mass/Vol] 97 mg/dL 74-106 [facility] Work Phone: Neutrophils (Bld) [#/Vol] 5.0 10*3/uL 2.0-7.7 [facility] Work Phone: Neutrophils/100 WBC (Bld) 48.6 % 47-70 [facility] Work Phone: Potassium [Moles/Vol] 4.0 mmol/L 3.5-5.1 [facility] Work Phone: Protein [Mass/Vol] 8.1 g/dL 6.4-8.2 [facility] Work Phone: Sodium [Moles/Vol] 134 mmol/L 136-145 [facility] Work Phone: WBC (Bld) [#/Vol] 10.3 10*3/uL 4.4-11.0 [facility] Work Phone: Blood erythrocytes count (nu mber/volume)on 10-11-2022 RBC (Bld) [#/Vol] 4.46 10*6/uL 4.2-5.4 [facility] Work Phone: Blood hemoglobin measurement (mass/volume)on 10-11-2022 Hemoglobin (Bld) [Mass/Vol] 13.9 g/dL 12.0-15.0 [facility] Work Phone: Blood lymphocytes/100 leukoc yteson 10-11-2022 Lymphocytes/100 WBC (Bld) 41.1 % 19-41 [facility] Work Phone: Blood monocytes/100 leukocyt eson 10-11-2022 Monocytes/100 WBC (Bld) 7.5 % 0-10 [facility] Work Phone: Blood platelet mean volumeon 10-11-2022 Platelet mean volume (Bld) [Entitic vol] 8.5 fL 6.2-12.0 [facility] Work Phone: Determination of erythrocyte mean corpuscular volume (MCV)on 10-11-2022 MCV (RBC) [Entitic vol] 93.3 fL 81-99 [facility] Work Phone: Hematocrit Auto (Bld) [Volum e fraction]on 10-11-2022 Hematocrit (Bld) [Volume fraction] 41.6 % 37-47 [facility] Work Phone: Laboratory - Chemistry and C hemistry - challengeon 10-11-2022 ALP [Catalytic activity/Vol] 103 U/L 45-117 [facility] Work Phone: [phone] ALT [Catalytic activity/Vol] 24 U/L 13-56 [facility] Work Phone: [phone] CO2 [Moles/Vol] 24.0 mmol/L 21.0-32.0 [facility] Work Phone: [phone] Globulin (S) [Mass/Vol] 4.1 g/dL 2.2-4.2 [facility] Work Phone: [phone] Urea nitrogen/Creatinine [Mass ratio] 22.5 mg/mg 10-20 [facility] Work Phone: [phone] Laboratory - Hematology and Cell countson 10-11-2022 Erythrocyte distribution width (RBC) [Entitic vol] 51.9 fL 35.1-43.9 [facility] Work Phone: [phone] Erythrocyte distribution width (RBC) [Ratio] 15.1 % 11.6-14.6 [facility] Work Phone: [phone] Immature granulocytes/100 WBC (Bld) 0.200 % 0.0-0.9 [facility] Work Phone: [phone] Comment on above: IG% - Immature Granu locytes (promyelocytes, myelocytes and metamyelocytes) > 1% indicates that a LEFT SHIFT is Present. MCH (RBC) [Entitic mass] 31.2 pg 27.0-32.0 [facility] Work Phone: [phone] Nucleated RBC/100 WBC (Bld) [Ratio] 0 % 0-5 [facility] Work Phone: [phone] MCHC Auto (RBC) [Mass/Vol]on 10-11-2022 MCHC (RBC) [Mass/Vol] 33.4 g/dL 32-36 [facility] Work Phone: [phone] Panel Informationon 10-11 Estimated GFR (MDRD) Amer 79 mL/min >60 [facility] Work Phone: [phone] Comment on above: GFR Calc Estimated GFR (MDRD) Non-Af Amer 65 mL/min >60 [facility] Work Phone: Comment on above: Non- GFR Calc Thyroid Stimulating Hormone (TSH) 4.88 uIU/mL 0.358-3.74 [facility] Work Phone: Vitamin D 25-Hydroxy 33.3 ng/mL [facility] Work Phone: Comment on above: Vitamin D 25(OH) Sta tus Range Deficiency <20 ng/mL (50nmol/L) Insufficiency 20 - 30 ng/mL (50 - 75 nmol/L) Sufficiency 30 - 100 ng/mL (75 - 250 nmol/L) Toxicity >100 ng/mL (>250 nmol/L) Platelets bldon 10-11-2022 Platelets (Bld) [#/Vol] 370 10*3/uL 150-450 [facility] Work Phone: Serum or plasma albumin imani urement (mass/volume)on 10-11-2022 Albumin [Mass/Vol] 4.0 g/dL 3.2-5.0 [facility] Work Phone: Serum or plasma albumin/glob ulin mass ratioon 10-11-2022 Albumin/Globulin [Mass ratio] 1.0 {ratio} 0.9-2.4 [facility] Work Phone: Serum or plasma calcium imani urement (mass/volume)on 10-11-2022 Calcium [Mass/Vol] 9.3 mg/dL 8.5-10.1 [facility] Work Phone: Serum or plasma creatinine m easurement (mass/volume)on 10-11-2022 Creatinine [Mass/Vol] 0.89 mg/dL 0.55-1.02 [facility] Work Phone: Comment on above: The validity of the calculated GFR & GFRAA in patients over 70 years has not been determined. Clinical correlation is essential. Serum or plasma urea nitroge n measurement (mass/volume)on 10-11-2022 Urea nitrogen [Mass/Vol] 20 mg/dL 7-18 [facility] Work Phone: Thin prep Papanicolaou smear with manual screeningon 10-11-2022 Thin prep Papanicolaou smear with manual screening 18 U/L 15-37 [facility] Work Phone: Thin prep Papanicolaou smear with manual screening 9 5-15 [facility] Work Phone: Urine creatinine measurement (mass/volume)on 10-11-2022 Creatinine (U) [Mass/Vol] 266.00 mg/dL NO RANGE EST. [facility] Work Phone: Urine protein measurement (m ass/volume)on 10-11-2022 Protein (U) [Mass/Vol] 49.5 mg/dL 0.0-11.8 [facility] Work Phone: Urine protein/creatinine mas s ratioon 10-11-2022 Protein/Creatinine (U) [Mass ratio] 186 mg/g CRE 0-200 [facility] Work Phone: Absolute lymphocyte counton 07-18-2022 Lymphocytes Auto (Unsp spec) [#/Vol] 3.05 10*3/uL 0.83-4.51 [facility] Work Phone: Basophil percentageon 2021 Basophils/100 WBC (Bld) 0.6 % 0-1 [facility] Work Phone: Bilirubin [Mass/Vol] 0.50 mg/dL 0.20-1.00 [facility] Work Phone: Comment on above: For patients on eltr ombopag therapy, use of Dimension [place] TBIL is not recommended. Chloride [Moles/Vol] 104 mmol/L 98-107 [facility] Work Phone: Eosinophils/100 WBC (Bld) 2.3 % 0-5 [facility] Work Phone: Glucose [Mass/Vol] 136 mg/dL 74-106 [facility] Work Phone: Comment on above: Fasting Glucose resu lt greater than or equal to 126 mg/dL suggests DIABETES MELLITUS per A.D.A. criteria. Neutrophils (Bld) [#/Vol] 4.9 10*3/uL 2.0-7.7 [facility] Work Phone: Neutrophils/100 WBC (Bld) 54.3 % 47-70 [facility] Work Phone: Potassium [Moles/Vol] 3.5 mmol/L 3.5-5.1 [facility] Work Phone: Protein [Mass/Vol] 7.3 g/dL 6.4-8.2 [facility] Work Phone: Sodium [Moles/Vol] 137 mmol/L 136-145 [facility] Work Phone: WBC (Bld) [#/Vol] 9.1 10*3/uL 4.4-11.0 [facility] Work Phone: Blood erythrocytes count (nu mber/volume)on 07-18-2022 RBC (Bld) [#/Vol] 4.30 10*6/uL 4.2-5.4 [facility] Work Phone: Blood hemoglobin measurement (mass/volume)on 07-18-2022 Hemoglobin (Bld) [Mass/Vol] 13.0 g/dL 12.0-15.0 [facility] Work Phone: Blood lymphocytes/100 leukoc yteson 07-18-2022 Lymphocytes/100 WBC (Bld) 33.6 % 19-41 [facility] Work Phone: [phone] Blood monocytes/100 leukocyt eson 07-18-2022 Monocytes/100 WBC (Bld) 8.9 % 0-10 [facility] Work Phone: Blood platelet mean volumeon 07-18-2022 Platelet mean volume (Bld) [Entitic vol] 9.9 fL 6.2-12.0 [facility] Work Phone: Determination of erythrocyte mean corpuscular volume (MCV)on 07-18-2022 MCV (RBC) [Entitic vol] 94.7 fL 81-99 [facility] Work Phone: Hematocrit Auto (Bld) [Volum e fraction]on 07-18-2022 Hematocrit (Bld) [Volume fraction] 40.7 % 37-47 [facility] Work Phone: [phone] Laboratory - Chemistry and C hemistry - challengeon 07-18-2022 ALP [Catalytic activity/Vol] 90 U/L 45-117 [facility] Work Phone: [phone] ALT [Catalytic activity/Vol] 23 U/L 13-56 [facility] Work Phone: [phone] CO2 [Moles/Vol] 26.0 mmol/L 21.0-32.0 [facility] Work Phone: [phone] Globulin (S) [Mass/Vol] 3.7 g/dL 2.2-4.2 [facility] Work Phone: [phone] Urea nitrogen/Creatinine [Mass ratio] 14.7 mg/mg 10-20 [facility] Work Phone: [phone] Laboratory - Hematology and Cell countson 07-18-2022 Erythrocyte distribution width (RBC) [Entitic vol] 50.2 fL 35.1-43.9 [facility] Work Phone: [phone] Erythrocyte distribution width (RBC) [Ratio] 14.5 % 11.6-14.6 [facility] Work Phone: [phone] Immature granulocytes/100 WBC (Bld) 0.300 % 0.0-0.9 [facility] Work Phone: [phone] Comment on above: IG% - Immature Granu locytes (promyelocytes, myelocytes and metamyelocytes) > 1% indicates that a LEFT SHIFT is Present. MCH (RBC) [Entitic mass] 30.2 pg 27.0-32.0 [facility] Work Phone: [phone] Nucleated RBC/100 WBC (Bld) [Ratio] 0 % 0-5 [facility] Work Phone: [phone] MCHC Auto (RBC) [Mass/Vol]on 07-18-2022 MCHC (RBC) [Mass/Vol] 31.9 g/dL 32-36 [facility] Work Phone: No Panel Informationon 07-18 Estimated GFR (MDRD) Amer 67 mL/min >60 [facility] Work Phone: Comment on above: GFR Calc Estimated GFR (MDRD) Non-Af Amer 56 mL/min >60 [facility] Work Phone: Comment on above: Non- GFR Calc Thyroid Stimulating Hormone (TSH) 2.35 uIU/mL 0.358-3.74 [facility] Work Phone: Vitamin D 25-Hydroxy 30.8 ng/mL [facility] Work Phone: Comment on above: Vitamin D 25(OH) Sta tus Range Deficiency <20 ng/mL (50nmol/L) Insufficiency 20 - 30 ng/mL (50 - 75 nmol/L) Sufficiency 30 - 100 ng/mL (75 - 250 nmol/L) Toxicity >100 ng/mL (>250 nmol/L) Platelets bldon 07-18-2022 Platelets (Bld) [#/Vol] 364 10*3/uL 150-450 [facility] Work Phone: Serum or plasma albumin imani urement (mass/volume)on 07-18-2022 Albumin [Mass/Vol] 3.6 g/dL 3.2-5.0 [facility] Work Phone: [phone] Serum or plasma albumin/glob ulin mass ratioon 07-18-2022 Albumin/Globulin [Mass ratio] 1.0 {ratio} 0.9-2.4 [facility] Work Phone: [phone] Serum or plasma calcium imani urement (mass/volume)on 07-18-2022 Calcium [Mass/Vol] 8.2 mg/dL 8.5-10.1 [facility] Work Phone: [phone] Serum or plasma creatinine m easurement (mass/volume)on 07-18-2022 Creatinine [Mass/Vol] 1.02 mg/dL 0.55-1.02 [facility] Work Phone: Comment on above: The validity of the calculated GFR & GFRAA in patients over 70 years has not been determined. Clinical correlation is essential. Serum or plasma urea nitroge n measurement (mass/volume)on 07-18-2022 Urea nitrogen [Mass/Vol] 15 mg/dL 7-18 [facility] Work Phone: Thin prep Papanicolaou smear with manual screeningon 07-18-2022 Thin prep Papanicolaou smear with manual screening 15 U/L 15-37 [facility] Work Phone: [phone] Thin prep Papanicolaou smear with manual screening 7 5-15 [facility] Work Phone: [phone] Absolute lymphocyte counton 04-16-2022 Lymphocytes Auto (Unsp spec) [#/Vol] 3.54 10*3/uL 0.83-4.51 [facility] Work Phone: Basophil percentageon 2021 Basophils/100 WBC (Bld) 0.5 % 0-1 [facility] Work Phone: Bilirubin [Mass/Vol] 0.60 mg/dL 0.20-1.00 [facility] Work Phone: Comment on above: For patients on eltr ombopag therapy, use of Dimension [place] TBIL is not recommended. Chloride [Moles/Vol] 102 mmol/L 98-107 [facility] Work Phone: Eosinophils/100 WBC (Bld) 2.2 % 0-5 [facility] Work Phone: Glucose [Mass/Vol] 113 mg/dL 74-106 [facility] Work Phone: Comment on above: Fasting Glucose resu lt from 100 to 125 mg/dL suggests IMPAIRED HOMEOSTASIS per A.D.A. criteria. Neutrophils (Bld) [#/Vol] 4.7 10*3/uL 2.0-7.7 [facility] Work Phone: Neutrophils/100 WBC (Bld) 50.2 % 47-70 [facility] Work Phone: Potassium [Moles/Vol] 3.9 mmol/L 3.5-5.1 [facility] Work Phone: Protein [Mass/Vol] 7.7 g/dL 6.4-8.2 [facility] Work Phone: Sodium [Moles/Vol] 137 mmol/L 136-145 [facility] Work Phone: [phone] WBC (Bld) [#/Vol] 9.4 10*3/uL 4.4-11.0 [facility] Work Phone: Blood erythrocytes count (nu mber/volume)on 04-16-2022 RBC (Bld) [#/Vol] 4.41 10*6/uL 4.2-5.4 [facility] Work Phone: Blood hemoglobin measurement (mass/volume)on 04-16-2022 Hemoglobin (Bld) [Mass/Vol] 13.4 g/dL 12.0-15.0 [facility] Work Phone: [phone] Blood lymphocytes/100 leukoc yteson 04-16-2022 Lymphocytes/100 WBC (Bld) 37.7 % 19-41 [facility] Work Phone: Blood monocytes/100 leukocyt eson 04-16-2022 Monocytes/100 WBC (Bld) 9.1 % 0-10 [facility] Work Phone: Blood platelet mean volumeon 04-16-2022 Platelet mean volume (Bld) [Entitic vol] 9.6 fL 6.2-12.0 [facility] Work Phone: Determination of erythrocyte mean corpuscular volume (MCV)on 04-16-2022 MCV (RBC) [Entitic vol] 92.3 fL 81-99 [facility] Work Phone: Hematocrit Auto (Bld) [Volum e fraction]on 04-16-2022 Hematocrit (Bld) [Volume fraction] 40.7 % 37-47 [facility] Work Phone: Laboratory - Chemistry and C hemistry - challengeon 04-16-2022 ALP [Catalytic activity/Vol] 95 U/L 45-117 [facility] Work Phone: [phone] ALT [Catalytic activity/Vol] 27 U/L 13-56 [facility] Work Phone: [phone] CO2 [Moles/Vol] 28.0 mmol/L 21.0-32.0 [facility] Work Phone: [phone] Globulin (S) [Mass/Vol] 3.9 g/dL 2.2-4.2 [facility] Work Phone: [phone] Urea nitrogen/Creatinine [Mass ratio] 23.7 mg/mg 10-20 [facility] Work Phone: [phone] Laboratory - Hematology and Cell countson 04-16-2022 Erythrocyte distribution width (RBC) [Entitic vol] 50.2 fL 35.1-43.9 [facility] Work Phone: [phone] Erythrocyte distribution width (RBC) [Ratio] 14.8 % 11.6-14.6 [facility] Work Phone: [phone] Immature granulocytes/100 WBC (Bld) 0.300 % 0.0-0.9 [facility] Work Phone: [phone] Comment on above: IG% - Immature Granu locytes (promyelocytes, myelocytes and metamyelocytes) > 1% indicates that a LEFT SHIFT is Present. MCH (RBC) [Entitic mass] 30.4 pg 27.0-32.0 [facility] Work Phone: [phone] Nucleated RBC/100 WBC (Bld) [Ratio] 0 % 0-5 [facility] Work Phone: [phone] MCHC Auto (RBC) [Mass/Vol]on 04-16-2022 MCHC (RBC) [Mass/Vol] 32.9 g/dL 32-36 [facility] Work Phone: [phone] Panel Informationon 04-16 Estimated GFR (MDRD) Amer 59 mL/min >60 [facility] Work Phone: [phone] Comment on above: GFR Calc Estimated GFR (MDRD) Non-Af Amer 49 mL/min >60 [facility] Work Phone: Comment on above: Non- GFR Calc Thyroid Stimulating Hormone (TSH) 0.99 uIU/mL 0.358-3.74 [facility] Work Phone: Platelets bldon 04-16-2022 Platelets (Bld) [#/Vol] 366 10*3/uL 150-450 [facility] Work Phone: Serum or plasma albumin imani urement (mass/volume)on 04-16-2022 Albumin [Mass/Vol] 3.8 g/dL 3.2-5.0 [facility] Work Phone: Serum or plasma albumin/glob ulin mass ratioon 04-16-2022 Albumin/Globulin [Mass ratio] 1.0 {ratio} 0.9-2.4 [facility] Work Phone: Serum or plasma calcium imani urement (mass/volume)on 04-16-2022 Calcium [Mass/Vol] 9.0 mg/dL 8.5-10.1 [facility] Work Phone: Serum or plasma creatinine m easurement (mass/volume)on 04-16-2022 Creatinine [Mass/Vol] 1.14 mg/dL 0.55-1.02 [facility] Work Phone: Comment on above: The validity of the calculated GFR & GFRAA in patients over 70 years has not been determined. Clinical correlation is essential. Serum or plasma urea nitroge n measurement (mass/volume)on 04-16-2022 Urea nitrogen [Mass/Vol] 27 mg/dL 7-18 [facility] Work Phone: Thin prep Papanicolaou smear with manual screeningon 04-16-2022 Thin prep Papanicolaou smear with manual screening 18 U/L 15-37 [facility] Work Phone: Thin prep Papanicolaou smear with manual screening 7 5-15 [facility] Work Phone: No Panel Informationon 03-02 Thyroid Stimulating Hormone (TSH) 0.51 uIU/mL 0.358-3.74 [facility] Work Phone: Absolute lymphocyte counton 01-15-2022 Lymphocytes Auto (Unsp spec) [#/Vol] 3.29 10*3/uL 0.83-4.51 [facility] Work Phone: Basophil percentageon 2021 Basophils/100 WBC (Bld) 0.6 % 0-1 [facility] Work Phone: Bilirubin [Mass/Vol] 0.60 mg/dL 0.20-1.00 [facility] Work Phone: Comment on above: For patients on eltr ombopag therapy, use of Dimension [place] TBIL is not recommended. Chloride [Moles/Vol] 104 mmol/L 98-107 [facility] Work Phone: Eosinophils/100 WBC (Bld) 2.7 % 0-5 [facility] Work Phone: Glucose [Mass/Vol] 137 mg/dL 74-106 [facility] Work Phone: Comment on above: Fasting Glucose resu lt greater than or equal to 126 mg/dL suggests DIABETES MELLITUS per A.D.A. criteria. Neutrophils (Bld) [#/Vol] 4.7 10*3/uL 2.0-7.7 [facility] Work Phone: Neutrophils/100 WBC (Bld) 52.2 % 47-70 [facility] Work Phone: Potassium [Moles/Vol] 4.5 mmol/L 3.5-5.1 [facility] Work Phone: Protein [Mass/Vol] 8.3 g/dL 6.4-8.2 [facility] Work Phone: Sodium [Moles/Vol] 135 mmol/L 136-145 [facility] Work Phone: WBC (Bld) [#/Vol] 9.0 10*3/uL 4.4-11.0 [facility] Work Phone: Blood erythrocytes count (nu mber/volume)on 01-15-2022 RBC (Bld) [#/Vol] 4.70 10*6/uL 4.2-5.4 [facility] Work Phone: [phone] Blood hemoglobin measurement (mass/volume)on 01-15-2022 Hemoglobin (Bld) [Mass/Vol] 14.4 g/dL 12.0-15.0 [facility] Work Phone: [phone] Blood lymphocytes/100 leukoc yteson 01-15-2022 Lymphocytes/100 WBC (Bld) 36.8 % 19-41 [facility] Work Phone: [phone] Blood monocytes/100 leukocyt eson 01-15-2022 Monocytes/100 WBC (Bld) 7.4 % 0-10 [facility] Work Phone: [phone] Blood platelet mean volumeon 01-15-2022 Platelet mean volume (Bld) [Entitic vol] 9.6 fL 6.2-12.0 [facility] Work Phone: [phone] Determination of erythrocyte mean corpuscular volume (MCV)on 01-15-2022 MCV (RBC) [Entitic vol] 92.3 fL 81-99 [facility] Work Phone: [phone] Hematocrit Auto (Bld) [Volum e fraction]on 01-15-2022 Hematocrit (Bld) [Volume fraction] 43.4 % 37-47 [facility] Work Phone: [phone] Laboratory - Chemistry and C hemistry - challengeon 01-15-2022 ALP [Catalytic activity/Vol] 119 U/L 45-117 [facility] Work Phone: [phone] ALT [Catalytic activity/Vol] 39 U/L 13-56 [facility] Work Phone: [phone] CO2 [Moles/Vol] 20.0 mmol/L 21.0-32.0 [facility] Work Phone: [phone] Globulin (S) [Mass/Vol] 4.6 g/dL 2.2-4.2 [facility] Work Phone: [phone] Urea nitrogen/Creatinine [Mass ratio] 21.9 mg/mg 10-20 [facility] Work Phone: [phone] Laboratory - Hematology and Cell countson 01-15-2022 Erythrocyte distribution width (RBC) [Entitic vol] 49.0 fL 35.1-43.9 [facility] Work Phone: [phone] Erythrocyte distribution width (RBC) [Ratio] 14.5 % 11.6-14.6 [facility] Work Phone: [phone] Immature granulocytes/100 WBC (Bld) 0.300 % 0.0-0.9 [facility] Work Phone: [phone] Comment on above: IG% - Immature Granu locytes (promyelocytes, myelocytes and metamyelocytes) > 1% indicates that a LEFT SHIFT is Present. MCH (RBC) [Entitic mass] 30.6 pg 27.0-32.0 [facility] Work Phone: [phone] Nucleated RBC/100 WBC (Bld) [Ratio] 0 % 0-5 [facility] Work Phone: [phone] MCHC Auto (RBC) [Mass/Vol]on 01-15-2022 MCHC (RBC) [Mass/Vol] 33.2 g/dL 32-36 [facility] Work Phone: [phone] Panel Informationon 01-15 Estimated GFR (MDRD) Amer 65 mL/min >60 [facility] Work Phone: [phone] Comment on above: GFR Calc Estimated GFR (MDRD) Non-Af Amer 54 mL/min >60 [facility] Work Phone: [phone] Comment on above: Non- GFR Calc Thyroid Stimulating Hormone (TSH) 0.09 uIU/mL 0.358-3.74 [facility] Work Phone: [phone] Vitamin D 25-Hydroxy 36.1 ng/mL [facility] Work Phone: [phone] Comment on above: Vitamin D 25(OH) Sta tus Range Deficiency <20 ng/mL (50nmol/L) Insufficiency 20 - 30 ng/mL (50 - 75 nmol/L) Sufficiency 30 - 100 ng/mL (75 - 250 nmol/L) Toxicity >100 ng/mL (>250 nmol/L) Platelets bldon 01-15-2022 Platelets (Bld) [#/Vol] 322 10*3/uL 150-450 [facility] Work Phone: [phone] Serum or plasma albumin imani urement (mass/volume)on 01-15-2022 Albumin [Mass/Vol] 3.7 g/dL 3.2-5.0 [facility] Work Phone: [phone] Serum or plasma albumin/glob ulin mass ratioon 01-15-2022 Albumin/Globulin [Mass ratio] 0.8 {ratio} 0.9-2.4 [facility] Work Phone: [phone] Serum or plasma calcium imani urement (mass/volume)on 01-15-2022 Calcium [Mass/Vol] 8.9 mg/dL 8.5-10.1 [facility] Work Phone: [phone] Serum or plasma creatinine m easurement (mass/volume)on 01-15-2022 Creatinine [Mass/Vol] 1.05 mg/dL 0.55-1.02 [facility] Work Phone: Comment on above: The validity of the calculated GFR & GFRAA in patients over 70 years has not been determined. Clinical correlation is essential. Serum or plasma urea nitroge n measurement (mass/volume)on 01-15-2022 Urea nitrogen [Mass/Vol] 23 mg/dL 7-18 [facility] Work Phone: [phone] Thin prep Papanicolaou smear with manual screeningon 01-15-2022 Thin prep Papanicolaou smear with manual screening 32 U/L 15-37 [facility] Work Phone: [phone] Thin prep Papanicolaou smear with manual screening 11 5-15 [facility] Work Phone: [phone] Culture, urine Bacteria identified Cx Nom (U) Proteus mirabilis [facility] Work Phone: [phone] Bacteria identified Cx Nom (U) Klebsiella pneumoniae sp pneum [facility] Work Phone: [phone] Vital Signs Date Time Vital Sign Value Performing Clinician Faci lity 09-01-2025 09:46-0400 Body height 162.[address] Hussein Alaniz MD Work Phone: [facility] 09-01-2025 09:46-0400 Body mass index (BMI) [Ratio] 31.2 kg/m2 Dr. Hussein Alaniz MD Work Phone: [phone] [place] [address] 09-01-2025 09:46-0400 Body weight 82.[address] Hussein Alaniz MD Work Phone: [facility] 09-01-2025 09:46-0400 Diastolic blood pressure 86 mm[Hg] Dr. Hussein Alaniz MD Work Phone: 8([phone])317-161427 [place] [address] 09-01-2025 09:46-0400 Heart rate 79 /min Dr. Hussein Alaniz MD Work Phone: [phone])011-464627 [place] [address] 09-01-2025 09:46-0400 Systolic blood pressure 130 mm[Hg] Dr. Hussein Alaniz MD Work Phone: 3([phone])038-366727 [place] [address] 08-30-2025 15:09-0400 Body height 162.[address] Hussein Alaniz MD Work Phone: [phone])463-189427 [place] [address] 08-30-2025 15:09-0400 Body mass index (BMI) [Ratio] 31.2 kg/m2 Dr. Hussein Alaniz MD Work Phone: [phone])800-246027 [place] [address] 08-30-2025 15:09-0400 Body temperature 97.9 [degF] Dr. Hussein Alaniz MD Work Phone: [facility] 08-30-2025 15:09-0400 Body weight 82.[address] Hussein Alaniz MD Work Phone: [facility] 08-30-2025 15:09-0400 Diastolic blood pressure 82 mm[Hg] Dr. Hussein Alaniz MD Work Phone: [facility] 08-30-2025 15:09-0400 Heart rate 80 /min Dr. Hussein Alaniz MD Work Phone: 1(523)179-528427 [place] [address] 08-30-2025 15:09-0400 Systolic blood pressure 130 mm[Hg] Dr. Hussein Alaniz MD Work Phone: 2(214)711-042927 [place] [address] 08-18-2025 11:54-0400 Body height 162.[address] Hussein Alaniz MD Work Phone: [phone] [place] [address] 08-18-2025 11:54-0400 Body mass index (BMI) [Ratio] 31.2 kg/m2 Dr. Hussein Alaniz MD Work Phone: 4(888)087-656480 [place] [address] 08-18-2025 11:54-0400 Body weight 82.[address] Hussein Alaniz MD Work Phone: 2([phone])506-975280 [place] [address] 08-18-2025 11:54-0400 Diastolic blood pressure 63 mm[Hg] Dr. Hussein Alaniz MD Work Phone: 3(311)043-494780 [place] [address] 08-18-2025 11:54-0400 Heart rate 67 /min Dr. Hussein Alaniz MD Work Phone: [phone])742-649680 [place] [address] 08-18-2025 11:54-0400 Systolic blood pressure 154 mm[Hg] Dr. Hussein Alaniz MD Work Phone: 7(090)037-562380 [place] [address] 06-18-2025 13:17-0400 Body temperature 98.2 [degF] Dr. Hussein Alaniz MD Work Phone: 6(613)135-521780 [place] [address] 06-18-2025 13:17-0400 Body weight 81.[address] Hussein Alaniz MD Work Phone: 1(933)479-660527 [place] [address] 06-18-2025 13:17-0400 Diastolic blood pressure 76 mm[Hg] Dr. Hussein Alaniz MD Work Phone: 4(586)526-876627 [place] [address] 06-18-2025 13:17-0400 Heart rate 61 /min Dr. Hussein Alaniz MD Work Phone: 4([phone])543-824327 [place] [address] 06-18-2025 13:17-0400 Respiratory rate 18 /min Dr. Hussein Alaniz MD Work Phone: 8([phone])363-680827 [place] [address] 06-18-2025 13:17-0400 SaO2% (BldA) [Mass fraction] 99 % Dr. Hussein Alaniz MD Work Phone: [facility] 06-18-2025 13:17-0400 Systolic blood pressure 176 mm[Hg] Dr. Hussein Alaniz MD Work Phone: [facility] 03-01-2025 12:57-0400 Body height 162.[address] Hussein Alaniz MD Work Phone: [facility] 03-01-2025 12:57-0400 Body mass index (BMI) [Ratio] 30.9 kg/m2 Dr. Hussein Alaniz MD Work Phone: [phone])053-802406 [place] [address] 03-01-2025 12:57-0400 Body weight 81.[address] Hussein Alaniz MD Work Phone: [facility] 03-01-2025 12:57-0400 Diastolic blood pressure 63 mm[Hg] Dr. Hussein Alaniz MD Work Phone: [facility] 03-01-2025 12:57-0400 Heart rate 68 /min Dr. Hussein Alaniz MD Work Phone: [facility] 03-01-2025 12:57-0400 Respiratory rate 18 /min Dr. Hussein Alaniz MD Work Phone: [facility] 03-01-2025 12:57-0400 SaO2% (BldA) [Mass fraction] 97 % Dr. Hussein Alaniz MD Work Phone: [facility] 03-01-2025 12:57-0400 Systolic blood pressure 147 mm[Hg] Dr. Hussein Alaniz MD Work Phone: [facility] 10-14-2022 09:02-0500 Body height 162.56 cm [facility] Work Phone: 10-14-2022 09:02-0500 Body mass index (BMI) [Ratio] 32.9 kg/m2 [facility] Work Phone: 10-14-2022 09:02-0500 Body temperature 97.6 [degF] [facility] Work Phone: 10-14-2022 09:02-0500 Body weight 87.08 kg [facility] Work Phone: 10-14-2022 09:02-0500 Diastolic blood pressure 96 mm[Hg] [facility] Work Phone: 10-14-2022 09:02-0500 Heart rate 64 /min [facility] Work Phone: 10-14-2022 09:02-0500 Respiratory rate 16 /min [facility] Work Phone: 10-14-2022 09:02-0500 SaO2% (BldA) [Mass fraction] 100 % [facility] Work Phone: 10-14-2022 09:02-0500 Systolic blood pressure 162 mm[Hg] [facility] Work Phone: Encounters Encounter Date Encounter Type Care Provider Facility Start: 09-01-2025 End: 09-01-[address] Hussein Alaniz MD Work Phone: -[facility] Start: 09-01-2025 End: 09-01-[address] Cecille Smith MD -[facility] Work Phone: Start: 08-30-2025 End: 08-30-[address] Hussein Alaniz MD Work Phone: -[facility] Start: 08-30-2025 End: 08-30-[address] Cecille Smith MD -[facility] Work Phone: Start: 08-30-2025 Registered Recurring Bibi HASSAN -Physical Therapy Work Phone: Start: 08-27-2025 ambulatory Hussein Alaniz Facility:[facility] Start: 08-26-2025 End: 08-26-[address] Hussein Alaniz MD -Laboratory Phy Office [address] [place] [address] Start: 08-26-2025 End: 08-26-2025 ambulatory Hussein Chi Colin Facility:[facility] Start: 08-20-2025 Non-patient / Non-visit Dr. Reji weaver MD -[facility] Start: 08-20-2025 End: 08-20-2025 Patient encounter procedure Bibi HASSAN -Cardiovascular Services Work Phone: Start: 08-20-2025 End: 08-20-2025 ambulatory Reji Clark Facility:[facility] Start: 08-18-2025 End: 08-18-[address] Cecille Smith MD -[facility] Work Phone: Start: 08-18-2025 End: 08-18-[address] Hussein Alaniz MD Work Phone: -[facility] Start: 08-16-2025 Registered Recurring Bibi HASSAN -Physical Therapy Work Phone: Start: 06-18-2025 End: 06-18-[address] Hussein Alaniz MD Work Phone: -[facility] Start: 06-18-2025 End: 06-18-2025 Patient encounter procedure Bibi HASSAN -[facility] Work Phone: Start: 06-18-2025 End: 06-18-2025 ambulatory Hussein Chi Colin Facility:[facility] Start: 06-09-2025 ambulatory Hussein Chi Colin Facility:[facility] Start: 06-09-2025 Non-patient / Non-visit Dr. Magdy somers MD -[facility] Start: 06-09-2025 End: 06-09-[address] Hussein Alaniz MD Work Phone: -Pulmonary Services/Neurology Start: 06-09-2025 End: 06-09-[address] Hussein Alaniz MD -Pulmonary Services/Neurology Work Phone: Start: 06-09-2025 End: 06-09-2025 ambulatory Hussein Chi Colin Facility:[facility] Start: 06-01-2025 Non-patient / Non-visit Dr. Cecille aguiar MD -[facility] Work Phone: Start: 05-25-2025 Non-patient / Non-visit Dr. Reji weaver MD -[facility] Start: 05-25-2025 End: 05-25-[address] Hussein Alaniz MD Work Phone: -Cardiovascular Services Start: 05-25-2025 End: 05-25-[address] Hussein Alaniz MD -Cardiovascular Services Work Phone: Start: 05-25-2025 End: 05-25-2025 ambulatory Hussein Alaniz Facility:[facility] Start: 05-14-2025 End: 05-14-[address] Hussein Alaniz MD Work Phone: [facility] Work Phone: Start: 05-14-2025 End: 05-14-[address] Hussein Alaniz MD -Laboratory Work Phone: Start: 05-14-2025 End: 05-14-2025 [facility] Facility:[facility] Start: 03-01-2025 End: 03-01-[address] Flor Damon MD -[facility] Work Phone: Start: 03-01-2025 End: 03-01-2025 [facility] Start: 02-10-2025 End: 02-10-[address] Hussein Alaniz MD Work Phone: [facility] Work Phone: Start: 02-10-2025 End: 02-10-[address] Hussein Alaniz MD -Laboratory, [facility] Office [address] [place] [address] Start: 02-10-2025 End: 02-10-2025 ambulatory Hussein Chi Colin Facility:[facility] Start: 01-01-2025 End: 01-01-2025 Patient encounter procedure Zoe Guy Work Phone: Podiatry Comment on above: Metatarsalgia of bot h feet (Primary Dx); Hammer toe of left foot Start: 01-01-2025 End: 01-01-2025 ambulatory ZOE GUY Facility:[facility] Start: 01-01-2025 End: 01-01-2025 [facility] Work [facility]: Radiology Comment on above: Bilateral foot pain [M79.671, M79.672] Start: 10-26-2024 End: 10-26-[address] Hussein Alaniz MD -Laboratory, Phy Office 3rd Flr Start: 10-26-2024 End: 10-26-2024 ambulatory Hussein [facility] Facility:[facility] Start: 10-21-2024 End: 10-21-2024 Emergency department patient visit Hussein [facility] Facility:[facility] Start: 10-13-2024 ambulatory Flor Damon Facility:[facility] Start: 10-13-2024 End: 10-13-2024 ambulatory Farhad Reynolds [employer] Facility:[facility] Start: 09-21-2024 End: 09-21-2024 ambulatory Hussein [facility] Facility:[facility] Start: 09-21-2024 End: 09-21-2024 ambulatory [facility] Facility:[facility] Start: 09-11-2024 End: 09-11-2024 ambulatory Janusz HASSAN Facility:[facility] Start: 09-11-2024 End: 09-11-2024 ambulatory Janusz HASSAN Facility:[facility] Start: 10-21-2023 End: 10-21-2023 ambulatory [facility] Work Phone: Start: 10-21-2023 End: 10-21-2023 Patient encounter procedure [facility]-Laboratory, Phy Office 3rd Flr Start: 06-22-2023 End: 06-22-2023 ambulatory [facility] Work Phone: Start: 06-22-2023 End: 06-22-2023 Patient encounter procedure [facility] Work Phone: Start: 06-21-2023 Patient encounter procedure [facility] Work Phone: Start: 05-27-2023 End: 05-27-2023 ambulatory [facility] Work Phone: Start: 05-27-2023 End: 05-27-2023 Patient encounter procedure [facility]Labor[facility] Work Phone: Start: 04-05-2023 End: 04-05-2023 ambulatory [facility] Work Phone: Start: 04-05-2023 End: 04-05-2023 [facility] Start: 11-21-2022 End: 11-21-2022 ambulatory [facility] Work Phone: Start: 11-21-2022 End: 11-21-2022 [facility] Start: 10-14-2022 End: 10-14-2022 Emergency department patient visit [facility]-Emergency Department Start: 10-11-2022 End: 10-11-2022 ambulatory [facility] Work Phone: Start: 10-11-2022 End: 10-11-2022 [facility] Start: 08-01-2022 [facility] Population Health Na vigation Outreach (HCC CARE GAP) Start: 07-18-2022 End: 07-18-2022 ambulatory [facility] Work Phone: Start: 07-18-2022 End: 07-18-2022 Patient encounter procedure [facility]-Laboratory, Phy Office 3rd Flr Start: 04-16-2022 End: 04-16-2022 [facility] Start: 03-02-2022 End: 03-02-2022 Patient encounter procedure [facility] Start: 01-15-2022 End: 01-15-2022 [facility] Procedures Date Procedure Procedure Detail Performing Clinician Start: 08-26-2025 Vitamin D, 25-hydrox y measurement Dr. Hussein Alaniz MD Work Phone: Comment on above: Vitamin D StatusDefi ciency: <20 ng/mL (50nmol/L)Insufficiency: 20-30 ng/mL (50-75 nmol/L)Sufficiency: 30-100 ng/mL (75-250 nmol/L)Toxicity: >100 ng/mL (>250 nmol/L) Start: 05-14-2025 Vitamin D, 25-hydrox y measurement [...] culture Start: 02-24-2021 Adult depression scr eening [facility] Anaicydney Denson Urine culture Urine culture Plan of Treatment Date Care Activity Detail Author Start: 10-14-2032 Urine microalbumin profile DTaP,Tdap,Td Vaccine (3 - Td or Tdap) [facility] Start: 08-30-2025 Complex cystometrogram [facility] Start: 08-30-2025 [facility] Start: 06-18-2025 [facility] Start: 04-19-2025 Urine microalbumin profile DTAP,TDAP,TD (2 - Td or Tdap) [facility] Start: 12-23-2024 Shingrix Vaccine (2 of 2) Shingrix Vaccine (2 of 2) [facility] Start: 12-02-2024 Advance Directive Discussion Advance Directive Discussion [facility] Start: 08-02-2024 Covid-19 Vaccine ( season) Covid-19 Vaccine ( season) [facility] Start: 08-02-2024 Influenza vaccination Influenza Vaccine (#1) [facility] Start: 10-14-2022 Smpl repair scalp/neck/ax/genit/trunk 2.6-7.5cm RPR S/N/AX/GEN/TRNK2.6-7.5 CM [facility] Work Phone: Start: 08-02-2022 Influenza vaccination INFLUENZA (#1) [facility] Start: 02-24-2022 Adult depression screening assessment DEPRESSION SCREENING [facility] Start: 02-24-2022 ANNUAL PCP TEAM CHRONIC DISEASE VISIT ANNUAL PCP TEAM CHRONIC DISEASE VISIT [facility] Start: 02-24-2022 BP CONTROLLED (<130/80) BP CONTROLLED (<130/80) [facility] Start: 02-23-2022 Glaucoma screening Dilated Retinal Exam [facility] Start: 02-23-2022 Hepatitis C antibody, confirmatory test DILATED RETINAL EXAM [facility] Start: 12-02-2021 ADVANCE DIRECTIVE DISCUSSION ADVANCE DIRECTIVE DISCUSSION [facility] Start: 11-04-2021 Complete blood count Hemoglobin/Hematocrit [facility] Start: 11-04-2021 HEMOGLOBIN/HEMATOCRIT HEMOGLOBIN/HEMATOCRIT [facility] Start: 08-29-2021 3 comp foot exam completed DIABETIC FOOT EXAM [facility] Start: 08-29-2021 Creatinine measurement Serum Creatinine [facility] Start: 08-29-2021 Diabetic foot examination Diabetic Foot Exam [facility] Start: 08-29-2021 SERUM CREATININE SERUM CREATININE [facility] Start: 05-05-2021 Hemoglobin A1c measurement HbA1C [facility] Start: 05-05-2021 Hemoglobin A1c/Hemoglobin.total in Blood HBA1C [facility] Start: 04-26-2021 Hepatitis B screening URINE ALBUMIN:CREATININE RATIO [facility] Start: 04-26-2021 Hepatitis B surface antibody level LDL CHOLESTEROL [facility] Start: 1994 SHINGRIX VACCINE (1 of 2) SHINGRIX VACCINE (1 of 2) [facility] Start: 1962 Anxiety Screening Anxiety Screening [facility] Start: 1962 Depression Screening Depression Screening [facility] Start: 1963 HEPATITIS C SCREENING HEPATITIS C SCREENING [facility] Start: [birth year]-07-1946 COVID-19 VACCINE (#1) COVID-19 VACCINE (#1) [facility] Patient Education ED Dog Bite ED Laceration, Hand: All Closures [facility] Work Phone: [facility] referral [facility] Work Phone: US Carotid arteries [facility] XR Foot - bilateral AP and Lateral and oblique XR FOOT GENERAL 3V AP/LAT/OBL BILATERAL Radiology Routine Bilateral foot pain 01/01/2025 9:14 AM EST [facility] Work Phone: Immunizations Immunization Date Immunization Notes Care Provider Fa sissy 10-14-2022 tetanus toxoid, redu lexi diphtheria toxoid, and acellular pertussis vaccine, adsorbed [facility] 10-10-2021 influenza virus vacc ine, unspecified formulation Zoe Feliciano Work Phone: [facility] 09-09-2017 influenza, high dose seasonal, preservative-free [facility] 10-20-2015 pneumococcal polysaccharide vaccine, 23 valent [facility] 04-19-2015 pneumococcal conjuga te vaccine, 13 valent [facility] 04-19-2015 tetanus toxoid, redu lexi diphtheria toxoid, and acellular pertussis vaccine, adsorbed [facility] 09-01-2012 influenza virus vacc ine, unspecified formulation [facility] 10-07-2008 influenza virus vacc ine, unspecified formulation [facility] Work Phone: 10-07-2007 influenza virus vacc ine, unspecified formulation [facility] 10-21-2006 pneumococcal polysaccharide vaccine, 23 valent [facility] Payers Date Payer Category Payer Self-pay [id number] 2010 Private Health Insurance JOANIE FARLEY PPO [id number] 2010-Present [phone] [address] [place] [id number] PPO [id number] 2009 Medicare MEDICARE MEDICAR E A AND B [id number] 2009-Present [phone] [address] [address] [place] [address] Medicare [id number] 2009 Medicare [id number] 2005 Private Health Insurance [id number] Unknown [id number] [id number]. 2.462 Unknown [id number] 2.16.840.1.060097.3.579. 2.462 Unknown [id number] 2.16.840.1.025414.3.579. 2.462 Unknown [id number] 2.16.840.1.449789.3.579. 2.462 Unknown [id number] 2.16.840.1.091438.3.579. 2.462 Unknown [id number] 2.16.840.1.026196.3.579. 2.462 Unknown [id number] 2.16.840.1.422723.3.579. 2.462 Unknown [id number] 2.16.840.1.355032.3.579. 2.462 Unknown [id number] 2.16.840.1.500135.3.579. 2.462 Unknown [id number] 2.16.840.1.151645.3.579. 2.462 Unknown [id number] 2.16.840.1.090071.3.579. 2.462 Unknown [id number] 2.16.840.1.280068.3.579. 2.462 Unknown [id number] 2.16.840.1.391258.3.579. 2.462 Unknown [id number] 2.16.840.1.687617.3.579. 2.462 Unknown [id number] 2.16.840.1.055470.3.579. 2.462 Unknown [id number] 2.16.840.1.351818.3.579. 2.462 Unknown [id number] 2.16.840.1.441267.3.579. 2.462 Unknown [id number] 2.16.840.1.453544.3.579. 2.462 Unknown [id number] 2.16.840.1.385155.3.579. 2.462 Unknown [id number] 2.16.840.1.511100.3.579. 2.462 Unknown [id number] 2.16.840.1.141327.3.579. 2.462 Unknown [id number] 2.16.840.1.787986.3.579. 2.462 Social History Date Type Detail Facility Start: 06-12-2017 End: 10-14-2022 Tobacco smoking status NCIS Unknown if ever smoked [facility] Start: 1945 Sex Assigned At Female [facility] Start: 06-21-2011 End: 10-21-2024 Tobacco smoking status NCIS Never smoked tobacco [facility] Work Phone: Start: 06-21-2011 Tobacco use and exposure Smoke less tobacco non-user [facility] Work Phone: Start: 06-06-2021 End: 01-01-2025 Alcohol intake Current drinker of alcohol (finding) [facility] Start: 10-30-2019 End: 04-22-2020 History SDOH Alcohol Frequency 2 [facility] Start: 10-30-2019 End: 04-22-2020 History SDOH Alcohol Std Drinks 1 [facility] Start: 10-30-2019 History SDOH Social Connections Phone 5 [facility] Start: 04-22-2020 History SDOH Social Connections Meetings 3 [facility] Start: 10-30-2019 History SDOH Social Connections Living 4 [facility] Start: 10-30-2019 History SDOH Physica l Activity MPS 98 [facility] Start: 10-30-2019 Education 12 [facility] Start: 1945 Sex Assigned At Not on file C [facility] Start: 04-22-2020 End: 01-01-2025 History of Social function [facility] Start: 04-22-2020 End: 01-01-2025 Social connection and isolation panel [facility] Do you belong to any clubs or organizations such as anglican groups, unions, fraternal or athletic groups, or school groups? No [facility] Are you now , , , , never or living with a partner? [facility] How often to you hav e a drink containing alcohol? Monthly or less [facility] How many standard dr inks containing alcohol do you have on a typical day? 1 or 2 [facility] How often do you hav e 6 or more drinks on 1 occasion? Never [facility] How hard is it for y ou to pay for the very basics like food, housing, medical care, and heating Not hard at all [facility] Do you feel stress - tense, restless, nervous, or anxious, or unable to sleep at night because your mind is troubled all the time - these days [OSQ] Only a little [facility] (I/We) worried wheth er (my/our) food would run out before (I/we) got money to buy more. Never true [facility] Start: 02-19-2025 Sex Female (finding) [facility] Clinical Notes 01-27-2019 to 09-01-2025 Note Date & Type Note Facility 09-01-2025 Progress note [facility] 08-30-2025 Progress note [facility] 08-30-2025 Progress note Note Date/Time August 30, 2025 3:46pm [facility] [address] [place] [address], [address] [place], [place] [address] OFFICE VISIT Date of Service: 08/30/25 MR#: [id number] Acct: [id number] Name: BRENDEN JUNIOR Rep #: [id number] : 1945 Provider: Dr. Kat Smith MD Age/Sex: 79/F Location: [facility] Status: Signed Intake Vital Signs 08/18/25 11:54 08/30/25 15:09 Height 5 ft 4 in 5 ft 4 in Weight: 182 lb BMI 31.2 BP 130/82 H Pulse 80 Temp 97.9 F Intake Visit Reasons: UDS Chief Complaint: UDS Bottling Attendant Required: No Is patient in pain?: No Allergies lisinopril Allergy (Verified 08/18/25 11:50) Swelling [...] Adverse Reaction (Verified 08/18/25 11:50) Other Medications ?Medication ?Instructions ?Recorded ?Confirmed ?Type hydralazine 25 mg tablet 25 mg PO TID 09/21/24 History fenofibrate nanocrystallized 145 145 mg PO QDAY #30 ta bs 03/01/25 08/18/25 Rx mg tablet (Tricor) d-mannose 500 mg capsule mg PO 06/17/25 08/18/25 Hist ory fesoterodine 8 mg tablet,extended 8 mg PO QDAY 5 08/18/25 History release 24 hr levothyroxine 125 mcg tablet 112 mcg PO DAILY 06/17/25 08/18/25 History methenamine hippurate 1 gram tablet 1 g PO BID 5 08/18/25 History omeprazole 20 mg capsule,delayed 20 mg PO QDAY 2 5 08/18/25 History release vibegron 75 mg tablet (Gemtesa) 75 mg PO QDAY 06/17/25 08/18/25 History cetirizine 10 mg capsule (Zyrtec) 10 mg PO QDAY 08/18/25 History gabapentin 100 mg capsule 100 mg PO TID 06/18/2508/18 History hydrochlorothiazide 25 mg tablet 25 mg PO DAILY #90 TA BLETS 06/18/25 08/18/25 Rx amlodipine 10 mg tablet 10 mg PO QDAY 08/18/2508/18 History aspirin 81 mg tablet 81 mg PO QDAY 08/18/2508/18 History fluoxetine 20 mg capsule 20 mg PO QDAY 08/18/2508/18 History metoprolol succinate 25 mg 25 mg PO QDAY 08/18/2508/02 History tablet,extended release 24 hr potassium chloride 10 mEq 10 meq PO QDAY 08/18/2508/02 History capsule,extended release primidone 50 mg tablet 50 mg PO ONCE 08/18/2508/18 History Have you fallen in the past year?: Yes PFSH Medical History Constipation Vaginal atrophy Nocturia Urinary tract infection [...] Never smoker HPI HPI Urology Chief Complaint: UDS Details: SUSEKE PLASTERER, is a 79 F. There is no sensation of infection today including dysuria or hematuria. The procedure was explained and questions were answered. She agreed to proceed. Exam Const General: cooperative, healthy appearing, comfortable and no acute distress HENMA Head: normocephalic and atraumatic Ears: hearing grossly normal bilaterally and external ears normal Nose: external nose normal Eyes General: appearance normal, both eyes and all related structures Neck Neck: normal visual inspection and trachea midline Chest Chest palpation & inspection: normal inspection of the chest Resp Effort & Inspection: normal respiratory effort, able to speak in complete sentences and symmetric chest movement Cardio Rate: regular rate GI Inspection: normal to inspection Palpation: soft and nontender General: No CVA tenderness Skin General: no rashes or lesions noted Neuro General: patient alert, patient awake, patient oriented x3 and CN's II-XI intactbilaterally Extrem General: normal to inspection Psych Appearance: grossly normal and well kempt Mental Status: mental status grossly normal Office Procedures UDS UDS: Void Pressure Studies, intra-abdominal, Cystometrogram Voiding Pressure; complex and EMG STDS anal/Urtl Sphnctr Oth/THN NDL UDS Results: Complex CMG with voiding pressure study, urethral pressure profile, EMG were completed. Pressure measuring catheters were placed in the patient's urethra andthe rectum without an issue.EMG electrodes were placed on the patient's perineum. The bladder was filled with sterile saline in systematic fashion. She was intermittently asked to valsalva and cough. The subjective response and objective measurements were recorded. There were then used to calculate the pressure values mentioned above. The patient voided at the conclusion of the testing in order to provide the flow and bladder pressure value. Results POC Urinalysis w/Micro Office Urine Color YELLOW Last Edit by Ivanna Hernandez on 08/30/25 14:52 Office Urine Clarity Last Edit by Ivanna Hernandez on 08/30/25 14:52 Office Urine Glucose Negative Last Edit by Ivanna Hernandez on 08/30/25 14:52 Office Urine Ketones Negative Last Edit by Ivanna Hernandez on 08/30/25 14:52 Office Urine Bilirubin Negative Last Edit by Ivanna Hernandez on 08/30/25 14:52 Office Urine Urobilinogen 0.2 mg/dL Last Edit by Ivanna Hernandez on 08/30/25 14:52 Off Ur Spec Orchard 1.010 Last Edit by Ivanna Galvezon on 08/30/25 14:52 Office Urine pH 7.5 Last Edit by Ivanna Galvezon on 08/30/25 14:52 Office Urine Protein Negative Last Edit by Ivanna Galvezon on 08/30/25 14:52 Office Urine Blood Negative Last Edit by Ivanna Galvezon on 08/30/25 14:52 Office Urine Blood Hemolyzed Last Edit by Ivanna Galvezon on 08/30/25 14:52 Office Urine Nitrate Negative Last Edit by Ivanna Galvezon on 08/30/25 14:52 Off Ur Leukocytes Positive Last Edit by Ivanna Hernandez on 08/30/25 14:52 500 Ivanna Galvezon 08/30/25 14:52 Off Ur WBC Microscopic Last Edit by Ivanna Galvezon on 08/30/25 14:52 Off Ur RBC Microscopic Last Edit by Ivanna Galvezon on 08/30/25 14:52 Off Ur Bacteria Microscopic Last Edit by Ivanna Galvezon on 08/30/25 14:52 Supplemental Info microscopic UA with 0-1 WBC, 0 RBC, 0 bacteria Coding Level of Care Code No Charge Diagnoses Urinary tract infection N39.0 Urge incontinence N39.41 Overactive bladder N32.81 Nocturia R35.1 Vaginal atrophy N95.2 Constipation K59.00 CPT Codes Results - UDS: Void Pressure Studies, intra-abdominal (77209) Results - UDS: Cystometrogram Voiding Pressure; complex (77158) Results - UDS: EMG STDS anal/Urtl Sphnctr Oth/THN NDL (66427) Assessment and Plan Assessment and Plan (1) Urinary tract infection: Status: Acute (2) Urge incontinence: Status: Acute (3) Overactive bladder: Status: Acute (4) Nocturia: Status: Acute (5) Vaginal atrophy: Status: Acute (6) Constipation: Status: Acute Orders: Orders UDS-Cystometrogram Voiding Pressure; complex 08/30/25 N39.41 - Urge incontinence, R35.1 - Nocturia POC UA Auto w/o Microscopy 08/30/25 N39.0 - Urinary tract infection, site not specified POC UA Automated w/Microscopy 08/30/25 N39.0 - Urinary tract infection, site not specified POC UA Automated w/Microscopy 08/30/25 N39.0 - Urinary tract infection, site not specified Medications: Discontinued potassium chloride ER Discontinued Reason: Duplicate Order 10 mEq PO DAILY 90 tabs 3RF Plan follow up for results Clinical Quality Measures Falls Risk Screening/Assistive Devices Have you fallen in the past year?: Yes 09/01/25 0943 <Electronically signed by Cecille Smith MD> Date _ Cecille Smith MD Cosigner Signature: Date (if applicable) CC: ~ [facility] Work Phone: 1(525) 501-585307-18-2025 Evaluation note* Diagnosis Onset Date Resolution Status Admit Date Lower extremity pain acute June 18, 2025 12:40pm PAD (peripheral artery disease) acute June 18, 2025 12:40pm Paresthesia of lower extremity acute June 18, 2025 12:40pm Carotid bruit noneactive June 18, 2025 12:40pm Constipation acute August 182024 11:21am Nocturia acute August 11:21am Overactive bladder acute Sept brian 2024 11:21am [facility] 11:21am Urinary tract infection acute S eptember 2024 11:21am Vaginal atrophy acute August 18, 2025 11:21am [facility] Work Phone: 1(832) 876-599207-18-2025 Evaluation note* Diagnosis Onset Date Resolution Status Admit Date Lower extremity pain acute June 18, 2025 12:40pm PAD (peripheral artery disease) acute June 18, 2025 12:40pm Paresthesia of lower extremity acute June 18, 2025 12:40pm Carotid bruit noneactive June 18, 2025 12:40pm Constipation acute August 182024 11:21am Nocturia acute August 11:21am Overactive bladder acute Septem 2024 11:21am Urge incontinence acute Septemb er 2024 11:21am Urinary tract infection acute S eptember 2024 11:21am Vaginal atrophy acute August 18, 2025 11:21am Urinary tract infection acute S eptember 2024 1:39pm [facility] Work Phone: 1(785) 830-485507-18-2025 Evaluation note* Diagnosis Onset Date Resolution Status Admit Date Lower extremity pain acute June 18, 2025 12:40pm PAD (peripheral artery disease) acute June 18, 2025 12:40pm Paresthesia of lower extremity acute June 18, 2025 12:40pm Carotid bruit noneactive June 18, 2025 12:40pm Constipation acute August 182024 11:21am Nocturia acute August 11:21am Overactive bladder acute Sept 2024 11:21am Urge incontinence acute Septemb er 2024 11:21am Urinary tract infection acute S eptember 2024 11:21am Vaginal atrophy acute August 18, 2025 11:21am Constipation acute August 302024 1:39pm Nocturia acute August 1:39pm Overactive bladder acute Septem 2024 1:39pm Urge incontinence acute Septemb er 2024 1:39pm Urinary tract infection acute S eptember 2024 1:39pm Vaginal atrophy acute August 30, 2025 1:39pm Constipation acute September 01, 2025 9:38am Nocturia acute September 01, 9:38am Overactive bladder acute Octobe r 2024 9:38am Urge incontinence acute September 01, 2025 9:38am Urinary tract infection acute O ctober 2024 9:38am Vaginal atrophy acute September 012024 9:38am [facility] Work Phone: 1(457) 964-398307-09-2025 Procedure note [facility] Pulmonary Services/Neurology [address] [place] [address] MR#: [id number] Acct: [id number] Name: BRENDEN JUNIOR Rep #:[id number] : 1945 79 From: Magdy Rocha MD Referring Dr: Hussein Alaniz MD Status : REG CLI Location: [facility] Date: 06/09/25 Sex: F C NCS [...] Multi Select Codes Neurology Neurology Interp Codes: 30570-90 Musc test done w/n test comp (interp) (2) and 25042-10 Nrv cndj test 11-12 studies (interp) 06/09/25 1428 D> Date _ Magyd Rocha MD CC: Dr. Magdy Rocha MD; Dr. 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: CALVIN Leong [facility]03-31-2025 Evaluation note* Diagnosis Onset Date Resolution Status Admit Date Abnormal ECG chronic March 01, 2025 12:50pm Hyperlipidemia chronic January 12:50pm Hypertension chronic March 01, 2025 12:50pm Hypertensive heart disease chronic March 01, 2025 12:50pm Mitral valve regurgitation chronic March 01, 2025 12:50pm Nonrheumatic aortic valve stenosis with regurgitation chronic Fritz h 2024 12:50pm PVC (premature ventricular contraction) chronic March 01, 2025 12:50pm [facility] Work Phone: 1([phone]) 729-639703-31-2025 Evaluation note* Diagnosis Onset Date Resolution Status [...] Carotid bruit noneactive June 18, 2025 12:40pm [facility] Work Phone: 1(635) 628-645701-31-2025 NoteHNO ID: [id number] Author: SHELLEY GRUBBS LPN Service: ? Author Type: LICENSED NURSE Type: Progress Notes Filed: 01/01/2025 09:56 Note Text: Per Dr. Guy. Patient was offered powerstep gel inserts. Patient only wear crocs and due to safety concerns regarding falls. Provider opted to not provided inserts.[facility]01-31-2025 History of Present illness Narrative* Shelley Grubbs [...] type 2, controlled, without complications ([facility]) 09/16/2015 Generalized osteoarthrosis, unspecified site Hyperlipidemia LDL goal < 100 07/22/2013 Lumbar disc disease with radiculopathy 11/18/2012 Myalgia and myositis, unspecified PMH - PAST MEDICAL HISTORY OF 1995 THYROID CANCER Pure hypercholesterolemia Statin intolerance 07/23/2014 Stress incontinence, female 11/18/2012 Type 2 diabetes mellitus with stage 3 chronic kidney disease, without long-term current use of insulin ([facility]) 05/14/2017 Type II or unspecified type [...] OF 05/16/2015 Removal of Interslim device - [facility] FAM[facility] HISTORY Problem Relation Age of Onset [...] Objective: Patient presents to clinic ambulating in [facility] Constitutional: Pt is a well developed [...] sneakers and likely would not work in [place]. 3. She is going to monitor and continue with [facility] Zoe Guy DPM documented [facility] Instructions* Patient Instructions* Zoe Guy - 01/01/2025 9:51 AM EST Powerstep Original Full length. Can purchase at [employer] and boots,shoes and more here in [place], [employer] in [place] or [place]. Also can find in [email or web address] in [facility]. Powersteps can also be purchased online, [...] everything fits well together documented in this encounterC[facility]01-31-2025 NoteHNO ID: [id number] Author: ZOE GUY, ? Service: ? 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 FAMILY HISTORY Problem Relation Age of Onset [...] Used Substance Use Topics (more content not included)...[facility] 01-01-2025 History of Present illness Narrative* Kristine Remy RT(Martir) - 01/01/2025 9:20 AM EST Radiology Service [...] PATIENT PRESENTS WITH AN IMPLANTABLE OR ATTACHED MELTER SUPERVISOR OXYGEN FURNACE: No RADIOLOGY DEPARTMENT: General X-ray: Exam(s) Completed: Lower Extremity X- Ray(s): Feet, Bilateral and Wt. Bearing PERIPHERAL IV DATA: Not applicable SIGNED BY: KOREY Ren) January 01, 2025 12:23 PM documented in this encounterC[facility]-31-2025 NoteHNO ID: [id number] Author: KRISTINE REMY RT(R) Service: ? Author Type: Technologist Type: Progress [...] PATIENT PRESENTS WITH AN IMPLANTABLE OR ATTACHED MELTER SUPERVISOR OXYGEN FURNACE: No RADIOLOGY DEPARTMENT: General X-ray: Exam(s) Completed: Lower Extremity X-Ray(s): Feet, Bilateral and Wt. Bearing PERIPHERAL IV DATA: Not applicable SIGNED BY: RT Mikal(R) January 01, 2025 12:23 [facility]08-31-2022 History of Present illness Narrative* Anai Denson Population Health Navigator - 08/01/2022 10:49 AM EDT POPULATION HEALTH NAVIGATION OUTREACH Action/FYI I spoke with patient and she is no longer with the [facility], she sees a Dr Pagan Pt [...] to Practice: No Navigation Signature: Anai Denson Population Health Navigator August 01, 2022 10:50 AM documented in this encounterCleveland [facility]02-26-2019 History of Past illness Narrative* Problem [...] hypoglycemia. * Vascular hx (06/20/10): no hx VA or stroke, or claudication. Statin intolerant (12/20/10): xvjh=994, XY=593, HDL=64, bUOS=862, non-HDL tewb=314 * Control hx (): LwO7a=7.2% (): VyK4m=2.1% (): UhI1b=9.5% (): HzP2i=6.3% (): InY0b=1.5% (12/19/09): WbW2s=2.3% (06/19/10): BuJ3w=9.7% (12/20/10): VjF3x=7.7% (06/13/11): WvA4t=0.5% documented as of this encounter (statuses as of 08/01/2022) [facility] HospitalEvaluation noteNo assessment information availableWooProtestant Hospital Work Phone: Evaluation note* Diagnosis Metatarsalgia of both feet- Primary Enthesopathy of ankle and tarsus, unspecified Hammer toe of left foot [facility] Diagnosis Bilateral foot pain Pain in limb documented in this encounter [facility] Author Cecille Smith [facility] Note Date/Time September 01, 2025 10 :03am [facility] [address], [address] [place] [address] OFFICE VISIT Date of Service: 09/01/25 MR#: [id number] Acct: [id number] Name: BREDNEN JUNIOR Rep #: [id number] : 1945 Provider: Dr. Kat Smith MD Age/Sex: 79/F Location: [facility] Status: Signed Intake Vital Signs 08/30/25 15:09 09/01/25 09:46 Height 5 ft 4 in 5 ft 4 in Weight: 182 lb BMI 31.2 BP 130/86 H Pulse 79 Intake Visit Reasons: To discuss UDS results Chief Complaint: UDS review Bottling Attendant Required: No Accompanied by: self Is patient in pain?: Yes (headache ) Pain scale (1-10): 2 Allergies lisinopril Allergy (Verified 09/01/25 09:45) Swelling atorvastatin calcium (From Lipitor) Adverse Reaction (Verified 09/01/25 09:45) Other cholestyramine (From Questran) Adverse Reaction (Verified 09/01/25 09:45) Upset Stomach duloxetine HCl (From Cymbalta) Adverse Reaction (Verified 09/01/25 09:45) Other losartan potassium (From Cozaar) Adverse Reaction (Verified 09/01/25 09:45) Mucosal lesions propoxyphene HCl (From Darvon) Adverse Reaction (Verified 09/01/25 09:45) Other simvastatin (From Zocor) Adverse Reaction (Verified 09/01/25 09:45) Other sucrose (From Questran) Adverse Reaction (Verified 09/01/25 09:45) Upset Stomach sulfasalazine (From Azulfidine) Adverse Reaction (Verified 09/01/25 09:45) Upset Stomach zolmitriptan (From Zomig) Adverse Reaction (Verified 09/01/25 09:45) Other Medications ?Medication ?Instructions ?Recorded ?Confirmed ?Type hydralazine 25 mg tablet 25 mg PO TID 09/21/24 History fenofibrate nanocrystallized 145 145 mg PO QDAY #30 ta bs 03/01/25 09/01/25 Rx mg tablet (Tricor) d-mannose 500 mg capsule mg PO 06/17/25 09/01/25 Hist ory fesoterodine 8 mg tablet,extended 8 mg PO QDAY 5 09/01/25 History release 24 hr levothyroxine 125 mcg tablet 112 mcg PO DAILY 06/17/25 09/01/25 History methenamine hippurate 1 gram tablet 1 g PO BID 5 09/01/25 History omeprazole 20 mg capsule,delayed 20 mg PO QDAY 5 09/01/25 History release vibegron 75 mg tablet (Gemtesa) 75 mg PO QDAY 06/17/25 09/01/25 History cetirizine 10 mg capsule (Zyrtec) 10 mg PO QDAY 09/01/25 History gabapentin 100 mg capsule 100 mg PO TID 06/18/2509/01 History hydrochlorothiazide 25 mg tablet 25 mg PO DAILY #90 TA BLETS 06/18/25 09/01/25 Rx amlodipine 10 mg tablet 10 mg PO QDAY 08/18/2509/01 History aspirin 81 mg tablet 81 mg PO QDAY 08/18/2509/01 History fluoxetine 20 mg capsule 20 mg PO QDAY 08/18/2509/01 History metoprolol succinate 25 mg 25 mg PO QDAY 08/18/2512/26 History tablet,extended release 24 hr potassium chloride 10 mEq 10 meq PO QDAY 08/18/2512/26 History capsule,extended release primidone 50 mg tablet 50 mg PO ONCE 08/18/2509/01 History Have you fallen in the past year?: No Nurse's Note: patient wanted her urine tested today, spun for under the microscope [facility] Medical History Constipation Vaginal atrophy Nocturia Urinary tract infection [...] Never smoker HPI HPI Urology Chief Complaint: UDS review Details: BRENDEN JUNIOR, is a 79 F. She is here to discuss results of the urodynamics study and to formulate a plan. She is sad today. She is having an MRI done to look for a stroke. She is having left sided weakness, toe drop and fatigue. She is in physical therapy. She restarted the Gemtesa and Toviaz. She does not need refills today. She has failed multiple medications, Interstim, Botox. She has not had PTNS. Shewould like to start these. We will also find out the doses of Botox that she had previously. ROS Const Constitutional: No chills, fatigue, fever(s), headache(s), night sweats, weakness, weight change, abnormal sleep pattern or change in appetite Eyes Eyes: No change in vision ENT ENT: No headache(s) or dry mouth Resp Respiratory: No cough, chest congestion, shortness of breath or wheezing Cardio Cardiology: Positive for other (No chest pain.); No shortness of breath, irregular heart rhythm or lightheadedness Gastro GI: Positive for other (No nausea.); No abdominal pain, change in bowel habits, constipation, diarrhea or vomiting Musc Musculoskeletal: No abnormal gait Skin Skin: No yellowing of the eye, lesions, itchy eyes, rash or skin ulcer Neuro Neurology: No abnormal gait, confusion, dizziness, weakness, headache(s) or memory loss Psych Psychiatric: No abnormal sleep pattern, No change in appetite, No confusion and No memory loss Endo Endocrine: No fatigue, increased thirst/drinking or weight change Aller/Imm Allergy/Immunologic: No itchy eyes or wheezing Charlie/Lymp Hematologic/Lymphatic: No easy bleeding, easy bruising or enlarged lymph nodes Exam Const General: cooperative, healthy appearing, comfortable and no acute distress [facility] Head: normocephalic and atraumatic Ears: hearing grossly normal bilaterally and external ears normal Nose: external nose normal Eyes General: appearance normal, both eyes and all related structures Neck Neck: normal visual inspection and trachea midline Chest Chest palpation & inspection: normal inspection of the chest Resp Effort & Inspection: normal respiratory effort, able to speak in complete sentences and symmetric chest movement Cardio Rate: regular rate GI Inspection: normal to inspection Palpation: soft and nontender General: No CVA tenderness Skin General: no rashes or lesions noted Neuro General: patient alert, patient awake, patient oriented x3 and CN's II-XI intactbilaterally Extrem General: normal to inspection Psych Appearance: grossly normal and well kempt Mental Status: mental status grossly normal Results POC Urinalysis w/Micro Office Urine Color Last Edit by Whitney Brooks on 09/01/25 09:51 Office Urine Clarity Last Edit by Whitney Brooks on 09/01/25 09:51 Office Urine Glucose Negative Last Edit by Whitney Brooks on 09/01/25 09:5 1 Office Urine Ketones Negative Last Edit by Whitney Brooks on 09/01/25 09:5 1 Office Urine Bilirubin Negative Last Edit by Whitney Brooks on 09/01/25 09 :51 Office Urine Urobilinogen 0.2 mg/dL Last Edit by Whitney Brooks on 5 09:51 Off Ur Spec [place] 1.015 Last Edit by Whitney Brooks on 09/01/25 09:51 Office Urine pH 6 Last Edit by Whitney Brooks on 09/01/25 09:51 Office Urine Protein Negative Last Edit by Whitney Brooks on 09/01/25 09:5 1 Office Urine Blood Negative Last Edit by Whitney Brooks on 09/01/25 09:51 Office Urine Blood Hemolyzed Negative Last Edit by Whitney Brooks on 09/01 09:51 Office Urine Nitrate Positive Last Edit by Whitney Brooks on 09/01/25 09:5 1 Off Ur Leukocytes Positive Last Edit by Whitney Brooks on 09/01/25 09:51 Off Ur WBC Microscopic Last Edit by Whitney Brooks on 09/01/25 09:51 Off Ur RBC Microscopic Last Edit by Whitney Brooks on 09/01/25 09:51 Off Ur Bacteria Microscopic Last Edit by Whitney Brooks on 09/01/25 09:51 leuks [id number] Supplemental Info The urodynamics were reviewed and discussed with the patient. The bladder capacity is small. 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 There is urge incontinence. There no stress incontinence. There is not a increase in the EMG of the pelvic floor during the voiding phase. There is a good detrusor contraction during the voiding phase. There is minimal elevation of the post void residual. Coding Level of Care Code Off vis,est,level 4 Diagnoses Urge incontinence N39.41 Overactive bladder N32.81 Nocturia R35.1 Urinary tract infection N39.0 Vaginal atrophy N95.2 Constipation K59.00 Assessment and Plan Assessment and Plan (1) Urge incontinence: Status: Acute (2) Overactive bladder: Status: Acute (3) Nocturia: Status: Acute (4) Urinary tract infection: Status: Acute (5) Vaginal atrophy: Status: Acute (6) Constipation: Status: Acute Orders: Orders POC UA Automated w/Microscopy Today N32.81 - Overactive bladder Plan PTNS approval and schedule when ready continue both Gemtesa and Toviaz 8mg review records regarding the doses of Botox that she tried Plan Details Follow Up: next available (PTNS) Clinical Quality Measures Falls Risk Screening/Assistive Devices Have you fallen in the past year?: No 09/01/25 1004 <Electronically signed by Cecille Smith MD> Date _ Cecille Smith MD Cosigner Signature: Date (if applicable) CC: ~ [facility] Work Phone: Reason for referral (narrative)No reason for referral information available[facility]ol[facility] Work Phone: Reason for visit Narrative* Diagnostic Procedure Only (Routine) - Closed Specialty Diagnoses / Procedures Referred By Contac t Referred To Contact XR IMAGING Diagnoses Bilateral foot pain Procedures XR FOOT GENERAL 3V AP/LAT/OBL BILATERAL RADEX FOOT COMPLETE MINIMUM 3 VIEWS Zoe Guy [address] [address] [place] [id number] Referral ID Status Reason Start Date Expiration Date V isits Requested Visits Authorized [id number] Closed Auto-Generate d Referral 12/29/2024 01/28/2026 1 1 [facility] Advance Directives Advance Directive Response Recorded Date/ Time Advance Directives Yes November 1:32pm Living Will Yes June 12, 2017 3:24pm Power of Instructor Weaving Yes June 12 3:24pm Documents on File Type Date Recorded Patient System Validation Engineer Expl anation Advance Directive(s) 04/11/2015 10:17 AM Advance Directive(s) 08/06/2013 12:30 PM Advance Directive Response Recorded Date/ Time Advance Directives Yes November 12:32pm Living Will No October 14, 022 9:30am Power of Instructor Weaving No October 14, 2022 9:30am Advance Directive Response Recorded Date/ Time Advance Directives Yes November 1:32pm Living Will No October 14, 2 022 10:30am Power of Instructor Weaving No October 14, 2022 10:30am Documents on File Type Date Recorded Patient System Validation Engineer Expl anation Advance Directive(s) 04/11/2015 10:17 AM [...] 11:21am Vaginal atrophy August 18, 2025 11:21am Chief Complaint Admit Date BILAT FEET PAIN May 25, 2025 12:2 2pm BLE; FEET PAIN June 09, 2025 12:13 pm BLE; FEET PAIN June 09, 2025 2:25p m BLE Pain June 18, 2025 12:4 0pm 4m chronic uti f/u August 18, 2025 11:21am CAROTID BRUIT August 20, 2025 12:45pm WEAKNESS; RX HERE August 30, 2025 12:00pm UDS August 30, 2025 1:39pm Reason for Visit Admit Date Lower extremity [...] 11:21am Vaginal atrophy August 18, 2025 11:21am Urinary tract infection August 30, 2025 1:39pm Chief Complaint Admit Date BILAT FEET PAIN May 25, 2025 12:2 2pm BLE; FEET PAIN June 09, 2025 12:13 pm BLE; FEET PAIN June 09, 2025 2:25p m BLE Pain June 18, 2025 12:4 0pm 4m chronic uti f/u August 18, 2025 11:21am CAROTID BRUIT August 20, 2025 12:45pm WEAKNESS; RX HERE August 30, 2025 12:00pm UDS August 30, 2025 1:39pm To discuss UDS results September 01, 2025 9:38am Reason for Visit Admit Date Lower extremity [...] 11:21am Vaginal atrophy August 18, 2025 11:21am Constipation August 30, 2025 1:39pm Nocturia August 30, 2025 1:39pm Overactive bladder August 30, 2025 1:39pm Urge incontinence August 30, 2025 1:39pm Urinary tract infection August 30, 2025 1:39pm Vaginal atrophy August 30, 2025 1:39pm Constipation September 01, 2025 9: 38am Nocturia September 01, 2025 9: 38am Overactive bladder September 01, 2025 9: 38am Urge incontinence September 01, 2025 9: 38am Urinary tract infection September 01 9:38am Vaginal atrophy September 01, 2025 9: 38am Summary Purpose Family History Relationship Condition Age at Onset Recorded Date/T [...] or prosecute any alcohol or drug abuse patient.[facility] the event this information is protected by the Federal Confidentiality of Alcohol and Drug Abuse Patient Records regulations: The Federal rules restrict any use of the information to criminally investigate or prosecute any alcohol or drug abuse patient.[facility] the event this information is protected by the Federal Confidentiality of Alcohol and Drug Abuse Patient Records regulations: The Federal rules restrict any use of the information to criminally investigate or prosecute any alcohol or drug abuse patient.[facility] Reason for Visit (unrecogniz ed section and content) Reason Onset Date Comments Population Health Navigation Outreach 08/01/2022 [facility] Reason Comments Established Patient Pain Care Teams (unrecognized sec tion and content) Fire Technician Relationship Specialty Start Date End Date Pcp, Liza PCP - General 08/01/22 Team Status: Active [...] August 18, 2025 End: August 18, 2025 Team Status: Inactive Member Role/Relationship Status Dates Dr. Hussein Alaniz MD Primary care physician Active Start: August 18, 2025 End: August 18, 2025 Dr. Hussein Alaniz MD Referring Provider Active Start: August 18, 2025 End: August 18, 2025 Dr. Cecille Smith MD Attending physician Active Start: August 18, 2025 End: August 18, 2025 Team Status: Inactive Member Role/Relationship Status Dates Dr. Hussein Alaniz MD Primary care physician Active Start: August 20, 2025 End: August 20, 2025 SONYA Starr Attending physician Active Sta rt: August 20, 2025 End: August 20, 2025 SONYA Starr Referring Provider Active Star t: August 20, 2025 End: August 20, 2025 Team Status: Active Member Role/Relationship Status Dates Dr. Hussein Alaniz MD Primary care physician Active Start: August 20, 2025 Dr. Reji Clark MD Attending physician Active Start: August 20, 2025 Team Status: Inactive Member Role/Relationship Status Dates Dr. Hussein Alaniz MD Primary care physician Active Start: August 26, 2025 End: August 26, 2025 Dr. Hussein Alaniz MD Attending physician Active Start: August 26, 2025 End: August 26, 2025 Team Status: Active Member Role/Relationship Status Dates Dr. Hussein Alaniz MD Primary care physician Active Start: August 30, 2025 SONYA Starr Attending physician Active Sta rt: August 30, 2025 SONYA Starr Referring Provider Active Star t: August 30, 2025 Team Status: Inactive Member Role/Relationship Status Dates Dr. Hussein Alaniz MD Primary care physician Active Start: August 30, 2025 End: August 30, 2025 Dr. Hussein Alaniz MD Referring Provider Active Start: August 30, 2025 End: August 30, 2025 Dr. Cecille Smith MD Attending physician Active Start: August 30, 2025 End: August 30, 2025 Team Status: Inactive Member Role/Relationship Status Dates Dr. Hussein Alaniz MD Primary care physician Active Start: September 01, 2025 End: September 01, 2025 Dr. Hussein Alaniz MD Referring Provider Active Start: September 01, 2025 End: September 01, 2025 Dr. Cecille Smith MD Attending physician Active Start: September 01, 2025 End: September 01, 2025 INFORMATION SOURCE (unrecogn ized section and content) DATE CREATED AUTHOR 01/06/2025 [facility] DATE CREATED AUTHOR AUTHOR'S ORGANIZ ATION 08/27/2025 [facility] FOR RECORDS PERTAINING TO PATIENTS WHO [...] BE BASED ON THE PRIMARY CLINICAL RECORDS. [employer] provides no warranty or guarantee of the accuracy or completeness of information in this document.
--- NOTE | 2025-09-04 07:32 | MRI_ITS ---
PROCEDURE: BRAIN WITHOUT CONTRAST 09/04/2025 REASON FOR EXAM: WEAKNESS OF LEFT LEG TECHNIQUE: Procedure Code: MRIBR Modality: MR Procedure: BRAIN WITHOUT CONTRAST Multiplanar and multisequence images were obtained. FINDINGS: Focal encephalomalacia with adjacent FLAIR hyperintensity is noted in the watershed region of the right temporal occipital parietal area, compatible with an old infarction with adjacent gliosis. Additional small foci of FLAIR hyperintensity within the bilateral cerebral white matter are nonspecific but probably represent mild chronic microvascular ischemic changes. The midline structures are intact. The cerebellar tonsils are at the level of the foramen magnum. No hydrocephalus. Evidence of bilateral cataract surgery. The paranasal sinuses and mastoid air cells are clear. Diffusion-weighted images demonstrate no acute process. MRI/Brain without Contrast IMPRESSION: No acute intracranial MR abnormality. 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 Reading Location: [id number]
== END | disposition home or self-care (01) ==
LOC: MRI 06:56
PROVIDERS: PCP Family Medicine Geriatric Medicine; Referring Provider Family Medicine Geriatric Medicine; Visit Provider Family Medicine Geriatric Medicine
DX: R29.898 Other symptoms and signs involving the musculoskeletal system (principal)
CPT/HCPCS: 70551

== ENCOUNTER → 2025-10-27 | Outpatient (CLI) | payer MEDICARE, OTHER, SELFPAY ==
--- NOTE | 2025-10-27 08:45 | CT_ITS ---
PROCEDURE: CTA HEAD AND NECK W/ CONTRAST 10/27/2025 REASON FOR EXAM: SEVERE R ICA STENOSIS TECHNIQUE: Procedure Code: CTCTA.HDNCK Modality: CT Procedure: CTA HEAD AND NECK W/ CONTRAST Multidetector CT angiography of the head and neck with intravenous contrast was performed with multiplaner and maximum intensity projection (MIP) reconstructions. 3D reconstructions were obtained. Noncontrast CT of the head was obtained. CONTRAST: Isovue 370 VOLUME: 100 mL One or more dose reduction techniques were used (e.g., Automated exposure control, adjustment of the mA and/or kV according to patient size, use of iterative reconstruction technique). RADIATION DOSE SUMMARY: DLP: 1413.84 mGycm COMPARISON: None available. FINDINGS: CTA NECK: Standard three-vessel configuration of the aortic arch. The origins of the vessels arising from the aortic arch are patent without high-grade stenosis. Right carotid artery: The right common carotid artery is patent without high- grade stenosis. Calcified atherosclerotic plaque at the origin of the right cervical internal carotid artery contributes to approximately 70-75% focal stenosis. There is distal patency. Left carotid artery: The left common carotid artery is patent without high-grade stenosis. Atherosclerotic plaque at the origin of the left cervical internal carotid artery contributes to approximately 30-40% focal stenosis. The left cervical internal carotid artery is otherwise patent. Cervical vertebral arteries: The cervical vertebral arteries are patent without high-grade stenosis. Assessment for carotid stenosis is performed utilizing NASCET criteria. NASCET carotid stenosis criteria: 0% - none, 1-49% - mild, 50-69% - moderate, 70-89% - severe, 90-99% - critical. % ICA stenosis = (normal distal cervical ICA diameter - narrowest cervical ICA diameter / normal distal cervical ICA diameter) x 100. CTA Head: Scattered atherosclerotic calcification of the bilateral cavernous carotid arteries without significant luminal narrowing, [id number]. The petrous, cavernous, and intracranial internal carotid arteries are patent without high-grade stenosis. The proximal anterior cerebral arteries are patent without high-grade stenosis. Narrowing of the right M1 MCA. The proximal middle cerebral arteries are otherwise patent without high-grade stenosis. The intradural vertebral arteries are patent without high-grade stenosis. The basilar artery is patent without high-grade stenosis. Tortuous basilar artery. The proximal posterior cerebral arteries are patent without high-grade stenosis. 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 No dominant intracranial aneurysm or high flow arteriovenous malformation is identified. Ancillary findings: Cervical spondylosis. Thyroidectomy. CT Head: No acute hemorrhage. No acute infarct. 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 Patchy periventricular white matter hypodensities likely reflect chronic microvascular ischemic changes. No significant mass effect or brain herniation. No hydrocephalus. No extra-axial fluid collection. The basal cisterns are patent. The mastoid air cells are clear. The paranasal sinuses are predominantly clear. The calvarium appears intact. Hyperostosis frontalis. CT/CTA Head AND Neck W/ Contrast IMPRESSION: 1. Severe focal stenosis at the origin of the right internal carotid artery sec ondary to atherosclerotic plaque. 2. Mild focal stenosis of the origin of the left internal carotid artery second romeo to atherosclerotic plaque. 3. No acute intracranial findings. Reading Location: [id number]
[2025-10-27 09:12] LABS: CREATININE FINGERSTICK 1.2 mg/dL (0.55-1.02); EGFR FINGERSTICK 46.0000 mL/min (>60)
== END | disposition home or self-care (01) ==
PROVIDERS: PCP Family Medicine Geriatric Medicine; Referring Provider Physician Assistant; Visit Provider Physician Assistant
DX: I65.21 Occlusion and stenosis of right carotid artery (principal)
CPT/HCPCS: 70496; 70498; Q9967

== ENCOUNTER → 2025-11-01 | Outpatient (CLI) | payer MEDICARE, OTHER, SELFPAY ==
[2025-11-01 14:03] LABS: Hematocrit 37.2 % (37-47); Hemoglobin 12.2 g/dL (12.0-15.0); Immature Granulocytes Count 0.040 X10^3/uL (0.0-0.0); Mean Corp Hgb Conc 32.8 g/dL (32-36); Mean Corpuscular Volume 91.0 fL (81-99); Mean Platelet Vol. 8.9 fl (6.2-12.0); NRBC Flagged by Analyzer 0 % (0-5); Platelet Count 448 K/mm3 (150-450); RBC Distribution Width CV 14.6 % (11.6-14.6); RBC Distribution Width SD 49.0 fl (35.1-43.9); Red Blood Count 4.09 M/mm3 (4.2-5.4); White Blood Count 8.6 K/mm3 (4.4-11.0)
[2025-11-01 15:26] LABS: Vitamin D,25 Hydroxy 20.4 ng/mL (30-100)
[2025-11-01 15:27] LABS: AST(SGOT) 24 U/L (<=31); Alanine Aminotransfer ALT/SGPT 16 U/L (<=34); Albumin, Serum 4.1 g/dL (3.4-4.8); Alkaline Phosphatase 54 U/L (35-104); Anion Gap 15 (5-15); BUN 24 mg/dL (4-19); BUN/Creat Ratio 18.6 RATIO (10-20); Calcium,Total 9.5 mg/dL (7.6-11.0); Carbon Dioxide 24.2 mmol/L (21.0-32.0); Chloride 97 mmol/L (98-108); Globulin 3.0 g/dL (2.2-4.2); Glucose 118 mg/dL (70-99); Potassium 3.9 mmol/L (3.3-5.1)
[2025-11-01 21:27] LABS: Xtra Tube Kwok EXTRA TUBE
== END | disposition home or self-care (01) ==
LOC: POLAB3 13:24
PROVIDERS: PCP Family Medicine Geriatric Medicine; Visit Provider Family Medicine Geriatric Medicine
DX: I10 Essential (primary) hypertension (principal); E11.65 Type 2 diabetes mellitus with hyperglycemia; E03.9 Hypothyroidism, unspecified; E55.9 Vitamin D deficiency, unspecified
CPT/HCPCS: 36415; 80053; 82306; 84443; 85025